=== PATIENT | female | born 1955 | race Caucasian/White ===

== ENCOUNTER 2017-08-30 17:44 | Emergency (ER) | payer OTHER, SELFPAY ==
[2017-08-30 17:45] VITALS: BP 126/80; PULSE 106; RESP 16; TEMP 36.6; O2SAT 95; BMI 30.7
[2017-08-30 18:01] VITALS: BP 124/72; PULSE 98; RESP 16; O2SAT 94
--- NOTE | 2017-08-30 18:42 | RAD_ITS ---
STUDY: X-RAY CHEST REASON FOR EXAM: Female, 62 years old. Palpitation TECHNIQUE: Single frontal view COMPARISON: None. FINDINGS: The lungs are expanded. There is mild left basilar atelectasis. Normal size heart. Normal mediastinum and maggy. Normal visualized pulmonary arteries. Normal visualized aortic arch and descending thoracic aorta. Normal visualized thoracic spine. Normal visualized ribs, clavicles, and shoulders. There is no demonstrated abnormality of the visualized soft tissue structures of the upper abdomen. RAD/Chest 1 View (Portable) IMPRESSION: Mild left basilar atelectasis. Electronically Signed: Jeyson Smith DO at 19:04 EDT Tel [phone], Service support ,
--- NOTE | 2017-08-30 18:42 | EKG12_ITS ---
Test Reason : Blood Pressure : / mmHG Vent. Rate : 091 BPM Atrial Rate : 091 BPM P-R Int : 152 ms QRS Dur : 088 ms QT Int : 386 ms P-R-T Axes : 017 023 041 degrees QTc Int : 474 ms Normal sinus rhythm Normal ECG Confirmed by LAURA CRAIN MD ([id number]), material expeditor MIGUEL A KOLB ([id number] on 08/31/2017 2:37:57 PM Referred By: AUGUSTIN Confirmed By:LAURA CRAIN MD
[2017-08-30] MEDS: Ondansetron 4 MG/2 ML Vial IV (19:14)
[2017-08-30] MEDS: 0.9% Normal Saline 1,000 ML 150 ML IV (19:14)
[2017-08-30 19:43] LABS: Absolute Lymphocyte Count 1.63 X10^3/ul (0.83-4.51); Absolute Neutrophil Count 9.4 X10^3/uL (2.0-7.7); Basophil# 0.01 X10^3/uL; Basophil% 0.1 % (0-1); Hemoglobin 14.1 g/dl (12.0-15.0); Lymphocyte # 1.63 X10^3/ul (4.0); Lymphocyte % 13.7 % (19-41); Mean Corp Hgb Conc 34.4 g/gl (32-36); Mean Corpuscular Hgb 31.9 pg (27.0-32.0); Mean Corpuscular Volume 92.8 fL (81-99); Monocyte# 0.85 X10^3/uL; Monocyte% 7.1 % (0-10); Neutrophil # 9.38 X10^3/uL (2.7-7.7); Neutrophil % 78.8 % (47-70); Platelet Count 370 K/mm3 (150-450); RBC Distribution Width CV 13.9 % (11.6-14.6); RBC Distribution Width SD 47.1 fl (35.1-43.9); Red Blood Count 4.42 M/mm3 (4.2-5.4); White Blood Count 11.9 K/mm3 (4.4-11.0)
[2017-08-30 19:47] LABS: Prothrombin Time (Protime)PT. 13.2 SECONDS (11.7-14.9)
[2017-08-30 19:48] LABS: Partial Thromboplast Time 27.5 Seconds (24.1-36.2)
[2017-08-30 19:53] LABS: Bacteria 0 SEEN /hpf (None Seen); Mucous, Urine 0 SEEN /hpf (<or=2+)
[2017-08-30 20:01] LABS: AST(SGOT) 80 U/L (15-37); Alanine Aminotransfer ALT/SGPT 77 U/L (13-56); Albumin, Serum 3.7 g/dL (3.2-5.0); Alkaline Phosphatase 196 U/L (45-117); Anion Gap 15 (5-15); BUN 13 mg/dL (7-18); BUN/Creat Ratio 14.9 RATIO (10-20); Calcium,Total 8.4 mg/dL (8.5-10.1); Chloride 92 mmol/L (98-107); Creatinine, Serum 0.87 mg/dL (0.55-1.02); EST Glomerular Filtration Rate 70 mL/min (>60); Est Glom Filt Rate - Afr Amer 85 mL/min (>60); Estimated Creatinine Clearance 64.37 ml/min; Glucose 88 mg/dL (74-106); Potassium 3.1 mmol/L (3.5-5.1); Protein, Total 7.7 g/dL (6.4-8.2); Sodium Level 129 mmol/L (136-145)
[2017-08-30 20:10] VITALS: BP 123/71; PULSE 98; RESP 16; O2SAT 94
[2017-08-30 20:11] LABS: POSITIVE COUNT NO; POSITIVE DIFFERENTIAL NO; POSITIVE MORPHOLOGY NO
[2017-08-30 20:14] LABS: Color, Urine Yellow (Yellow); Glucose, Dipstick Normal (Normal); Ketone-Dipstick 5 mg/dl (Negative); Leukocyte Esterase-Dipstick 500 /ul (Negative); Nitrite-Dipstick Negative (Negative); Occult Blood-Urine 250 /ul (Negative); Protein-Dipstick 15 mg/dl (Negative); Urine Bilirubin Dipstick Negative (Negative); Urine Clarity Cloudy (Clear); Urine Urobilinogen Normal (Normal)
[2017-08-30 20:33] LABS: Hyaline Cast 0-5 SEEN /lpf (0-5); Red Blood Cells-Urine > 100 SEEN /hpf (0-5); Squamous Epithelial Cells - UA 0-5 SEEN /hpf (5-10); Transitional Epithelial - Ur 0-5 SEEN /hpf (0-5); White Blood Cells 5-10 SEEN /hpf (0-5)
--- NOTE | 2017-08-30 20:56 | ED.DCSUM_ITS ---
- ER Visit Summary Date of Service: 08/30/17 Chief Complaint: EtOH withdrawal/palpitations History of Present Illness: The patient is a 62 F with a history of alcoholism. Patient states for the last 2 months she started drinking again. She drinks 1 -2 bottles of vodka a day. Patient states the last 3 nights she has been having some palpitations that wake her from sleep. She states they last only a few seconds at a time. She denies near syncope. She does not have chest pain associated with this. Patient believes the palpitations are associated with alcohol withdrawal. She is trying to cut down on how much she is drinking. She is interested in [facility], but states that she needs to fill out appeal paperwork in order for her insurance to cover it first. Physical Examination: Vital signs are unremarkable. She is not tachycardic at this time. Head neck examination is unremarkable. Heart is regular rate and rhythm. Lung sounds are clear. Abdomen is soft and nontender. Hypoactive bowel sounds are noted throughout. Neuro exam is unremarkable. No tremor is noted. Test Results: Chest x-ray reveals mild left basilar atelectasis. EKG is sinus at 91 with no sign of ischemia. CBC was a white count 11.9 with 78% neutrophils. Chemistry studies are 129 and potassium is 3.1. The only labs I have available for comparison are from a year and a half ago at that time her sodium was in the low 130s and her potassium was 3.2. LFTs revealed alk phos of 196, ALT 77, AST of 80. Coags are normal. Urinalysis does show grade 100 RBCs. There is no sign of infection. Troponin is less than 0.02. Her EtOH is 135. Emergency Department Course and Treatment: Patient was given IV fluids and Zofran here. She was given 40 mEq of potassium. At this time patient has remained asymptomatic. She wishes to follow-up with [facility] as an outpatient tomorrow. I am unsure as to the etiology of her hematuria. Patient is having no abdominal pain. She states that she did urinate again while in the emergency room and did not note any blood. Patient is currently taking 20 mEq of potassium twice a day. She will increase this to 40 mEq in the morning and 20 in the evening. She will do this for the next 5 days and then have her potassium rechecked. Treatment Plan: [] Disposition: Discharge Impression: 1. Palpitations 2. Hypokalemia 3. EtOH intoxication 4. Hematuria, uncertain etiology This note was generated with [employer] dictation software. It may contain incorrect words, spelling, and punctuation that were not noted in review of the chart prior to signing ED Disposition - Plan for ED Patient: Disposition: Home or Assisted Living Chief Complaint: ETOH Intox Instructions: ED Potassium Deficiency, ED Palpitations, ED Alcohol Abuse Prescriptions: Ondansetron [Zofran Odt] 4 mg PO Q8H PRN PRN #10 tablet PRN Reason: Nausea Referrals: Care Physician,No Primary [Primary Care Provider] - Additional Instructions: Call [facility] tomorrow for an evaluation - [phone]. Increase your potassium to 2 tabs in the morning and 1 tab in the evening for the next 5 days , then have your potassium level rechecked.
--- NOTE | 2017-08-30 20:58 | DCINST.ED_ITS ---
ED Disposition - Plan for ED Patient: Disposition: Home or Assisted Living Chief Complaint: ETOH Intox Instructions: ED Palpitations, ED Potassium Deficiency, ED Alcohol Abuse Prescriptions: Ondansetron [Zofran Odt] 4 mg PO Q8H PRN PRN #10 tablet PRN Reason: Nausea Additional Instructions: Call [facility] tomorrow for an evaluation - [phone]. Increase your potassium to 2 tabs in the morning and 1 tab in the evening for the next 5 days , then have your potassium level rechecked.
[2017-08-30 21:12] VITALS: BP 123/77; PULSE 97; RESP 16; O2SAT 94
== END 2017-08-30 21:13 | disposition home or self-care (01) ==
PROVIDERS: Emergency Provider Emergency Medicine
DX: R00.2 Palpitations (principal); E87.6 Hypokalemia; F10.229 Alcohol dependence with intoxication, unspecified; Y90.6 Blood alcohol level of 120-199 mg/100 ml; R31.9 Hematuria, unspecified; J98.11 Atelectasis; I10 Essential (primary) hypertension; F41.9 Anxiety disorder, unspecified; F32.9 Major depressive disorder, single episode, unspecified
CPT/HCPCS: 71045; 80048; 80076; 80320; 81001; 84484; 85025; 85610; 85730; 93005; 96361; 96374; 99285; J7030; G0480; J2405

== ENCOUNTER 2017-09-08 08:42 | Inpatient (IN) | payer OTHER, SELFPAY ==
[2017-09-08] VITALS (10 sets, daily range): BP systolic 132–162; BP diastolic 79–96; PULSE 90–115; RESP 16–22; TEMP 36.6–37.2; O2SAT 95–97; BMI 30.4; BMI 31.1
--- NOTE | 2017-09-08 09:05 | EKG12_ITS ---
Test Reason : INTOXICATION Blood Pressure : / mmHG Vent. Rate : 102 BPM Atrial Rate : 102 BPM P-R Int : 172 ms QRS Dur : 086 ms QT Int : 350 ms P-R-T Axes : 057 025 033 degrees QTc Int : 456 ms Sinus tachycardia Otherwise normal ECG Confirmed by BREANN JIN, LAURA ([id number]), industrial editor MIGUEL A KOLB ([id number]) on 09/12/2017 8:21:54 AM Referred By: DC Confirmed By:LAURA CRAIN MD
--- NOTE | 2017-09-08 09:09 | ED.VISSUMM ---
- ER Visit Summary Date of Service: 09/08/17 Chief Complaint: Alcohol withdrawal History of Present Illness: The patient is a 62 F requesting detox from alcohol. She was seen previously and referred [facility] the [facility], but her insurance would not cover inpatient detox. She has been unable to find an inpatient detox facility. She complains of tremors, nausea, and vomiting. Consistent with prior alcohol withdrawal. She did drink this morning. She normally drinks 2 quarts of vodka per day and sometimes wine as well. Denies any drug use. Has a history of hypokalemia and tension. No suicidal or homicidal thoughts. Physical Examination: Vital signs unremarkable except for a heart rate of 113. Afebrile. Nontoxic and in no acute distress. Heart regular. Lungs clear. Abdomen soft and nontender. Skin appears normal in color. Patient has an intention tremor. Test Results: We will check some basic labs, EKG, tox, and alcohol. Emergency Department Course and Treatment: Patient has signs and symptoms of alcohol withdrawal. She says she has a history of DTs. Treated with fluids and Ativan while awaiting results. Potassium 3.0, alcohol 48, tox screen was positive for amphetamines, alk phos 236, ALT 78, AST 93. I spoke with social work. With the patient's tachycardia, tremors, and hypokalemia, she meets criteria for inpatient care. Claire from [facility] will see the patient tomorrow. I called the hospitalist for admission. Treatment Plan: As above Disposition: Admission Impression: 1. Alcohol withdrawal 2. Hypokalemia This note was generated with [employer] dictation software. It may contain incorrect words, spelling, and punctuation that were not noted in review of the chart prior to signing ED Disposition - Plan for ED Patient: Chief Complaint: ETOH Intox Referrals: Care Physician,No Primary [NON-STAFF] -
--- NOTE | 2017-09-08 09:14 | ED.DCSUM_ITS ---
- ER Visit Summary Date of Service: 09/08/17 Chief Complaint: Alcohol withdrawal History of Present Illness: The patient is a 62 F requesting detox from alcohol. She was seen previously and referred to [facility], but her insurance would not cover inpatient detox. She has been unable to find an inpatient detox facility. She complains of tremors, nausea, and vomiting. Consistent with prior alcohol withdrawal. She did drink this morning. She normally drinks 2 quarts of vodka per day and sometimes wine as well. Denies any drug use. Has a history of hypokalemia and tension. No suicidal or homicidal thoughts. Physical Examination: Vital signs unremarkable except for a heart rate of 113. Afebrile. Nontoxic and in no acute distress. Heart regular. Lungs clear. Abdomen soft and nontender. Skin appears normal in color. Patient has an intention tremor. Test Results: We will check some basic labs, EKG, tox, and alcohol. Emergency Department Course and Treatment: Patient has signs and symptoms of alcohol withdrawal. She says she has a history of DTs. Treated with fluids and Ativan while awaiting results. Potassium 3.0, alcohol 48, tox screen was positive for amphetamines, alk phos 236, ALT 78, AST 93. I spoke with social work. With the patient's tachycardia, tremors, and hypokalemia, she meets criteria for inpatient care. lCaire from [facility] will see the patient tomorrow. I called the hospitalist for admission. Treatment Plan: As above Disposition: Admission Impression: 1. Alcohol withdrawal 2. Hypokalemia This note was generated with [employer] dictation software. It may contain incorrect words, spelling, and punctuation that were not noted in review of the chart prior to signing ED Disposition - Plan for ED Patient: Chief Complaint: ETOH Intox Referrals: Care Physician,No Primary [NON-STAFF] -
[2017-09-08 09:31] LABS: Absolute Lymphocyte Count 1.41 X10^3/ul (0.83-4.51); Absolute Neutrophil Count 7.8 X10^3/uL (2.0-7.7); Basophil# 0.01 X10^3/uL; Basophil% 0.1 % (0-1); Hematocrit 39.2 % (37-47); Hemoglobin 13.5 g/dl (12.0-15.0); Lymphocyte # 1.41 X10^3/ul (4.0); Lymphocyte % 13.3 % (19-41); Mean Corp Hgb Conc 34.4 g/gl (32-36); Mean Corpuscular Hgb 31.9 pg (27.0-32.0); Mean Corpuscular Volume 92.7 fL (81-99); Mean Platelet Vol. 9.4 fl (6.2-12.0); Monocyte# 1.25 X10^3/uL; Monocyte% 11.8 % (0-10); Neutrophil # 7.83 X10^3/uL (2.7-7.7); Neutrophil % 73.6 % (47-70); Platelet Count 252 K/mm3 (150-450); RBC Distribution Width CV 13.5 % (11.6-14.6); RBC Distribution Width SD 45.3 fl (35.1-43.9); Red Blood Count 4.23 M/mm3 (4.2-5.4); White Blood Count 10.6 K/mm3 (4.4-11.0)
[2017-09-08 09:39] LABS: POSITIVE COUNT NO; POSITIVE DIFFERENTIAL NO; POSITIVE MORPHOLOGY NO
[2017-09-08 09:50] LABS: ALB/GLOB Ratio 0.9 RATIO (0.9-2.4); AST(SGOT) 93 U/L (15-37); Alanine Aminotransfer ALT/SGPT 78 U/L (13-56); Albumin, Serum 3.4 g/dL (3.2-5.0); Alkaline Phosphatase 236 U/L (45-117); Anion Gap 13 (5-15); BUN 8 mg/dL (7-18); BUN/Creat Ratio 12.3 RATIO (10-20); Calcium,Total 8.5 mg/dL (8.5-10.1); Chloride 96 mmol/L (98-107); Creatinine, Serum 0.65 mg/dL (0.55-1.02); EST Glomerular Filtration Rate 99 mL/min (>60); Est Glom Filt Rate - Afr Amer 119 mL/min (>60); Estimated Creatinine Clearance 86.16 ml/min; Globulin 3.9 g/dL (2.2-4.2); Glucose 109 mg/dL (74-106); Protein, Total 7.3 g/dL (6.4-8.2); Sodium Level 135 mmol/L (136-145)
[2017-09-08] MEDS: 0.9% Normal Saline 1,000 ML 999 ML IV (10:15)
[2017-09-08] MEDS: LORazepam 2 MG/ML Syringe 1 MG IV (10:15)
[2017-09-08 10:52] LABS: Amphetamine Urine VISTA NEGATIVE (<1000 ng/mL); Barbiturate Urine VISTA NEGATIVE (< 200 ng/mL); Benzodiazepine Urine VISTA NEGATIVE (< 200 ng/mL); Cocaine Urine VISTA NEGATIVE (< 300 ng/mL); Ecstacy Urine VISTA POSITIVE (< 500 ng/mL); Methadone Urine VISTA NEGATIVE (< 300 ng/mL); PCP Urine VISTA NEGATIVE (< 25 ng/mL); THC Urine VISTA NEGATIVE (< 50 ng/mL); Vista UDS pH Range 5
--- NOTE | 2017-09-08 12:17 | PCM.HP.STD ---
Problem List (1) Alcohol withdrawal Status: Acute (2) Alcohol use disorder Status: Acute History of Present Illness Date of Admission: 09/08/17 Chief Complaint: I am going through alcohol withdrawal The patient is a 62 year old F with medical history of essential hypertension and alcohol use disorder who presented to the emergency room complaining of symptom complex consistent with early alcohol withdrawal , she wants to quit drinking and was medical stabilization for full-blown alcohol withdrawal . She drinks Vodka on daily basis. She had wanted to come through [facility] program but her insurance would not cover. She states she woke up this morning restless , with tremors , diaphoresis and anxiety and she decided to drink some vodka before coming to the emergency room. In Emergency room he was found to be mildly tachycardic, his potassium was low at 3.0, and transaminases were elevated, she is not jaundiced, UDS is positive for methamphetamines When I saw her she was was alert and oriented to time place and person and she did not appear toxic, [ Past Medical History Allergies meperidine HCl [From Demerol] Allergy (Verified 08/30/17 17:47) HYPERTENSION phenobarbital Allergy (Verified 08/30/17 17:47) Other HYPERTENSION shellfish derived Allergy (Verified 08/30/17 17:47) Hives Home Medications: Ambulatory Orders Medication Instructions Recorded Amlodipine [Norvasc] 10 mg PO DAILY 12/29/15 buPROPion XL [Wellbutrin Xl] 300 mg PO DAILY 12/29/15 Potassium Chloride [K-Dur] 20 meq PO DAILY 02/09/16 Hydrochlorothiazide [Hctz] 25 mg PO DAILY 03/03/16 Irbesartan [Avapro] 150 mg PO DAILY 08/25/16 Ondansetron [Zofran Odt] 4 mg PO Q8H PRN PRN #10 tablet 08/30/17 Smoking Status: Never smoker VTE Information - Inpt Only VTE Present on Admission: Yes VTE Mechan Device Prophylaxis: SCD's VTE Pharm Prophylaxis ordered?: Yes - Physical Exam Vital Signs Temp Pulse Resp BP Pulse Ox 97.9 F 114 H 16 162/90 H 95 09/08/17 08:42 09/08/17 11:48 09/08/17 11:48 09/08/17 11:48 09/08/17 11:48 Oxygen Delivery Method Room Air Weight: 85.548 kg Body Mass Index (BMI) 30.4 Laboratory Tests Past 24 Hrs 09/08/17 09/08/17 09/08/17 09:21 09:21 09:21 WBC 10.6 RBC 4.23 Hgb 13.5 Hct 39.2 MCV 92.7 MCH 31.9 MCHC 34.4 RDW 13.5 RDW Differential 45.3 H Plt Count 252 MPV 9.4 Immature Gran % (Auto) 1.200 H Neut % (Auto) 73.6 H Lymph % (Auto) 13.3 L [place] % (Auto) 11.8 H Eos % (Auto) 0.0 Baso % (Auto) 0.1 Absolute Neuts (auto) 7.8 H Absolute Lymphs (auto) 1.41 Total Counted Not Reportable Sodium 135 L Potassium 3.0 L Chloride 96 L Carbon Dioxide 26.0 Anion Gap 13 BUN 8 Creatinine 0.65 Estim Creat Clear Calc 86.16 Est GFR (MDRD) Af Amer 119 Est GFR (MDRD) Non-Af 99 BUN/Creatinine Ratio 12.3 Glucose 109 H Calcium 8.5 Total Bilirubin 0.80 AST 93 H ALT 78 H Alkaline Phosphatase 236 H Total Protein 7.3 Albumin 3.4 Globulin 3.9 Albumin/Globulin Ratio 0.9 Urine Opiates Screen Urine Methadone Screen Ur Barbiturates Screen Ur Phencyclidine Scrn Ur Amphetamines Screen U Methamphetamin-MDMA U Benzodiazepines Scrn Urine Cocaine Screen U Cannabinoids Screen Ur Drug Screen Comment Ethyl Alcohol 48.0 09/08/17 10:17 WBC RBC Hgb Hct MCV MCH MCHC RDW RDW Differential Plt Count MPV Immature Gran % (Auto) Neut % (Auto) Lymph % (Auto) [place] % (Auto) Eos % (Auto) Baso % (Auto) Absolute Neuts (auto) Absolute Lymphs (auto) Total Counted Sodium Potassium Chloride Carbon Dioxide Anion Gap BUN Creatinine Estim Creat Clear Calc Est GFR (MDRD) Af Amer Est GFR (MDRD) Non-Af BUN/Creatinine Ratio Glucose Calcium Total Bilirubin AST ALT Alkaline Phosphatase Total Protein Albumin Globulin Albumin/Globulin Ratio Urine Opiates Screen NEGATIVE Urine Methadone Screen NEGATIVE Ur Barbiturates Screen NEGATIVE Ur Phencyclidine Scrn NEGATIVE Ur Amphetamines Screen NEGATIVE U Methamphetamin-MDMA POSITIVE H U Benzodiazepines Scrn NEGATIVE Urine Cocaine Screen NEGATIVE U Cannabinoids Screen NEGATIVE Ur Drug Screen Comment Ethyl Alcohol Assessment/Plan 1. Early alcohol withdrawal ; we will monitor her closely per SSA scale , she will will be placed on the medical stabilization protocol for alcohol withdrawal. 2. Alcohol use disorder; the patient is an excellent state of sedation would at least [facility] to assist with outpatient rehab program since her insurance will not cover this an an inpatient. 3. Hypokalemia; this will be replaced with oral potassium chloride. 4 Hepatitis; likely alcoholic but we will rule out viral hepatitis . We will avoid potential hepatotoxic agents. 5. Essential Hypertension; we will resume her home medications, hydrochlorothiazide will be held due to dehydration and mild hyponatremia. 6. Dehydration / mild hyponatremia the patient will be hydrated with 0.9 normal saline. 7. Early Ambulation for DVT prophylaxis. Code Visit Inpatient E&M: 78475 Init Hosp L2
[2017-09-08] MEDS: Lactated Ringers 1,000 ML 125 ML IV (13:12)
[2017-09-08] MEDS: LORazepam 1 MG Tablet PO ×3 (13:12→19:58)
[2017-09-08 13:55] LABS: Anion Gap 11 (5-15); BUN 7 mg/dL (7-18); Calcium,Total 8.1 mg/dL (8.5-10.1); Chloride 97 mmol/L (98-107); EST Glomerular Filtration Rate 91 mL/min (>60); Est Glom Filt Rate - Afr Amer 110 mL/min (>60); Estimated Creatinine Clearance 80.01 ml/min; Glucose 106 mg/dL (74-106); Sodium Level 136 mmol/L (136-145)
--- NOTE | 2017-09-08 13:55 | NURSING ---
ZOFRAN ODT VERIFIED WITH ANOTHER NURSE AND GVEN PO TO PT, ONLY MED ON AUG FOR NAUSEA AND IT IS NOT ACKNOWLEDGED PER rX YET
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
[2017-09-08] MEDS: Methocarbamol 750 MG Tablet PO (19:59)
[2017-09-09] VITALS (11 sets, daily range): BP systolic 126–154; BP diastolic 72–98; PULSE 87–116; RESP 16; TEMP 36.6–37.2; O2SAT 95–97
[2017-09-09] MEDS: LORazepam 1 MG Tablet PO ×5 (00:50→22:25)
[2017-09-09] MEDS: Ondansetron ODT 4 MG Tablet PO (00:50)
[2017-09-09 05:08] LABS: HEPATITIS B SURFACE AG Negative (Negative); Hepatitis A IgM Antibody Negative (Negative); Hepatitis B Core AB IgM Negative (Negative)
--- NOTE | 2017-09-09 06:32 | NURSING ---
voiding trial initiated at 0630. 250ml Normal saline injected into patient's bladder via braga catheter. Pt. then promptly assisted to bathroom. awaiting results. Patient has till 0700 to void and results to be called to surgeon.
[2017-09-09 08:29] LABS: AST(SGOT) 85 U/L (15-37); Alanine Aminotransfer ALT/SGPT 77 U/L (13-56); Albumin, Serum 3.2 g/dL (3.2-5.0); Alkaline Phosphatase 227 U/L (45-117); Bilirubin, Direct 0.26 mg/dL (0.00-0.30); Globulin 3.8 g/dL (2.2-4.2)
[2017-09-09] MEDS: Losartan Potassium 50 MG Tablet PO (08:56)
[2017-09-09] MEDS: Methocarbamol 750 MG Tablet PO ×2 (08:56→16:08)
[2017-09-09] MEDS: amLODIPine 10 MG Tablet PO (08:56)
[2017-09-09] MEDS: buPROPion (XL) 300 MG TABLET.XL PO (08:57)
[2017-09-09 09:20] LABS: Hep C Antibodies 0.1 s/co ratio (0.0-0.9)
--- NOTE | 2017-09-09 11:00 | PCM.PN.HOSP ---
Subjective: Patient Is a 62-year-old female with a past medical history of hypertension alcohol she is disorder. She was admitted to the emergency room and alcohol withdrawal and wanted to be admitted for medical stabilization for alcohol withdrawal. Patient states she is a binge drinker and drinks vodka on a daily basis but increases the amount she drinks about 1/5 of vodka and about 5 glasses of wine at a time whenever she is binge drinking. She had wanted to be admitted to the [facility] program but her insurance would not cover it. He is admitted with restlessness, tremors, diaphoresis and anxiety. She has been managed for alcohol withdrawal. She is on alcohol withdrawal protocol. Seen and examined this morning. She complains of mild lower back pain because she slipped and fell. She denied any loss of consciousness or dizziness at time of falling. She denies any fever or chills, any tremors, any lightheadedness or dizziness, any chest pain, any terminal pain, diarrhea vomiting. Review of systems otherwise negative. Patient states that she has outpatient resources for quitting alcohol and goes to Alcoholics Anonymous but does not usually follow up because she thinks she gets better and quits. Vitals/I&O's: Vital Signs Temp Pulse Resp BP Pulse Ox 98.0 F 102 H 16 141/86 H 95 09/09/17 08:51 09/09/17 08:51 09/09/17 08:51 09/09/17 08:51 09/09/17 08:49 Oxygen Delivery Method Room Air Weight: 192 lb 14.472 oz Body Mass Index (BMI) 31.1 Intake and Output for Last 24 Hours 09/07/17 09/08/17 09/09/17 23:59 23:59 23:59 Intake Total 753 / 753 1551 / 1551 Output Total 600 / 600 Balance 153 / 153 1551 / 1551 General: Alert, Oriented x3, Cooperative HEENT: Atraumatic, PERRLA, EOMI, Normocephalic Oral: Moist Mucosa Neck: Supple, No JVD, Negative Carotid Bruits Lungs: Clear to auscultation, Normal air movement Cardiovascular: Regular rate, Regular Rhythm, Normal S1, Normal S2, No murmurs Abdomen: Bowel Sounds Present, Soft, Non Tender, Non-Distended, No Hepato-splenomegaly Extremities: No cyanosis, No edema, Capillary Refill Less than 3 Seconds Skin: No rashes, No breakdown Musculoskeletal: No Tenderness to Palpation of Joints or Extremities, - - Tenderness at examination of lower back and flank though patient insists she has pain there. Lymphatic: No Cervical, Supraclavicular, or Inguinal Adenopathy Neurological: Cranial nerves II-XII grossly intact, Neuro grossly intact Psych/Mental Status: Normal Affect, Appropriate, Alert and oriented to time, place, person, mood and affect Laboratory Results 09/08/17 13:20: Sodium 136, Potassium 3.0 L, Chloride 97 L, Carbon Dioxide 28.0, Anion Gap 11, BUN 7, Creatinine 0.70, Estim Creat Clear Calc 80.01, Est GFR (MDRD) Af Amer 110, Est GFR (MDRD) Non-Af 91, BUN/Creatinine Ratio 10.0, Glucose 106, Calcium 8.1 L 09/08/17 13:20: Hepatitis A IgM Ab Negative, Hep Bs Antigen Negative, Hep B Core IgM Ab Negative, Hepatitis C Ab (EIA) 0.1 09/09/17 07:38: Total Bilirubin 0.80, Direct Bilirubin 0.26, AST 85 H, ALT 77 H, Alkaline Phosphatase 227 H, Total Protein 7.0, Albumin 3.2, Globulin 3.8 Current Medications Amlodipine Besylate (Norvasc) 10 mg PO DAILY [facility] Last Admin: 09/09/17 08:56 Dose: 10 mg Bupropion HCl (Wellbutrin Xl) 300 mg PO DAILY [facility] Last Admin: 09/09/17 08:57 Dose: 300 mg Lorazepam (Ativan) 1 mg PO Q6H SAMIR PRN Reason: Taper Stop: 09/11/17 16:44 Last Admin: 09/09/17 08:55 Dose: 1 mg Lorazepam (Ativan) 1 mg IV Q2H PRN PRN PRN Reason: Alcohol Withdrawal Losartan Potassium (Cozaar) 50 mg PO DAILY [facility] Last Admin: 09/09/17 08:56 Dose: 50 mg Methocarbamol (Methocarbamol) 750 mg PO Q6H PRN PRN PRN Reason: Muscle Aches Last Admin: 09/09/17 08:56 Dose: 750 mg Ondansetron HCl (Zofran Odt) 4 mg PO Q8H PRN PRN PRN Reason: NAUSEA Last Admin: 09/09/17 00:50 Dose: 4 mg Potassium Chloride (K-Dur) 20 meq PO DAILY SAMIR Last Admin: 09/09/17 08:56 Dose: 20 meq Sodium Chloride () 5 - 30 ml IV UD PRN PRN Reason: SALINE FLUSH Medical Necessity - Tobacco Use Smoking Status: Never smoker Assessment/Plan Alcohol abuse and withdrawal Patient has no complaints. Feels very well and is stable. On alcohol withdrawal protocol with Ativan. CIWA score today-4 encouraged to follow up with outpatient AA which she already attends. 2. Hypokalemia: K was 3 on admission. Was replaced. Will check K and Mg today. 3. Elevated transaminases: AST/ALT was 93/78 on admission, trended down slightly to 85/77. Will check today. AlP was 236->227. this is likely due to alcohol; will check LFTs today and check hepatitis panel. 4. Back pain: patient says she has lower back pain after she fell. Had minimal tenderness on examination. Xray done of her back this morning shows superior endplate depression fractures at L2-1, with loss of vertebral body height at L2 of ~ 15%, and at L1 anteriorly of ~ 40%. Degenerative disc disease at T12-L1, L1-2 and L2-3 suggesting chronicity. Mild levoscoliosis of thoracolumbar region,and arthritic changes of left hip. Will get orthopedic surgery consult. 5. Benign essential hypertension: on amlodipine and losartan 6. Hyponatremia; resolved. Was 135 on admission ->136->139. Will monitor 7. DVT prophylaxis: heparin. This note was generated with [employer] dictation software. It may contain incorrect words, spelling, and punctuation that were not noted in checking the note before signing. Code Visit OBSV E&M: 97053 Initial observation care L2
--- NOTE | 2017-09-09 11:09 | PN_ITS ---
Subjective: Patient Is a 62-year-old female with a past medical history of hypertension alcohol she is disorder. She was admitted to the emergency room and alcohol withdrawal and wanted to be admitted for medical stabilization for alcohol withdrawal. Patient states she is a binge drinker and drinks vodka on a daily basis but increases the amount she drinks about 1/5 of vodka and about 5 glasses of wine at a time whenever she is binge drinking. She had wanted to be admitted to the [facility] but her insurance would not cover it. He is admitted with restlessness, tremors, diaphoresis and anxiety. She has been managed for alcohol withdrawal. She is on alcohol withdrawal protocol. Seen and examined this morning. She complains of mild lower back pain because she slipped and fell. She denied any loss of consciousness or dizziness at time of falling. She denies any fever or chills, any tremors, any lightheadedness or dizziness, any chest pain, any terminal pain, diarrhea vomiting. Review of systems otherwise negative. Patient states that she has outpatient resources for quitting alcohol and goes to Alcoholics Anonymous but does not usually follow up because she thinks she gets better and quits. Vitals/I&O's: Vital Signs Temp Pulse Resp BP Pulse Ox 98.0 F 102 H 16 141/86 H 95 09/09/17 08:51 09/09/17 08:51 09/09/17 08:51 09/09/17 08:51 09/09/17 08:49 Oxygen Delivery Method Room Air Weight: 192 lb 14.472 oz Body Mass Index (BMI) 31.1 Intake and Output for Last 24 Hours 09/07/17 09/08/17 09/09/17 23:59 23:59 23:59 Intake Total 753 / 753 1551 / 1551 Output Total 600 / 600 Balance 153 / 153 1551 / 1551 General: Alert, Oriented x3, Cooperative HEENT: Atraumatic, PERRLA, EOMI, Normocephalic Oral: Moist Mucosa Neck: Supple, No JVD, Negative Carotid Bruits Lungs: Clear to auscultation, Normal air movement Cardiovascular: Regular rate, Regular Rhythm, Normal S1, Normal S2, No murmurs Abdomen: Bowel Sounds Present, Soft, Non Tender, Non-Distended, No Hepato- splenomegaly Extremities: No cyanosis, No edema, Capillary Refill Less than 3 Seconds Skin: No rashes, No breakdown Musculoskeletal: No Tenderness to Palpation of Joints or Extremities, - - Tenderness at examination of lower back and flank though patient insists she has pain there. Lymphatic: No Cervical, Supraclavicular, or Inguinal Adenopathy Neurological: Cranial nerves II-XII grossly intact, Neuro grossly intact Psych/Mental Status: Normal Affect, Appropriate, Alert and oriented to time, place, person, mood and affect Laboratory Results 09/08/17 13:20: Sodium 136, Potassium 3.0 L, Chloride 97 L, Carbon Dioxide 28.0 , Anion Gap 11, BUN 7, Creatinine 0.70, Estim Creat Clear Calc 80.01, Est GFR ( MDRD) Af Amer 110, Est GFR (MDRD) Non-Af 91, BUN/Creatinine Ratio 10.0, Glucose 106, Calcium 8.1 L 09/08/17 13:20: Hepatitis A IgM Ab Negative, Hep Bs Antigen Negative, Hep B Core IgM Ab Negative, Hepatitis C Ab (EIA) 0.1 09/09/17 07:38: Total Bilirubin 0.80, Direct Bilirubin 0.26, AST 85 H, ALT 77 H , Alkaline Phosphatase 227 H, Total Protein 7.0, Albumin 3.2, Globulin 3.8 Current Medications Amlodipine Besylate (Norvasc) 10 mg PO DAILY [facility] Last Admin: 09/09/17 08:56 Dose: 10 mg Bupropion HCl (Wellbutrin Xl) 300 mg PO DAILY [facility] Last Admin: 09/09/17 08:57 Dose: 300 mg Lorazepam (Ativan) 1 mg PO Q6H [facility] PRN Reason: Taper Stop: 09/11/17 16:44 Last Admin: 09/09/17 08:55 Dose: 1 mg Lorazepam (Ativan) 1 mg IV Q2H PRN PRN PRN Reason: Alcohol Withdrawal Losartan Potassium (Cozaar) 50 mg PO DAILY [facility] Last Admin: 09/09/17 08:56 Dose: 50 mg Methocarbamol (Methocarbamol) 750 mg PO Q6H PRN PRN PRN Reason: Muscle Aches Last Admin: 09/09/17 08:56 Dose: 750 mg Ondansetron HCl (Zofran Odt) 4 mg PO Q8H PRN PRN PRN Reason: NAUSEA Last Admin: 09/09/17 00:50 Dose: 4 mg Potassium Chloride (K-Dur) 20 meq PO DAILY [facility] Last Admin: 09/09/17 08:56 Dose: 20 meq Sodium Chloride () 5 - 30 ml IV UD PRN PRN Reason: SALINE FLUSH Medical Necessity - Tobacco Use Smoking Status: Never smoker Assessment/Plan Alcohol abuse and withdrawal * Patient has no complaints. Feels very well and is stable. * On alcohol withdrawal protocol with Ativan. * CIWA score today-4 * encouraged to follow up with outpatient AA which she already attends. * 2. Hypokalemia: K was 3 on admission. Was replaced. Will check K and Mg today. 3. Elevated transaminases: AST/ALT was 93/78 on admission, trended down slightly to 85/77. Will check today. AlP was 236->227. this is likely due to alcohol; will check LFTs today and check hepatitis panel. 4. Back pain: * patient says she has lower back pain after she fell. Had minimal tenderness on examination. Xray done of her back this morning shows superior endplate depression fractures at L2-1, with loss of vertebral body height at L2 of ~ 15% , and at L1 anteriorly of ~ 40%. Degenerative disc disease at T12-L1, L1-2 and L2-3 suggesting chronicity. Mild levoscoliosis of thoracolumbar region,and arthritic changes of left hip. * Will get orthopedic surgery consult. 5. Benign essential hypertension: on amlodipine and losartan 6. Hyponatremia; resolved. Was 135 on admission ->136->139. Will monitor 7. DVT prophylaxis: heparin. This note was generated with [employer] dictation software. It may contain incorrect words, spelling, and punctuation that were not noted in checking the note before signing. Code Visit OBSV E&M: 40374 Initial observation care L2
--- NOTE | 2017-09-09 11:12 | RAD_ITS ---
STUDY: X-RAY - LUMBAR SPINE REASON FOR EXAM: Female, 62 years old. Pain TECHNIQUE: 3 view(s) of the lumbar spine were obtained. COMPARISON: None FINDINGS: There is superior endplate depression fractures at L2 and L1. There is loss of vertebral body height at L2 of approximately 15%. There is loss of vertebral body height anteriorly at L1 of approximately 40%. There is degenerative disc disease at T12-L1, L1-L2 and L2-L3, suggesting chronicity. There is no osseous destruction. There is mild levoscoliosis of the thoracolumbar region. There are arthritic changes at the left hip. The SI joints are intact. RAD/Lumbar Spine 2 or 3 Views IMPRESSION: Superior endplate depression fracture deformities, L1, L2 Degenerative disc disease, T12-L1, L1-L2, L2-L3 Mild levoscoliosis at the thoracolumbar region Arthritic changes at the left hip Electronically Signed: Tacos Saenz MD at 11:54 EDT Tel , Service support ,
[2017-09-09 13:08] LABS: Anion Gap 9 (5-15); BUN 7 mg/dL (7-18); BUN/Creat Ratio 8.6 RATIO (10-20); Calcium,Total 8.5 mg/dL (8.5-10.1); Chloride 102 mmol/L (98-107); Creatinine, Serum 0.82 mg/dL (0.55-1.02); EST Glomerular Filtration Rate 76 mL/min (>60); Est Glom Filt Rate - Afr Amer 92 mL/min (>60); Glucose 119 mg/dL (74-106); Magnesium 2.1 mg/dL (1.6-2.6); Potassium 3.4 mmol/L (3.5-5.1); Sodium Level 139 mmol/L (136-145)
[2017-09-09] MEDS: Sodium Chloride 0.65% 1 SPRAY SPRAY.BTL 2 SPRAY NASAL (16:08)
[2017-09-09] MEDS: Mag Hydrox/Al Hydrox/Simeth 30 ML UDC PO (22:25)
[2017-09-09] MEDS: Ibuprofen 600 MG Tablet PO (22:25)
[2017-09-10 02:00] VITALS: BP 145/91; PULSE 88; RESP 16; TEMP 36.9; O2SAT 96
[2017-09-10] MEDS: LORazepam 1 MG Tablet PO ×2 (02:47→08:53)
[2017-09-10 03:00] VITALS: PULSE 90
[2017-09-10 06:00] VITALS: BP 134/75; PULSE 91; RESP 16; TEMP 37.1; O2SAT 94
[2017-09-10 06:44] LABS: AST(SGOT) 57 U/L (15-37); Alanine Aminotransfer ALT/SGPT 64 U/L (13-56); Alkaline Phosphatase 198 U/L (45-117); Anion Gap 9 (5-15); BUN 6 mg/dL (7-18); Bilirubin, Direct 0.22 mg/dL (0.00-0.30); Calcium,Total 8.4 mg/dL (8.5-10.1); Chloride 101 mmol/L (98-107); Creatinine, Serum 0.75 mg/dL (0.55-1.02); EST Glomerular Filtration Rate 84 mL/min (>60); Est Glom Filt Rate - Afr Amer 102 mL/min (>60); Estimated Creatinine Clearance 74.67 ml/min; Globulin 3.5 g/dL (2.2-4.2); Glucose 104 mg/dL (74-106); Magnesium 2.3 mg/dL (1.6-2.6); Potassium 3.8 mmol/L (3.5-5.1); Protein, Total 6.5 g/dL (6.4-8.2); Sodium Level 138 mmol/L (136-145)
--- NOTE | 2017-09-10 07:24 | CON.PCM_ITS ---
Reason for Consult Date of Consultation: 09/10/17 Reason for Consultation: back pain/ fall. requested by dr Mehta History of Present Illness: The patient is a 62 year old F with history of chronic alcohol abuse presented to the emergency department yesterday for alcohol withdrawal. She was admitted to the hospital. She stated she fell couple days ago sustaining increased pain in her low back. Patient does have a history of lumbar back injury with compression fractures 10 years ago. Patient reports the pain is upper lumbar spine. It is worse with positioning better with heat pad and laying flat on her back. She states she does have some numbness and tingling in all 10 toes no specific distribution. She takes calcium and a mixed vitamin D supplement on a regular basis. She denies any weakness. It is a dull achy pain. She also reports a fall she hit her left knee does not note any difficulties with weightbearing since that time. No reported bowel or bladder habit changes. Patient has been afebrile. No chills or night sweats Past Medical History Allergies meperidine HCl [From Demerol] Allergy (Verified 08/30/17 17:47) HYPERTENSION phenobarbital Allergy (Verified 08/30/17 17:47) Other HYPERTENSION shellfish derived Allergy (Verified 08/30/17 17:47) Hives Home Medications: Ambulatory Orders Medication Instructions Recorded Amlodipine [Norvasc] 10 mg PO DAILY 12/29/15 buPROPion XL [Wellbutrin Xl] 300 mg PO DAILY 12/29/15 Potassium Chloride [K-Dur] 20 meq PO DAILY 02/09/16 Hydrochlorothiazide [Hctz] 25 mg PO DAILY 03/03/16 Irbesartan [Avapro] 150 mg PO DAILY 08/25/16 Ondansetron [Zofran Odt] 4 mg PO Q8H PRN PRN #10 tablet 08/30/17 Surgical History: - - No pertinent surgical history Psychiatric History: - - Alcohol dependence Lives: Alone Smoking Status: Never smoker Tobacco Use: Non-smoker Alcohol: Heavy Drugs: - - mdma blood testing Review of Systems Constitutional: Denies: Chills, Fever, Weight Change HEENT: Denies: Head Aches, Sinus Congestion, Sinus Drainage Cardiovascular: Denies: Chest Pain, Palpitations Respiratory: Denies: Cough, Shortness of breath at rest, Sputum production Gastrointestinal: Denies: Abdominal Pain, Nausea, Vomiting Genitourinary: Denies: Dysuria Musculoskeletal: Reports: - - see hpi Skin: Denies: Rash, Wounds Neurological: Reports: Numbness - Also in toes. Denies: Focal weakness, Tingling Psychiatric: Denies: Anxiety, Depression, Homicidal Ideations, Suicidal Ideations Hematologic/ Lymphatic: Denies: Easy Bruising, Easy Bleeding Objective: Lumbar radiographs AP, lateral and coned-down lateral views were reviewed showing L1 and L2 compression fractures L1 30-40% L2 less than 20% anterior compression. These were compared to rib radiographs taken in May 2016 these old radiographs also show L1 and L2 compression fractures. Do not appreciate significant changes in bony structure. Consistent with old healed compression fractures at this time. - Physical Exam General: Alert, Oriented x3, Cooperative Extremities: - - Lumbar exam: Minimal tenderness to palpation over the central spine and spinous processes. Moderate tenderness palpation over the paraspinal musculature and flank especially on the right in the upper lumbar regions. Negative straight leg raise bilaterally. 5 out of 5 hip flexion, knee extension , dorsiflexion, EHL and plantar flexion strength. Sensations grossly intact light touch L2-S1. Vital Signs Temp Pulse Resp BP Pulse Ox 98.7 F 91 16 134/75 H 94 09/10/17 06:00 09/10/17 06:00 09/10/17 06:00 09/10/17 06:00 09/10/17 06:00 Oxygen Delivery Method Room Air Weight: 192 lb 14.472 oz Body Mass Index (BMI) 31.1 Intake and Output for Last 24 Hours 09/08/17 09/09/17 09/10/17 23:59 23:59 23:59 Intake Total 753 / 753 1950 1100 / 1100 Output Total 600 / 600 Balance 153 / 153 1950 1100 / 1100 Laboratory Tests Past 24 Hrs 09/08/17 09/09/17 09/09/17 13:20 07:38 12:25 Sodium 139 Potassium 3.4 L Chloride 102 Carbon Dioxide 28.0 Anion Gap 9 BUN 7 Creatinine 0.82 Estim Creat Clear Calc 68.30 Est GFR (MDRD) Af Amer 92 Est GFR (MDRD) Non-Af 76 BUN/Creatinine Ratio 8.6 L Glucose 119 H Calcium 8.5 Magnesium 2.1 Total Bilirubin 0.80 Direct Bilirubin 0.26 AST 85 H ALT 77 H Alkaline Phosphatase 227 H Total Protein 7.0 Albumin 3.2 Globulin 3.8 Hepatitis A IgM Ab Negative Hepatitis A Ab Total Hepatitis A Interp Hep Bs Antigen Negative Hep Bs Ag Confirmation Hep Bs Antibody Interp Hep B Core Total Ab Hep B Core IgM Ab Negative Hepatitis C Ab (EIA) 0.1 Hepatitis C Ab Confirm Hepatitis C Comment 09/09/17 09/10/17 12:25 05:55 Sodium 138 Potassium 3.8 Chloride 101 Carbon Dioxide 28.0 Anion Gap 9 BUN 6 L Creatinine 0.75 Estim Creat Clear Calc 74.67 Est GFR (MDRD) Af Amer 102 Est GFR (MDRD) Non-Af 84 BUN/Creatinine Ratio 8.0 L Glucose 104 Calcium 8.4 L Magnesium 2.3 Total Bilirubin 0.70 Direct Bilirubin 0.22 AST 57 H ALT 64 H Alkaline Phosphatase 198 H Total Protein 6.5 Albumin 3.0 L Globulin 3.5 Hepatitis A IgM Ab Cancelled Hepatitis A Ab Total Cancelled Hepatitis A Interp Cancelled Hep Bs Antigen Cancelled Hep Bs Ag Confirmation Cancelled Hep Bs Antibody Interp Cancelled Hep B Core Total Ab Cancelled Hep B Core IgM Ab Cancelled Hepatitis C Ab (EIA) Hepatitis C Ab Confirm Cancelled Hepatitis C Comment Cancelled Assessment/Plan Acute lumbar strain with presence of chronic compression fractures without acute changes and bony structure. Paresthesias 1. Pain management per primary service appears well controlled at this time. Continue with heat as needed. Chairback brace was recommended due to the level of pain. Recommend use of nonsteroidal anti-inflammatories, kidney function appears appropriate. Possible Toradol followed by scheduled Mobic. 2. Physical therapy: Patient should be started on physical therapy for lumbar strain and continue with physical therapy as an outpatient after being discharged from the hospital. 3. Disposition: From orthopedic standpoint patient is appropriate for discharge from the hospital with outpatient physical therapy. If discharge to an inpatient facility for her other medical conditions will continue physical therapy. Recommend follow-up in office in 6 weeks to evaluate progress with physical therapy. [facility] Office:
[2017-09-10 08:40] VITALS: BP 149/88; PULSE 90; RESP 18; TEMP 36.9; O2SAT 100
[2017-09-10] MEDS: amLODIPine 10 MG Tablet PO (08:52)
[2017-09-10] MEDS: buPROPion (XL) 300 MG TABLET.XL PO (08:52)
[2017-09-10] MEDS: Losartan Potassium 50 MG Tablet PO (08:53)
[2017-09-10] MEDS: Thiamine Hydrochloride 100 MG Tablet PO (08:53)
[2017-09-10] MEDS: Folic Acid 1 MG Tablet PO (08:53)
[2017-09-10] MEDS: Multivitamins,Ther W-Minerals Tablet 1 TABLET PO (08:53)
[2017-09-10 10:00] VITALS: BP 149/88; PULSE 90; RESP 18; TEMP 36.9
--- NOTE | 2017-09-10 11:31 | PCM.PN.HOSP ---
Subjective: Subjective: Patient Is a 62-year-old female with a past medical history of hypertension alcohol use disorder. She was admitted to the emergency room for alcohol withdrawal and wanted to be admitted for medical stabilization for alcohol withdrawal. She is on alcohol withdrawal protocol with ativan. Patient seen and examined this morning. She had no complaints and feels well. Also concern about erythema of her right conjunctiva yesterday but patient states this is not new and she has it when she rubs her eyes. She wonders why seem to help with this redness. She denies any discharge or any pain in the affected eye. Back pain is also significantly improved and she has no other complaints. She denies any fever or chills, any cough chest pain, any shortness of breath, any abdominal pain, any diarrhea vomiting. Review of systems otherwise negative. Vitals/I&O's: Vital Signs Temp Pulse Resp BP Pulse Ox 98.5 F 90 18 149/88 H 100 09/10/17 08:40 09/10/17 08:40 09/10/17 08:40 09/10/17 08:40 09/10/17 08:40 Oxygen Delivery Method Room Air Weight: 192 lb 14.472 oz Body Mass Index (BMI) 31.1 Intake and Output for Last 24 Hours 09/08/17 09/09/17 09/10/17 23:59 23:59 23:59 Intake Total 753 / 753 1950 1100 / 1100 Output Total 600 / 600 Balance 153 / 153 1950 1100 / 1100 General: Alert, Oriented x3, Cooperative HEENT: Atraumatic, PERRLA, EOMI, Normocephalic, - - very minimal erythema of right conjuctiva. No swelling or tenderness. Oral: Moist Mucosa Neck: Supple, No JVD, Negative Carotid Bruits Lungs: Clear to auscultation, Normal air movement Cardiovascular: Regular rate, Regular Rhythm, Normal S1, Normal S2, No murmurs Abdomen: Bowel Sounds Present, Soft, Non Tender, Non-Distended, No Hepato-splenomegaly Extremities: No edema, Capillary Refill Less than 3 Seconds Skin: No rashes, No breakdown Musculoskeletal: No Tenderness to Palpation of Joints or Extremities, - - no tenderness on palpation of back Lymphatic: No Cervical, Supraclavicular, or Inguinal Adenopathy Neurological: Cranial nerves II-XII grossly intact, Neuro grossly intact, Motor Exam 5/5 strength throughout Psych/Mental Status: Normal Affect, Appropriate, Alert and oriented to time, place, person, mood and affect Laboratory Results 09/09/17 12:25: Sodium 139, Potassium 3.4 L, Chloride 102, Carbon Dioxide 28.0, Anion Gap 9, BUN 7, Creatinine 0.82, Estim Creat Clear Calc 68.30, Est GFR (MDRD) Af Amer 92, Est GFR (MDRD) Non-Af 76, BUN/Creatinine Ratio 8.6 L, Glucose 119 H, Calcium 8.5, Magnesium 2.1 09/09/17 12:25: Hepatitis A IgM Ab Cancelled, Hepatitis A Ab Total Cancelled, Hepatitis A Interp Cancelled, Hep Bs Antigen Cancelled, Hep Bs Ag Confirmation Cancelled, Hep Bs Antibody Interp Cancelled, Hep B Core Total Ab Cancelled, Hep B Core IgM Ab Cancelled, Hepatitis C Ab Confirm Cancelled, Hepatitis C Comment Cancelled 09/10/17 05:55: Sodium 138, Potassium 3.8, Chloride 101, Carbon Dioxide 28.0, Anion Gap 9, BUN 6 L, Creatinine 0.75, Estim Creat Clear Calc 74.67, Est GFR (MDRD) Af Amer 102, Est GFR (MDRD) Non-Af 84, BUN/Creatinine Ratio 8.0 L, Glucose 104, Calcium 8.4 L, Magnesium 2.3, Total Bilirubin 0.70, Direct Bilirubin 0.22, AST 57 H, ALT 64 H, Alkaline Phosphatase 198 H, Total Protein 6.5, Albumin 3.0 L, Globulin 3.5 Current Medications Acetaminophen (Tylenol) 500 mg PO Q4H PRN PRN PRN Reason: Temp > 100.4 F Al Hydroxide/Mg Hydroxide (Mylanta Ii) 30 ml PO Q6H PRN PRN PRN Reason: dyspesia Last Admin: 09/09/17 22:25 Dose: 30 ml Amlodipine Besylate (Norvasc) 10 mg PO DAILY [facility] Last Admin: 09/10/17 08:52 Dose: 10 mg Bisacodyl (Dulcolax) 10 mg RECTAL DAILY PRN PRN Reason: Constipation Bupropion HCl (Wellbutrin Xl) 300 mg PO DAILY [facility] Last Admin: 09/10/17 08:52 Dose: 300 mg Dicyclomine HCl (Bentyl) 20 mg PO Q6H PRN PRN PRN Reason: abdominal discomfort Folic Acid (Folic Acid) 1 mg PO DAILY@0800 [facility] Last Admin: 09/10/17 08:53 Dose: 1 mg Hydroxyzine Pamoate (Vistaril Pamoate Capsule) 50 mg PO Q6H PRN PRN PRN Reason: Mild Anxiety (score 1/3) Ibuprofen (Motrin) 600 mg PO Q8H PRN PRN PRN Reason: Mild-Moderate Pain (1-5/10) Last Admin: 09/09/17 22:25 Dose: 600 mg Loperamide HCl (Imodium) 2 - 4 mg PO UD PRN PRN Reason: LOOSE STOOLS Lorazepam (Ativan) 1 mg PO Q8H [facility] PRN Reason: Taper Stop: 09/11/17 16:44 Last Admin: 09/10/17 08:53 Dose: 1 mg Lorazepam (Ativan) 1 mg IV Q2H PRN PRN PRN Reason: Alcohol Withdrawal Losartan Potassium (Cozaar) 50 mg PO DAILY [facility] Last Admin: 09/10/17 08:53 Dose: 50 mg Methocarbamol (Methocarbamol) 750 mg PO Q6H PRN PRN PRN Reason: Muscle Aches Last Admin: 09/09/17 16:08 Dose: 750 mg [facility]ivitamins/Minerals ([facility] Min[facility]) [facility] Last Admin: 09/10/17 08:53 Dose: 1 tablet Ondansetron HCl (Zofran Odt) 4 mg PO Q8H PRN PRN PRN Reason: NAUSEA Last Admin: 09/09/17 00:50 Dose: 4 mg Potassium Chloride (K-Dur) 20 meq PO DAILY [facility] Last Admin: 09/10/17 08:53 Dose: 20 meq Pramipexole Dihydrochloride (Mirapex) 0.25 mg PO Q12H PRN PRN PRN Reason: Restless legs Quetiapine Fumarate (Seroquel) 25 mg PO Q6H PRN PRN PRN Reason: Moderate Anxiety (score 2/3) Senna (Senokot) 1 tablet PO QHS PRN PRN Reason: Constipation Sodium Chloride () 5 - 30 ml IV UD PRN PRN Reason: SALINE FLUSH Sodium Chloride (Drew Nasal Hughson) 2 spray NASAL TID PRN PRN PRN Reason: NASAL DRYNESS Last Admin: 09/09/17 16:08 Dose: 2 spray Thiamine HCl (Vitamin B1) 100 mg PO DAILYCM [facility] Last Admin: 09/10/17 08:53 Dose: 100 mg Trazodone HCl (Desyrel) 50 mg PO QHS [facility] Last Admin: 09/09/17 22:18 Dose: Not Given Medical Necessity - Tobacco Use Smoking Status: Never smoker Tobacco Use: Non-smoker Assessment/Plan Alcohol abuse and withdrawal Patient has no complaints. Feels very well and is stable. On alcohol withdrawal protocol with Ativan. CIWA score today-1 encouraged to follow up with outpatient AA which she already attends. telephonic nurse case manager to set patient up with outpatient resources for alcohol detox. 2. Hypokalemia: resolved. 3. Elevated transaminases: resolved. Hepatitis panel was also negative. 4. Back pain: patient says she has lower back pain after she fell. Had minimal tenderness on examination. Xray done of her back showed superior endplate depression fractures at L2-1, with loss of vertebral body height at L2 of ~ 15%, and at L1 anteriorly of ~ 40%. Degenerative disc disease at T12-L1, L1-2 and L2-3 suggesting chronicity. Mild levoscoliosis of thoracolumbar region,and arthritic changes of left hip. orthopedic surgery consulted. [facility] and to follow up in 6 weeks. 5. Benign essential hypertension: BP-149/88. on amlodipine and losartan 7. DVT prophylaxis: heparin. Disposition: will dc home today with outpatient physical therapy. To follow up in 6 weeks. This note was generated with [employer] dictation software. It may contain incorrect words, spelling, and punctuation that were not noted in checking the note before signing. Code Visit Inpatient E&M: 94881 Subs Hosp L2
--- NOTE | 2017-09-10 11:40 | PN_ITS ---
Subjective: Subjective: Patient Is a 62-year-old female with a past medical history of hypertension alcohol use disorder. She was admitted to the emergency room for alcohol withdrawal and wanted to be admitted for medical stabilization for alcohol withdrawal. She is on alcohol withdrawal protocol with ativan. Patient seen and examined this morning. She had no complaints and feels well. Also concern about erythema of her right conjunctiva yesterday but patient states this is not new and she has it when she rubs her eyes. She wonders why seem to help with this redness. She denies any discharge or any pain in the affected eye. Back pain is also significantly improved and she has no other complaints. She denies any fever or chills, any cough chest pain, any shortness of breath, any abdominal pain, any diarrhea vomiting. Review of systems otherwise negative. Vitals/I&O's: Vital Signs Temp Pulse Resp BP Pulse Ox 98.5 F 90 18 149/88 H 100 09/10/17 08:40 09/10/17 08:40 09/10/17 08:40 09/10/17 08:40 09/10/17 08:40 Oxygen Delivery Method Room Air Weight: 192 lb 14.472 oz Body Mass Index (BMI) 31.1 Intake and Output for Last 24 Hours 09/08/17 09/09/17 09/10/17 23:59 23:59 23:59 Intake Total 753 / 753 1950 1100 / 1100 Output Total 600 / 600 Balance 153 / 153 1950 1100 / 1100 General: Alert, Oriented x3, Cooperative HEENT: Atraumatic, PERRLA, EOMI, Normocephalic, - - very minimal erythema of right conjuctiva. No swelling or tenderness. Oral: Moist Mucosa Neck: Supple, No JVD, Negative Carotid Bruits Lungs: Clear to auscultation, Normal air movement Cardiovascular: Regular rate, Regular Rhythm, Normal S1, Normal S2, No murmurs Abdomen: Bowel Sounds Present, Soft, Non Tender, Non-Distended, No Hepato- splenomegaly Extremities: No edema, Capillary Refill Less than 3 Seconds Skin: No rashes, No breakdown Musculoskeletal: No Tenderness to Palpation of Joints or Extremities, - - no tenderness on palpation of back Lymphatic: No Cervical, Supraclavicular, or Inguinal Adenopathy Neurological: Cranial nerves II-XII grossly intact, Neuro grossly intact, Motor Exam 5/5 strength throughout Psych/Mental Status: Normal Affect, Appropriate, Alert and oriented to time, place, person, mood and affect Laboratory Results 09/09/17 12:25: Sodium 139, Potassium 3.4 L, Chloride 102, Carbon Dioxide 28.0, Anion Gap 9, BUN 7, Creatinine 0.82, Estim Creat Clear Calc 68.30, Est GFR (MDRD ) Af Amer 92, Est GFR (MDRD) Non-Af 76, BUN/Creatinine Ratio 8.6 L, Glucose 119 H, Calcium 8.5, Magnesium 2.1 09/09/17 12:25: Hepatitis A IgM Ab Cancelled, Hepatitis A Ab Total Cancelled, Hepatitis A Interp Cancelled, Hep Bs Antigen Cancelled, Hep Bs Ag Confirmation Cancelled, Hep Bs Antibody Interp Cancelled, Hep B Core Total Ab Cancelled, Hep B Core IgM Ab Cancelled, Hepatitis C Ab Confirm Cancelled, Hepatitis C Comment Cancelled 09/10/17 05:55: Sodium 138, Potassium 3.8, Chloride 101, Carbon Dioxide 28.0, Anion Gap 9, BUN 6 L, Creatinine 0.75, Estim Creat Clear Calc 74.67, Est GFR ( MDRD) Af Amer 102, Est GFR (MDRD) Non-Af 84, BUN/Creatinine Ratio 8.0 L, Glucose 104, Calcium 8.4 L, Magnesium 2.3, Total Bilirubin 0.70, Direct Bilirubin 0.22, AST 57 H, ALT 64 H, Alkaline Phosphatase 198 H, Total Protein 6.5, Albumin 3.0 L, Globulin 3.5 Current Medications Acetaminophen (Tylenol) 500 mg PO Q4H PRN PRN PRN Reason: Temp > 100.4 F Al Hydroxide/Mg Hydroxide (Mylanta Ii) 30 ml PO Q6H PRN PRN PRN Reason: dyspesia Last Admin: 09/09/17 22:25 Dose: 30 ml Amlodipine Besylate (Norvasc) 10 mg PO DAILY [facility] Last Admin: 09/10/17 08:52 Dose: 10 mg Bisacodyl (Dulcolax) 10 mg RECTAL DAILY PRN PRN Reason: Constipation Bupropion HCl (Wellbutrin Xl) 300 mg PO DAILY [facility] Last Admin: 09/10/17 08:52 Dose: 300 mg Dicyclomine HCl (Bentyl) 20 mg PO Q6H PRN PRN PRN Reason: abdominal discomfort Folic Acid (Folic Acid) 1 mg PO DAILY@0800 [facility] Last Admin: 09/10/17 08:53 Dose: 1 mg Hydroxyzine Pamoate (Vistaril Pamoate Capsule) 50 mg PO Q6H PRN PRN PRN Reason: Mild Anxiety (score 1/3) Ibuprofen (Motrin) 600 mg PO Q8H PRN PRN PRN Reason: Mild-Moderate Pain (1-5/10) Last Admin: 09/09/17 22:25 Dose: 600 mg Loperamide HCl (Imodium) 2 - 4 mg PO UD PRN PRN Reason: LOOSE STOOLS Lorazepam (Ativan) 1 mg PO Q8H [facility] PRN Reason: Taper Stop: 09/11/17 16:44 Last Admin: 09/10/17 08:53 Dose: 1 mg Lorazepam (Ativan) 1 mg IV Q2H PRN PRN PRN Reason: Alcohol Withdrawal Losartan Potassium (Cozaar) 50 mg PO DAILY [facility] Last Admin: 09/10/17 08:53 Dose: 50 mg Methocarbamol (Methocarbamol) 750 mg PO Q6H PRN PRN PRN Reason: Muscle Aches Last Admin: 09/09/17 16:08 Dose: 750 mg [facility]ivit[facility]/Minerals ([facility]) [facility] Last Admin: 09/10/17 08:53 Dose: 1 tablet Ondansetron HCl (Zofran Odt) 4 mg PO Q8H PRN PRN PRN Reason: NAUSEA Last Admin: 09/09/17 00:50 Dose: 4 mg Potassium Chloride (K-Dur) 20 meq PO DAILY [facility] Last Admin: 09/10/17 08:53 Dose: 20 meq Pramipexole Dihydrochloride (Mirapex) 0.25 mg PO Q12H PRN PRN PRN Reason: Restless legs Quetiapine Fumarate (Seroquel) 25 mg PO Q6H PRN PRN PRN Reason: Moderate Anxiety (score 2/3) Senna (Senokot) 1 tablet PO QHS PRN PRN Reason: Constipation Sodium Chloride () 5 - 30 ml IV UD PRN PRN Reason: SALINE FLUSH Sodium Chloride ([place] Nasal [place]) 2 spray NASAL TID PRN PRN PRN Reason: NASAL DRYNESS Last Admin: 09/09/17 16:08 Dose: 2 spray Thiamine HCl (Vitamin B1) 100 mg PO DAILYCM [facility] Last Admin: 09/10/17 08:53 Dose: 100 mg Trazodone HCl (Desyrel) 50 mg PO QHS [facility] Last Admin: 09/09/17 22:18 Dose: Not Given Medical Necessity - Tobacco Use Smoking Status: Never smoker Tobacco Use: Non-smoker Assessment/Plan Alcohol abuse and withdrawal * Patient has no complaints. Feels very well and is stable. * On alcohol withdrawal protocol with Ativan. * CIWA score today-1 * encouraged to follow up with outpatient AA which she already attends. * case management social worker to set patient up with outpatient resources for alcohol detox. * 2. Hypokalemia: resolved. 3. Elevated transaminases: resolved. Hepatitis panel was also negative. 4. Back pain: * patient says she has lower back pain after she fell. Had minimal tenderness on examination. Xray done of her back showed superior endplate depression fractures at L2-1, with loss of vertebral body height at L2 of ~ 15%, and at L1 anteriorly of ~ 40%. Degenerative disc disease at T12-L1, L1-2 and L2-3 suggesting chronicity. Mild levoscoliosis of thoracolumbar region,and arthritic changes of left hip. * orthopedic surgery consulted. [facility] and to follow up in 6 weeks. * 5. Benign essential hypertension: BP-149/88. on amlodipine and losartan 7. DVT prophylaxis: heparin. Disposition: will dc home today with outpatient physical therapy. To follow up in 6 weeks. This note was generated with [employer] dictation software. It may contain incorrect words, spelling, and punctuation that were not noted in checking the note before signing. Code Visit Inpatient E&M: 61817 Subs Hosp L2
--- NOTE | 2017-09-10 11:41 | PCM.DC ---
You will use the following diet at home:: Cardiac Your food should be the consistency of: Regular Your liquids should be the consistency of: Regular/Thin Discharge Activity: Return to Normal Activity May resume sexual activity in: No Restrictions Weight Bearing Status: Weight bearing as tolerated Allergies/Adverse Reactions: Allergies meperidine HCl [From Demerol] Allergy (Verified 08/30/17 17:47) HYPERTENSION phenobarbital Allergy (Verified 08/30/17 17:47) Other HYPERTENSION shellfish derived Allergy (Verified 08/30/17 17:47) Hives Medications to take at Discharge Amlodipine [Norvasc] 10 mg PO DAILY 12/29/15 buPROPion XL [Wellbutrin Xl] 300 mg PO DAILY 12/29/15 Potassium Chloride [K-Dur] 20 meq PO DAILY 02/09/16 Hydrochlorothiazide [Hctz] 25 mg PO DAILY 03/03/16 Irbesartan [Avapro] 150 mg PO DAILY 08/25/16 Ondansetron [Zofran Odt] 4 mg PO Q8H PRN PRN #10 tablet 08/30/17 Meloxicam [Mobic] 7.5 mg PO DAILY PRN #30 tab 09/10/17 Peg 400/Hypromellose/Glycerin [Visine Dry Eye Relief Drop] 15 ml OP 4X/DAY PRN PRN #1 bottle 09/10/17 The following prescriptions were given: Meloxicam [Mobic] 7.5 mg PO DAILY PRN #30 tab PRN Reason: back pain Orders to be completed after discharge: Physical Therapy Evaluation Time Frame: 1 Week, Location: None Selected Primary Care Physician: Care Physician,No Primary [NON-STAFF] - Please follow up with your Primary Care Physician in: follow up with PCP in one week Please Follow Up With: Tacos Messina MD When: 6 weeks When: physical therapy referral Proposed Discharge Date: 09/10/17
--- NOTE | 2017-09-10 11:49 | DS.PCM_ITS ---
Discharge Date and Diagnosis Date of Admission: 09/08/17 Date of Discharge: 09/10/17 - Primary Discharge Diagnosis alcohol dependence Hospital Course and Treatment Imaging Results: Laboratory Results 09/10/17 05:55: Sodium 138, Potassium 3.8, Chloride 101, Carbon Dioxide 28.0, Anion Gap 9, BUN 6 L, Creatinine 0.75, Estim Creat Clear Calc 74.67, Est GFR ( MDRD) Af Amer 102, Est GFR (MDRD) Non-Af 84, BUN/Creatinine Ratio 8.0 L, Glucose 104, Calcium 8.4 L, Magnesium 2.3, Total Bilirubin 0.70, Direct Bilirubin 0.22, AST 57 H, ALT 64 H, Alkaline Phosphatase 198 H, Total Protein 6.5, Albumin 3.0 L, Globulin 3.5 Diagnostic Data Lumbar Spine X-Ray 09/09/17 11:12 IMPRESSION: Superior endplate depression fracture deformities, L1, L2 Degenerative disc disease, T12-L1, L1-L2, L2-L3 Mild levoscoliosis at the thoracolumbar region Arthritic changes at the left hip Electronically Signed: Tacos Saenz MD at 11:54 EDT Tel , Service support , orthopedics Procedures: None Summary of Care Provided: Patient Is a 62-year-old female with a past medical history of hypertension alcohol use disorder. She was admitted via the emergency room on 09/08/17 for alcohol withdrawal. She was managed for alcohol withdrawal with ativan protocol CIWA scores remained low (1-4). She complained of back pain and a lumbar spine xray showed chronic compression fractures at L2-1. Orthopedics reviewed patient and recommended home PT and follow up in 6 weeks. She remained stable and was discharged home with physical therapy on 09/10/17. She is to follow up with her PCP and orthopedics. Discharge Activity: Return to Normal Activity May resume sexual activity in: No Restrictions Weight Bearing Status: Weight bearing as tolerated Home Medications: Medications to take at Discharge Amlodipine [Norvasc] 10 mg PO DAILY 12/29/15 buPROPion XL [Wellbutrin Xl] 300 mg PO DAILY 12/29/15 Potassium Chloride [K-Dur] 20 meq PO DAILY 09/06/16 Hydrochlorothiazide [Hctz] 25 mg PO DAILY 03/03/16 Irbesartan [Avapro] 150 mg PO DAILY 08/25/16 Ondansetron [Zofran Odt] 4 mg PO Q8H PRN PRN #10 tablet 08/30/17 Meloxicam [Mobic] 7.5 mg PO DAILY PRN #30 tab 09/10/17 Peg 400/Hypromellose/Glycerin [Visine Dry Eye Relief Drop] 15 ml OP 4X/DAY PRN PRN #1 bottle 09/10/17 Following Prescrptions Were Given to Patient: Meloxicam [Mobic] 7.5 mg PO DAILY PRN #30 tab PRN Reason: back pain Peg 400/Hypromellose/Glycerin [Visine Dry Eye Relief Drop] 15 ml OP 4X/DAY PRN PRN #1 bottle PRN Reason: Dry Eyes Other Amb Orders: Physical Therapy Evaluation Time Frame: 1 Week, Location: None Selected Primary Care Physician: Care Physician,No Primary [NON-STAFF] - Please follow up with your Primary Care Physician in: follow up with PCP in one week Please Follow Up With: Tacos Messina MD When: 6 weeks When: physical therapy referral Disposition: Home Minutes spent on discharge:: 25 Patient Condition:: Good Medical Necessity - Tobacco Use Smoking Status: Never smoker Tobacco Use: Non-smoker Meaningful Use Info Meaningful Use Diagnoses (Choose all that apply): None applicable Code Visit Inpatient E&M: 87157 Disch Hosp
--- NOTE | 2017-09-10 12:41 | NURSING ---
Pt discharged to home per MD order. Discharge instructions given and explained. Prescriptions given. Pt states understanding. IV d/c'd. All questions and concerns addressed. Pt ambulated off unit on RA, A&Ox3, and in stable condition.
== END 2017-09-10 12:36 | disposition home or self-care (01) | DRG 897 ==
LOC: ED 11:43 → MS3 15:06
PROVIDERS: Admitting Provider Internal Medicine; Emergency Provider Emergency Medicine; Visit Provider Student in an Organized Health Care Education/Training Program
DX: F10.239 Alcohol dependence with withdrawal, unspecified (principal); E87.1 Hypo-osmolality and hyponatremia; M48.56XA Collapsed vertebra, not elsewhere classified, lumbar region, initial encounter for fracture; E87.6 Hypokalemia; I10 Essential (primary) hypertension; R74.0 Nonspecific elevation of levels of transaminase and lactic acid dehydrogenase [LDH]; W19.XXXA Unspecified fall, initial encounter
CPT/HCPCS: 36415; 72100; 80048; 80053; 80074; 80076; 80307; 80320; 83735; 85025; 93005; J7030; J7120; A4216; G0480

== ENCOUNTER 2018-02-16 16:05 | Inpatient (IN) | payer OTHER, SELFPAY ==
[2018-02-16 16:09] VITALS: BMI 29.8; BMI 29.9
[2018-02-16 16:27] VITALS: BP 119/79; PULSE 106; RESP 18; TEMP 36.6; O2SAT 95
[2018-02-16 16:37] VITALS: BP 119/79; PULSE 106; RESP 18; TEMP 36.6
--- NOTE | 2018-02-16 16:42 | PCM.HP.STD ---
Problem List (1) Alcohol withdrawal Status: Acute (2) HTN (hypertension) Status: Chronic Qualifiers: Hypertension type: essential hypertension Qualified Code(s): I10 - Essential (primary) hypertension (3) Obesity (BMI 30.0-34.9) Status: Chronic (4) Depression Status: Chronic Qualifiers: Depression Type: unspecified Qualified Code(s): F32.9 - Major depressive disorder, single episode, unspecified (5) Alcohol use disorder Status: Chronic History of Present Illness Date of Admission: 02/16/18 Chief Complaint: Acute EtOH Withdrawal The patient is a 62 y/o F w/ PMHx: Hypertension, Obesity, Depression, Alcohol abuse (~12 glasses wine/day) who presents to the [facility] on 02/16/18 w/ noted acute EtOH withdrawal, onset starting on day of presentation following last EtOH intake 1 pm on day of presentation with onset of nausea, tremors, agitation, tactile disturbances. Patient interested in attaining sober status. She notes she had been sober prior but relapsed. She notes that her is also an alcoholic and has remained sober for many years however with her current relapse he has relapsed also for the last 2 weeks. Patient notes that remotely she did use cannabis but denies any other history. Discussed patient's history at length especially given patient plan for discharge to home following acute rehabilitation given that her is currently relapsed as well. She states that if she is not present her will be able to achieve sobriety as he only starts drinking again when she does. Encouraged patient to reconsider discharge planning to alternate living situation until assure her sober as well. Past Medical History Past Medical History (Chronic Problems): Chronic Problems Alcohol use disorder (Chronic) HTN (hypertension) (Chronic) Obesity (BMI 30.0-34.9) (Chronic) Depression (Chronic) Allergies meperidine HCl [From Demerol] Allergy (Verified 08/30/17 17:47) HYPERTENSION phenobarbital Allergy (Verified 08/30/17 17:47) Other HYPERTENSION shellfish derived Allergy (Verified 08/30/17 17:47) Hives Home Medications: Ambulatory Orders Medication Instructions Recorded Amlodipine [Norvasc] 10 mg PO DAILY 12/29/15 buPROPion XL [Wellbutrin Xl] 300 mg PO DAILY 12/29/15 Potassium Chloride [K-Dur] 20 meq PO DAILY 02/09/16 Hydrochlorothiazide [Hctz] 25 mg PO DAILY 03/03/16 Irbesartan [Avapro] 150 mg PO DAILY 08/25/16 Ondansetron [Zofran Odt] 4 mg PO Q8H PRN PRN #10 tablet 08/30/17 Peg 400/Hypromellose/Glycerin 15 ml OP 4X/DAY PRN PRN #1 bottle 09/10/17 [Visine Dry Eye Relief Drop] Surgical History: - - Bilateral total hip replacement, tonsillectomy, ovarian cyst intervention, history of intracranial bleed while intoxicated secondary to falling with intervention. 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 Smoking Status: Never smoker Tobacco Use: Non-smoker Alcohol: Heavy - Patient admits to at least 12 glasses of wine per day. Drugs: None Review of Systems Constitutional: Reports: Anorexia, Malaise, Weakness, Fatigue. Denies: Chills, Fever, Weight Change HEENT: Denies: Head Aches, Sinus Congestion, Sinus Drainage Cardiovascular: Denies: Chest Pain, Palpitations Respiratory: Denies: Cough, Shortness of breath at rest, Sputum production Gastrointestinal: Reports: Nausea. Denies: Abdominal Pain, Vomiting Genitourinary: Denies: Dysuria Musculoskeletal: Denies: Joint Pain, Joint Tenderness Skin: Denies: Rash, Wounds Neurological: Reports: Confusion, Tremor. Denies: Focal weakness, Numbness, Tingling Psychiatric: Reports: Depression. Denies: Anxiety, Homicidal Ideations, Suicidal Ideations Hematologic/ Lymphatic: Denies: Easy Bruising, Easy Bleeding VTE Information - Inpt Only VTE Present on Admission: No VTE Mechan Device Prophylaxis: SCD's VTE Pharm Prophylaxis ordered?: Yes Subjective: Seated upright in a chair, fatigued appearing, mild tremors noted. Objective: Physical Examination: General: awake, alert, oriented x 3 and cooperative, seated upright in the chair, mildly fatigued appearance, mild tremors noted. Skin: normal color, turgor, no icterus, cyanosis. HEENT: AT/NC, EOMI, PERRLA, mildly dry MM, no carotid bruits or JVD noted. Lungs: CTA bilaterally, moderate effort, mild decrease BL bases, no rales, ronchi or wheezing. Heart: Regular rate and rhythm; no gallop, rub audible. Abdomen: soft, obese, NTTP, ND, normal BS, + HM. Extremities: no cyanosis, clubbing, or edema. Neurological: patient awake, alert, oriented x 3; cognitive function intact; pupils equally reactive to light and accomodation; cranial nerves II-XII grossly normal, moving all 4 extremities, no focal deficits, strength moderately to severely globally decreased secondary to acute presentation, mild tremor present. Psychiatric: affect appears fatigued, no acute evidence of depressive or anxiety feelings. - Physical Exam Vital Signs Temp Pulse Resp BP Pulse Ox 97.8 F 106 H 18 119/79 95 02/16/18 16:37 02/16/18 16:37 02/16/18 16:37 02/16/18 16:37 02/16/18 16:27 Oxygen Delivery Method Room Air Weight: 185 lb Body Mass Index (BMI) 29.8 Assessment/Plan All Active Problems Alcohol withdrawal (Acute) The patient is a 62 y/o F w/ PMHx: Hypertension, Obesity, Depression, Alcohol abuse (~12 glasses wine/day) who presents to the [facility] on 02/16/18 w/ noted acute EtOH withdrawal. (1) Acute EtOH Withdrawal: Will admit to [facility] on telemetry, obtain routine labs including CBC, CMP, urine for drug screen, routine EKG and will initiate and continue on [facility] service protocol with taper course of librium, as needed Seroquel, Catapres, Bentyl, Vistaril, IV fluids, IV antiemetics, Tylenol as needed for pain. Once patient clinically improved and completion of taper nearing will plan [facility] assistance for transition to next level of rehabilitation care. Mag, phos pending. Maintain on CIWA protocol. Maintain on multivitamin, thiamine, folic acid. (2) Hypertension: Continue home regimen including Norvasc, hydrochlorothiazide, Avapro. (3) Depression: Maintain on home regimen Wellbutrin. (4) Hypokalemia: Notes chronic hypokalemia, mild, maintain on BID 20 mEq supplementation, CMP upon admission. Mag pending also as noted. (5) Obesity: Weight loss and lifestyle changes encouraged. (6) GERD: Famotidine. (7) DVT prophylaxis: SCD, Lovenox. Code Visit Inpatient E&M: 59289 Init Hosp L3
[2018-02-16 17:06] LABS: Absolute Lymphocyte Count 1.53 X10^3/ul (0.83-4.51); Absolute Neutrophil Count 9.2 X10^3/uL (2.0-7.7); Basophil# 0.03 X10^3/uL; Basophil% 0.2 % (0-1); Eosinophil# 0.01 X10^3/uL; Eosinophils% 0.1 % (0-5); Hematocrit 39.2 % (37-47); Hemoglobin 12.7 g/dl (12.0-15.0); Lymphocyte # 1.53 X10^3/ul (4.0); Lymphocyte % 12.7 % (19-41); Mean Corp Hgb Conc 32.4 g/gl (32-36); Mean Corpuscular Hgb 29.9 pg (27.0-32.0); Mean Corpuscular Volume 92.2 fL (81-99); Mean Platelet Vol. 10.2 fl (6.2-12.0); Monocyte# 1.22 X10^3/uL; Monocyte% 10.1 % (0-10); Neutrophil # 9.19 X10^3/uL (2.7-7.7); Neutrophil % 76.5 % (47-70); Platelet Count 379 K/mm3 (150-450); RBC Distribution Width CV 15.3 % (11.6-14.6); RBC Distribution Width SD 51.7 fl (35.1-43.9); Red Blood Count 4.25 M/mm3 (4.2-5.4)
[2018-02-16 17:13] LABS: International Normalized Ratio 1.1; Prothrombin Time (Protime)PT. 14.1 SECONDS (11.7-14.9)
[2018-02-16] MEDS: Ondansetron ODT 4 MG Tablet PO (17:27)
[2018-02-16] MEDS: Mag Hydrox/Al Hydrox/Simeth 30 ML UDC PO (17:27)
[2018-02-16 17:30] LABS: BUN 11 mg/dL (7-18); Creatinine, Serum 0.94 mg/dL (0.55-1.02); Estimated Creatinine Clearance 59.58 ml/min; Glucose 80 mg/dL (74-106); Magnesium 1.9 mg/dL (1.6-2.6)
[2018-02-16 17:31] LABS: ALB/GLOB Ratio 0.7 RATIO (0.9-2.4); AST(SGOT) 119 U/L (15-37); Alanine Aminotransfer ALT/SGPT 72 U/L (13-56); Albumin, Serum 3.3 g/dL (3.2-5.0); Alkaline Phosphatase 287 U/L (45-117); Anion Gap 13 (5-15); BUN/Creat Ratio 11.8 RATIO (10-20); Calcium,Total 8.8 mg/dL (8.5-10.1); Chloride 99 mmol/L (98-107); EST Glomerular Filtration Rate 65 mL/min (>60); Est Glom Filt Rate - Afr Amer 78 mL/min (>60); Globulin 4.5 g/dL (2.2-4.2); Potassium 3.8 mmol/L (3.5-5.1); Protein, Total 7.8 g/dL (6.4-8.2); Sodium Level 139 mmol/L (136-145)
[2018-02-16] MEDS: chlordiazePOXIDE 25 MG Capsule 50 MG PO (17:32)
[2018-02-16 17:37] LABS: Phosphorus 3.9 mg/dL (2.5-4.9)
[2018-02-16] MEDS: Ibuprofen 600 MG Tablet PO (17:40)
[2018-02-16] MEDS: Lactated Ringers 1,000 ML 125 ML IV (17:57)
[2018-02-16 18:01] LABS: Differential Indicated SCAN CRITERIA MET; POSITIVE COUNT NO; POSITIVE DIFFERENTIAL YES; POSITIVE MORPHOLOGY YES
[2018-02-16 18:03] LABS: Amphetamine Urine VISTA NEGATIVE (<1000 ng/mL); Barbiturate Urine VISTA NEGATIVE (< 200 ng/mL); Benzodiazepine Urine VISTA NEGATIVE (< 200 ng/mL); Cocaine Urine VISTA NEGATIVE (< 300 ng/mL); Ecstacy Urine VISTA POSITIVE (< 500 ng/mL); Methadone Urine VISTA NEGATIVE (< 300 ng/mL); PCP Urine VISTA NEGATIVE (< 25 ng/mL); THC Urine VISTA NEGATIVE (< 50 ng/mL); Vista UDS pH Range 6
[2018-02-16 19:42] VITALS: BP 112/59; PULSE 102; RESP 16; TEMP 37.1; O2SAT 96
[2018-02-16] MEDS: hydrOXYzine PAM 25 MG Capsule 50 MG PO (19:59)
[2018-02-16 20:25] VITALS: O2SAT 95
[2018-02-16] MEDS: Famotidine 20 MG Tablet PO (21:52)
[2018-02-16] MEDS: chlordiazePOXIDE 25 MG Capsule PO (23:02)
[2018-02-16] MEDS: traZODone 50 MG Tablet PO (23:53)
[2018-02-17] VITALS (9 sets, daily range): BP systolic 110–123; BP diastolic 69–82; PULSE 80–91; RESP 16–18; TEMP 36.5–36.9; O2SAT 95–99
[2018-02-17] MEDS: chlordiazePOXIDE 25 MG Capsule PO ×3 (05:11→19:37)
--- NOTE | 2018-02-17 06:50 | PCM.PN.HOSP ---
Subjective: Patient overnight with no acute events aside from difficulty sleeping eventually did following willingness to eventually take trazodone. Patient aware of increased liver enzymes with pending results from liver ultrasound and given age group pending hepatitis panel. Patient admitting now that for the last several weeks she has had some exertional dyspnea with increased activity specifically with high endurance activities with no associated chest discomfort and no other associated symptoms. Patient denies fevers, chills, nausea, emesis, abdominal pain, chest pain or current dyspnea. Objective: Physical Examination: General: awake, alert, oriented x 3 and cooperative, laying in the bed, NAD, notes feeling improved, tired only. Skin: normal color, turgor, no icterus, cyanosis. HEENT: AT/NC, EOMI, PERRLA, improved MMM. Lungs: CTA bilaterally, moderate effort, mild decrease BL bases, no rales, ronchi or wheezing. Heart: Regular rate and rhythm; no gallop, rub audible. Abdomen: soft, obese, NTTP, ND. Extremities: no cyanosis, clubbing, or edema. Neurological: patient awake, alert, oriented x 3; cognitive function intact; pupils equally reactive to light and accomodation; cranial nerves II-XII grossly normal, moving all 4 extremities, no focal deficits, strength moderately globally decreased, no further tremor noted. Psychiatric: affect appears improved, less fatigued, no acute evidence of depressive or anxiety feelings. Vitals/I&O's: Vital Signs Temp Pulse Resp BP Pulse Ox 97.7 F L 80 16 123/76 H 99 02/17/18 05:13 02/17/18 05:13 02/17/18 05:13 02/17/18 05:13 02/17/18 05:13 Oxygen Delivery Method Room Air Weight: 185 lb Body Mass Index (BMI) 29.8 Intake and Output for Last 24 Hours 02/15/18 02/16/18 02/17/18 23:59 23:59 23:59 Intake Total 240 / 240 1332 / 1332 Balance 240 / 240 1332 / 1332 Laboratory Results 02/16/18 16:44: Magnesium 1.9 02/16/18 16:44: WBC 12.0 H, RBC 4.25, Hgb 12.7, Hct 39.2, MCV 92.2, MCH 29.9, MCHC 32.4, RDW 15.3 H, RDW Differential 51.7 H, Plt Count 379, MPV 10.2, Immature Gran % (Auto) 0.400, Neut % (Auto) 76.5 H, Lymph % (Auto) 12.7 L, [place] % (Auto) 10.1 H, Eos % (Auto) 0.1, Baso % (Auto) 0.2, Absolute Neuts (auto) 9.2 H, Absolute Lymphs (auto) 1.53, Total Counted Not Reportable, Differential Comment 02/16/18 16:44: PT 14.1, INR 1.1 02/16/18 16:44: Sodium 139, Potassium 3.8, Chloride 99, Carbon Dioxide 27.0, Anion Gap 13, BUN 11, Creatinine 0.94, Estim Creat Clear Calc 59.58, Est GFR (MDRD) Af Amer 78, Est GFR (MDRD) Non-Af 65, BUN/Creatinine Ratio 11.8, Glucose 80, Calcium 8.8, Total Bilirubin 0.50, AST 119 H, ALT 72 H, Alkaline Phosphatase 287 H, Total Protein 7.8, Albumin 3.3, Globulin 4.5 H, Albumin/Globulin Ratio 0.7 L 02/16/18 16:44: Ethyl Alcohol 49.0 02/16/18 16:44: Phosphorus 3.9 02/16/18 17:20: Urine Opiates Screen NEGATIVE, Urine Methadone Screen NEGATIVE, Ur Barbiturates Screen NEGATIVE, Ur Phencyclidine Scrn NEGATIVE, Ur Amphetamines Screen NEGATIVE, U Methamphetamin-MDMA POSITIVE H, U Benzodiazepines Scrn NEGATIVE, Urine Cocaine Screen NEGATIVE, U Cannabinoids Screen NEGATIVE, Ur Drug Screen Comment Current Medications Acetaminophen (Tylenol) 500 mg PO Q4H PRN PRN PRN Reason: Temp > 100.4 F Al Hydroxide/Mg Hydroxide (Mylanta Ii) 30 ml PO Q6H PRN PRN PRN Reason: dyspesia Last Admin: 02/16/18 17:27 Dose: 30 ml Amlodipine Besylate (Norvasc) 10 mg PO DAILY [facility] Aspirin (Aspirin, Baby) 81 mg PO DAILY@0800 [facility] Bisacodyl (Dulcolax) 10 mg RECTAL DAILY PRN PRN Reason: Constipation Bupropion HCl (Wellbutrin Xl) 300 mg PO DAILY [facility] Chlordiazepoxide (Librium) 50 mg PO Q6H [facility] PRN Reason: Taper Stop: 02/19/18 19:29 Last Admin: 02/17/18 05:11 Dose: 50 mg Dicyclomine HCl (Bentyl) 20 mg PO Q6H PRN PRN PRN Reason: abdominal discomfort Enoxaparin Sodium (Lovenox) 40 mg SC DAILY@1000 [facility] Famotidine (Pepcid) 20 mg PO BID [facility] Last Admin: 02/16/18 21:52 Dose: 20 mg [facility] Hydrochlorothiazide (Hctz) 25 mg PO DAILY [facility] Hydroxyzine Pamoate (Vistaril Pamoate Capsule) 50 mg PO Q6H PRN PRN PRN Reason: Mild Anxiety (score 1/3) Last Admin: 02/16/18 19:59 Dose: 50 mg Ibuprofen (Motrin) 600 mg PO Q8H PRN PRN PRN Reason: Mild-Moderate Pain (1-5/10) Last Admin: 02/16/18 17:40 Dose: 600 mg Irbesartan (Avapro) 150 mg PO DAILY [facility] Loperamide HCl (Imodium) 2 - 4 mg PO UD PRN PRN Reason: LOOSE STOOLS Lorazepam (Ativan) 2 mg PO Q2H PRN PRN; Protocol PRN Reason: CIWA score > 8 but <15 Lorazepam (Ativan) 2 mg IV Q2H PRN PRN; Protocol PRN Reason: CIWA score > 8 but <15 Lorazepam (Ativan) 1 mg IV Q4H PRN PRN PRN Reason: Severe Anxiety Lorazepam (Ativan) 2 mg PO UD PRN; Protocol PRN Reason: CIWA score >/=15. Lorazepam (Ativan) 2 mg IV UD PRN; Protocol PRN Reason: CIWA score >/=15. Magnesium Hydroxide (Milk Of Magnesia) 30 ml PO DAILY PRN PRN PRN Reason: Constipation Methocarbamol (Methocarbamol) 750 mg PO Q6H PRN PRN PRN Reason: Muscle Aches Multivitamins ([facility]itamin) [facility] Ondansetron HCl (Zofran Odt) 4 mg PO Q6H PRN PRN PRN Reason: NAUSEA Last Admin: 02/16/18 17:27 Dose: 4 mg Potassium Chloride (K-Dur) 20 meq PO BID [facility] Last Admin: 02/16/18 21:52 Dose: 20 meq Quetiapine Fumarate (Seroquel) 25 mg PO Q6H PRN PRN Reason: anxiety, agitation Senna (Senokot) 1 tablet PO QHS PRN PRN Reason: Constipation Thiamine HCl (Vitamin B1) 100 mg PO DAILYCM [facility] Trazodone HCl (Desyrel) 50 mg PO QHS [facility] Last Admin: 02/16/18 23:53 Dose: 50 mg Medical Necessity - Tobacco Use Smoking Status: Never smoker Tobacco Use: Non-smoker Assessment/Plan All Active Problems Alcohol withdrawal (Acute) The patient is a 62 y/o F w/ PMHx: Hypertension, Obesity, Depression, Alcohol abuse (~12 glasses wine/day) who presents to the [facility] on 02/16/18 w/ noted acute EtOH withdrawal. (1) Acute EtOH Withdrawal: Admitted to [place], routine labs including CBC, CMP, urine for drug screen obtained w/ noted elevated LFTs, initiated and continued on [facility] service protocol with taper course of librium, as needed Seroquel, Catapres, Bentyl, Vistaril, IV fluids, IV antiemetics, Tylenol as needed for pain. Once patient clinically improved and completion of taper nearing will plan [facility] assistance for transition to next level of rehabilitation care. Mag, phos levels obtained and normal. Maintain on CIWA protocol. Maintain on multivitamin, thiamine, folic acid. Encouraged patient to assure that sober if he remains in the home upon her discharge versus need for him to have treatment versus him to stay elsewhere until sober/in program to assure her best change of continued sobriety. (2) Elevated LFTs: Likely secondary to her EtOH Abuse history; however, she is high risk generation for hepatitis C, hepatitis panel pending, liver US obtained w/ results pending. (3) Hx Exertional Dyspnea: New onset over the last several weeks-month, noted with more high risk activities, will obtain EKG, trop x 1, CXR, ECHO. If unremarkable will plan outpatient stress testing per PCP direction given currently asymptomatic. (4) Hypertension: Continue home regimen including Norvasc, hydrochlorothiazide, Avapro. (5) Depression: Maintain on home regimen Wellbutrin (UDS + MDMA false w/ wellbutrin usage). (6) Hypokalemia: Notes chronic hypokalemia, mild, maintain on BID 20 mEq supplementation, CMP upon admission w/ K 3.8. Mag and phos normal levels. (6) Obesity: Weight loss and lifestyle changes encouraged. (7) GERD: Famotidine. (8) DVT prophylaxis: SCD, Lovenox. Code Visit Inpatient E&M: 84580 Subs Hosp L3
--- NOTE | 2018-02-17 06:51 | US_ITS ---
STUDY: ABDOMINAL ULTRASOUND - RIGHT UPPER QUADRANT REASON FOR VISIT: Female, 62 years old. Abnormal labs TECHNIQUE: Ultrasound evaluation of the right upper quadrant was performed with real-time and static chris-scale imaging. TECHNICAL QUALITY: Adequate. COMPARISON: None. FINDINGS: Liver: The liver measures 20.1 cm. There is increased echogenicity consistent with fatty infiltration. The bile ducts are within normal limits. There is hepatic color flow. The direction of portal flow is hepatopetal. There is no demonstrated mass lesion. Gallbladder: Normal distended gallbladder. The gallbladder wall measures 3.0 mm. There is a negative sonographic Arambula's sign. There is no pericholecystic fluid. There are multiple echogenic structures within the gallbladder, consistent with multiple gallstones. Common Bile Duct (C.B.D.): The common bile duct measures 4 mm. Pancreas: Normal size of the head, body and tail of the pancreas. There is normal echogenicity of the pancreas. There is no demonstrated pancreatic mass or cyst. Right Kidney: Normal size of the right kidney. The right kidney measures 10.9 cm. Normal renal cortex. The right cortex measures 1.4 cm. There is no demonstrated renal mass or cyst. There is no right hydronephrosis. US/Liver IMPRESSION: Multiple gallstones without evidence of acute cholecystitis as there is no wall thickening or pericholecystic fluid. Hepatomegaly with hepatic steatosis. Electronically Signed: Dhaval Urrutia DO at 10:20 EDT Tel , Service support ,
--- NOTE | 2018-02-17 06:53 | PN_ITS ---
Subjective: Patient overnight with no acute events aside from difficulty sleeping eventually did following willingness to eventually take trazodone. Patient aware of increased liver enzymes with pending results from liver ultrasound and given age group pending hepatitis panel. Patient admitting now that for the last several weeks she has had some exertional dyspnea with increased activity specifically with high endurance activities with no associated chest discomfort and no other associated symptoms. Patient denies fevers, chills, nausea, emesis , abdominal pain, chest pain or current dyspnea. Objective: Physical Examination: General: awake, alert, oriented x 3 and cooperative, laying in the bed, NAD, notes feeling improved, tired only. Skin: normal color, turgor, no icterus, cyanosis. HEENT: AT/NC, EOMI, PERRLA, improved MMM. Lungs: CTA bilaterally, moderate effort, mild decrease BL bases, no rales, ronchi or wheezing. Heart: Regular rate and rhythm; no gallop, rub audible. Abdomen: soft, obese, NTTP, ND. Extremities: no cyanosis, clubbing, or edema. Neurological: patient awake, alert, oriented x 3; cognitive function intact; pupils equally reactive to light and accomodation; cranial nerves II-XII grossly normal, moving all 4 extremities, no focal deficits, strength moderately globally decreased, no further tremor noted. Psychiatric: affect appears improved, less fatigued, no acute evidence of depressive or anxiety feelings. Vitals/I&O's: Vital Signs Temp Pulse Resp BP Pulse Ox 97.7 F L 80 16 123/76 H 99 02/17/18 05:13 02/17/18 05:13 02/17/18 05:13 02/17/18 05:13 02/17/18 05:13 Oxygen Delivery Method Room Air Weight: 185 lb Body Mass Index (BMI) 29.8 Intake and Output for Last 24 Hours 02/15/18 02/16/18 02/17/18 23:59 23:59 23:59 Intake Total 240 / 240 1332 / 1332 Balance 240 / 240 1332 / 1332 Laboratory Results 02/16/18 16:44: Magnesium 1.9 02/16/18 16:44: WBC 12.0 H, RBC 4.25, Hgb 12.7, Hct 39.2, MCV 92.2, MCH 29.9, MCHC 32.4, RDW 15.3 H, RDW Differential 51.7 H, Plt Count 379, MPV 10.2, Immature Gran % (Auto) 0.400, Neut % (Auto) 76.5 H, Lymph % (Auto) 12.7 L, [place] % (Auto) 10.1 H, Eos % (Auto) 0.1, Baso % (Auto) 0.2, Absolute Neuts (auto) 9.2 H, Absolute Lymphs (auto) 1.53, Total Counted Not Reportable, Differential Comment 02/16/18 16:44: PT 14.1, INR 1.1 02/16/18 16:44: Sodium 139, Potassium 3.8, Chloride 99, Carbon Dioxide 27.0, Anion Gap 13, BUN 11, Creatinine 0.94, Estim Creat Clear Calc 59.58, Est GFR ( MDRD) Af Amer 78, Est GFR (MDRD) Non-Af 65, BUN/Creatinine Ratio 11.8, Glucose 80, Calcium 8.8, Total Bilirubin 0.50, AST 119 H, ALT 72 H, Alkaline Phosphatase 287 H, Total Protein 7.8, Albumin 3.3, Globulin 4.5 H, Albumin/ Globulin Ratio 0.7 L 02/16/18 16:44: Ethyl Alcohol 49.0 02/16/18 16:44: Phosphorus 3.9 02/16/18 17:20: Urine Opiates Screen NEGATIVE, Urine Methadone Screen NEGATIVE, Ur Barbiturates Screen NEGATIVE, Ur Phencyclidine Scrn NEGATIVE, Ur Amphetamines Screen NEGATIVE, U Methamphetamin-MDMA POSITIVE H, U Benzodiazepines Scrn NEGATIVE, Urine Cocaine Screen NEGATIVE, U Cannabinoids Screen NEGATIVE, Ur Drug Screen Comment Current Medications Acetaminophen (Tylenol) 500 mg PO Q4H PRN PRN PRN Reason: Temp > 100.4 F Al Hydroxide/Mg Hydroxide (Mylanta Ii) 30 ml PO Q6H PRN PRN PRN Reason: dyspesia Last Admin: 02/16/18 17:27 Dose: 30 ml Amlodipine Besylate (Norvasc) 10 mg PO DAILY [facility] Aspirin (Aspirin, Baby) 81 mg PO DAILY@0800 [facility] Bisacodyl (Dulcolax) 10 mg RECTAL DAILY PRN PRN Reason: Constipation Bupropion HCl (Wellbutrin Xl) 300 mg PO DAILY [facility] Chlordiazepoxide (Librium) 50 mg PO Q6H [facility] PRN Reason: Taper Stop: 02/19/18 19:29 Last Admin: 02/17/18 05:11 Dose: 50 mg Dicyclomine HCl (Bentyl) 20 mg PO Q6H PRN PRN PRN Reason: abdominal discomfort Enoxaparin Sodium (Lovenox) 40 mg SC DAILY@1000 [facility] Famotidine (Pepcid) 20 mg PO BID [facility] Last Admin: 02/16/18 21:52 Dose: 20 mg [facility]) [facility] Hydrochlorothiazide (Hctz) 25 mg PO DAILY [facility] Hydroxyzine Pamoate (Vistaril Pamoate Capsule) 50 mg PO Q6H PRN PRN PRN Reason: Mild Anxiety (score 1/3) Last Admin: 02/16/18 19:59 Dose: 50 mg Ibuprofen (Motrin) 600 mg PO Q8H PRN PRN PRN Reason: Mild-Moderate Pain (1-5/10) Last Admin: 02/16/18 17:40 Dose: 600 mg Irbesartan (Avapro) 150 mg PO DAILY [facility] Loperamide HCl (Imodium) 2 - 4 mg PO UD PRN PRN Reason: LOOSE STOOLS Lorazepam (Ativan) 2 mg PO Q2H PRN PRN; Protocol PRN Reason: CIWA score > 8 but <15 Lorazepam (Ativan) 2 mg IV Q2H PRN PRN; Protocol PRN Reason: CIWA score > 8 but <15 Lorazepam (Ativan) 1 mg IV Q4H PRN PRN PRN Reason: Severe Anxiety Lorazepam (Ativan) 2 mg PO UD PRN; Protocol PRN Reason: CIWA score >/=15. Lorazepam (Ativan) 2 mg IV UD PRN; Protocol PRN Reason: CIWA score >/=15. Magnesium Hydroxide (Milk Of Magnesia) 30 ml PO DAILY PRN PRN PRN Reason: Constipation Methocarbamol (Methocarbamol) 750 mg PO Q6H PRN PRN PRN Reason: Muscle Aches Multivit[facility] ([facility]amin) [facility] Ondansetron HCl (Zofran Odt) 4 mg PO Q6H PRN PRN PRN Reason: NAUSEA Last Admin: 02/16/18 17:27 Dose: 4 mg Potassium Chloride (K-Dur) 20 meq PO BID [facility] Last Admin: 02/16/18 21:52 Dose: 20 meq Quetiapine Fumarate (Seroquel) 25 mg PO Q6H PRN PRN Reason: anxiety, agitation Senna (Senokot) 1 tablet PO QHS PRN PRN Reason: Constipation Thiamine HCl (Vitamin B1) 100 mg PO DAILYCM [facility] Trazodone HCl (Desyrel) 50 mg PO QHS [facility] Last Admin: 02/16/18 23:53 Dose: 50 mg Medical Necessity - Tobacco Use Smoking Status: Never smoker Tobacco Use: Non-smoker Assessment/Plan All Active Problems Alcohol withdrawal (Acute) The patient is a 62 y/o F w/ PMHx: Hypertension, Obesity, Depression, Alcohol abuse (~12 glasses wine/day) who presents to the [facility] on 02/16/18 w/ noted acute EtOH withdrawal. (1) Acute EtOH Withdrawal: Admitted to [place], routine labs including CBC, CMP, urine for drug screen obtained w/ noted elevated LFTs, initiated and continued on [facility] service protocol with taper course of librium, as needed Seroquel , Catapres, Bentyl, Vistaril, IV fluids, IV antiemetics, Tylenol as needed for pain. Once patient clinically improved and completion of taper nearing will plan [facility] assistance for transition to next level of rehabilitation care. Mag, phos levels obtained and normal. Maintain on CIWA protocol. Maintain on multivitamin, thiamine, folic acid. Encouraged patient to assure that sober if he remains in the home upon her discharge versus need for him to have treatment versus him to stay elsewhere until sober/in program to assure her best change of continued sobriety. (2) Elevated LFTs: Likely secondary to her EtOH Abuse history; however, she is high risk generation for hepatitis C, hepatitis panel pending, liver US obtained w/ results pending. (3) Hx Exertional Dyspnea: New onset over the last several weeks-month, noted with more high risk activities, will obtain EKG, trop x 1, CXR, ECHO. If unremarkable will plan outpatient stress testing per PCP direction given currently asymptomatic. (4) Hypertension: Continue home regimen including Norvasc, hydrochlorothiazide, Avapro. (5) Depression: Maintain on home regimen Wellbutrin (UDS + MDMA false w/ wellbutrin usage). (6) Hypokalemia: Notes chronic hypokalemia, mild, maintain on BID 20 mEq supplementation, CMP upon admission w/ K 3.8. Mag and phos normal levels. (6) Obesity: Weight loss and lifestyle changes encouraged. (7) GERD: Famotidine. (8) DVT prophylaxis: SCD, Lovenox. Code Visit Inpatient E&M: 14551 Subs Hosp L3
[2018-02-17] MEDS: Multivitamins,Therapeutic Tablet 1 TABLET PO (08:19)
[2018-02-17] MEDS: Folic Acid 1 MG Tablet PO (08:19)
[2018-02-17] MEDS: Aspirin 81 MG TAB.CHEW PO (08:20)
[2018-02-17] MEDS: buPROPion (XL) 300 MG TABLET.XL PO (08:20)
[2018-02-17] MEDS: Thiamine Hydrochloride 100 MG Tablet PO (08:20)
[2018-02-17] MEDS: Famotidine 20 MG Tablet PO ×2 (08:20→19:39)
[2018-02-17] MEDS: amLODIPine 10 MG Tablet PO (08:21)
[2018-02-17] MEDS: hydroCHLOROthiazide 25 MG Tablet PO (08:21)
[2018-02-17] MEDS: hydrOXYzine PAM 25 MG Capsule 50 MG PO ×2 (08:29→16:06)
--- NOTE | 2018-02-17 08:43 | RAD_ITS ---
STUDY: X-RAY CHEST REASON FOR EXAM: Female, 62 years old. Shortness of breath x10 days TECHNIQUE: PA and lateral views of the chest. COMPARISON: 08/30/2017 FINDINGS: The lungs are clear and expanded. There is no demonstrated pleural abnormality. Normal size heart. Normal mediastinum and maggy. Normal visualized pulmonary arteries. Normal visualized aortic arch and descending thoracic aorta. Normal visualized thoracic spine. Normal visualized ribs, clavicles, and shoulders. There is no demonstrated abnormality of the visualized soft tissue structures of the upper abdomen. RAD/Chest PA and Lateral IMPRESSION: Normal x-ray examination of the chest. Electronically Signed: Dhaval Urrutia DO at 9:29 EDT Tel , Service support ,
--- NOTE | 2018-02-17 08:43 | EKG12_ITS ---
Test Reason : SOB Blood Pressure : / mmHG Vent. Rate : 081 BPM Atrial Rate : 081 BPM P-R Int : 142 ms QRS Dur : 084 ms QT Int : 402 ms P-R-T Axes : 042 040 049 degrees QTc Int : 466 ms Normal sinus rhythm Normal ECG When compared with ECG of 08-SEP-2017 09:11, No significant change was found Confirmed by BREANN JIN, LAURA ([id number]), editor school photograph MIGUEL A KOLB ([id number]) on 03/02/2018 3:05:30 PM Referred By: Thania Brown Confirmed By:LAURA CRAIN MD
--- NOTE | 2018-02-17 08:50 | ECHOD_ITS ---
Reason For Study: SOB Procedure This was a 2D Doppler, Color Flow transthoracic echocardiogram. Exam performed portable in patient room. Left Ventricle Normal LV size. Left ventricular systolic function is normal. The estimated ejection fraction is 65 %. Stage 1 diastolic dysfunction. No regional wall motion abnormalities noted. Right Ventricle Normal RV size. Normal systolic function. Atria Normal left atrium. Normal right atrium. Mitral Valve Normal mitral valve. Tricuspid Valve Normal tricuspid valve. Mild (1+) tricuspid valve insufficiency. Pulmonary artery systolic pressure is 24 mmHg. Aortic Valve The aortic valve is not well visualized. Pulmonic Valve Normal pulmonic valve. Great Vessels Normal aortic root. The pulmonary artery is normal size. Normal inferior vena cava. Pericardium/Pleural No pericardial effusion. MMode/2D Measurements & Calculations LVIDd: 4.1 cm IVSd: 0.97 cm Ao root diam: 2.9 cm LVIDs: 1.8 cm LVPWd: 0.81 cm LA dimension: 4.1 cm RVDd: 3.5 cm FS: 55.5 % LAV(MOD-bp): 35.8 ml LA A4 area: 14.4 cm2 RA A4 area: 13.3 cm2 LAV(MOD-bp) Indexed: 18.5 ml/m2 LAV(MOD-sp2): 35.6 ml LAV(MOD-sp4): 32.0 ml Doppler Measurements & Calculations MV E max hardeep: 84.4 cm/sec Lat Peak E' Hardeep: 11.6 cm/sec Med Peak E' Hardeep: 8.3 cm/sec MV A max hardeep: 90.6 cm/sec E/E' lat: 7.3 E/E' med: 10.1 MV E/A: 0.93 Ao V2 max: 178.0 cm/sec LV V1 max: 141.5 cm/sec PA V2 max: 115.3 cm/sec Ao max P.7 mmHg LV V1 max P.0 mmHg TR max hardeep: 232.7 cm/sec TR max P.7 mmHg Interpretation Summary Normal LV size. Left ventricular systolic function is normal. The estimated ejection fraction is 65 %. Stage 1 diastolic dysfunction. Mild (1+) tricuspid valve insufficiency. Ordering Physician: Thania Brown Referring Physician: Thania Brown Performed By: Tamika Doran RDCS
[2018-02-17] MEDS: POTASSIUM CHLORIDE 10 MEQ CAPSULE.ER 20 MEQ PO (11:29)
--- NOTE | 2018-02-17 12:09 | CASEMGMT ---
SOCIAL WORK: Chart reviewed. Patient is a 62 year old female admitted for alcohol withdrawal. Plan, per physician note, is once patient is clinically improved and taper is completed for [facility] to assist with transition to next level of care. MARIBEL Carson
[2018-02-17 12:22] LABS: Bacteria 0 SEEN /hpf (None Seen); Mucous, Urine 0 SEEN /hpf (<or=2+); Red Blood Cells-Urine 0 SEEN /hpf (0-5); Squamous Epithelial Cells - UA 0 SEEN /hpf (5-10); White Blood Cells 0 SEEN /hpf (0-5)
[2018-02-17 12:24] LABS: Color, Urine Yellow (Yellow); Glucose, Dipstick Normal (Normal); Ketone-Dipstick Negative (Negative); Leukocyte Esterase-Dipstick Negative /ul (Negative); Nitrite-Dipstick Negative (Negative); Occult Blood-Urine Negative /ul (Negative); Protein-Dipstick Negative (Negative); Specific Gravity, Urine 1.005 (1.002-1.030); Urine Bilirubin Dipstick Negative (Negative); Urine Clarity Clear (Clear); Urine Urobilinogen Normal (Normal)
[2018-02-17] MEDS: traZODone 50 MG Tablet PO ×2 (19:37→21:16)
[2018-02-18] MEDS: chlordiazePOXIDE 25 MG Capsule PO ×3 (03:40→19:46)
[2018-02-18 03:55] VITALS: BP 119/73; PULSE 82; RESP 16; TEMP 36.8
--- NOTE | 2018-02-18 06:57 | PN_ITS ---
Subjective: Patient had complained of a myraid of issues the day prior including dysuria, UA unremarkable. Otherwise patient has no acute complaints at this time and feels like likely her concern yesterday for dysuria with secondary to frequency with IV fluid administration but has improved. Patient denies any further alcohol withdrawal symptoms although did note she ended up taking 100 mg at bedtime of trazodone and was markedly fatigued and lethargic this morning but since has improved. Patient denies fevers, chills, nausea, emesis, abdominal pain, chest pain or dyspnea. Objective: Physical Examination: General: awake, alert, oriented x 3 and cooperative, laying in the bed, NAD. Skin: normal color, turgor, no icterus, cyanosis. HEENT: AT/NC, EOMI, PERRLA, MMM. Lungs: CTA bilaterally, moderate effort, mild decrease BL bases, no rales, ronchi or wheezing. Heart: Regular rate and rhythm; no gallop, rub audible. Abdomen: soft, obese, NTTP, ND, +HM. Extremities: no cyanosis, clubbing, or edema. Neurological: patient awake, alert, oriented x 3; cognitive function intact; pupils equally reactive to light and accomodation; cranial nerves II-XII grossly normal, moving all 4 extremities, no focal deficits, strength improved, mildly globally decreased, no further tremor noted. Psychiatric: affect appears improved, still fatigued, no acute evidence of depressive or anxiety feelings. Vitals/I&O's: Vital Signs Temp Pulse Resp BP Pulse Ox 98.3 F 82 16 119/73 98 02/18/18 03:55 02/18/18 03:55 02/18/18 03:55 02/18/18 03:55 02/17/18 19:40 Oxygen Delivery Method Room Air Weight: 185 lb Body Mass Index (BMI) 29.8 Intake and Output for Last 24 Hours 02/16/18 02/17/18 02/18/18 23:59 23:59 23:59 Intake Total 240 / 240 2051 200 / 200 Balance 240 / 240 2051 200 / 200 Laboratory Results 02/16/18 16:45: Hepatitis A IgM Ab Pending, Hepatitis A Ab Total Pending, Hep Bs Antigen Pending, Hep B Core Total Ab Pending, Hep B Core IgM Ab Pending 02/17/18 09:10: Troponin I < 0.015 02/17/18 12:05: Urine Color Yellow, Urine Clarity Clear, Urine pH 7.0, Ur Specific Henderson 1.005, Urine Protein Negative, Urine Glucose (UA) Normal, Urine Ketones Negative, Urine Occult Blood Negative, Urine Nitrite Negative, Urine Bilirubin Negative, Urine Urobilinogen Normal, Ur Leukocyte Esterase Negative, Urine RBC 0 SEEN, Urine WBC 0 SEEN, Ur Squamous Epith Cells 0 SEEN, Urine Bacteria 0 SEEN, Urine Mucus 0 SEEN Current Medications Acetaminophen (Tylenol) 500 mg PO Q4H PRN PRN PRN Reason: Temp > 100.4 F Al Hydroxide/Mg Hydroxide (Mylanta Ii) 30 ml PO Q6H PRN PRN PRN Reason: dyspesia Last Admin: 02/16/18 17:27 Dose: 30 ml Albuterol Sulfate (Ventolin Aerosols) 2.5 mg INHALATION Q2H PRN PRN PRN Reason: dyspnea, wheezing Amlodipine Besylate (Norvasc) 10 mg PO DAILY [facility] Last Admin: 02/17/18 08:21 Dose: 10 mg Aspirin (Aspirin, Baby) 81 mg PO DAILY@0800 [facility] Last Admin: 02/17/18 08:20 Dose: 81 mg Bisacodyl (Dulcolax) 10 mg RECTAL DAILY PRN PRN Reason: Constipation Bupropion HCl (Wellbutrin Xl) 300 mg PO DAILY [facility] Last Admin: 02/17/18 08:20 Dose: 300 mg Chlordiazepoxide (Librium) 50 mg PO Q8H [facility] PRN Reason: Taper Stop: 02/19/18 19:29 Last Admin: 02/18/18 03:40 Dose: 50 mg Dicyclomine HCl (Bentyl) 20 mg PO Q6H PRN PRN PRN Reason: abdominal discomfort Enoxaparin Sodium (Lovenox) 40 mg SC DAILY@1000 [facility] Last Admin: 02/17/18 08:22 Dose: Not Given Famotidine (Pepcid) 20 mg PO BID [facility] Last Admin: 02/17/18 19:39 Dose: 20 mg [facility] Admin: 02/17/18 08:19 Dose: 1 mg Hydrochlorothiazide (Hctz) 25 mg PO DAILY [facility] Last Admin: 02/17/18 08:21 Dose: 25 mg Hydroxyzine Pamoate (Vistaril Pamoate Capsule) 50 mg PO Q6H PRN PRN PRN Reason: Mild Anxiety (score 1/3) Last Admin: 02/17/18 16:06 Dose: 50 mg Ibuprofen (Motrin) 600 mg PO Q8H PRN PRN PRN Reason: Mild-Moderate Pain (1-5/10) Last Admin: 02/16/18 17:40 Dose: 600 mg Irbesartan (Avapro) 150 mg PO DAILY [facility] Last Admin: 02/17/18 08:23 Dose: 150 mg Loperamide HCl (Imodium) 2 - 4 mg PO UD PRN PRN Reason: LOOSE STOOLS Lorazepam (Ativan) 2 mg PO Q2H PRN PRN; Protocol PRN Reason: CIWA score > 8 but <15 Lorazepam (Ativan) 2 mg IV Q2H PRN PRN; Protocol PRN Reason: CIWA score > 8 but <15 Lorazepam (Ativan) 1 mg IV Q4H PRN PRN PRN Reason: Severe Anxiety Lorazepam (Ativan) 2 mg PO UD PRN; Protocol PRN Reason: CIWA score >/=15. Lorazepam (Ativan) 2 mg IV UD PRN; Protocol PRN Reason: CIWA score >/=15. Magnesium Hydroxide (Milk Of Magnesia) 30 ml PO DAILY PRN PRN PRN Reason: Constipation Methocarbamol (Methocarbamol) 750 mg PO Q6H PRN PRN PRN Reason: Muscle Aches Multivitamins ([facility]itamin) [facility] Last Admin: 02/17/18 08:19 Dose: 1 tablet Ondansetron HCl (Zofran Odt) 4 mg PO Q6H PRN PRN PRN Reason: NAUSEA Last Admin: 02/16/18 17:27 Dose: 4 mg Potassium Chloride (Potassium Chloride) [facility] Last Admin: 02/17/18 11:29 Dose: 20 meq Quetiapine Fumarate (Seroquel) 25 mg PO Q6H PRN PRN Reason: anxiety, agitation Senna (Senokot) 1 tablet PO QHS PRN PRN Reason: Constipation Thiamine HCl (Vitamin B1) [facility] Last Admin: 02/17/18 08:20 Dose: 100 mg Trazodone HCl (Desyrel) 50 mg PO QHS [facility] Last Admin: 02/17/18 21:16 Dose: 50 mg Medical Necessity - Tobacco Use Smoking Status: Never smoker Tobacco Use: Non-smoker Assessment/Plan All Active Problems Alcohol withdrawal (Acute) The patient is a 62 y/o F w/ PMHx: Hypertension, Obesity, Depression, Alcohol abuse (~12 glasses wine/day) who presents to the [facility] on 02/16[facility]18 w/ noted acute EtOH withdrawal. (1) Acute EtOH Withdrawal: Admitted to [facility], routine labs including CBC, CMP, urine for drug screen obtained w/ noted elevated LFTs, initiated and continued on [facility] service protocol with taper course of librium, as needed Seroquel , Catapres, Bentyl, Vistaril, IV fluids, IV antiemetics, Tylenol as needed for pain. Once patient clinically improved and completion of taper nearing will plan [facility] assistance for transition to next level of rehabilitation care. Mag, phos levels obtained and normal. Maintain on CIWA protocol. Maintain on multivitamin, thiamine, folic acid. Encouraged patient to assure that sober if he remains in the home upon her discharge versus need for him to have treatment versus him to stay elsewhere until sober/in program to assure her best change of continued sobriety. (2) Elevated LFTs w/ Hx Cholelithiasis: Likely secondary to her EtOH Abuse history; however, she is high risk generation for hepatitis C, hepatitis panel pending, liver US obtained w/ multiple gallstones which she had known about without evidence of acute cholecystitis, hepatomegaly with hepatic steatosis. (3) Hx Exertional Dyspnea: New onset over the last several weeks-month, noted with more high risk activities, EKG without acute findings, trop normal x 1, CXR unremarkable, ECHO w/ normal LV size, normal LV systolic function, EF 65%, stage I diastolic dysfunction, mild TV insufficiency. Given initial evaluation unremarkable will plan referral to PCP for further evaluation, i.e. PFTs, possible outpatient stress testing per PCP direction given currently asymptomatic. (4) Hypertension: Continue home regimen including Norvasc, hydrochlorothiazide, Avapro. (5) Depression: Maintain on home regimen Wellbutrin (UDS + MDMA false w/ wellbutrin usage). (6) Hypokalemia: Notes chronic hypokalemia, mild, maintained on home BID 20 mEq supplementation, CMP upon admission w/ K 3.8. Mag and phos normal levels. (6) Obesity: Weight loss and lifestyle changes encouraged. (7) GERD: Famotidine. (8) DVT prophylaxis: SCD, Lovenox. Code Visit Inpatient E&M: 24709 Subs Hosp L2
[2018-02-18 07:54] VITALS: O2SAT 98
[2018-02-18] MEDS: amLODIPine 10 MG Tablet PO (09:20)
[2018-02-18] MEDS: Famotidine 20 MG Tablet PO ×2 (09:20→21:27)
[2018-02-18] MEDS: hydroCHLOROthiazide 25 MG Tablet PO (09:20)
[2018-02-18] MEDS: Aspirin 81 MG TAB.CHEW PO (09:21)
[2018-02-18] MEDS: Multivitamins,Therapeutic Tablet 1 TABLET PO (09:21)
[2018-02-18] MEDS: Thiamine Hydrochloride 100 MG Tablet PO (09:21)
[2018-02-18] MEDS: Folic Acid 1 MG Tablet PO (09:21)
[2018-02-18] MEDS: POTASSIUM CHLORIDE 10 MEQ CAPSULE.ER 20 MEQ PO ×2 (09:22→17:02)
[2018-02-18] MEDS: buPROPion (XL) 300 MG TABLET.XL PO (09:24)
[2018-02-18 09:26] VITALS: BP 124/89; PULSE 83; RESP 18; TEMP 36.6; O2SAT 95
[2018-02-18 09:28] VITALS: BP 124/89; PULSE 83; RESP 18; TEMP 36.6
[2018-02-18] MEDS: Ibuprofen 600 MG Tablet PO (12:25)
[2018-02-18 16:58] VITALS: BP 127/78; PULSE 91; RESP 18; TEMP 36.4; O2SAT 97
[2018-02-18 19:43] VITALS: BP 106/77; PULSE 86; RESP 16; TEMP 36.8
[2018-02-18 20:07] LABS: HEPATITIS B SURFACE AG Negative (Negative); Hepatitis A AB, Total Negative (Negative); Hepatitis A IgM Antibody Negative (Negative); Hepatitis B Core AB IgM Negative (Negative); Hepatitis B Core Ab Total Negative (Negative); Hepatitis C Ab 0.2 s/co ratio (0.0-0.9)
[2018-02-18] MEDS: hydrOXYzine PAM 25 MG Capsule 50 MG PO (21:25)
[2018-02-18] MEDS: traZODone 50 MG Tablet PO (22:23)
[2018-02-19 04:21] VITALS: BP 111/78; PULSE 76; RESP 16; TEMP 36.5
[2018-02-19] MEDS: hydrOXYzine PAM 25 MG Capsule 50 MG PO (04:27)
[2018-02-19] MEDS: chlordiazePOXIDE 25 MG Capsule PO (07:02)
[2018-02-19 09:00] VITALS: BP 133/71; PULSE 84; RESP 16; TEMP 36.9
[2018-02-19] MEDS: hydroCHLOROthiazide 25 MG Tablet PO (09:05)
[2018-02-19] MEDS: Folic Acid 1 MG Tablet PO (09:06)
[2018-02-19] MEDS: amLODIPine 10 MG Tablet PO (09:06)
[2018-02-19] MEDS: Aspirin 81 MG TAB.CHEW PO (09:06)
[2018-02-19] MEDS: Famotidine 20 MG Tablet PO (09:06)
[2018-02-19] MEDS: Thiamine Hydrochloride 100 MG Tablet PO (09:06)
[2018-02-19] MEDS: Multivitamins,Therapeutic Tablet 1 TABLET PO (09:06)
[2018-02-19] MEDS: POTASSIUM CHLORIDE 10 MEQ CAPSULE.ER 20 MEQ PO (09:07)
[2018-02-19] MEDS: buPROPion (XL) 300 MG TABLET.XL PO (09:08)
--- NOTE | 2018-02-19 09:16 | PCM.PN.HOSP ---
Subjective: has not slept well since admission. no new event. Vitals/I&O's: Vital Signs Temp Pulse Resp BP Pulse Ox 36.9 C 84 16 133/71 H 97 02/19/18 09:00 02/19/18 09:00 02/19/18 09:00 02/19/18 09:00 02/18/18 16:58 Oxygen Delivery Method Room Air Weight: 83.915 kg Body Mass Index (BMI) 29.8 Intake and Output for Last 24 Hours 02/17/18 02/18/18 02/19/18 23:59 23:59 23:59 Intake Total 2051 200 / 200 500 / 500 Balance 2051 200 / 200 500 / 500 General: Alert, No apparent distress HEENT: Atraumatic, Normocephalic Oral: Moist Mucosa, No Gingival or Mucosal Lesions/ Ulcerations Neck: No Nodes, Thyroid Normal Size and Texture Lungs: Clear to auscultation, Normal air movement, No rhonchi, No wheeze Cardiovascular: Regular rate, Regular Rhythm, Normal S1, Normal S2, No murmurs Abdomen: Bowel Sounds Present, Soft, Non Tender, Non-Distended, No Hepato-splenomegaly Current Medications Acetaminophen (Tylenol) 500 mg PO Q4H PRN PRN PRN Reason: Temp > 100.4 F Al Hydroxide/Mg Hydroxide (Mylanta Ii) 30 ml PO Q6H PRN PRN PRN Reason: dyspesia Last Admin: 02/16/18 17:27 Dose: 30 ml Albuterol Sulfate (Ventolin Aerosols) 2.5 mg INHALATION Q2H PRN PRN PRN Reason: dyspnea, wheezing Amlodipine Besylate (Norvasc) 10 mg PO DAILY [facility] Last Admin: 02/19/18 09:06 Dose: 10 mg Aspirin (Aspirin, Baby) 81 mg PO DAILY@0800 [facility] Last Admin: 02/19/18 09:06 Dose: 81 mg Bisacodyl (Dulcolax) 10 mg RECTAL DAILY PRN PRN Reason: Constipation Bupropion HCl (Wellbutrin Xl) 300 mg PO DAILY [facility] Last Admin: 02/19/18 09:08 Dose: 300 mg Chlordiazepoxide (Librium) 25 mg PO Q12H [facility] PRN Reason: Taper Stop: 02/19/18 19:29 Last Admin: 02/19/18 07:02 Dose: 25 mg Dicyclomine HCl (Bentyl) 20 mg PO Q6H PRN PRN PRN Reason: abdominal discomfort Enoxaparin Sodium (Lovenox) 40 mg SC DAILY@1000 [facility] Last Admin: 02/19/18 09:08 Dose: Not Given Famotidine (Pepcid) 20 mg PO BID [facility] Last Admin: 02/19/18 09:06 Dose: 20 mg Folic Acid ([facility] Acid) [facility] Last Admin: 02/19/18 09:06 Dose: 1 mg Hydrochlorothiazide (Hctz) 25 mg PO DAILY [facility] Last Admin: 02/19/18 09:05 Dose: 25 mg Hydroxyzine Pamoate (Vistaril Pamoate Capsule) 50 mg PO Q6H PRN PRN PRN Reason: Mild Anxiety (score 1/3) Last Admin: 02/19/18 04:27 Dose: 50 mg Ibuprofen (Motrin) 600 mg PO Q8H PRN PRN PRN Reason: Mild-Moderate Pain (1-5/10) Last Admin: 02/18/18 12:25 Dose: 600 mg Irbesartan (Avapro) 150 mg PO DAILY [facility] Last Admin: 02/19/18 09:07 Dose: 150 mg Loperamide HCl (Imodium) 2 - 4 mg PO UD PRN PRN Reason: LOOSE STOOLS Lorazepam (Ativan) 2 mg PO Q2H PRN PRN; Protocol PRN Reason: CIWA score > 8 but <15 Lorazepam (Ativan) 2 mg IV Q2H PRN PRN; Protocol PRN Reason: CIWA score > 8 but <15 Lorazepam (Ativan) 1 mg IV Q4H PRN PRN PRN Reason: Severe Anxiety Lorazepam (Ativan) 2 mg PO UD PRN; Protocol PRN Reason: CIWA score >/=15. Lorazepam (Ativan) 2 mg IV UD PRN; Protocol PRN Reason: CIWA score >/=15. Magnesium Hydroxide (Milk Of Magnesia) 30 ml PO DAILY PRN PRN PRN Reason: Constipation Methocarbamol (Methocarbamol) 750 mg PO Q6H PRN PRN PRN Reason: Muscle Aches Multivitamins (Multivitamin) [facility] Last Admin: 02/19/18 09:06 Dose: 1 tablet Ondansetron HCl (Zofran Odt) 4 mg PO Q6H PRN PRN PRN Reason: NAUSEA Last Admin: 02/16/18 17:27 Dose: 4 mg Potassium Chloride (Potassium Chloride) [facility] Last Admin: 02/19/18 09:07 Dose: 20 meq Quetiapine Fumarate (Seroquel) 25 mg PO Q6H PRN PRN Reason: anxiety, agitation Senna (Senokot) 1 tablet PO QHS PRN PRN Reason: Constipation Thiamine HCl (Vitamin B1) [facility] Last Admin: 02/19/18 09:06 Dose: 100 mg Trazodone HCl (Desyrel) 50 mg PO QHS [facility] Last Admin: 02/18/18 22:23 Dose: 50 mg Medical Necessity - Tobacco Use Smoking Status: Never smoker Tobacco Use: Non-smoker Assessment/Plan All Active Problems Alcohol withdrawal (Acute) 1. acute alcohol withdrawal doing well DC home patient to follow up with [facility] as [facility] Wellbutrin likely the etiology of the +UDS for methamphetamines/MDMA 2. Elevated LFTs AST > ALT. Both mildly elevated acute hepatitis profile ordered, and still pending. likely due to alcohol follow up as out pt ([facility] will need to be followed up as outpt as well) DC home.
--- NOTE | 2018-02-19 09:23 | PN_ITS ---
Subjective: has not slept well since admission. no new event. Vitals/I&O's: Vital Signs Temp Pulse Resp BP Pulse Ox 36.9 C 84 16 133/71 H 97 02/19/18 09:00 02/19/18 09:00 02/19/18 09:00 02/19/18 09:00 02/18/18 16:58 Oxygen Delivery Method Room Air Weight: 83.915 kg Body Mass Index (BMI) 29.8 Intake and Output for Last 24 Hours 02/17/18 02/18/18 02/19/18 23:59 23:59 23:59 Intake Total 2051 200 / 200 500 / 500 Balance 2051 200 / 200 500 / 500 General: Alert, No apparent distress HEENT: Atraumatic, Normocephalic Oral: Moist Mucosa, No Gingival or Mucosal Lesions/ Ulcerations Neck: No Nodes, Thyroid Normal Size and Texture Lungs: Clear to auscultation, Normal air movement, No rhonchi, No wheeze Cardiovascular: Regular rate, Regular Rhythm, Normal S1, Normal S2, No murmurs Abdomen: Bowel Sounds Present, Soft, Non Tender, Non-Distended, No Hepato- splenomegaly Current Medications Acetaminophen (Tylenol) 500 mg PO Q4H PRN PRN PRN Reason: Temp > 100.4 F Al Hydroxide/Mg Hydroxide (Mylanta Ii) 30 ml PO Q6H PRN PRN PRN Reason: dyspesia Last Admin: 02/16/18 17:27 Dose: 30 ml Albuterol Sulfate (Ventolin Aerosols) 2.5 mg INHALATION Q2H PRN PRN PRN Reason: dyspnea, wheezing Amlodipine Besylate (Norvasc) 10 mg PO DAILY [facility] Last Admin: 02/19/18 09:06 Dose: 10 mg Aspirin (Aspirin, Baby) 81 mg PO DAILY@0800 [facility] Last Admin: 02/19/18 09:06 Dose: 81 mg Bisacodyl (Dulcolax) 10 mg RECTAL DAILY PRN PRN Reason: Constipation Bupropion HCl (Wellbutrin Xl) 300 mg PO DAILY [facility] Last Admin: 02/19/18 09:08 Dose: 300 mg Chlordiazepoxide (Librium) 25 mg PO Q12H [facility] PRN Reason: Taper Stop: 02/19/18 19:29 Last Admin: 02/19/18 07:02 Dose: 25 mg Dicyclomine HCl (Bentyl) 20 mg PO Q6H PRN PRN PRN Reason: abdominal discomfort Enoxaparin Sodium (Lovenox) 40 mg SC DAILY@1000 [facility] Last Admin: 02/19/18 09:08 Dose: Not Given Famotidine (Pepcid) 20 mg PO BID [facility] Last Admin: 02/19/18 09:06 Dose: 20 mg [facility]olic [facility]) [facility] Last Admin: 02/19/18 09:06 Dose: 1 mg Hydrochlorothiazide (Hctz) 25 mg PO DAILY [facility] Last Admin: 02/19/18 09:05 Dose: 25 mg Hydroxyzine Pamoate (Vistaril Pamoate Capsule) 50 mg PO Q6H PRN PRN PRN Reason: Mild Anxiety (score 1/3) Last Admin: 02/19/18 04:27 Dose: 50 mg Ibuprofen (Motrin) 600 mg PO Q8H PRN PRN PRN Reason: Mild-Moderate Pain (1-5/10) Last Admin: 02/18/18 12:25 Dose: 600 mg Irbesartan (Avapro) 150 mg PO DAILY [facility] Last Admin: 02/19/18 09:07 Dose: 150 mg Loperamide HCl (Imodium) 2 - 4 mg PO UD PRN PRN Reason: LOOSE STOOLS Lorazepam (Ativan) 2 mg PO Q2H PRN PRN; Protocol PRN Reason: CIWA score > 8 but <15 Lorazepam (Ativan) 2 mg IV Q2H PRN PRN; Protocol PRN Reason: CIWA score > 8 but <15 Lorazepam (Ativan) 1 mg IV Q4H PRN PRN PRN Reason: Severe Anxiety Lorazepam (Ativan) 2 mg PO UD PRN; Protocol PRN Reason: CIWA score >/=15. Lorazepam (Ativan) 2 mg IV UD PRN; Protocol PRN Reason: CIWA score >/=15. Magnesium Hydroxide (Milk Of Magnesia) 30 ml PO DAILY PRN PRN PRN Reason: Constipation Methocarbamol (Methocarbamol) 750 mg PO Q6H PRN PRN PRN Reason: Muscle Aches Multivitamins ([facility]itamin) [facility] Last Admin: 02/19/18 09:06 Dose: 1 tablet Ondansetron HCl (Zofran Odt) 4 mg PO Q6H PRN PRN PRN Reason: NAUSEA Last Admin: 02/16/18 17:27 Dose: 4 mg Potassium Chloride (Potassium Chloride) [facility] Last Admin: 02/19/18 09:07 Dose: 20 meq Quetiapine Fumarate (Seroquel) 25 mg PO Q6H PRN PRN Reason: anxiety, agitation Senna (Senokot) 1 tablet PO QHS PRN PRN Reason: Constipation Thiamine HCl (Vitamin B1) [facility] Last Admin: 02/19/18 09:06 Dose: 100 mg Trazodone HCl (Desyrel) 50 mg PO QHS [facility] Last Admin: 02/18/18 22:23 Dose: 50 mg Medical Necessity - Tobacco Use Smoking Status: Never smoker Tobacco Use: Non-smoker Assessment/Plan All Active Problems Alcohol withdrawal (Acute) 1. acute alcohol withdrawal * doing well * DC home * patient to follow up with [facility] * [facility] * Wellbutrin likely the etiology of the +UDS for methamphetamines/MDMA 2. Elevated LFTs * AST > ALT. Both mildly elevated * acute hepatitis profile ordered, and still pending. * likely due to alcohol * follow up as out pt ([facility] will need to be followed up as outpt as well) DC home.
--- NOTE | 2018-02-19 09:26 | DCINST_ITS ---
- Discharge Diagnoses Current Active Problems: Current Active and Chronic Problems HTN (hypertension) (Chronic) Obesity (BMI 30.0-34.9) (Chronic) Depression (Chronic) You will use the following diet at home:: No restrictions Your food should be the consistency of: Regular Your liquids should be the consistency of: Regular/Thin Discharge Activity: Return to Normal Activity Call your doctor if you observe: Fever of 101 or Higher, Shortness of breath Allergies/Adverse Reactions: Allergies meperidine HCl [From Demerol] Allergy (Verified 08/30/17 17:47) HYPERTENSION phenobarbital Allergy (Verified 08/30/17 17:47) Other HYPERTENSION shellfish derived Allergy (Verified 08/30/17 17:47) Hives Medications to take at Discharge Amlodipine [Norvasc] 10 mg PO DAILY 12/29/15 buPROPion XL [Wellbutrin Xl] 300 mg PO DAILY 12/29/15 Potassium Chloride [K-Dur] 20 meq PO DAILY 02/09/16 Hydrochlorothiazide [Hctz] 25 mg PO DAILY 03/03/16 Irbesartan [Avapro] 150 mg PO DAILY 08/25/16 Ondansetron [Zofran Odt] 4 mg PO Q8H PRN PRN #10 tablet 08/30/17 Peg 400/Hypromellose/Glycerin [Visine Dry Eye Relief Drop] 15 ml OP 4X/DAY PRN PRN #1 bottle 09/10/17 Multivitamins,Therapeutic [Multivitamin] 1 tablet PO DAILYCM tablet 02/19/18 Primary Care Physician: Thu Kraft,Out of [Primary Care Provider] - Within 2 Weeks Please follow up with your Primary Care Physician in: Follow up with your primary care doctor for additional lab work. Test Results: Test results from this visit will be discussed in further detail at your follow- up appointment, if applicable. Proposed Discharge Date: 02/19/18
--- NOTE | 2018-02-19 09:28 | DS.PCM_ITS ---
Discharge Date and Diagnosis Date of Admission: 02/16/18 Date of Discharge: 02/19/18 - Secondary Discharge Diagnosis Chronic Problems Alcohol use disorder (Chronic) HTN (hypertension) (Chronic) Obesity (BMI 30.0-34.9) (Chronic) Depression (Chronic) Hospital Course and Treatment Imaging Results: Clinical Impression(s) from Imaging Studies Liver Ultrasound 02/17/18 06:51 IMPRESSION: Multiple gallstones without evidence of acute cholecystitis as there is no wall thickening or pericholecystic fluid. Hepatomegaly with hepatic steatosis. Electronically Signed: Dhaval Urrutia DO at 10:20 EDT Tel , Service support , Chest X-Ray 02/17/18 08:43 IMPRESSION: Normal x-ray examination of the chest. Electronically Signed: Dhaval Urrutia DO at 9:29 EDT Tel , Service support , Operations: None Procedures: None Summary of Care Provided: The patient is a 62 year old F presents seeking treatment for alcohol withdrawal. 1. acute alcohol withdrawal * doing well * DC home * patient to follow up with [facility] as [facility] * [facility] * Wellbutrin likely the etiology of the +UDS for methamphetamines/MDMA 2. Elevated LFTs * AST > ALT. Both mildly elevated * acute hepatitis profile ordered, and still pending. * likely due to alcohol * follow up as out pt ([facility] will need to be followed up as outpt as well) [] Discharge Diet: No Restrictions Discharge Activity: Return to Normal Activity Call your doctor if you observe: Fever of 101 or Higher, Shortness of breath Home Medications: Medications to take at Discharge Amlodipine [Norvasc] 10 mg PO DAILY 12/29/15 buPROPion XL [Wellbutrin Xl] 300 mg PO DAILY 12/29/15 Potassium Chloride [K-Dur] 20 meq PO DAILY 02/09/16 Hydrochlorothiazide [Hctz] 25 mg PO DAILY 03/03/16 Irbesartan [Avapro] 150 mg PO DAILY 08/25/16 Ondansetron [Zofran Odt] 4 mg PO Q8H PRN PRN #10 tablet 08/30/17 Peg 400/Hypromellose/Glycerin [Visine Dry Eye Relief Drop] 15 ml OP 4X/DAY PRN PRN #1 bottle 09/10/17 Multivitamins,Therapeutic [Multivitamin] 1 tablet PO DAILYCM tablet 02/19/18 Primary Care Physician: Thu Kraft,Out of [Primary Care Provider] - Within 2 Weeks Please follow up with your Primary Care Physician in: Follow up with your primary care doctor for additional lab work. Disposition: Home Minutes spent on discharge:: 28 Patient Condition:: Fair Medical Necessity - Tobacco Use Smoking Status: Never smoker Tobacco Use: Non-smoker Meaningful Use Info Meaningful Use Diagnoses (Choose all that apply): None applicable Code Visit Inpatient E&M: 44817 Disch Hosp
[2018-02-19 11:05] LABS: Hep B Surface Antibodies Non Reactive (.)
== END 2018-02-19 11:35 | disposition home or self-care (01) | DRG 897 ==
PROVIDERS: Admitting Provider Family Medicine
DX: F10.239 Alcohol dependence with withdrawal, unspecified (principal); I10 Essential (primary) hypertension; F32.9 Major depressive disorder, single episode, unspecified; E66.9 Obesity, unspecified; Z68.29 Body mass index [BMI] 29.0-29.9, adult; R79.89 Other specified abnormal findings of blood chemistry
CPT/HCPCS: 36415; 71046; 76705; 80053; 80307; 80320; 81001; 83735; 84100; 84484; 85025; 85610; 86704; 86705; 86706; 86708; 86709; 86803; 87340; 93005; 93306; J7120; G0480

== ENCOUNTER 2018-04-30 16:08 | Observation (INO) | payer OTHER, SELFPAY ==
[2018-04-30 16:27] VITALS: BMI 30.8; BMI 30.9
[2018-04-30 17:07] VITALS: BP 117/69; PULSE 94; RESP 18; TEMP 36.9; O2SAT 94
[2018-04-30 17:59] LABS: Absolute Lymphocyte Count 2.49 X10^3/ul (0.83-4.51); Absolute Neutrophil Count 9.8 X10^3/uL (2.0-7.7); Basophil# 0.02 X10^3/uL; Basophil% 0.2 % (0-1); Eosinophil# 0.05 X10^3/uL; Eosinophils% 0.4 % (0-5); Hematocrit 37.3 % (37-47); Hemoglobin 12.7 g/dl (12.0-15.0); Lymphocyte # 2.49 X10^3/ul (4.0); Lymphocyte % 18.8 % (19-41); Mean Corpuscular Hgb 30.7 pg (27.0-32.0); Mean Corpuscular Volume 90.1 fL (81-99); Mean Platelet Vol. 9.9 fl (6.2-12.0); Monocyte# 0.77 X10^3/uL; Monocyte% 5.8 % (0-10); Neutrophil # 9.79 X10^3/uL (2.7-7.7); Platelet Count 376 K/mm3 (150-450); RBC Distribution Width CV 13.4 % (11.6-14.6); Red Blood Count 4.14 M/mm3 (4.2-5.4); White Blood Count 13.2 K/mm3 (4.4-11.0)
[2018-04-30 18:00] LABS: POSITIVE COUNT NO; POSITIVE DIFFERENTIAL NO; POSITIVE MORPHOLOGY NO
[2018-04-30 18:12] LABS: ALB/GLOB Ratio 0.7 RATIO (0.9-2.4); AST(SGOT) 79 U/L (15-37); Alanine Aminotransfer ALT/SGPT 47 U/L (13-56); Albumin, Serum 3.1 g/dL (3.2-5.0); Alkaline Phosphatase 255 U/L (45-117); Amylase 32 U/L (25-115); Anion Gap 10 (5-15); BUN 6 mg/dL (7-18); BUN/Creat Ratio 8.9 RATIO (10-20); Calcium,Total 8.1 mg/dL (8.5-10.1); Chloride 100 mmol/L (98-107); Creatinine, Serum 0.68 mg/dL (0.55-1.02); EST Glomerular Filtration Rate 94 mL/min (>60); Est Glom Filt Rate - Afr Amer 114 mL/min (>60); Estimated Creatinine Clearance 85.56 ml/min; Globulin 4.5 g/dL (2.2-4.2); Glucose 91 mg/dL (74-106); Lipase 96 U/L (73-393); Protein, Total 7.6 g/dL (6.4-8.2); Sodium Level 135 mmol/L (136-145)
[2018-04-30 18:19] LABS: International Normalized Ratio 1.1; Prothrombin Time (Protime)PT. 14.3 SECONDS (11.7-14.9)
[2018-04-30 18:29] LABS: Pregnancy, Serum, hCG Quali. NEGATIVE Negative (0-9 Nonpreg)
--- NOTE | 2018-04-30 21:19 | PCM.HOSP.N ---
Hospitalist Note I got called from the [facility] staff that patient needs admission for alcohol withdrawal. Patient came directly on the floor and initial labs were ordered. But the patient signed AMA before I saw the patient. I was told that patient has alcohol withdrawal syndrome including nausea, feeling hot and cold, tactile hallucinations and delirium. The nursing staff told the consequences of signing AMA including including alcohol withdrawal seizure and patient understands that. The patient was tried to convince by nursing staff but she refused and signed AMA. Laboratory Results 04/30/18 17:41: WBC 13.2 H, RBC 4.14 L, Hgb 12.7, Hct 37.3, MCV 90.1, MCH 30.7, MCHC 34.0, RDW 13.4, RDW Differential 44.0 H, Plt Count 376, MPV 9.9, Immature Gran % (Auto) 0.800, Neut % (Auto) 74.0 H, Lymph % (Auto) 18.8 L, [place] % (Auto) 5.8, Eos % (Auto) 0.4, Baso % (Auto) 0.2, Absolute Neuts (auto) 9.8 H, Absolute Lymphs (auto) 2.49, Total Counted Not Reportable 04/30/18 17:41: Sodium 135 L, Potassium 3.0 L, Chloride 100, Carbon Dioxide 25.0, Anion Gap 10, BUN 6 L, Creatinine 0.68, Estim Creat Clear Calc 85.56, Est GFR (MDRD) Af Amer 114, Est GFR (MDRD) Non-Af 94, BUN/Creatinine Ratio 8.9 L, Glucose 91, Calcium 8.1 L, Total Bilirubin 0.30, AST 79 H, ALT 47, Alkaline Phosphatase 255 H, Total Protein 7.6, Albumin 3.1 L, Globulin 4.5 H, Albumin/Globulin Ratio 0.7 L, Amylase 32, Lipase 96 04/30/18 17:41: Ethyl Alcohol 166.0 04/30/18 17:41: Serum , Qual NEGATIVE 04/30/18 17:41: PT 14.3, INR 1.1
--- OUTSIDE RECORDS SUMMARY | 2018-06-12 14:49 | XMS RPT_ITS ---
:1955 Author Organization NDIP Support Name Relationship Address Phone JAVI LOW Unavailable Unavailable + JAVI LOW Unavailable Unavailable + MATTEONOREEN WATERS Unavailable [address] + [place] [address] S Unavailable Unavailable Unavailable NOREEN FELIPE Unavailable [address] + [place] [address] S Unavailable Unavailable Unavailable LOWJAVI CRAIN Unavailable [address] + [place] [address] LOWJAVI CRAIN Unavailable [address] + [place] [address] [facility] Unavailable 0 [phone] [place] [address] LOWJAVI CRAIN Unavailable Unavailable + LOWJAVI CRAIN Unavailable Unavailable + LOWJAVI CRAIN Unavailable Unavailable + LOWJAVI Unavailable [address] + [place] [address] S Unavailable Unavailable Unavailable LOWJAVI Unavailable [address] + [place] [address] S Unavailable Unavailable Unavailable LOWJAVI Unavailable [address] + [place] [address] S Unavailable Unavailable Unavailable LOWJAVI Unavailable [address] + [place] [address] S Unavailable Unavailable Unavailable LOWJAVI Unavailable [address] + [place] [address] S Unavailable Unavailable Unavailable LOWJAVI Unavailable [address] + [place] [address] S Unavailable Unavailable Unavailable LOWJAVI Unavailable [address] + [place] [address] REGCLARAJACKITWILA Unavailable Unavailable + LOW, JAVI Unavailable Unavailable + LOW, JAVI Unavailable Unavailable + LOW, JAVI Unavailable [address] + [place] [address] REGTWILA ELIZABETH Unavailable Unavailable + LOW, JAVI Unavailable Unavailable + LOW, JAVI Unavailable [address] + [place] [address] TWILA FORD Unavailable Unavailable + LOW, JAVI Unavailable Unavailable + LOW, JAVI Unavailable Unavailable + LOW, JAVI Unavailable [address] + [place] [address] LOW, JAVI Unavailable Unavailable + LOW, JAVI Unavailable [address] + [place] [address] S Unavailable Unavailable Unavailable LOW, JAVI Unavailable [address] + [place] [address] S Unavailable Unavailable Unavailable LOW, JAVI Unavailable [address] + [place] [address] S Unavailable Unavailable Unavailable LWO, JAVI Unavailable [address] + [place] [address] Low, Javi Unavailable Unavailable + LOW, JAVI Unavailable [address] + [place] [address] LOW, JAVI Unavailable [address] + [place] [address] S Unavailable Unavailable Unavailable LOW, JAVI Unavailable [address] + [place] [address] TWILA FORD Unavailable Unavailable + LOW, JAVI Unavailable [address] + [place] [address] JACKI FORDALD Unavailable Unavailable + Care Team Providers Name Role Dr. Shantel Tinajero Attending Unavailable Jenifer, Dr. Corina Marrufo Admitting Unavailable Jenifer, Dr. Corina Marrufo Referring Unavailable LAURO SAMUELS Attending Unavailable Victor M Guaman Attending Unavailable PROVIDER, UNKNOWN Referring Unavailable No, PCP Primary Care Unavailable XU QUEEN Attending Unavailable FARVER, MAYLIN K. Primary Care Unavailable CESAR LOPEZ Attending Unavailable FARVER, MAYLIN K. Primary Care Unavailable FARVER, MAYLIN K. Primary Care Unavailable FINESSE DUBOSE Attending Unavailable MURIEL LIANG Referring Unavailable FARVER, MAYLIN K. Primary Care Unavailable CURT KHAN Attending Unavailable MADDI EDUARDO Primary Care Unavailable Leilani Butts Attending Unavailable Primay Care Physicia, No Primary Care Unavailable LITZY GARAY Primary Care Unavailable Gbaruk, Kombian Admitting Unavailable Koram, Alexandrea Janine Attending Unavailable Siddharth, Joshua Consulting Unavailable Gbaruk, Kombian Admitting Unavailable LITZY GARAY Primary Care Unavailable Gbaruk, Kombian Consulting Unavailable Jesse Yap Attending Unavailable Jesse Yap Attending Unavailable Gbaruk, Kombian Admitting Unavailable LITZY GARAY Primary Care Unavailable Siddharth, Joshua Consulting Unavailable Koram, Alexandrea Janine Consulting Unavailable White, Thania Admitting Unavailable White, Thania Referring Unavailable LITZY GARAY Primary Care Unavailable Johansa, Angel Attending Unavailable White, Thania Admitting Unavailable White, Thania Attending Unavailable White, Thania Referring Unavailable LITZY GARAY Primary Care Unavailable White, Thania Consulting Unavailable White, Thania Admitting Unavailable White, Thania Attending Unavailable White, Thania Referring Unavailable LITZY GARAY Primary Care Unavailable White, Thania Consulting Unavailable White, Thania Admitting Unavailable White, Thania Attending Unavailable White, Thania Referring Unavailable LITZY GARAY Primary Care Unavailable White, Thania Consulting Unavailable White, Thania Admitting Unavailable Jopperi, Angel Attending Unavailable White, Thania Referring Unavailable LITZY GARAY Primary Care Unavailable Lloyd, Angel Consulting Unavailable Renato Freed Attending Unavailable White, Thania Referring Unavailable Marc, Abhi Admitting Unavailable Marc, Abhi Attending Unavailable Marc, Abhi Referring Unavailable LITZY GARAY Primary Care Unavailable Marc, Abhi Admitting Unavailable Marc, Abhi Attending Unavailable Marc, Abhi Referring Unavailable LITZY GARAY Primary Care Unavailable Marc, Abhi Consulting Unavailable ZACH BURGOS Admitting Unavailable ZACH BURGOS Attending Unavailable REQUEST, NONE LISTED Primary Care Unavailable ROGER, DR BAHENA Admitting Unavailable ROGER, DR BAHENA Attending Unavailable ROGER, DR BAHENA Consulting Unavailable PHYSICIAN, MISC Admitting Unavailable PHYSICIAN, MISC Attending Unavailable Judd JIN, Dr. Tena Loo Admitting Unavailable Judd JIN, Dr. Tena Loo Attending Unavailable Janell, Dr. Beatriz Loo Attending Unavailable Maciel, Dr. Beatriz Loo Admitting Unavailable Klapchar, Dr. Kaleb Layton Attending Unavailable Klapchar, Dr. Kaleb Layton Admitting Unavailable Sena, Dr. Domínguez Admitting Unavailable Sena, Dr. Domínguez Attending Unavailable Jayce PHOSPHORIC ACID SUPERVISOR, Maddi Admitting Unavailable Jayce PHOSPHORIC ACID SUPERVISOR, Maddi Attending Unavailable Jasmin Salas Admitting Unavailable Jasmin Salas Attending Unavailable Rahul Parks Primary Care Unavailable Rahul Parks Primary Care Unavailable Love Maddox Admitting Unavailable Shine, Joshua Consulting Unavailable Magaly nSow Attending Unavailable Shine, Joshua Consulting Unavailable Shine, Joshua Consulting Unavailable Shine, Joshua Consulting Unavailable Shine, Joshua Consulting Unavailable Shine, Joshua Consulting Unavailable Shine, Joshua Consulting Unavailable Shine, Joshua Consulting Unavailable Shine, Joshua Consulting Unavailable Shine, Joshua Consulting Unavailable LANIE GIBSON Admitting Unavailable LANIE GIBSON Attending Unavailable PHYSICIAN, NO FAMILY Primary Care Unavailable ABELSON, SARAH Attending Unavailable ABELSON, SARAH Referring Unavailable ABELSON, SARAH Referring Unavailable No Doctor Assigned, Nodr Primary Care Unavailable Arnoldo Guerrero Admitting Unavailable Arnoldo Guerrero Attending Unavailable Jesse Ruby Attending Unavailable No Doctor Assigned, Nodr Primary Care Unavailable Jesse Ruby Attending Unavailable No Doctor Assigned, Nodr Primary Care Unavailable Jesse Ruby Attending Unavailable No Doctor Assigned, Nodr Primary Care Unavailable No Doctor Assigned, Nodr Primary Care Unavailable Toya Navarrete Admitting Unavailable Toya Navarrete Attending Unavailable Jesse Ruby Admitting Unavailable Jesse Ruby Attending Unavailable No Doctor Assigned, Nodr Primary Care Unavailable MAYLIN ECKERT Primary Care Unavailable JAYCE, MADDI N. Primary Care Unavailable JAYCE, MADDI N. Primary Care Unavailable JAYCE, MADDI N. Primary Care Unavailable PROBLEMS PROBLEMS DATE TYPE CONDITION / CODE ATTENDING STATUS SOURCE 05/14/2018 Admitting Alcohol dependence LAURO SAMUELS [facility] diagnosis with withdrawal, Hospitals unspecified / Repository F10.239(ICD-10) 05/14/2018 Final diagnosis Alcohol dependence [facility]EL[facility], [facility] / Repository F10.239(ICD-10) 05/14/2018 Final diagnosis Urinary tract LAURO SAMUELS [facility] ([facility] infection, site not Hospitals specified / Repository N39.0(ICD-10) 05/14/2018 Final diagnosis Hypomagnesemia / LAURO SAMUELS [facility] E83.42(ICD-10) Hospitals Repository 05/14/2018 Final diagnosis Essential (primary) LAURO SAMUELS [facility] hypertension / Hospitals I10(ICD-10) Repository 05/14/2018 Final diagnosis Hypokalemia / LAURO SAMUELS [facility] E87.6(ICD-10) Hospitals Repository 05/14/2018 Final diagnosis Hyperlipidemia, LAURO SAMUELS [facility] unspecified / Hospitals E78.5(ICD-10) Repository 05/14/2018 Final diagnosis Major depressive LAURO SAMUELS [facility] disorder, single Hospitals episode, unspecified Repository / F32.9(ICD-10) 05/14/2018 Final diagnosis Anxiety disorder, LAURO SAMUELS [facility] unspecified / Hospitals F41.9(ICD-10) Repository 05/14/2018 Final diagnosis Blood alcohol level LAURO SAMUELS [facility] of less than 20 Hospitals mg/100 ml / Repository Y90.0(ICD-10) 05/14/2018 Final diagnosis Presence of LAURO SAMUELS [facility] ([facility]) artificial hip Hospitals joint, bilateral / Repository Z96.643(ICD-10) 05/14/2018 Final diagnosis Body mass index LAURO SAMUELS [facility] (BMI) 29.0-29.9, Hospitals adult / Repository Z68.29(ICD-10) 04/11/2018 Admitting VOMITING, GIBSONLANIE [facility] diagnosis UNSPECIFIED / [facility] Hospital R11.10(ICD-10) Repository 04/11/2018 Final diagnosis ALCOHOL DEPENDENCE GIBSONLANIE [facility] (discharge) WITH WITHDRAWAL, [facility] UNSPECIFIED / Repository F10.239(ICD-10) 04/11/2018 Final diagnosis HYPO-OSMOLALITY AND LANIE GIBSON [facility] (discharge) HYPONATREMIA / [facility] Hospital E87.1(ICD-10) Repository 04/11/2018 Final diagnosis SIRS OF LANIE GIBSON [place] (discharge) NON-INFECTIOUS [facility] Hospital ORIGIN W/O ACUTE Repository ORGAN DYSF / R65.10(ICD-10) 04/11/2018 Final diagnosis URINARY TRACT LANIE GIBSON [facility] (discharge) INFECTION, SITE NOT [facility] SPECIFIED / Repository N39.0(ICD-10) 04/11/2018 Final diagnosis ANXIETY DISORDER, LANIE GIBSON [facility] (discharge) UNSPECIFIED / [facility] F41.9(ICD-10) Repository 04/11/2018 Final diagnosis HYPERLIPIDEMIA, LANIE GIBSON [facility] (discharge) UNSPECIFIED / [facility] Hospital E78.5(ICD-10) Repository 04/11/2018 Final diagnosis TACHYCARDIA, LANIE GIBSON [facility] (discharge) UNSPECIFIED / [facility] R00.0(ICD-10) Repository 04/11/2018 Final diagnosis HYPOKALEMIA / [facility] E87.6(ICD-10) [facility] Hospital Repository 04/11/2018 Final diagnosis NONSPEC ELEV OF [facility] LEVELS OF TRANSAMNS [facility] LACTIC ACID / Repository R74.0(ICD-10) 04/11/2018 Final diagnosis [facility] ARTIFICIAL HIP JOINT Repository / Z96.649(ICD-10) 04/11/2018 Final diagnosis MAJOR DEPRESSIVE LANIE GIBSON [place] (discharge) DISORDER, SINGLE [facility] Hospital EPISODE, UNSPECI / Repository F32.9(ICD-10) 04/11/2018 Final diagnosis ELEVATED WHITE BLOOD LANIE GIBSON [facility] (discharge) CELL COUNT, [facility] UNSPECIFIED / Repository D72.829(ICD-10) 04/11/2018 Final diagnosis ESSENTIAL (PRIMARY) LANIE GIBSON [facility] (discharge) HYPERTENSION / [facility] Hospital I10(ICD-10) Repository 04/11/2018 Final diagnosis OBESITY, UNSPECIFIED GIBSON, LANIE [facility] (discharge) / E66.9(ICD-10) [facility] Repository 04/11/2018 Final diagnosis HISTORY OF UTERINE LANIE GIBSON [facility] (discharge) SCAR FROM PREVIOUS [facility] SURGERY / Repository Z98.891(ICD-10) 04/11/2018 Final diagnosis FAMILY HISTORY OF LANIE GIBSON [facility] (discharge) ARTHRITIS / [facility] Z82.61(ICD-10) Repository 04/11/2018 Final diagnosis ALLERGY STATUS TO LANIE GIBSON [facility] (discharge) OTH DRUG/MEDS/BIOL [facility] SUBST STATUS / Repository Z88.8(ICD-10) 04/11/2018 Final diagnosis ALLERGY TO SEAFOOD / PAIGE LANIE [facility] (discharge) Z91.013(ICD-10) [facility] Repository 04/11/2018 Final diagnosis OTHER RESIDENTIAL LANIE GIBSON [facility] (discharge) (CURRENT) DRUG [facility] THERAPY / Repository Z79.899(ICD-10) 03/20/2018 Admitting Abuse of other [facility] [employer] One diagnosis non-psychoactive Repository substances / F55.8(ICD-10) 03/16/2018 Unknown I36.1 - Nonrheumatic Abdiaziz, [place] Active [facility] tricuspid (valve) Community insufficiency / Hospital I36.1(ICD-10) Repository 12/18/2017 Active Unknown / SARAH MORRIS Active [place] UNK(Unknown) [facility] [place] Repository 11/26/2017 Admitting Alcohol dependence, GRACY FINESSE [facility] diagnosis uncomplicated / [facility] F10.20(ICD-10) Repository 11/26/2017 Admitting Cellulitis of left FINESSE DUBOSE [facility] diagnosis lower limb / [facility] L03.116(ICD-10) Repository 11/23/2017 Admitting Unknown / NA [facility] [place] [employer] Two diagnosis UNK(Unknown) Repository 11/03/2017 Admitting Unspecified NA [facility] [employer] diagnosis intracapsular Three fracture of left Repository femur, subsequent encounter for open fracture type I or II with routine healing / S72.012E(ICD-10) 10/17/2017 Admitting Unilateral primary BRUNICARDI [facility] [place] [employer] diagnosis osteoarthritis, left XU JAMAAL Three hip / M16.12(ICD-10) Repository 10/06/2017 Unknown F10.239 - Alcohol Koram, Alexandrea Active [facility] dependence with [facility], Hospital unspecified / Repository F10.239(ICD-10) 09/04/2017 Admitting Alcohol abuse, Deniz, Active [facility] Diagnosis uncomplicated / [facility] F10.10(ICD-10) Repository 09/04/2017 Admitting Hypokalemia / Deniz, Active [facility] Diagnosis E87.6(ICD-10) [facility] Repository 09/04/2017 Admitting Essential (primary) Deniz, Active [facility] Diagnosis hypertension / [facility] I10(ICD-10) Repository 09/04/2017 Admitting Other diseases of Deniz, Active [facility] Diagnosis vocal cords / [facility] J38.3(ICD-10) Repository 09/04/2017 Admitting Allergy status to Deniz, Active [facility] Diagnosis oth drug/meds/biol [facility] subst status / Repository Z88.8(ICD-10) 10/06/2017 Unknown R00.2 - Palpitations Butts, Active [facility] / R00.2(ICD-10) [facility] Repository 07/13/[address] SHRUTI DURAN Active [facility] Diagnosis UNCOMPLICATED / Hospital F10.20(ICD-10) Repository 07/13/[address] SHRUTI DURAN Active [facility] Diagnosis UNCOMPLICATED / Hospital F10.20(ICD-10) Repository 07/13/[address] SHRUTI DURAN Active [facility] Diagnosis UNCOMPLICATED / Hospital F10.20(ICD-10) Repository PROCEDURES PROCEDURES No Procedure Records FoundRESULTS RESULTS DISCHARGE SUMMARY Observed: 05/14/2018 Status: COMPLETED Source: [facility] 4:45 PM HOSPITALS REPOSITORY Send Summary: Discharge Summary Providers: Provider RoleProvider Name Keo EhrenbergLauro Ewing PrimaryRequired, No Pcp Note Recipients: Required, No Pcp, MD Discharge: Summary: Admission Date: .10-May-2018 16:18:00 Discharge Date: 14-May-2018 Attending Physician at Discharge: Lauro Samuels Admission Reason: Etoh withdrawal syndrome Final Discharge Diagnoses: Etoh withdrawal syndrome, Etoh abuse/dependence, UTI Procedures: None. Condition at Discharge: Satisfactory Disposition at Discharge: .Home Vital Signs: T PRBPSpO2 [id number]/7896% Date/Time05/14 7: 7: 7: 7: 7:40 Range(36.3C - 37.3C ) (86 - 90 ) (16 - 18 ) (125 - 131 )/ (78 - 86 ) (95% - 96% ) Highest temp of 37.3 C was recorded at 05/13 20:00 Physical Exam: General: Alert and oriented x3. NAD. HEENT: sclera intact. CVS: RRR. No m/r/g. Lungs: CTAB. Abdomen: Soft. NT. +BS Extremities: No lower extremity edema. Neurologic: No gross focal deficits. No tremors of the hands. Skin: No gross skin rashes. Psychiatric: Appropriate affect. Hospital Course: 63 y old female with past medical history of EtOH abuse, hypertension, hyperlipidemia, anxiety and depression who is admitted to the hospital with EtOH withdrawal syndrome secondary to EtOH abuse/dependence. EtOH withdrawal syndrome/EtOH abuse/dependence -Patient was admitted to the hospital and placed on CIWA protocol. She clinically improved during her hospital stay. On the day of discharge, patient denies chest pain, shortness of breath, nausea, vomiting, diarrhea or tremors of the hands. I have counseled patient on EtOH abuse cessation and patient will follow-up with family life counseling as an outpatient on discharge home. We will have patient follow-up with her PCP in the next one week as well and I advised her to come to the ER if any problems arise and she voiced understanding. Hypokalemia -This was replaced. Recommend to monitor with PCP. UTI -Patient had leukocytosis but no fever. We did check a urinalysis 2, which did reveal a UTI. Urine culture is growing enteric bacilli at the time of discharge. We started patient on Ceftin the night prior to discharge and will give her a 5 day course of Ceftin. I recommend that she follow- up with her PCP within the next one week as well and follow-up on the urine cultures per Hypomagnesemia -Replaced. Recommended to monitor with her PCP. Mildly elevated LFTs -Likely secondary to EtOH abuse. Patient is also on Lipitor as well. -I have counseled patient on EtOH cessation. Recommended to monitor with her PCP. Hypertension -BP is stable. Continue home BP medications and monitor. Total cumulative time spent in preparation of this discharge including documentation review, coordination of care with the medical team including PT/SW/care coordinators and treating consultants, discussion with pertinent family members and finalization of prescriptions, followup appointments and this discharge summary was approximately 35 minutes. Discharge Information: and Continuing Care: Discharge Instructions: Activity: May not drive for 1 day(s). Nutrition/Diet: low sodium Labs: Lab Test(s): Comprehensive Metabolic Panel Date To Be Drawn: 05/19/18 Call Results To: pcp Follow Up Appointments: Follow-Up Appointment 01: Physician/Dept/Service: [facility] Reason for Referral: Outpatient follow up for mental health and substance abuse Call to Schedule in: Patient to contact to schedule Location: [address] [place] [address] Follow-Up Appointment 02: Physician/Dept/Service: Sarah Erazo; PCP in 1 week Reason for Referral: Residential Resources Location: [facility] Discharge Medications: Home Medication Wellbutrin XL 300 mg/24 hours oral tablet, extended release - 1 tab(s) orally every 24 hours hydroCHLOROthiazide 25 mg oral tablet - 1 tab(s) orally once a day amLODIPine 10 mg oral tablet - 1 tab(s) orally once a day potassium chloride 10 mEq oral capsule, extended release - 1 cap(s) orally 2 times a day Avapro 150 mg oral tablet - 1 tab(s) orally once a day rosuvastatin 5 mg oral tablet - 1 tab(s) orally once a day cefuroxime 500 mg oral tablet - 1 tab(s) orally every 12 hours PRN Medication Lab Results - Pending: None Radiology Results - Pending: None Electronic Signatures: Lauro Samuels) (Signed 14-May-2018 16:51) Authored: Send Summary, Summary Content, Ongoing Care, Signature/Cosignature/Attestation Last Updated: 14-May-2018 16:51 by Lauro Samuels) CBC Collected: 05/14/2018 Status: F Source: [facility] 6:14 AM HOSPITALS REPOSITORY TYPE CODE TESTS RESULT OUT OF RANGE REFERENCE UNITS LAB WBCR(LOINC) 4.4 - 11.3 x10E9/L High WBC 15.4 LAB RBCCT(LOINC 4.00 - 5.20 x10E12/L ) RBC 4.58 LAB HGB(LOINC) 12.0 - 16.0 g/dL HGB 14.1 LAB HCT(LOINC) 36.0 - 46.0 % HCT 41.2 LAB MCV(LOINC) 80 - 100 fL MCV 90 LAB MCHC2(LOINC 32.0 - 36.0 g/dL ) MCHC 34.2 LAB PLTCT(LOINC 150 - 450 x10E9/L ) PLT 281 LAB RDWCV(LOINC 11.5 - 14.5 % ) RDW-CV 13.2 Performed By: #### CBC #### [facility] [address] [place] [address] COMPREHENSIVE PANEL Collected: 05/14/2018 Status: F Source: [facility] 6:14 AM HOSPITALS REPOSITORY TYPE CODE TESTS RESULT OUT OF REFERENCE UNITS RANGE LAB GLU(LOINC) 74 - 99 mg/dL GLUCOSE 88 LAB SOD(LOINC) 136 - 145 mmol/L SODIUM 138 LAB K(LOINC) 3.5 - 5.3 mmol/L POTASSIUM 3.5 LAB CHLOR(LOIN 98 - 107 mmol/L C) CHLORIDE 102 LAB BIC(LOINC) 21 - 32 mmol/L BICARBONATE 25 LAB ANGAP(LOIN 10 - 20 mmol/L C) ANION GAP 15 LAB UREA(LOINC 6 - 23 mg/dL ) UREA NITROGEN 8 LAB CREA(LOINC 0.50 - 1.05 mg/dL ) CREATININE 0.70 LAB GFRFN(LOIN >60 mL/min/1.7 C) 3m2 GFR-NON AM. >60 LAB GFRAA(LOIN >60 mL/min/1.7 C) 3m2 GFR- AM. >60 Result Comment: CALCULATIONS OF ESTIMATED GFR ARE PERFORMED USING THE MDRD STUDY EQUATION FOR THE IDMS-TRACEABLE CREATININE METHODS. CLIN CHEM 2007;53:766-72 LAB CA(LOINC) 8.6 - 10.3 mg/dL CALCIUM 10.1 LAB ALB(LOINC) 3.4 - 5.0 g/dL ALBUMIN 3.9 LAB AP(LOINC) 33 - 136 U/L ALKALINE High PHOSPHATASE 186 LAB TP(LOINC) 6.4 - 8.2 g/dL TOTAL PROTEIN 7.2 LAB AST(LOINC) 9 - 39 U/L AST 29 LAB TBILI(LOINC) 0.0 - 1.2 mg/dL BILIRUBIN,TOTAL 0.6 LAB ALT(LOINC) 7 - 45 U/L ALT 25 Result Comment: Patients treated with Sulfasalazine may generate falsely decreased results for ALT. Performed By: #### CMP #### [facility] [address] [facility] [place] [address] DAILY PROGRESS Observed: 05/13/2018 Status: COMPLETED Source: [facility] 5:27 PM HOSPITALS REPOSITORY Service: Medicine Subjective Data: CARRIE LOW is a 63 year old Female who is Hospital Day # 4. Patient had difficulty sleeping last night. She denies any urinary tract symptoms as far as no dysuria, no urgency or frequency or hematuria. Patient denies cough. She denies chest pain, shortness of breath, nausea, vomiting. Objective Data: Objective Information: T PRBPSpO2 [id number]/6996% Date/Time05/13 12: 12: 12: 12: 12:23 Range(36.7C - 37.1C ) (82 - 89 ) (18 - 18 ) (112 - 138 )/ (69 - 85 ) (94% - 96% ) Highest temp of 37.1 C was recorded at 05/13 8:00 Pain at Rest reported at 05/13 8:32: 0 Physical Exam: Constitutional: Well developed, awake/alert/oriented x3, no distress, alert and cooperative Eyes: EOMI, clear sclera Respiratory/Thorax: CTAB. Cardiovascular: RRR. Gastrointestinal: Soft. Nontender. Bowel sounds present. Extremities: No pitting edema bilateral lower extremity. Neurological: Mild tremors of the hands present bilaterally. Psychological: Appropriate mood and behavior Skin: Warm and dry. Medication: Medications: Continuous Medications 1. Sodium Chloride 0.9% Infusion: 1000 mL IntraVenous <Continuous> Scheduled Medications 1. amLODIPine (NORVASC): 10 mg Oral Daily 2. Atorvastatin: 20 mg Oral At Bedtime 3. buPROPion (WELLBUTRIN XL) Extended Release (24 hour): 300 mg Oral Every 24 Hours 4. Folic Acid: 1 mg Oral Daily 5. hydroCHLOROthiazide: 25 mg Oral Daily 6. Losartan: 50 mg Oral Daily 7. Magnesium Oxide: 400 mg Oral Daily 8. Multivitamin with Minerals: 1 tablet(s) Oral Daily 9. Potassium Chloride Extended Release: 20 mEq Oral Daily 10. Thiamine: 100 mg Oral Daily PRN Medications 1. Acetaminophen: 650 mg Oral Every 4 Hours 2. Calcium Carbonate Chewable: 1000 mg Oral Every 2 Hours 3. LORazepam Injectable: 0.5 mg IntraVenous Push Every 2 Hours 4. LORazepam Injectable: 1 mg IntraVenous Push Every 2 Hours 5. LORazepam Injectable: 2 mg IntraVenous Push Every 2 Hours 6. Melatonin: 5 mg Oral At Bedtime 7. Temazepam: 15 mg Oral At Bedtime Recent Lab Results: Results: I have reviewed these laboratory results: Complete Blood Count 13-May-2018 06:40:00 ResultValue White Blood Cell Count 12.9 H Red Blood Cell Count 4.36 HGB 13.4 HCT 39.2 MCV 90 MCHC 34.2 PLT 246 RDW-CV 13.0 Comprehensive Metabolic Panel 13-May-2018 06:40:00 ResultValue Glucose, Serum 112 H NA 138 K 3.3 L CL 103 Bicarbonate, Serum 25 Anion Gap, Serum 13 BUN 7 CREAT 0.67 GFR-Non >60 GFR- >60 Calcium, Serum 9.8 ALB 3.7 ALKP 183 H T Pro 6.9 T Bili 0.5 Alanine Aminotransferase, Serum 27 Aspartate Transaminase, Serum 32 Magnesium, Serum 13-May-2018 06:40:00 ResultValue Magnesium, Serum 1.92 Phosphorus, Serum 13-May-2018 06:40:00 ResultValue Phosphorus, Serum 5.5 H Assessment and Plan: Assessment: 63 y old female with past medical history of EtOH abuse, hypertension, hyperlipidemia, anxiety and depression who is admitted to the hospital with EtOH withdrawal syndrome secondary to EtOH abuse/dependence. EtOH withdrawal syndrome/EtOH abuse/dependence -Patient is improving overall, but she is still experiencing EtOH withdrawal symptoms. -Patient continues to exhibit withdrawal symptoms and is still requiring intensive medication adjustment and monitoring to improve the withdrawal symptoms. We will continue the current treatment plan and adjust medications as needed. I anticipate discharge in the next 1 day. -Cont CIWA protocol, thiamine, folic acid, MVI and monitor. -I have counseled patient on EtOH abuse cessation and patient will follow-up with family life counseling as an outpatient when she is ready for discharge. Hypokalemia -We will replace and monitor. Pyuria -Patient denies urinary tract symptoms, but reports having frequent UTIs. -We did repeat a urinalysis today and still showing pyuria, patient does have mild leukocytosis today. We will get a urine culture and start on Ceftin and follow the urine Hypomagnesemia -Replaced. Will monitor. Mildly elevated LFTs -Likely secondary to EtOH abuse. Patient is also on Lipitor as well. -I have counseled patient on EtOH cessation. We will monitor Hypertension -BP is stable. Continue home BP medications and monitor. Hyperlipidemia -Continue Lipitor monitor at LFTs are mildly elevated Anxiety/depression -Continue Wellbutrin and monitor. DVT prx -SCDs Multidisciplinary Rounding: The following staff were in attendance attending physician. The following topics were discussed during rounds plan of care. Electronic Signatures: Lauro Samuels () (Signed 13-May-2018 17:31) Authored: Service, Subjective Data, Objective Data, Assessment and Plan, Multidisciplinary Rounding, Signature/Cosignature/Attestation Last Updated: 13-May-2018 17:31 by Lauro Samuels () URINALYSIS Collected: 05/13/2018 Status: F Source: [facility] 3:09 PM [facility]ITALS REPOSITORY TYPE CODE TESTS RESULT OUT OF RANGE REFERENCE UNITS LAB COLU(LOIN STRAW,YELLOW C) COLOR YELLOW LAB APPRU(SRAVANI CLEAR NC) APPEARANCE HAZY LAB SPGRU(SRAVANI 1.005 - 1.035 NC) SPECIFIC GRAVITY 1.010 LAB GENNA(LOINC 5.0 - 8.0 ) pH 8.0 LAB PROTU(SRAVANI NEGATIVE mg/dL NC) PROTEIN NEGATIVE LAB GLUCU(SRAVANI NEGATIVE mg/dL NC) GLUCOSE NEGATIVE LAB BLDU(LOIN NEGATIVE C) BLOOD NEGATIVE LAB KETU(LOIN NEGATIVE mg/dL C) KETONES NEGATIVE LAB BILIU(SRAVANI NEGATIVE NC) BILIRUBIN NEGATIVE LAB UROU2(SRAVANI 0.0 - 1.9 mg/dL NC) UROBILINOGEN <2.0 LAB NITRU(SRAVANI NEGATIVE NC) NITRITE Abnormal POSITIVE LAB LEUKU(SRAVANI NEGATIVE NC) LEUKOCYTE Abnormal ESTERASE TRACE Performed By: #### UA #### [facility] [address] [place] [address] UA MICROSCOPIC Collected: 05/13/2018 Status: F Source: [facility] 3:09 PM [facility]PITALS REPOSITORY TYPE CODE TESTS RESULT OUT OF RANGE REFERENCE UNITS LAB WBCUR(LOIN 0-5 /HPF C) WBC NONE LAB RBCUR(LOIN 0-5 /HPF C) RBC NONE LAB EPSQE(LOIN /HPF C) SQUAMOUS <1 EPITH. CELLS LAB BACUR(LOIN /HPF C) Abnormal BACTERIA 1+ Performed By: #### UAMIC #### [facility] [address] [place] [address] URINE Observed: 05/13/2018 Status: F Source: [facility] CULTURE,BACTERIAL 3:09 PM HOSPITALS REPOSITORY PATIENT: CARRIE LOW LOCATION: [address]#: [id number] : 59 AGE: SEX: F ORDERED BY: LAURO SAMUELS SOURCE: URINE COLLECTED: 05/13/18 15:09 ANTIBIOTICS AT [facility].: RECEIVED : 05/13/18 22:00 SITE: Clean Catch/Voided R E S U L T S URINE CULTURE,BACTERIAL FINAL 05/15/18 09:47 ISOLATE1 : Klebsiella pneumoniae >100,000 CFU/ML Organism Kl pneum Antibiotic BP INTRP Ampicillin R Cefazolin S Ciprofloxacin S Cefepime S Nitrofurantoin S Gentamicin S Levofloxacin S Piperc/Tazobact S Trimeth/Sulfa S Tetracycline S S=SUSCEPTIBLE I=INTERMEDIATE R=RESISTANT SDD=SUSCEPTIBLE DOSE DEPENDENT NS=NONSUSCEPTIBLE X=REPORTED IN ERROR Performed By: #### URINC #### [facility] [address] [place] [address] CBC Collected: 05/13/2018 Status: F Source: [facility] 6:40 AM [facility] REPOSITORY TYPE CODE TESTS RESULT OUT OF RANGE REFERENCE UNITS LAB WBCR(LOINC) 4.4 - 11.3 x10E9/L High WBC 12.9 LAB RBCCT(LOINC 4.00 - 5.20 x10E12/L ) RBC 4.36 LAB HGB(LOINC) 12.0 - 16.0 g/dL HGB 13.4 LAB HCT(LOINC) 36.0 - 46.0 % HCT 39.2 LAB MCV(LOINC) 80 - 100 fL MCV 90 LAB MCHC2(LOINC 32.0 - 36.0 g/dL ) MCHC 34.2 LAB PLTCT(LOINC 150 - 450 x10E9/L ) PLT 246 LAB RDWCV(LOINC 11.5 - 14.5 % ) RDW-CV 13.0 Performed By: #### CBC #### [facility] [address] [place] [address] MAGNESIUM Collected: 05/13/2018 Status: F Source: [facility] 6:40 [facility] REPOSITORY TYPE CODE TESTS RESULT OUT OF REFERENCE UNITS RANGE LAB MG(LOINC) 1.60 - 2.40 mg/dL MAGNESIUM 1.92 Performed By: #### MG #### [facility] [address] [place] [address] COMPREHENSIVE PANEL Collected: 05/13/2018 Status: F Source: [facility] 6:40 [facility] REPOSITORY TYPE CODE TESTS RESULT OUT OF REFERENCE UNITS RANGE LAB GLU(LOINC) 74 - 99 mg/dL GLUCOSE High 112 LAB SOD(LOINC) 136 - 145 mmol/L SODIUM 138 LAB K(LOINC) 3.5 - 5.3 mmol/L Low POTASSIUM 3.3 LAB CHLOR(LOIN 98 - 107 mmol/L C) CHLORIDE 103 LAB BIC(LOINC) 21 - 32 mmol/L BICARBONATE 25 LAB ANGAP(LOIN 10 - 20 mmol/L C) ANION GAP 13 LAB UREA(LOINC 6 - 23 mg/dL ) UREA NITROGEN 7 LAB CREA(LOINC 0.50 - 1.05 mg/dL ) CREATININE 0.67 LAB GFRFN(LOIN >60 mL/min/1.7 C) 3m2 GFR-NON AM. >60 LAB GFRAA(LOIN >60 mL/min/1.7 C) 3m2 GFR- AM. >60 Result Comment: CALCULATIONS OF ESTIMATED GFR ARE PERFORMED USING THE MDRD STUDY EQUATION FOR THE IDMS-TRACEABLE CREATININE METHODS. CLIN CHEM 2007;53:766-72 LAB CA(LOINC) 8.6 - 10.3 mg/dL CALCIUM 9.8 LAB ALB(LOINC) 3.4 - 5.0 g/dL ALBUMIN 3.7 LAB AP(LOINC) 33 - 136 U/L ALKALINE High PHOSPHATASE 183 LAB TP(LOINC) 6.4 - 8.2 g/dL TOTAL PROTEIN 6.9 LAB AST(LOINC) 9 - 39 U/L AST 32 LAB TBILI(LOINC) 0.0 - 1.2 mg/dL BILIRUBIN,TOTAL 0.5 LAB ALT(LOINC) 7 - 45 U/L ALT 27 Result Comment: Patients treated with Sulfasalazine may generate falsely decreased results for ALT. Performed By: #### CMP #### [facility] [address] [place] [address] PHOSPHORUS Collected: 05/13/2018 Status: F Source: [facility] 6:40 AM [facility]OS[facility]ITALS REPOSITORY TYPE CODE TESTS RESULT OUT OF REFERENCE UNITS RANGE LAB PHOS(LOINC 2.5 - 4.9 mg/dL ) High PHOSPHORUS 5.5 Result Comment: The performance characteristics of phosphorus testing in heparinized plasma have been validated by the individual laboratory site where testing is performed. Testing on heparinized plasma is not approved by the FDA; however, such approval is not necessary. Performed By: #### PHOS #### [facility] [address] [place] [address] DAILY PROGRESS Observed: 05/12/2018 Status: COMPLETED Source: [facility] NOTE-MEDICINE 3:50 PM HOSPITALS REPOSITORY Service: Medicine Subjective Data: CARRIE LOW is a 63 year old Female who is Hospital Day # 3. Patient admits that she is still having some tremors of her hands. But, she states she is feeling better overall. She denies chest pain, shortness breath, nausea, vomiting or diarrhea. Objective Data: Objective Information: T PRBPSpO2 [id number]/8097% Date/Time05/12 15: 15: 10: 15: 15:05 Range(36.5C - 36.7C ) (85 - 94 ) (18 - 20 ) (125 - 139 )/ (80 - 94 ) (95% - 97% ) Pain at Rest reported at 05/12 11:53: 5 Physical Exam: Constitutional: Well developed, awake/alert/oriented x3, no distress, alert and cooperative Eyes: EOMI, clear sclera Respiratory/Thorax: CTAB. Cardiovascular: RRR. Gastrointestinal: Soft. Nontender. Bowel sounds present. Extremities: No pitting edema bilateral lower extremity. Neurological: Mild tremors of the hands present bilaterally. Psychological: Appropriate mood and behavior Skin: Warm and dry. Medication: Medications: Continuous Medications 1. Sodium Chloride 0.9% Infusion: 1000 mL IntraVenous <Continuous> Scheduled Medications 1. amLODIPine (NORVASC): 10 mg Oral Daily 2. Atorvastatin: 20 mg Oral At Bedtime 3. buPROPion (WELLBUTRIN XL) Extended Release (24 hour): 300 mg Oral Every 24 Hours 4. Folic Acid: 1 mg Oral Daily 5. hydroCHLOROthiazide: 25 mg Oral Daily 6. Losartan: 50 mg Oral Daily 7. Magnesium Oxide: 400 mg Oral Daily 8. Multivitamin with Minerals: 1 tablet(s) Oral Daily 9. Potassium Chloride Extended Release: 20 mEq Oral Daily 10. Thiamine: 100 mg Oral Daily PRN Medications 1. Acetaminophen: 650 mg Oral Every 4 Hours 2. Calcium Carbonate Chewable: 1000 mg Oral Every 2 Hours 3. LORazepam Injectable: 0.5 mg IntraVenous Push Every 2 Hours 4. LORazepam Injectable: 1 mg IntraVenous Push Every 2 Hours 5. LORazepam Injectable: 2 mg IntraVenous Push Every 2 Hours 6. Temazepam: 15 mg Oral At Bedtime Recent Lab Results: Results: I have reviewed these laboratory results: Comprehensive Metabolic Panel 12-May-2018 06:27:00 ResultValue Glucose, Serum 100 H NA 142 K 3.4 L CL 103 Bicarbonate, Serum 27 Anion Gap, Serum 15 BUN 6 CREAT 0.71 GFR-Non >60 GFR- >60 Calcium, Serum 8.7 ALB 3.4 ALKP 186 H T Pro 6.5 T Bili 0.5 Alanine Aminotransferase, Serum 31 Aspartate Transaminase, Serum 40 H Complete Blood Count 12-May-2018 06:27:00 ResultValue White Blood Cell Count 10.3 Red Blood Cell Count 4.05 HGB 12.7 HCT 36.9 MCV 91 MCHC 34.4 PLT 210 RDW-CV 13.0 Magnesium, Serum 12-May-2018 06:27:00 ResultValue Magnesium, Serum 1.83 Phosphorus, Serum 12-May-2018 06:27:00 ResultValue Phosphorus, Serum 3.4 Assessment and Plan: Assessment: 63 y old female with past medical history of EtOH abuse, hypertension, hyperlipidemia, anxiety and depression who is admitted to the hospital with EtOH withdrawal syndrome secondary to EtOH abuse/dependence. EtOH withdrawal syndrome/EtOH abuse/dependence -Patient is improving overall, but she is still experiencing EtOH withdrawal symptoms. -Patient continues to exhibit withdrawal symptoms and is still requiring intensive medication adjustment and monitoring to improve the withdrawal symptoms. We will continue the current treatment plan and adjust medications as needed. I anticipate discharge in the next 1-2 days. -Cont CIWA protocol, thiamine, folic acid, MVI and monitor. -I have counseled patient on EtOH abuse cessation and patient will follow-up with family life counseling as an outpatient when she is ready for discharge. Hypokalemia -We will replace and monitor. Pyuria -We'll check a urine culture and monitor. Hypomagnesemia -Replaced. Will monitor. Mildly elevated LFTs -Likely secondary to EtOH abuse. Patient is also on Lipitor as well. -I have counseled patient on EtOH cessation. We will monitor Hypertension -BP is stable. Continue home BP medications and monitor. Hyperlipidemia -Continue Lipitor monitor at LFTs are mildly elevated Anxiety/depression -Continue Wellbutrin and monitor. DVT prx -SCDs Multidisciplinary Rounding: The following staff were in attendance attending physician. The following topics were discussed during rounds plan of care. Electronic Signatures: Lauro Samuels () (Signed 12-May-2018 15:57) Authored: Service, Subjective Data, Objective Data, Assessment and Plan, Multidisciplinary Rounding, Signature/Cosignature/Attestation Last Updated: 12-May-2018 15:57 by Lauro Samuels () EMR ADDON Collected: 05/12/2018 Status: F Source: [facility] 8:43 AM [facility]ITALS REPOSITORY TYPE CODE TESTS RESULT OUT OF REFERENCE UNITS RANGE LAB EMRAC(LOIN C) ADDON CONFIRMATION REQUEST REC'D Performed By: #### EMRAD #### [facility] [address] [place] [address] CBC Collected: 05/12/2018 Status: F Source: [facility] 6:27 AM [facility]OS[facility]ITALS REPOSITORY TYPE CODE TESTS RESULT OUT OF RANGE REFERENCE UNITS LAB WBCR(LOINC) 4.4 - 11.3 x10E9/L WBC 10.3 LAB RBCCT(LOINC 4.00 - 5.20 x10E12/L ) RBC 4.05 LAB HGB(LOINC) 12.0 - 16.0 g/dL HGB 12.7 LAB HCT(LOINC) 36.0 - 46.0 % HCT 36.9 LAB MCV(LOINC) 80 - 100 fL MCV 91 LAB MCHC2(LOINC 32.0 - 36.0 g/dL ) MCHC 34.4 LAB PLTCT(LOINC 150 - 450 x10E9/L ) PLT 210 LAB RDWCV(LOINC 11.5 - 14.5 % ) RDW-CV 13.0 Performed By: #### CBC #### [facility] [address] [place] [address] MAGNESIUM Collected: 05/12/2018 Status: F Source: [facility] 6:27 AM [facility] REPOSITORY TYPE CODE TESTS RESULT OUT OF REFERENCE UNITS RANGE LAB MG(LOINC) 1.60 - 2.40 mg/dL MAGNESIUM 1.83 Performed By: #### MG #### [facility] [address] [place] [address] COMPREHENSIVE PANEL Collected: 05/12/2018 Status: F Source: [facility] 6:27 AM [facility] REPOSITORY TYPE CODE TESTS RESULT OUT OF REFERENCE UNITS RANGE LAB GLU(LOINC) 74 - 99 mg/dL GLUCOSE High 100 LAB SOD(LOINC) 136 - 145 mmol/L SODIUM 142 LAB K(LOINC) 3.5 - 5.3 mmol/L Low POTASSIUM 3.4 LAB CHLOR(LOIN 98 - 107 mmol/L C) CHLORIDE 103 LAB BIC(LOINC) 21 - 32 mmol/L BICARBONATE 27 LAB ANGAP(LOIN 10 - 20 mmol/L C) ANION GAP 15 LAB UREA(LOINC 6 - 23 mg/dL ) UREA NITROGEN 6 LAB CREA(LOINC 0.50 - 1.05 mg/dL ) CREATININE 0.71 LAB GFRFN(LOIN >60 mL/min/1.7 C) 3m2 GFR-NON AM. >60 LAB GFRAA(LOIN >60 mL/min/1.7 C) 3m2 GFR- AM. >60 Result Comment: CALCULATIONS OF ESTIMATED GFR ARE PERFORMED USING THE MDRD STUDY EQUATION FOR THE IDMS-TRACEABLE CREATININE METHODS. CLIN CHEM 2007;53:766-72 LAB CA(LOINC) 8.6 - 10.3 mg/dL CALCIUM 8.7 LAB ALB(LOINC) 3.4 - 5.0 g/dL ALBUMIN 3.4 LAB AP(LOINC) 33 - 136 U/L ALKALINE High PHOSPHATASE 186 LAB TP(LOINC) 6.4 - 8.2 g/dL TOTAL PROTEIN 6.5 LAB AST(LOINC) 9 - 39 U/L AST High 40 LAB TBILI(LOINC) 0.0 - 1.2 mg/dL BILIRUBIN,TOTAL 0.5 LAB ALT(LOINC) 7 - 45 U/L ALT 31 Result Comment: Patients treated with Sulfasalazine may generate falsely decreased results for ALT. Performed By: #### CMP #### [facility] [address] [place] [address] PHOSPHORUS Collected: 05/12/2018 Status: F Source: [facility] 6:27 AM [facility]ALS REPOSITORY TYPE CODE TESTS RESULT OUT OF REFERENCE UNITS RANGE LAB PHOS(LOINC 2.5 - 4.9 mg/dL ) PHOSPHORUS 3.4 Result Comment: The performance characteristics of phosphorus testing in heparinized plasma have been validated by the individual laboratory site where testing is performed. Testing on heparinized plasma is not approved by the FDA; however, such approval is not necessary. Performed By: #### PHOS #### [facility] [address] [place] [address] DAILY PROGRESS Observed: 05/11/2018 Status: COMPLETED Source: [facility] 4:38 PM [facility]ITALS REPOSITORY Service: Medicine Subjective Data: CARRIE LOW is a 63 year old Female who is Hospital Day # 2. Patient admits to some nausea last night and diarrhea. She denies chest pain, shortness of breath, vomiting. Objective Data: Objective Information: T PRBPSpO2 [id number]/6895% Date/Time05/11 14: 14: 14: 14: 14:44 Range(36C - 37.1C ) (89 - 107 ) (16 - 18 ) (103 - 130 )/ (66 - 86 ) (93% - 97% ) Highest temp of 37.1 C was recorded at 05/11 2:00 Pain at Rest reported at 05/11 10:00: 7 Physical Exam: Constitutional: Well developed, awake/alert/oriented x3, no distress, alert and cooperative Eyes: EOMI, clear sclera Respiratory/Thorax: CTAB. Cardiovascular: RRR. Gastrointestinal: Soft. Nontender. Bowel sounds present. Extremities: No pitting edema bilateral lower extremity. Neurological: No tremors of the hands bilaterally. Psychological: Appropriate mood and behavior Skin: Warm and dry. Medication: Medications: Continuous Medications 1. Sodium Chloride 0.9% Infusion: 1000 mL IntraVenous <Continuous> Scheduled Medications 1. amLODIPine (NORVASC): 10 mg Oral Daily 2. Atorvastatin: 20 mg Oral At Bedtime 3. buPROPion (WELLBUTRIN XL) Extended Release (24 hour): 300 mg Oral Every 24 Hours 4. Folic Acid: 1 mg Oral Daily 5. hydroCHLOROthiazide: 25 mg Oral Daily 6. Losartan: 50 mg Oral Daily 7. Magnesium Oxide: 400 mg Oral Daily 8. Multivitamin with Minerals: 1 tablet(s) Oral Daily 9. Potassium Chloride Extended Release: 20 mEq Oral Daily 10. Thiamine: 100 mg Oral Daily PRN Medications 1. Acetaminophen: 650 mg Oral Every 4 Hours 2. Calcium Carbonate Chewable: 1000 mg Oral Every 2 Hours 3. LORazepam Injectable: 0.5 mg IntraVenous Push Every 2 Hours 4. LORazepam Injectable: 1 mg IntraVenous Push Every 2 Hours 5. LORazepam Injectable: 2 mg IntraVenous Push Every 2 Hours 6. Temazepam: 15 mg Oral At Bedtime Recent Lab Results: Results: I have reviewed these laboratory results: Basic Metabolic Panel 11-May-2018 06:30:00 ResultValue Glucose, Serum 108 H NA 135 L K 3.5 CL 102 Bicarbonate, Serum 22 Anion Gap, Serum 15 BUN 8 CREAT 0.72 GFR-Non >60 GFR- >60 Calcium, Serum 8.6 Magnesium, Serum 11-May-2018 06:30:00 ResultValue Magnesium, Serum 1.97 Assessment and Plan: Assessment: 63 y old female with past medical history of EtOH abuse, hypertension, hyperlipidemia, anxiety and depression who is admitted to the hospital with EtOH withdrawal syndrome secondary to EtOH abuse/dependence. EtOH withdrawal syndrome/EtOH abuse/dependence -Patient's CIWA scores are still elevated and she is still experiencing EtOH withdrawal symptoms. -Patient continues to exhibit withdrawal symptoms and is still requiring intensive medication adjustment and monitoring to improve the withdrawal symptoms. We will continue the current treatment plan and adjust medications as needed. I anticipate discharge on Monday. -Cont CIWA protocol, thiamine, folic acid, MVI and monitor. -I have counseled patient on EtOH abuse cessation and patient will follow-up with family life counseling as an outpatient when she is ready for discharge. Hypomagnesemia -Replaced. Will monitor. Mildly elevated LFTs -Likely secondary to EtOH abuse. Patient is also on Lipitor as well. -I have counseled patient on EtOH cessation. We will monitor Hypertension -BP is stable. Continue home BP medications and monitor. Hyperlipidemia -Continue Lipitor monitor at LFTs are mildly elevated Anxiety/depression -Continue Wellbutrin and monitor. DVT prx - SCDs Multidisciplinary Rounding: The following staff were in attendance attending physician. The following topics were discussed during rounds plan of care. Electronic Signatures: Lauro Samuels) (Signed 12-May-2018 15:56) Authored: Service, Subjective Data, Objective Data, Assessment and Plan, Multidisciplinary Rounding, Signature/Cosignature/Attestation Last Updated: 12-May-2018 15:56 by Lauro Samuels () DISCHARGE PLANNING Observed: 05/11/2018 Status: UNK Source: [facility] 4:10 PM [facility]OSPITALS REPOSITORY Discharge Needs Assessment: Discharge Planning Assessment [id number] Discharge Planning Assessment Completed byLiset Archuleta RN [facility] Patient Learning: Factors that Impact Ability to Learnvisual problems(1) Other Factors: Functional Screen: In the recent/past 2-4 weeks, patient or family have noticedno issues that require a rehabilitation consult at this time(2) Discharge Needs: Anticipated Discharge Facility/Level of Care NeedsHome Discharge Planning: Discharge Plannin05/11/18 1611: [employer] Nutritionist: Discharge planning rounds completed at the bedside with the patient. Pt admitted for ETOH withdrawl. Plan of care and goals for discharge reviewed with the patient. Patient informed of tentative discharge date of 05/13 - 05/14. Pt lives independently at home with her prior to admission she did not require any asst devices to complete ADLs. Patient stated deciding with [facility] wether she will be going to IP rehab vs OP rehab depending on insurance. Verified address and phone number on demographics sheet. Pt has insurance: [employer] PCP: Bambi Eduardo Pharmacy: [facility] in [place] Liset Archuleta RN [facility] 05/14/18 [facility] note Patient cleared for discharge. Shows no signs of withdrawal. Pt +UTI. Sent with script for oral antibiotics. Pt verbalized understanding of discharge instructions, follow ups and resources. Pt drove herself, per Dr Samuels pt may drive home. Pt did not receive any altering meds this shift or last shift. Pt safely discharged. Michell VELEZ Electronic Signatures: Flores Momin (CN) (Signed 14-May-2018 10:39) Authored: Discharge Planning Note Liset Archuleta (CLIN COOR) (Signed 11-May-2018 16:13) Authored: Discharge Planning Note Last Updated: 14-May-2018 10:39 by Flores Momin (CN) References: 1. Data Referenced From 5. Education 2018 05:09 PM 2. Data Referenced From Admission Risk Screen - Adult 2018 05:09 PM DISCHARGE PROFILE2 Observed: 05/11/2018 Status: UNK Source: [facility] 12:17 PM HOSPITALS REPOSITORY Discharge Orders: Anticipated Discharge Date: Anticipated Discharge [id number] Activity: May not drive for 1 day(s). Diet: Dietlow sodium Labs 1: Lab Test(s)Comprehensive Metabolic Panel Date To Be Drawn05/19/18 Call Results Top Call Provider If (Homegoing Patients): Any new concerning symptoms. Provider FINAL REVIEW of Orders: Final Review: Final Review of Medication Reconciliation and Orders Completedby Physician Reviewing ProviderLauro Samuels DO at 13-May-2018 17:36:21 Appointments: Follow-Up Appointment 01: [facility]De[facility] Reason for ReferralOutpatient follow up for mental health and substance abuse Call to Schedule inPatient to contact to schedule Location[address] [place] [address] Phone [phone] for initial visit 105 copay follow up visit Follow-Up Appointment 02: Physician/Dept/Melonie Erazo; PCP in 1 week [facility] [phone] CommentsOrder received after discharge. Reached out to schedule lvm & sent letter Electronic Signatures: Lauro Samuels () (Signed 13-May-2018 17:36) Authored: Discharge Orders, Provider FINAL REVIEW of Orders, Appointments Christine Rock (COOR) (Signed 11-May-2018 16:19) Authored: Dennys Garber Form - Carton Catcher Summary Kayy Raymundo (PT ACC REP) (Signed 16-May-2018 13:47) Authored: Appointments Last Updated: 16-May-2018 13:47 by Kayy Raymundo (PT ACC REP) CLINICAL EVENT NOTE- Observed: 05/11/2018 Status: UNK Source: [facility] ADDICTION MAT 12:13 PM HOSPITALS REPOSITORY Event: Topic: Addiction MAT Details: Met with patient f/f in patient's room for symptom status update and to coordinate d/c appointments. Patient reports ability to eat lunch and feeling better than yesterday upon admission. Patient wanting to follow up with either residential or outpatient services for therapy and increased structure and support. patient signs branden for Sarah Erazo to assist with coordinating residential services. Patient willing to follow up with [facility] in [place] however patient does not have outpatient mental health benefits and patient would need to pay sharma. Patient willing to contact coordinator with any questions or concerns. Electronic Signatures: Christine Rock (COOR) (Signed 11-May-2018 12:17) Authored: Event Last Updated: 11-May-2018 12:17 by Christine Rock (COOR) BASIC METABOLIC PANEL Collected: 05/11/2018 Status: F Source: [facility] 6:30 AM HOSPITALS REPOSITORY TYPE CODE TESTS RESULT OUT OF REFERENCE UNITS RANGE LAB GLU(LOINC) 74 - 99 mg/dL GLUCOSE High 108 LAB SOD(LOINC) 136 - 145 mmol/L Low SODIUM 135 LAB K(LOINC) 3.5 - 5.3 mmol/L POTASSIUM 3.5 LAB CHLOR(LOIN 98 - 107 mmol/L C) CHLORIDE 102 LAB BIC(LOINC) 21 - 32 mmol/L BICARBONATE 22 LAB ANGAP(LOIN 10 - 20 mmol/L C) ANION GAP 15 LAB UREA(LOINC 6 - 23 mg/dL ) UREA NITROGEN 8 LAB CREA(LOINC 0.50 - 1.05 mg/dL ) CREATININE 0.72 LAB GFRFN(LOIN >60 mL/min/1.7 C) 3m2 GFR-NON AM. >60 LAB GFRAA(LOIN >60 mL/min/1.7 C) 3m2 GFR- AM. >60 Result Comment: CALCULATIONS OF ESTIMATED GFR ARE PERFORMED USING THE MDRD STUDY EQUATION FOR THE IDMS-TRACEABLE CREATININE METHODS. CLIN CHEM 2007;53:766-72 LAB CA(LOINC) 8.6 - 10.3 mg/dL CALCIUM 8.6 Performed By: #### BMP #### [facility] [address] [place] [address] MAGNESIUM Collected: 05/11/2018 Status: F Source: [facility] [place] 6:30 [facility] REPOSITORY TYPE CODE TESTS RESULT OUT OF REFERENCE UNITS RANGE LAB MG(LOINC) 1.60 - 2.40 mg/dL MAGNESIUM 1.97 Performed By: #### MG #### [facility] [address] [facility] [place] [address] DRUG SCREEN,URINE Collected: 05/11/2018 Status: F Source: [place] 2:33 [facility] REPOSITORY TYPE CODE TESTS RESULT OUT OF REFERENCE UNITS RANGE LAB DRCOM(LOINC ) DRUG SCREEN SEE BELOW COMMENT Result Comment: Drug screen results are presumptive and should not be used to assess compliance with prescribed medication. Contact the performing [facility] laboratory to add-on definitive confirmatory testing if clinically indicated. . Toxicology screening results are reported qualitatively. The concentration must be greater than or equal to the cutoff to be reported as positive. The concentration at which the screening test can detect an individual drug or metabolite varies. The absence of expected drug(s) and/or drug metabolite(s) may indicate non-compliance, inappropriate timing of specimen collection relative to drug administration, poor drug absorption, diluted/adulterated urine, or limitations of testing. For medical purposes only; not valid for forensic use. . Interpretive questions should be directed to the laboratory medical directors. LAB AMPH(LOINC) NEGATIVE AMPHETAMINE PRESUMPTIVE SCREEN,U NEGATIVE Result Comment: CUTOFF LEVEL: 500 NG/ML Cross-reactivity has been reported with high concentrations of the following drugs: buproprion, chloroquine, chlorpromazine, ephedrine, mephentermine, fenfluramine, phentermine, phenylpropanolamine, pseudoephedrine, and propranolol. LAB SHEMAR(LOINC) NEGATIVE BARBITURATES PRESUMPTIVE SCREEN,U NEGATIVE Result Comment: CUTOFF LEVEL: 200 NG/ML LAB BENZO(LOINC) NEGATIVE BENZODIAZEPINES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 [place], [address] AMYLASE Collected: 04/30/2018 Status: F Source: [place] 5:41 PM [facility] REPOSITORY TYPE CODE TESTS RESULT OUT OF RANGE REFERENCE UNITS LAB L501.2400 25-115 U/L Normal LITZY 32 Performed By: #### L500.4050, L501.2400, L501.2450 #### [facility] [address] [place], [address] LIPASE Collected: 04/30/2018 Status: F Source: [place] 5:41 PM [facility] REPOSITORY TYPE CODE TESTS RESULT OUT OF RANGE REFERENCE UNITS LAB L501.2450 73-393 U/L Normal LIPASE 96 Performed By: #### L500.4050, L501.2400, L501.2450 #### [facility] [address] [place], [address] PROTHROMBIN TIME W/INR Collected: 04/30/2018 Status: F Source: [place] 5:41 PM [facility] REPOSITORY TYPE CODE TESTS RESULT OUT OF RANGE REFERENCE UNITS LAB L300.4150 11.7-14.9 SECONDS Normal PROTIME 14.3 LAB L300.4200 Normal INR 1.1 Performed By: #### L300.3900 #### [facility] [address] [place], [address] ALCOHOL, BLOOD Collected: 04/30/2018 Status: F Source: [place] (MEDICAL)-[facility] 5:41 PM [facility] REPOSITORY TYPE CODE TESTS RESULT OUT OF RANGE REFERENCE UNITS LAB L501.9100 mg/dL Normal SERUM 166.0 ETOH Result Comment: The serum:whole blood ethanol ratio is approximately 1.14 and varies slightly with hematocrit. Medical Alcohol reference interval and critical value in non-tolerant individuals; 50 - 100 Impairment 100 Intoxication 100 - 250 Severe Poisoning 250 - 400 Deep/possible fatal coma Performed By: #### L501.9100 #### [facility] [address], [address] ,SERUM,HCG QUALI. Collected: Status: F Source: [place] 04/30/2018 5:41 PM [facility] REPOSITORY Order Comment: Comments: Notify MD of positive results TYPE CODE TESTS RESULT OUT OF REFERENCE UNITS RANGE LAB L700.6700 =>Qualitative mIU/mL Normal HCG Qual 2 triggr LAB L700.7000 0-9 Nonpreg Negative Normal HCGSQUAL NEGATIVE Performed By: #### L700.6800 #### [facility] [place], [address] CBC WITH DIFFERENTIAL Collected: 04/14/2018 Status: F Source: [place] 5:30 AM [facility] REPOSITORY TYPE CODE TESTS RESULT OUT OF RANGE REFERENCE UNITS LAB BA# 0.0-0.1 10*3/uL BASO # Normal 0.1 LAB BA% 0.0-1.0 % BASO % Normal 0.7 LAB EO# 0.0-0.4 10*3/uL EOS # Normal 0.1 LAB EO% 1.0-4.0 % EOS % Normal 1.0 LAB HCT 37.0-47.0 % HEMATOCRIT Normal 38.0 LAB HGB 12.0-16.0 g/dl HEMOGLOBIN Normal 12.6 LAB IG# 0.0-0.1 10*3/uL High IG # 0.2 LAB IG% 0.0-1.0 % High IG % 1.9 LAB LY# 1.3-4.4 10*3/uL LYMPH # Normal 1.9 LAB LY% 27.0-41.0 % Low LYMPH % 20.9 LAB MCH 27.0-31.0 pg High MEAN CORPUSCULAR HGB 31.7 LAB MCHC 33.0-37.0 g/dl MEAN Normal CORPUSCULAR HGB 33.2 CONC LAB MCV 81.0-99.0 fl MEAN CELL Normal VOLUME 95.7 LAB MO# 0.1-1.0 10*3/uL MONO # Normal 0.8 LAB MO% 3.0-9.0 % MONO % Normal 8.6 LAB MPV 9.6-12.3 fl MEAN Normal PLATELET VOLUME 10.6 LAB NE# 2.3-7.9 10*3/uL NEUT # Normal 6.1 LAB NE% 47.0-73.0 % NEUT % Normal 66.9 LAB NRBC# 0.0-0.0 10*3/uL NUCLEATED Normal RED BLOOD CELL 0.0 LAB NRBC% 0.0-0.0 % NUCLEATED Normal RED BLOOD CELL 0.0 LAB PLT 130-400 10*3/uL PLATELET Normal COUNT AUTOMATED 215 LAB RBC 4.10-5.10 10*6/uL Low RED BLOOD COUNT 3.97 LAB RDW 0-14.5 % RED CELL Normal DISTRI WIDTH 13.7 LAB WBC 4.8-10.8 10*3/uL WHITE BLOOD Normal COUNT 9.1 Performed By: #### CBCD #### [facility] [address] [place] [address] BASIC METABOLIC PANEL Collected: 04/14/2018 Status: F Source: [place] 5:30 AM [facility] REPOSITORY TYPE CODE TESTS RESULT OUT OF REFERENCE UNITS RANGE LAB BUN 7-24 mg/dl BUN Normal 9 LAB DEISY 8.5-10.5 mg/dL Low CALCIUM,TOTAL 8.3 LAB CL 98-107 mmol/L CHLORIDE Normal 106 LAB CO2 21-32 mmol/L CARBON Normal DIOXIDE 27 LAB CRE 0.55-1.02 mg/dL Normal CREATININE 0.74 LAB EGFR mL/min/ ESTIMATED GLOM > 60 FILT RATE LAB EGFRAA ml/min EST GLOM FILT > 60 SAMMARINESE Result Comment: Result Units: mL/min/1.73 m2 Note: Persistent reduction for 3 months or more of an eGFR of <60 ml/min/1.73 m2 defines Chronic Kidney Disease (CKD). Patients with eGFR values greater than or equal to 60 ml/min/1.73 m2 may also have CKD if evidence of persistent proteinuria is present. STAGES OF CKD eGFR Stage 1 Kidney damage with normal kidney function >=90 Stage 2 Kidney damage with mild loss of kidney function 89-60 Stage 3a Mild to moderate loss of kidney function 59-44 Stage 3b Moderate to severe loss of kidney function 43-30 Stage 4 Severe loss of kidney function 29-15 Stage 5 Kidney failure < 15 . LAB GLU 65-99 mg/dL Normal GLUCOSE 91 LAB K 3.5-5.1 mmol/L Normal POTASSIUM 3.8 LAB NA 136-145 mmol/L Normal SODIUM 142 Performed By: #### BMP #### [facility] [address] [place] [address] BASIC METABOLIC PANEL Collected: 04/13/2018 Status: F Source: [place] 5:07 [facility] REPOSITORY TYPE CODE TESTS RESULT OUT OF REFERENCE UNITS RANGE LAB BUN 7-24 mg/dl BUN Normal 10 LAB DEISY 8.5-10.5 mg/dL Normal CALCIUM,TOTAL 8.8 LAB CL 98-107 mmol/L CHLORIDE Normal 102 LAB CO2 21-32 mmol/L CARBON Normal DIOXIDE 28 LAB CRE 0.55-1.02 mg/dL Normal CREATININE 0.70 LAB EGFR mL/min/ ESTIMATED GLOM > 60 FILT RATE LAB EGFRAA ml/min EST GLOM FILT > 60 SAMMARINESE Result Comment: Result Units: mL/min/1.73 m2 Note: Persistent reduction for 3 months or more of an eGFR of <60 ml/min/1.73 m2 defines Chronic Kidney Disease (CKD). Patients with eGFR values greater than or equal to 60 ml/min/1.73 m2 may also have CKD if evidence of persistent proteinuria is present. STAGES OF CKD eGFR Stage 1 Kidney damage with normal kidney function >=90 Stage 2 Kidney damage with mild loss of kidney function 89-60 Stage 3a Mild to moderate loss of kidney function 59-44 Stage 3b Moderate to severe loss of kidney function 43-30 Stage 4 Severe loss of kidney function 29-15 Stage 5 Kidney failure < 15 . LAB GLU 65-99 mg/dL Normal GLUCOSE 95 LAB K 3.5-5.1 mmol/L Low POTASSIUM 3.2 LAB NA 136-145 mmol/L Normal SODIUM 141 Performed By: #### BMP #### [facility] [address] [place] [address] Observed: 04/12/2018 Status: C Source: [place] URINE CULTURE 8:41 AM [facility] REPOSITORY URINE CULTURE #1: HEAVY GNB COLONY COUNT >100,000 KLEBSIELLA PNEUMONIAE (ORGANISM ID: [id number]) - Isolated ORGANISM ID: [id number] ANTIBIOTIC INTERPRETATION ELLYN STATUS AMPICILLIN/SULBACTAM S <8/4 F AMIKACIN S <16 F AMPICILLIN R >16 F AZTREONAM S <4 F CEFTRIAXONE S <8 F CEFTAZIDIME S <1 F CEFOTAXIME S <2 F CEFOXITIN S <8 F CEFAZOLIN S <8 F CIPROFLOXICIN S <1 F CEFEPIME S <4 F CEFUROXIME S <4 F ERTAPENEM S <1 F NITROFURANTOIN I 64 F GENTAMICIN S <4 F LEVOFLOXACIN S <2 F MEROPENEM S <1 F PIPERACILLIN/TAZOBACTAM S <16 F TRIMETHOPRIM/SULFAMETHOXAZOLE S <2/38 F TETRACYCLINE S <4 F TOBRAMYCIN S <4 F Performed By: #### UC #### [facility] [address] [place] [address] URINALYSIS REFLEX TO Collected: 04/12/2018 Status: F Source: [place] CULTURE 8:20 AM [facility] REPOSITORY TYPE CODE TESTS RESULT OUT OF RANGE REFERENCE UNITS LAB UB Abnormal BACTERIA 4+ LAB UBIL NEGATIVE BILIRUBIN NEGATIVE LAB UBL NEGATIVE Abnormal BLOOD TRACE-INTACT LAB [facility] LAB UCOL YELLOW COLOR YELLOW LAB UCRFX NO URINE REFLEX YES COMMENT Result Comment: REFLEX CRITERIA MET FOR URINE CULTURE LAB UEC EPITHELIAL CELLS 10-15 LAB UGL NEGATIVE GLUCOSE NEGATIVE LAB UKET NEGATIVE KETONE NEGATIVE LAB ULE NEGATIVE Abnormal LEUKO ESTERASE 3+ LAB UNIT NEGATIVE Abnormal NITRITE POSITIVE LAB UPH 5.0-9.0 Normal PH 6.5 LAB UPRO NEGATIVE PROTEIN NEGATIVE LAB USG 1.005-1.030 Normal SPECIFIC <= GRAVITY 1.005 LAB UURO 0.2-1.0 E.U./d Normal l UROBILINOGEN 0.2 LAB UWBC 0-5 wbc/hp f WBC TNTC Performed By: #### UARFXUC #### [facility] [address] [place] [address] URINE DRUG SCREEN Collected: 04/12/2018 Status: F Source: [place] 8:20 AM [facility] REPOSITORY TYPE CODE TESTS RESULT OUT OF RANGE REFERENCE UNITS LAB UAMPH 1000ng/ml URINE AMPHETAMINES < 1000 LAB UBAR 200ng/ml URINE BARBITURATES < 200 LAB UBENZ 200ng/ml URINE Abnormal BENZODIAZEPINES > 200 LAB UCAN 50ng/ml URINE CANNABINOIDS (THC) < 50 LAB UCOCO 300ng/ml URINE COCAINE < 300 LAB UMETH 300ng/ml URINE METHADONE < 300 LAB UOPIAT 300ng/ml URINE OPIATES < 300 LAB UPCP 25ng/ml URINE PHENCYCLIDINE < 25 Result Comment: pH of the urine has been checked and is within acceptable range 5-8 The Drugs of Abuse are screening results only. Confirmation and Quantitation by GC/MS can be performed by request at an additional charge. ANYTHING EQUAL TO OR GREATER THAN THE REFERENCE INDICATES ABUSE. ( > = POSITIVE < = NEGATIVE ) Performed By: #### UDRG #### [facility] [address] [place] [address] CBC WITH DIFFERENTIAL Collected: 04/12/2018 Status: F [facility] REPOSITORY TYPE CODE TESTS RESULT OUT OF RANGE REFERENCE UNITS LAB BA# 0.0-0.1 10*3/uL BASO # Normal 0.0 LAB BA% 0.0-1.0 % BASO % Normal 0.3 LAB EO# 0.0-0.4 10*3/uL EOS # Normal 0.1 LAB EO% 1.0-4.0 % EOS % Normal 1.3 LAB HCT 37.0-47.0 % HEMATOCRIT Normal 39.7 LAB HGB 12.0-16.0 g/dl HEMOGLOBIN Normal 13.3 LAB IG# 0.0-0.1 10*3/uL IG # Normal 0.1 LAB IG% 0.0-1.0 % High IG % 1.3 LAB LY# 1.3-4.4 10*3/uL LYMPH # Normal 1.7 LAB LY% 27.0-41.0 % Low LYMPH % 21.0 LAB MCH 27.0-31.0 pg High MEAN CORPUSCULAR HGB 31.7 LAB MCHC 33.0-37.0 g/dl MEAN Normal CORPUSCULAR HGB 33.5 CONC LAB MCV 81.0-99.0 fl MEAN CELL VOLUME 94.5 LAB MO# 0.1-1.0 10*3/uL MONO # Normal 0.6 LAB MO% 3.0-9.0 % MONO % Normal 7.4 LAB MPV 9.6-12.3 fl MEAN Normal PLATELET VOLUME 10.1 LAB NE# 2.3-7.9 10*3/uL NEUT # Normal 5.4 LAB NE% 47.0-73.0 % NEUT % Normal 68.7 LAB NRBC# 0.0-0.0 10*3/uL NUCLEATED Normal RED BLOOD CELL 0.0 LAB NRBC% 0.0-0.0 % NUCLEATED Normal RED BLOOD CELL 0.0 LAB PLT 130-400 10*3/uL PLATELET Normal COUNT AUTOMATED 225 LAB RBC 4.10-5.10 10*6/uL RED BLOOD Normal COUNT 4.20 LAB RDW 0-14.5 % RED CELL Normal DISTRI WIDTH 13.6 LAB WBC 4.8-10.8 10*3/uL WHITE BLOOD Normal COUNT 7.9 Performed By: #### CBCD, BMP #### [facility] [address] [place] [address] BASIC METABOLIC PANEL Collected: 04/12/2018 Status: F Source: [place] 8:15 AM [facility] REPOSITORY TYPE CODE TESTS RESULT OUT OF REFERENCE UNITS RANGE LAB BUN 7-24 mg/dl BUN Normal 10 LAB DEISY 8.5-10.5 mg/dL Low CALCIUM,TOTAL 8.4 LAB CL 98-107 mmol/L Low CHLORIDE 96 LAB CO2 21-32 mmol/L CARBON High DIOXIDE 34 LAB CRE 0.55-1.02 mg/dL Normal CREATININE 0.78 LAB EGFR mL/min/ ESTIMATED GLOM > 60 FILT RATE LAB EGFRAA ml/min EST GLOM FILT > 60 SAMMARINESE Result Comment: Result Units: mL/min/1.73 m2 Note: Persistent reduction for 3 months or more of an eGFR of <60 ml/min/1.73 m2 defines Chronic Kidney Disease (CKD). Patients with eGFR values greater than or equal to 60 ml/min/1.73 m2 may also have CKD if evidence of persistent proteinuria is present. STAGES OF CKD eGFR Stage 1 Kidney damage with normal kidney function >=90 Stage 2 Kidney damage with mild loss of kidney function 89-60 Stage 3a Mild to moderate loss of kidney function 59-44 Stage 3b Moderate to severe loss of kidney function 43-30 Stage 4 Severe loss of kidney function 29-15 Stage 5 Kidney failure < 15 . LAB GLU 65-99 mg/dL GLUCOSE High 117 LAB K 3.5-5.1 mmol/L Low POTASSIUM 3.1 LAB NA 136-145 mmol/L Low SODIUM 134 Performed By: #### CBCD, BMP #### [facility] [address] [place] [address] TROPONIN I Collected: 04/12/2018 Status: F Source: [place] 12:14 AM [facility] REPOSITORY TYPE CODE TESTS RESULT OUT OF REFERENCE UNITS RANGE LAB TRO <0.045 ng/ml TROPONIN I < 0.015 Result Comment: </= 0.045 Troponin I Interpretation: Low probability of myocardial injury. Clinical correlation required. >0.045 Troponin I interpretation: Troponin I present. Diagnostic possibilities include, but are not limited to, unstable angina, micro myocardial injury, early myocardial injury, cardiomyopathy or myocardial infarct. Clinical correlation required. Troponin I testing performed on a Siemens Dimension Chancellor analyzer which has a coefficient varient of <10 percent at the 99th percentile as recommended by 2014 AHA NSTE-ACS guidelines and the third universal definition of SD. The 2012 Third Amagon Definition of SD defines a positive troponin as an elevation of the troponin I value above the 99th percentile of normal. Troponin I is the preferred biomarker overall and the only biomarker assessed for Chest Pain Accreditation purposes. Troponin I testing should be measured at presentation, and 3-6 hours after symptom onset in all patients presenting with ACS symptoms to identify a rising and/or falling pattern. Performed By: #### TRO #### [facility] [address] [place] [address] TROPONIN I Collected: 04/11/2018 Status: F Source: [place] 9:28 PM [facility] REPOSITORY TYPE CODE TESTS RESULT OUT OF REFERENCE UNITS RANGE LAB TRO <0.045 ng/ml TROPONIN I < 0.015 Result Comment: </= 0.045 Troponin I Interpretation: Low probability of myocardial injury. Clinical correlation required. >0.045 Troponin I interpretation: Troponin I present. Diagnostic possibilities include, but are not limited to, unstable angina, micro myocardial injury, early myocardial injury, cardiomyopathy or myocardial infarct. Clinical correlation required. Troponin I testing performed on a Siemens Dimension Chancellor analyzer which has a coefficient varient of <10 percent at the 99th percentile as recommended by 2014 AHA NSTE-ACS guidelines and the third universal definition of SD. The 2012 Third Amagon Definition of SD defines a positive troponin as an elevation of the troponin I value above the 99th percentile of normal. Troponin I is the preferred biomarker overall and the only biomarker assessed for Chest Pain Accreditation purposes. Troponin I testing should be measured at presentation, and 3-6 hours after symptom onset in all patients presenting with ACS symptoms to identify a rising and/or falling pattern. 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: : 1955 Requested By: KAROL COULTER Order Number: [id number] Reading MD: Jesse Mcdonough MD Measurements Intervals Simpson Rate: 103 P: -8 MT: 107 QRS: 24 QRSD: 90 T: 32 QT: 392 QTc: 513 Interpretive Statements Sinus tachycardia Low voltage, precordial leads Prolonged QT interval Baseline wander in lead(s) V6 Electronically Signed On 04-11-2018 20:24:45 PST by Jesse Mcdonough MD CM:EKGRPT:ELECTROCARDIOGRAM REPORT 52 23 KAROL STEPHENS DRAFT REPORT KAROL COULTER TROPONIN I Collected: 04/11/2018 Status: F Source: [place] 6:51 PM [facility] REPOSITORY TYPE CODE TESTS RESULT OUT OF REFERENCE UNITS RANGE LAB TRO <0.045 ng/ml TROPONIN I < 0.015 Result Comment: </= 0.045 Troponin I Interpretation: Low probability of myocardial injury. Clinical correlation required. >0.045 Troponin I interpretation: Troponin I present. Diagnostic possibilities include, but are not limited to, unstable angina, micro myocardial injury, early myocardial injury, cardiomyopathy or myocardial infarct. Clinical correlation required. Troponin I testing performed on a Siemens Dimension Chancellor analyzer which has a coefficient varient of <10 percent at the 99th percentile as recommended by 2014 AHA NSTE-ACS guidelines and the third universal definition of SD. The 2012 Third Amagon Definition of SD defines a positive troponin as an elevation of the troponin I value above the 99th percentile of normal. Troponin I is the preferred biomarker overall and the only biomarker assessed for Chest Pain Accreditation purposes. Troponin I testing should be measured at presentation, and 3-6 hours after symptom onset in all patients presenting with ACS symptoms to identify a rising and/or falling pattern. Performed By: #### TRO #### [facility] [address] [place] [address] PROTHROMBIN TIME Collected: 04/11/2018 Status: F [facility] PM [facility] REPOSITORY TYPE CODE TESTS RESULT OUT OF REFERENCE UNITS RANGE LAB INR 2.0-3.5 INTERNATIONAL Low NORM RATIO 1.1 Result Comment: INR THERAPEUTIC RANGE: GROUP A 2.0-3.0 INR GROUP B 2.5-3.5 INR GROUP A SUGGESTED INDICATIONS: PROPHYLAXIS AND TREATMENT OF VENOUS THROMBOSIS TREATMENT OF PULMONARY EMBOLISM ATRIAL FIBRILLATION GROUP B SUGGESTED INDICATIONS: MECHANICAL PROSTHETIC VALVES LAB PT. 9.0-12.4 SECONDS PROTHROMBIN Normal TIME 11.4 Performed By: #### CBCD, PT, CMP, ETOH #### [facility] [address] [place] [address] COMPREHENSIVE METABOLIC Collected: 04/11/2018 Status: F [facility]:19 PM [facility] REPOSITORY TYPE CODE TESTS RESULT OUT OF REFERENCE UNITS RANGE LAB ALB 3.1-4.5 gm/dl ALBUMIN Normal 3.4 LAB ALK 45-117 U/L ALKALINE High PHOSPHATASE 310 LAB ALT 12-78 U/L SGPT/ALT High 80 LAB AST 3-35 IU/L SGOT/AST High 130 LAB BILT 0.2-1.0 mg/dl BILIRUBIN, Normal TOTAL 0.7 LAB BUN 7-24 mg/dl Low BUN 6 LAB DEISY 8.5-10.5 mg/dL Normal CALCIUM,TOTAL 8.7 LAB CL 98-107 mmol/L Low CHLORIDE 94 LAB CO2 21-32 mmol/L CARBON Normal DIOXIDE 27 LAB CRE 0.55-1.02 mg/dL CREATININE Normal 0.65 LAB EGFR mL/min/ ESTIMATED GLOM FILT RATE > 60 LAB EGFRAA ml/min EST GLOM FILT > 60 SAMMARINESE Result Comment: Result Units: mL/min/1.73 m2 Note: Persistent reduction for 3 months or more of an eGFR of <60 ml/min/1.73 m2 defines Chronic Kidney Disease (CKD). Patients with eGFR values greater than or equal to 60 ml/min/1.73 m2 may also have CKD if evidence of persistent proteinuria is present. STAGES OF CKD eGFR Stage 1 Kidney damage with normal kidney function >=90 Stage 2 Kidney damage with mild loss of kidney function 89-60 Stage 3a Mild to moderate loss of kidney function 59-44 Stage 3b Moderate to severe loss of kidney function 43-30 Stage 4 Severe loss of kidney function 29-15 Stage 5 Kidney failure < 15 . LAB GLU 65-99 mg/dL Normal GLUCOSE 85 LAB K 3.5-5.1 mmol/L Low POTASSIUM 3.0 LAB NA 136-145 mmol/L Low SODIUM 133 LAB TP 6.4-8.2 gm/dL Normal TOTAL PROTEIN 8.2 Performed By: #### CBCD, PT, CMP, ETOH #### [facility] [address] [place] [address] ETHYL ALCOHOL Collected: 04/11/2018 Status: F Source: [place] 5:19 PM [facility] REPOSITORY TYPE CODE TESTS RESULT OUT OF REFERENCE UNITS RANGE LAB ETOH <3 mg/dl High ETHYL ALCOHOL 93.0 Performed By: #### CBCD, PT, CMP, ETOH #### [facility] [address] [place] [address] CBC WITH DIFFERENTIAL Collected: 04/11/2018 Status: F Source: [facility] PM [facility] REPOSITORY TYPE CODE TESTS RESULT OUT OF RANGE REFERENCE UNITS LAB BA# 0.0-0.1 10*3/uL BASO # Normal 0.0 LAB BA% 0.0-1.0 % BASO % Normal 0.2 LAB EO# 0.0-0.4 10*3/uL EOS # Normal 0.1 LAB EO% 1.0-4.0 % Low EOS % 0.5 LAB HCT 37.0-47.0 % HEMATOCRIT Normal 43.8 LAB HGB 12.0-16.0 g/dl HEMOGLOBIN Normal 15.0 LAB IG# 0.0-0.1 10*3/uL IG # Normal 0.1 LAB IG% 0.0-1.0 % High IG % 1.1 LAB LY# 1.3-4.4 10*3/uL LYMPH # Normal 2.0 LAB LY% 27.0-41.0 % Low LYMPH % 15.3 LAB MCH 27.0-31.0 pg High MEAN CORPUSCULAR HGB 31.1 LAB MCHC 33.0-37.0 g/dl MEAN Normal CORPUSCULAR HGB 34.2 CONC LAB MCV 81.0-99.0 fl MEAN CELL Normal VOLUME 90.9 LAB MO# 0.1-1.0 10*3/uL MONO # Normal 0.7 LAB MO% 3.0-9.0 % MONO % Normal 5.8 LAB MPV 9.6-12.3 fl MEAN Normal PLATELET VOLUME 10.2 LAB NE# 2.3-7.9 10*3/uL High NEUT # 9.9 LAB NE% 47.0-73.0 % High NEUT % 77.1 LAB NRBC# 0.0-0.0 10*3/uL NUCLEATED Normal RED BLOOD CELL 0.0 LAB NRBC% 0.0-0.0 % NUCLEATED Normal RED BLOOD CELL 0.0 LAB PLT 130-400 10*3/uL PLATELET Normal COUNT AUTOMATED 316 LAB RBC 4.10-5.10 10*6/uL RED BLOOD Normal COUNT 4.82 LAB RDW 0-14.5 % RED CELL Normal DISTRI WIDTH 13.2 LAB WBC 4.8-10.8 10*3/uL High WHITE BLOOD COUNT 12.9 Performed By: #### CBCD, PT, CMP, ETOH #### [facility] [address] [place] [address] 12 LEAD ELECTROCARDIOGRAM Observed: 03/02/2018 Status: F Source: [place] 3:05 PM [facility] REPOSITORY [facility] Cardiovascular Services [address] [place] [id number] 12 Lead EKG 02/17/18 1110 MR#: [id number] Acct: [id number] Name: CARRIE LOW Rep #: [id number] : 1955 62 From: Renato Freed MD Attending Dr: Angel Desai DO Status: DIS IN Ordering Dr: Thania Brown Date: 02/17/18 Location: [facility] Sex: F C Admitted: 02/16/18 Test Reason : SOB Blood Pressure : / mmHG Vent. Rate : 081 BPM Atrial Rate : 081 BPM P-R Int : 142 ms QRS Dur : 084 ms QT Int : 402 ms P-R-T Axes : 042 040 049 degrees QTc Int : 466 ms Normal sinus rhythm Normal ECG When compared with ECG of 08-SEP-2017 09:11, No significant change was found Confirmed by ABDIAZIZ JIN, RENATO ([id number]), newspaper editor managing MIGUEL A KOLB ([id number]) on 03/02/2018 3:05:30 PM Referred By: Thania Brown Confirmed By:RENATO FREED MD 03/02/18 1505 Date Renato Freed MD CC: Thania Brown; Angel Desai DO; OUT OF TOWN DOCTOR Signed DISCHARGE SUMMARY Observed: 02/19/2018 Status: F Source: [place] 9:28 AM [facility] REPOSITORY [facility] Medical Records Department [address] [place] [address] Discharge Summary 02/19/18925 MR#: [id number] Acct: [id number] Name: CARRIE LOW Rep #: [id number] : 1955 62 From: Angel Desai DO PCP: OUT OF TOWN DOCTOR Status: ADM IN Y Location: [address] Discharge Date and Diagnosis Date of Admission: 02/16/18 Date of Discharge: 02/19/18 - Secondary Discharge Diagnosis Chronic Problems Alcohol use disorder (Chronic) HTN (hypertension) (Chronic) Obesity (BMI 30.0-34.9) (Chronic) Depression (Chronic) Hospital Course and Treatment Imaging Results: Clinical Impression(s) from Imaging Studies Liver Ultrasound 02/17/18 06:51 IMPRESSION: Multiple gallstones without evidence of acute cholecystitis as there is no wall thickening or pericholecystic fluid. Hepatomegaly with hepatic steatosis. Electronically Signed: Dhaval Urrutia DO at 10:20 EDT Tel , Service support , Chest X-Ray 02/17/18 08:43 IMPRESSION: Normal x-ray examination of the chest. Electronically Signed: Dhaval Urrutia DO at 9:29 EDT Tel , Service support , Operations: None Procedures: None Summary of Care Provided: The patient is a 62 year old F presents seeking treatment for alcohol withdrawal. 1. acute alcohol withdrawal * doing well * DC home * patient to follow up with [facility] as outpt * MVI * Wellbutrin likely the etiology of the +UDS for methamphetamines/MDMA 2. Elevated LFTs * AST > ALT. Both mildly elevated * acute hepatitis profile ordered, and still pending. * likely due to alcohol * follow up as out pt ([facility] will need to be followed up as outpt as well) [] Discharge Diet: No Restrictions Discharge Activity: Return to Normal Activity Call your doctor if you observe: Fever of 101 or Higher, Shortness of breath Home Medications: Medications to take at Discharge Amlodipine [Norvasc] 10 mg PO DAILY 12/29/15 buPROPion XL [Wellbutrin Xl] 300 mg PO DAILY 12/29/15 Potassium Chloride [K-Dur] 20 meq PO DAILY 02/09/16 Hydrochlorothiazide [Hctz] 25 mg PO DAILY 03/03/16 Irbesartan [Avapro] 150 mg PO DAILY 08/25/16 Ondansetron [Zofran Odt] 4 mg PO Q8H PRN PRN #10 tablet 08/30/17 Peg 400/Hypromellose/Glycerin [Visine Dry Eye Relief Drop] 15 ml OP 4X/DAY PRN PRN #1 bottle 09/10/17 Multivitamins,Therapeutic [Multivitamin] 1 tablet PO DAILYCM tablet 02/19/18 Primary Care Physician: Thu Kraft,Out of [Primary Care Provider] - Within 2 Weeks Please follow up with your Primary Care Physician in: Follow up with your primary care doctor for additional lab work. Disposition: Home Minutes spent on discharge:: 28 Patient Condition:: Fair Medical Necessity - Tobacco Use Smoking Status: Never smoker Tobacco Use: Non-smoker Meaningful Use Info Meaningful Use Diagnoses (Choose all that apply): None applicable Code Visit Inpatient E AND M: 73144 Disch Hosp 02/19/18927 <Electronically signed by Angel Desai DO> Date Angel Desai DO Cosigner Signature (if applicable): Date CC: Angel Desai DO; OUT OF TOWN DOCTOR Signed DISCHARGE INSTRUCTION Observed: 02/19/2018 Status: F Source: [place] 9:26 AM [facility] REPOSITORY [facility] Medical Records Department [address] [place] [address] Instructions for Home/Discharge Instructions 02/19/18923 MR#: [id number] Acct: [id number] Name: CARRIE LOW Rep #: [id number] : 1955 62 From: Angel Desai DO PCP: OUT OF TOWN DOCTOR Status: ADM IN - Discharge Diagnoses Current Active Problems: Current Active and Chronic Problems HTN (hypertension) (Chronic) Obesity (BMI 30.0-34.9) (Chronic) Depression (Chronic) You will use the following diet at home:: No restrictions Your food should be the consistency of: Regular Your liquids should be the consistency of: Regular/Thin Discharge Activity: Return to Normal Activity Call your doctor if you observe: Fever of 101 or Higher, Shortness of breath Allergies/Adverse Reactions: Allergies meperidine HCl [From Demerol] Allergy (Verified 08/30/17 17:47) HYPERTENSION phenobarbital Allergy (Verified 08/30/17 17:47) Other HYPERTENSION shellfish derived Allergy (Verified 08/30/17 17:47) Hives Medications to take at Discharge Amlodipine [Norvasc] 10 mg PO DAILY 12/29/15 buPROPion XL [Wellbutrin Xl] 300 mg PO DAILY 12/29/15 Potassium Chloride [K-Dur] 20 meq PO DAILY 02/09/16 Hydrochlorothiazide [Hctz] 25 mg PO DAILY 03/03/16 Irbesartan [Avapro] 150 mg PO DAILY 08/25/16 Ondansetron [Zofran Odt] 4 mg PO Q8H PRN PRN #10 tablet 08/30/17 Peg 400/Hypromellose/Glycerin [Visine Dry Eye Relief Drop] 15 ml OP 4X/DAY PRN PRN #1 bottle 09/10/17 Multivitamins,Therapeutic [Multivitamin] 1 tablet PO DAILYCM tablet 02/19/18 Primary Care Physician: Thu Doctor,Out of [Primary Care Provider] - Within 2 Weeks Please follow up with your Primary Care Physician in: Follow up with your primary care doctor for additional lab work. Test Results: Test results from this visit will be discussed in further detail at your follow-up appointment, if applicable. Proposed Discharge Date: 02/19/18 02/19/18925 <Electronically signed by Angel Desai DO> Date Angel Desai DO CC: OUT OF TOWN DOCTOR ECHOCARDIOGRAM COMPLETE Observed: 02/17/2018 Status: F Source: [place] 1:23 PM [facility] REPOSITORY [facility] Cardiovascular Services [address] [place] [address] Echo Complete 02/17/18 1019 MR#: [id number] Acct: [id number] Name: CARRIE LOW Rep #: [id number] : 1955 62 From: Renato Freed MD Attending Dr: Thania Brown Status: ADM IN Ordering Dr: Thania Brown Date: 02/17/18 Location: [facility] Sex: F C Admitted: 02/16/18 Reason For Study: SOB Procedure This was a 2D Doppler, Color Flow transthoracic echocardiogram. Exam performed portable in patient room. Left Ventricle Normal LV size. Left ventricular systolic function is normal. The estimated ejection fraction is 65 %. Stage 1 diastolic dysfunction. No regional wall motion abnormalities noted. Right Ventricle Normal RV size. Normal systolic function. Atria Normal left atrium. Normal right atrium. Mitral Valve Normal mitral valve. Tricuspid Valve Normal tricuspid valve. Mild (1+) tricuspid valve insufficiency. Pulmonary artery systolic pressure is 24 mmHg. Aortic Valve The aortic valve is not well visualized. Pulmonic Valve Normal pulmonic valve. Great Vessels Normal aortic root. The pulmonary artery is normal size. Normal inferior vena cava. Pericardium/Pleural No pericardial effusion. MMode/2D Measurements AND Calculations LVIDd: 4.1 cm IVSd: 0.97 cm Ao root diam: 2.9 cm LVIDs: 1.8 cm LVPWd: 0.81 cm LA dimension: 4.1 cm RVDd: 3.5 cm FS: 55.5 % LAV(MOD-bp): 35.8 ml LA A4 area: 14.4 cm2 RA A4 area: 13.3 cm2 LAV(MOD-bp) Indexed: 18.5 ml/m2 LAV(MOD-sp2): 35.6 ml LAV(MOD-sp4): 32.0 ml Doppler Measurements AND Calculations MV E max gregg: 84.4 cm/sec Lat Peak E' Gregg: 11.6 cm/sec Med Peak E' Gregg: 8.3 cm/sec MV A max gregg: 90.6 cm/sec E/E' lat: 7.3 E/E' med: 10.1 MV E/A: 0.93 Ao V2 max: 178.0 cm/sec LV V1 max: 141.5 cm/sec PA V2 max: 115.3 cm/sec Ao max P.7 mmHg LV V1 max P.0 mmHg TR max gregg: 232.7 cm/sec TR max P.7 mmHg Interpretation Summary Normal LV size. Left ventricular systolic function is normal. The estimated ejection fraction is 65 %. Stage 1 diastolic dysfunction. Mild (1+) tricuspid valve insufficiency. Ordering Physician: Thania Brown Referring Physician: Thania Brown Performed By: Tamika Doran LUDA 02/17/18 1322 Date Renato Freed MD CC: Thania Brown; OUT OF TOWN DOCTOR Date Dictated: 02/17/18 1019 Date Transcribed: 02/17/18 1322 Shellfish Weigher: Signed URINALYSIS, COMPLETE Collected: 02/17/2018 Status: F Source: [place] 12:05 PM [facility] RE[facility] Order Comment: Order Date: 02/17/18 How was Urine Obtained? CLEAN CATCH TYPE CODE TESTS RESULT OUT OF RANGE REFERENCE UNITS LAB L400.3000 Yellow COLOR Normal Yellow LAB L400.3050 Clear Normal CLARITY Clear LAB L400.3200 Normal mg/dl Normal GLUCOSE, UR Normal LAB L400.3300 Negative mg/dL Normal BILIRUBIN URINE Negative LAB L400.3400 Negative mg/dl Normal KETONE UR Negative LAB L400.3465 1.002-1.030 Normal SP.GR. DIPSTX 1.005 LAB L400.3550 5.0 - 8.0 pH UR Normal 7.0 LAB L400.3600 Negative mg/dl PROT Normal DIPSTX Negative LAB L400.3700 Normal mg/dl Normal UROBILI Normal LAB L400.3750 Negative Normal NITRITE UR Negative LAB L400.3780 Negative /ul Normal OCCULT BLOOD-UR Negative LAB L400.3800 Negative /ul LEUK Normal ESTERASE Negative LAB L400.4050 0-5 /hpf WBC 0 Normal SEEN LAB L400.4100 0-5 /hpf 0 Normal RBC-UA SEEN LAB L400.4150 5-10 /hpf SQUAM 0 Normal EPI SEEN LAB L400.4300 None Seen /hpf 0 Normal BACTERIA SEEN LAB L400.4350 <or=2+ /hpf 0 Normal MUCUS, URINE SEEN Performed By: #### L400.0001 #### [facility] [address] [place], [address] TROPONIN-I Collected: 02/17/2018 Status: F Source: [place] 9:10 AM [facility] RE[facility] TYPE CODE TESTS RESULT OUT OF RANGE REFERENCE UNITS LAB L501.4010 <0.045 ng/mL Normal < 0.015 TROPONIN-I Result Comment: TROPONIN-I EXPECTED VALUES <0.045 Negative 0.045 - 0.590 Consistent with Cardiac Damage > OR = 0.600 Critical Value Not every elevated troponin is indicative of SD. These values should be used with clinical judgement in examining the patient's clinical picture for diagnosis. To establish a diagnosis of SD versus myocardial injury, there must be a demonstrated rise and/or fall in the troponin values, in addition to ischemic symptoms, EKG changes, new regional wall motion abnormality, and/or angiographical evidence. PLEASE NOTE: REFERENCE RANGES EDITED 17 Performed By: #### L501.4010 #### [facility] [address] [place], [address] CHEST PA AND LATERAL Observed: 02/17/2018 Status: F Source: [place] 8:44 AM [facility] REPOSITORY [facility] Imaging Services [address] [place] [address] Chest PA and Lateral MR#: [id number] Acct: [id number] Name: FLORIDALMACARRIE R Rep #: [id number] : 1955 F 62 From: Dhaval Urrutia DO PCP: OUT OF TOWN DOCTOR Status: ADM IN Study: Chest PA and Lateral Date of Exam: 02/17/18 Exam# [id number] Ordering Dr: Thania Brown STUDY: X-RAY CHEST REASON FOR EXAM: Female, 62 years old. Shortness of breath x10 days TECHNIQUE: PA and lateral views of the chest. COMPARISON: 08/30/2017 FINDINGS: The lungs are clear and expanded. There is no demonstrated pleural abnormality. Normal size heart. Normal mediastinum and maggy. Normal visualized pulmonary arteries. Normal visualized aortic arch and descending thoracic aorta. Normal visualized thoracic spine. Normal visualized ribs, clavicles, and shoulders. There is no demonstrated abnormality of the visualized soft tissue structures of the upper abdomen. RAD/Chest PA and Lateral IMPRESSION: Normal x-ray examination of the chest. Electronically Signed: Dhaval Urrutia DO at 9:29 EDT Tel , Service support , CC: Thania Brown; OUT OF TOWN DOCTOR Shellfish Weigher: Signed LIVER Observed: 02/17/2018 Status: F Source: [place] 6:51 AM [facility] REPOSITORY [facility] Imaging Services [address] [place] [address] Liver MR#: [id number] Acct: [id number] Name: CARRIE LOW Rep #: [id number] : 1955 F 62 From: Dhaval Urrutia DO PCP: OUT OF TOWN DOCTOR Status: ADM IN Study: Liver Date of Exam: 02/17/18 Exam# [id number] Ordering Dr: Thania Brown STUDY: ABDOMINAL ULTRASOUND - RIGHT UPPER QUADRANT REASON FOR VISIT: Female, 62 years old. Abnormal labs TECHNIQUE: Ultrasound evaluation of the right upper quadrant was performed with real-time and static rock-scale imaging. TECHNICAL QUALITY: Adequate. COMPARISON: None. FINDINGS: Liver: The liver measures 20.1 cm. There is increased echogenicity consistent with fatty infiltration. The bile ducts are within normal limits. There is hepatic color flow. The direction of portal flow is hepatopetal. There is no demonstrated mass lesion. Gallbladder: Normal distended gallbladder. The gallbladder wall measures 3.0 mm. There is a negative sonographic Arambula's sign. There is no pericholecystic fluid. There are multiple echogenic structures within the gallbladder, consistent with multiple gallstones. Common Bile Duct (C.B.D.): The common bile duct measures 4 mm. Pancreas: Normal size of the head, body and tail of the pancreas. There is normal echogenicity of the pancreas. There is no demonstrated pancreatic mass or cyst. Right Kidney: Normal size of the right kidney. The right kidney measures 10.9 cm. Normal renal cortex. The right cortex measures 1.4 cm. There is no demonstrated renal mass or cyst. There is no right hydronephrosis. US/Liver IMPRESSION: Multiple gallstones without evidence of acute cholecystitis as there is no wall thickening or pericholecystic fluid. Hepatomegaly with hepatic steatosis. Electronically Signed: Dhaval Urrutia DO at 10:20 EDT Tel , Service support , CC: Thania Brown; OUT OF TOWN DOCTOR Shellfish Weigher: Signed HISTORY AND PHYSICAL Observed: 02/16/2018 Status: F Source: [place] EXAM 6:08 PM [facility] REPOSITORY [facility] Medical Records Department [address] [place] [address] History and Physical 02/16/18 1642 MR#: [id number] Acct: [id number] Name: CARRIE LOW Rep #: [id number] : 1955 62 From: Thania Brown PCP: OUT OF TOWN DOCTOR Status: ADM IN Y Location: [facility] [id number] Problem List (1) Alcohol withdrawal Status: Acute (2) HTN (hypertension) Status: Chronic Qualifiers: Hypertension type: essential hypertension Qualified Code(s): I10 - Essential (primary) hypertension (3) Obesity (BMI 30.0-34.9) Status: Chronic (4) Depression Status: Chronic Qualifiers: Depression Type: unspecified Qualified Code(s): F32.9 - Major depressive disorder, single episode, unspecified (5) Alcohol use disorder Status: Chronic History of Present Illness Date of Admission: 02/16/18 Chief Complaint: Acute EtOH Withdrawal The patient is a 62 y/o F w/ PMHx: Hypertension, Obesity, Depression, Alcohol abuse ( 12 glasses wine/day) who presents to the [facility] on 02/16/18 w/ noted acute EtOH withdrawal, onset starting on day of presentation following last EtOH intake 1 pm on day of presentation with onset of nausea, tremors, agitation, tactile disturbances. Patient interested in attaining sober status. She notes she had been sober prior but relapsed. She notes that her is also an alcoholic and has remained sober for many years however with her current relapse he has relapsed also for the last 2 weeks. Patient notes that remotely she did use cannabis but denies any other history. Discussed patient's history at length especially given patient plan for discharge to home following acute rehabilitation given that her is currently relapsed as well. She states that if she is not present her will be able to achieve sobriety as he only starts drinking again when she does. Encouraged patient to reconsider discharge planning to alternate living situation until assure her sober as well. Past Medical History Past Medical History (Chronic Problems): Chronic Problems Alcohol use disorder (Chronic) HTN (hypertension) (Chronic) Obesity (BMI 30.0-34.9) (Chronic) Depression (Chronic) Allergies meperidine HCl [From Demerol] Allergy (Verified 08/30/17 17:47) HYPERTENSION phenobarbital Allergy (Verified 08/30/17 17:47) Other HYPERTENSION shellfish derived Allergy (Verified 08/30/17 17:47) Hives Home Medications: Ambulatory Orders Medication Instructions Recorded Amlodipine [Norvasc] 10 mg PO DAILY 12/29/15 Surgical History: - - Bilateral total hip replacement, tonsillectomy, ovarian cyst intervention, history of intracranial bleed while intoxicated secondary to falling with intervention. 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 Smoking Status: Never smoker Tobacco Use: Non-smoker Alcohol: Heavy - Patient admits to at least 12 glasses of wine per day. Drugs: None Review of Systems Constitutional: Reports: Anorexia, Malaise, Weakness, Fatigue. Denies: Chills, Fever, Weight Change HEENT: Denies: Head Aches, Sinus Congestion, Sinus Drainage Cardiovascular: Denies: Chest Pain, Palpitations Respiratory: Denies: Cough, Shortness of breath at rest, Sputum production Gastrointestinal: Reports: Nausea. Denies: Abdominal Pain, Vomiting Genitourinary: Denies: Dysuria Musculoskeletal: Denies: Joint Pain, Joint Tenderness Skin: Denies: Rash, Wounds Neurological: Reports: Confusion, Tremor. Denies: Focal weakness, Numbness, Tingling Psychiatric: Reports: Depression. Denies: Anxiety, Homicidal Ideations, Suicidal Ideations Hematologic/ Lymphatic: Denies: Easy Bruising, Easy Bleeding VTE Information - Inpt Only VTE Present on Admission: No VTE Mechan Device Prophylaxis: SCD's VTE Pharm Prophylaxis ordered?: Yes Subjective: Seated upright in a chair, fatigued appearing, mild tremors noted. Objective: Physical Examination: General: awake, alert, oriented x 3 and cooperative, seated upright in the chair, mildly fatigued appearance, mild tremors noted. Skin: normal color, turgor, no icterus, cyanosis. HEENT: AT/NC, EOMI, PERRLA, mildly dry MM, no carotid bruits or JVD noted. Lungs: CTA bilaterally, moderate effort, mild decrease BL bases, no rales, ronchi or wheezing. Heart: Regular rate and rhythm; no gallop, rub audible. Abdomen: soft, obese, NTTP, ND, normal BS, + HM. Extremities: no cyanosis, clubbing, or edema. Neurological: patient awake, alert, oriented x 3; cognitive function intact; pupils equally reactive to light and accomodation; cranial nerves II-XII grossly normal, moving all 4 extremities, no focal deficits, strength moderately to severely globally decreased secondary to acute presentation, mild tremor present. Psychiatric: affect appears fatigued, no acute evidence of depressive or anxiety feelings. - Physical Exam Vital Signs Temp Pulse Resp BP Pulse Ox 97.8 F 106 H 18 119/79 95 02/16/18 16:37 02/16/18 16:37 02/16/18 16:37 02/16/18 16:37 02/16/18 16:27 Oxygen Delivery Method Room Air Weight: 185 lb Body Mass Index (BMI) 29.8 Assessment/Plan All Active Problems Alcohol withdrawal (Acute) The patient is a 62 y/o F w/ PMHx: Hypertension, Obesity, Depression, Alcohol abuse ( 12 glasses wine/day) who presents to the [facility] on 02/16/18 w/ noted acute EtOH withdrawal. (1) Acute EtOH Withdrawal: Will admit to [facility] on telemetry, obtain routine labs including CBC, CMP, urine for drug screen, routine EKG and will initiate and continue on [facility] service protocol with taper course of librium, as needed Seroquel, Catapres, Bentyl, Vistaril, IV fluids, IV antiemetics, Tylenol as needed for pain. Once patient clinically improved and completion of taper nearing will plan [facility] assistance for transition to next level of rehabilitation care. Mag, phos pending. Maintain on CIWA protocol. Maintain on multivitamin, thiamine, folic acid. (2) Hypertension: Continue home regimen including Norvasc, hydrochlorothiazide, Avapro. (3) Depression: Maintain on home regimen Wellbutrin. (4) Hypokalemia: Notes chronic hypokalemia, mild, maintain on BID 20 mEq supplementation, CMP upon admission. Mag pending also as noted. (5) Obesity: Weight loss and lifestyle changes encouraged. (6) GERD: Famotidine. (7) DVT prophylaxis: SCD, Lovenox. Code Visit Inpatient E AND M: 38142 Init Hosp L3 02/16/18 1808 <Electronically signed by Thania Brown > Date Thania Brown Cosigner Signature: Date (if applicable) CC: Thania Brown; OUT OF TOWN DOCTOR Signed URINE DRUG SCREEN Collected: 02/16/2018 Status: F Source: [place] ([facility]IST[facility]) 5:20 PM [facility] Order Comment: Comments: sent to lab at 1720 TYPE CODE TESTS RESULT OUT OF RANGE REFERENCE UNITS LAB L505.0075 TO BE Normal CONFIRMED Result Comment: CONFIRMATORY TESTING FOR ALL POSITIVE URINE DRUG SCREEN RESULTS WILL ONLY BE SENT OUT UPON PHYSICIAN ORDER. VISTA Urine Drug Screen methods provide only preliminary analytical test results. A more specific alternate chemical method must be used in order to obtain a confirmed analytical result. Gas chromatography/mass spectrometery (GC/MS) is the preferred confirmatory method. Clinical consideration and professional judgement should be applied to any drug of abuse test result, particularly when preliminary positive results are used. URINE TCA TESTING MUST BE ORDERED SEPARATELY. USE TEST MNEMONIC: [facility] LAB L505.5005 VISTA UDS PH 6 Normal LAB L505.5015 <1000 ng/mL AMPHETAMINES Normal NEGATIVE LAB L505.5025 < 200 ng/mL BARBITIURATES Normal NEGATIVE LAB L505.5035 < 200 ng/mL BENZODIAZIPINE Normal NEGATIVE LAB L505.5045 < 300 ng/mL COCAINE Normal NEGATIVE LAB L505.5055 < 500 High ng/mL ECSTACY POSITIVE LAB L505.5065 < 300 ng/mL METHADONE Normal NEGATIVE LAB L505.5075 < 300 ng/mL OPIATES Normal NEGATIVE LAB L505.5085 < 25 ng/mL PCP Normal NEGATIVE LAB L505.5095 < 50 ng/mL THC Normal NEGATIVE Performed By: #### L505.5000 #### [facility] [address] [place], [place], [address] HEPATITIS ABC PROFILE Collected: 02/16/2018 Status: F Source: [place] 4:45 PM [facility] REPOS[facility] TYPE CODE TESTS RESULT OUT OF RANGE REFERENCE UNITS LAB L3100.0200 Negative Normal HEP A Negative IgM 6734 LAB L3100.0300 Negative Normal HEP A Negative AB,T.6726 LAB L3100.0400 Negative Normal HB Negative SURF AG LAB L3100.0440 Negative Normal HB Negative CORE [id number] LAB L3100.0460 Negative Normal HEP B Negative CORE,TOT LAB L3100.0510 . Normal Hep B Non Reactive Ashley AB Result Comment: Non Reactive: Inconsistent with immunity, less than 10 mIU/mL Reactive: Consistent with immunity, greater than 9.9 mIU/mL LAB L3100.0750 0.0-0.9 s/co ratio Normal HCV Ab 0.2 LAB L3100.0765 . Normal COMMENT Comment Result Comment: Non reactive HCV antibody screen is consistent with no HCV infection, unless recent infection is suspected or other evidence exists to indicate HCV infection. Performed at: [facility] [id number] Electronic Assembly: George Li PhD, Phone: [phone] Performed By: #### L3000.0700 #### [facility] (refer to report for specific site) refer to report for address and phone number PROTHROMBIN TIME W/INR Collected: 02/16/2018 Status: F Source: [place] 4:44 PM [facility] RE[facility] TYPE CODE TESTS RESULT OUT OF RANGE REFERENCE UNITS LAB L300.4150 11.7-14.9 SECONDS Normal PROTIME 14.1 LAB L300.4200 Normal INR 1.1 Performed By: #### L300.3900 #### [facility] [address] [place], [address] ALCOHOL, BLOOD Collected: 02/16/2018 Status: F Source: [place] (MEDICAL)-SERUM 4:44 PM [facility] REPOSIT[facility] TYPE CODE TESTS RESULT OUT OF RANGE REFERENCE UNITS LAB L501.9100 mg/dL Normal SERUM 49.0 ETOH Result Comment: The serum:whole blood ethanol ratio is approximately 1.14 and varies slightly with hematocrit. Medical Alcohol reference interval and critical value in non-tolerant individuals; 50 - 100 Impairment 100 Intoxication 100 - 250 Severe Poisoning 250 - 400 Deep/possible fatal coma Performed By: #### L501.9100 #### [facility] [address] [place], [place], [address] MAGNESIUM Collected: 02/16/2018 Status: F Source: [place] 4:44 PM [facility] TYPE CODE TESTS RESULT OUT OF RANGE REFERENCE UNITS LAB L501.5200 1.6-2.6 mg/dL Normal MG 1.9 Performed By: #### L501.5200 #### [facility] [address] [facility] [place], [address] COMPREHENSIVE METABOLIC Collected: 02/16/2018 Status: F Source: [place] PROFIL 4:44 PM [facility] REPOSITORY TYPE CODE TESTS RESULT OUT OF RANGE REFERENCE UNITS LAB L501.0100 74-106 mg/dL Normal GLU 80 Result Comment: Please note revised GLUCOSE reference range effective 2017. LAB L501.1000 7-18 mg/dL Normal BUN 11 LAB L501.1100 0.55-1.02 mg/dL Normal CREAT,SERUM 0.94 Result Comment: The validity of the calculated GFR AND GFRAA in patients over 70 years has not been determined. Clinical correlation is essential. LAB L501.1110 >60 mL/min Normal EST GFR 65 Result Comment: Non- GFR Calc LAB L501.1115 >60 mL/min Normal EST GFR - AA 78 Result Comment: GFR Calc LAB L501.1255 ml/min Normal Estimated CRCL 59.58 LAB L501.1300 10-20 RATIO Normal BUN/CRE 11.8 LAB L501.1500 6.4-8. g/dL Normal 2 T PROT 7.8 LAB L501.1800 3.2-5. g/dL Normal 0 ALB 3.3 LAB L501.1950 2.2-4. g/dL High 2 GLOB 4.5 LAB L501.2000 0.9-2. RATIO Low 4 A/G 0.7 LAB L501.2200 8.5-10 mg/dL Normal .1 CA 8.8 LAB L501.4100 15-37 U/L High AST 119 LAB L501.4305 45-117 U/L High ALK P 287 LAB L501.4405 13-56 U/L High ALT 72 LAB L501.4600 0.20-1 mg/dL Normal .00 T BILI 0.50 LAB L501.5300 136-14 mmol/L Normal 5 NA 139 LAB L501.5600 3.5-5. mmol/L Normal 1 K 3.8 LAB L501.5900 98-107 mmol/L Normal CL 99 LAB L501.6100 21.0-3 mmol/L Normal 2.0 CO2 27.0 LAB L501.6200 5-15 Normal GAP 13 Performed By: #### L500.4050 #### [facility] [address] [place], [address] PHOSPHORUS Collected: 02/16/2018 Status: F Source: [place] 4:44 PM [facility] REPOSITORY TYPE CODE TESTS RESULT OUT OF RANGE REFERENCE UNITS LAB L501.2300 2.5-4.9 mg/dL Normal PHOS 3.9 Performed By: #### L501.2300 #### [facility] [address] [place], [address] CBC W/DIFF, AUTOMATED Collected: 02/16/2018 Status: F Source: [place] 4:44 PM [facility] REPOSITORY TYPE CODE TESTS RESULT OUT OF RANGE REFERENCE UNITS LAB L100.1000 4.4-11.0 K/mm3 High WBC 12.0 LAB L100.1200 4.2-5.4 M/mm3 Normal RBC 4.25 LAB L100.1300 12.0-15.0 g/dl Normal HGB 12.7 LAB L100.1400 37-47 % Normal HCT 39.2 LAB L100.1500 81-99 fL Normal MCV 92.2 LAB L100.1600 27.0-32.0 pg Normal MCH 29.9 LAB L100.1700 32-36 g/gl Normal MCHC 32.4 LAB L100.1810 11.6-14.6 % High RDW CV 15.3 LAB L100.1820 35.1-43.9 fl High RDW SD 51.7 LAB L100.1900 150-450 K/mm3 Normal PLT 379 LAB L100.2000 6.2-12.0 fl Normal MPV 10.2 LAB L100.2100 47-70 % High NEUT% 76.5 LAB L100.2200 19-41 % Low LY% 12.7 LAB L100.2300 0-10 % High MONO% 10.1 LAB L100.2400 0-5 % Normal EO% 0.1 LAB L100.2500 0-1 % Normal BASO% 0.2 LAB L100.2550 0.0-0.9 % Normal IM GRAN % 0.400 Result Comment: IG% - Immature Granulocytes (promyelocytes, myelocytes and metamyelocytes) > 1% indicates that a LEFT SHIFT is Present. LAB L100.2620 2.0-7.7 X10 3/uL High Absolute Neut 9.2 LAB L100.2720 0.83-4.51 X10 3/ul Normal Absolute Lymph 1.53 LAB L100.4500 SMEAR Normal COMMENT Result Comment: SCANNED Performed By: #### L100.0100 #### [facility] [address] [place], [address] US EXTREMITY Observed: 02/08/2018 Status: F Source: [facility] NON-VASCULAR LMITED 3:31 PM [facility] REPOSITORY Final Report Accession No: [id number] Performed: Feb 08 2018 3:31PM Examination: US EXTREMITY NON-VASCULAR LMITED EXAM TYPE: US EXTREMITY NON-VASCULAR LMITED EXAM DATE AND TIME: 02/08/2018, 3:31 PM EDT INDICATION: 62-year-old Female with palpable lesion in the medial right antecubital fossa. COMPARISON: None. TECHNIQUE: Superficial thyroid ultrasound of the right antecubital fossa. FINDINGS: No mass or fluid collection. IMPRESSION: No mass or fluid collection. No findings to correspond with patient's area of concern. Interpreting Physician: LATISHA JOSÉ D.O. Trans: randalln : cc: PROGRESS Observed: 12/18/2017 Status: COMPLETED Source: [place] 1:35 PM [facility] REPOSITORY HNO ID: [id number] Author: Isaac (Ccc-Applications Intern) Tila Service: (none) Author Type: Speech Language Pathologist Type: Progress Notes Filed: 12/18/2017 1:45 PM Note Text: [facility] Isaac Adorno, CATALINO, MS, CCC-MENTAL HEALTH NURSE PRACTITIONER NAME: [facility] NO: [id number] DATE OF SERVICE: December 18, 2017 [facility] HISTORICAL: Adductor spasmodic dysphonia ? Date Injection # Units Right TA Units Left TA % Improvement since previous injection Length of improvement Length of breathniess Post-previous injection Dysphagia Post- Previous injection Signals 12/18/17 1.25 1.25 100% 9.5 months 2 weeks none Right: 5/5; Left: 5/5 02/20/17 1.25 1.25 99% 4 weeks 3 weeks Right 5/5; Left 3/5 09/19/16 ? 1.25 1.25 50% 8 weeks 8 weeks Yes, a few days Right: 5/5; Left: 5/5 05/23/16 old formulation 1.0 1.0 100% since May injection 28 weeks 4 weeks N/A Right: 4/5; Left: 5/5 10/19/15 ? 1.0 1.0 ? Jun 2015 ? [facility] QUESTIONNAIRE 1) Did you have benefits from your last Botox injection? YES 2) At its best, what percentage of improvement you had? 100% 3) At its best, rate your voice improvement after the last injection: Excellent 4) Did you have voice side effects (soft or breathy voice)? Yes. How long 2weeks 5) Did you have swallowing side effects (coughing / choking when drinking)? No 6) How long after the injection did your voice start getting better? Immediately 7) How long did the benefit from Botox last? 16 weeks 8) When did the Botox start wearing off? 2 weeks ago 9) Have you reached baseline (as if you never had an injection)? No 10) How would you rate your effort for speaking today? (0 = no effort - 10= extremely effortful): 4 - Small Effort Voice Handicap Index VHI-10 0 = Never, 1 = Almost Never, 2 = Sometimes, 3 = Almost Always, 4 = Always As reported by patient: 1. My voice makes it difficult for people to hear me. 2 2. I run out of air when I talk. 1 3. People have difficulty understanding me in a noisy room. 2 4. The sound of my voice varies throughout the day. 2 5. My family has difficulty hearing me when I call them throughout the house. 1 6. I use the phone less often than I would like to. 2 7. I?m tense when talking to others because of my voice. 2 8. I tend to avoid groups of people because of my voice. 1 9. People seem irritated with my voice. 2 10. People ask, ?What?s wrong with your voice?? 2 TOTAL RAW: 17 Consensus Auditory-Perceptual Evaluation of Voice (CAPE-V): The CAPE-V rates auditory-perceptual qualities of an individual?s voice. The overall severity, roughness, breathiness, strain, pitch and loudness of the individual?s voice are rated during several tasks including general conversation, vowel prolongation and reading sentences. The ratings of the abovementioned parameters were plotted on a 100 millimeter scale, with ?0? corresponding to typical normal voice and ?100? indicating a severely deviant voice. CAPE-V Ratings Parameter Rating Severity and perceptual observations Overall Severity 20/100 Roughness 0/100 Breathiness 0/100 Strain 2/100 Pitch 0/100 Loudness 0/100 Focus of Resonance My role in today's Botox injection included speech production assessment, survey of patient experience from last injection, post-injection instruction regarding next steps, and strategies to treat possible temporary side effects. I also ran the EMG machine. I was assisting Dr. Morris and was present throughout the appointment/injection procedure. 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 UNIVERSAL PROTOCOL / SAFETY CHECKLIST Sign in Communication: Completed Time Out: Team Confirms the Correct Patient, Correct Procedure, Correct Site and Site Marking, Correct Position (if applicable). Affirmation of Time Out: YES Sign Out Discussion: Completed PROCEDURE: LARYNGEAL BOTOX Surgeon #1: Sarah Morris M.D. Asst. #1: Isaac Adorno MS, CCC-MENTAL HEALTH NURSE PRACTITIONER INDICATION: Patient had benefit from previous botox injection. Benefits have diminished AND original symptoms have returned. PROCEDURE: Sitting upright in the examining chair, the patient's neck was palpated and the anatomical landmarks confirmed. The skin over the cricothyroid membrane was marked and infiltrated with 2% lidocaine with 1:1000,000 epinephrine. Isaac Adorno applied EMG ground electrodes. I then placed the injection/electrode needle into the thyroarytenoid muscle. Proper location was confirmed through EMG observations during vocal tasks under the direction of Isaac Adorno. 1.25 Units of Botox were injected into each thyroarytenoid muscle Total dose of Botox used today: 2.5 units. Botox wasted: 5.5 units. Note: On July 25, 2016 we switched from a Botox dilution of 8 ml in 100 Units Botox to 10 ml in 100 Units Botox The patient tolerated the procedure well and was observed briefly in the Outpatient Clinic following the procedure. COMPLICATIONS: None DIFFICULTIES / COMMENTS: None Sarah Morris MD CNOV Observed: 12/18/2017 Status: COMPLETED Source: [place] 1:30 PM [facility] REPOSITORY Office Visit (TALKMN) CARRIE LOW ([id number]) 1955 F Date Time Provider Department 12/18/17 1:30 PM ISAAC ADORNO ([facility]-MENTAL HEALTH NURSE PRACTITIONER) TALKMN During your visit today, we recorded the following information about you: BLANCHE Ignacio 12/18/2017 1:45 PM Signed [facility] CATALINO Ignacio, MS, CCC-MENTAL HEALTH NURSE PRACTITIONER NAME: Carrie Low [facility] NO: [id number] DATE OF SERVICE: December 18, 2017 [facility] HISTORICAL: Adductor spasmodic dysphonia ? Date Injection # Units Right TA Units Left TA % Improvement since previous injection Length of improvement Length of breathniess Post-previous injection Dysphagia Post- Previous injection Signals 12/18/17 1.25 1.25 100% 9.5 months 2 weeks none Right: 5/5; Left: 5/5 02/20/17 1.25 1.25 99% 4 weeks 3 weeks Right 5/5; Left 3/5 09/19/16 ? 1.25 1.25 50% 8 weeks 8 weeks Yes, a few days Right: 55; Left: 5/5 05/23/16 old formulation 1.0 1.0 100% since May injection 28 weeks 4 weeks N/A Right: 09/07; Left: 5/5 10/19/15 ? 1.0 1.0 ? Jun 2015 ? [facility]IC QUESTIONNAIRE 1) Did you have benefits from your last Botox injection? YES 2) At its best, what percentage of improvement you had? 100% 3) At its best, rate your voice improvement after the last injection: Excellent 4) Did you have voice side effects (soft or breathy voice)? Yes. How long 2weeks 5) Did you have swallowing side effects (coughing / choking when drinking)? No 6) How long after the injection did your voice start getting better? Immediately 7) How long did the benefit from Botox last? 16 weeks 8) When did the Botox start wearing off? 2 weeks ago 9) Have you reached baseline (as if you never had an injection)? No 10) How would you rate your effort for speaking today? (0 = no effort - 10= extremely effortful): 4 - Small Effort Voice Handicap Index VHI-10 0 = Never, 1 = Almost Never, 2 = Sometimes, 3 = Almost Always, 4 = Always As reported by patient: 1. My voice makes it difficult for people to hear me. 2 2. I run out of air when I talk. 1 3. People have difficulty understanding me in a noisy room. 2 4. The sound of my voice varies throughout the day. 2 5. My family has difficulty hearing me when I call them throughout the house. 1 6. I use the phone less often than I would like to. 2 7. I?m tense when talking to others because of my voice. 2 8. I tend to avoid groups of people because of my voice. 1 9. People seem irritated with my voice. 2 10. People ask, ?What?s wrong with your voice?? 2 TOTAL RAW: 17 Consensus Auditory-Perceptual Evaluation of Voice (CAPE-V): The CAPE-V rates auditory-perceptual qualities of an individual?s voice. The overall severity, roughness, breathiness, strain, pitch and loudness of the individual?s voice are rated during several tasks including general conversation, vowel prolongation and reading sentences. The ratings of the abovementioned parameters were plotted on a 100 millimeter scale, with ?0? corresponding to typical normal voice and ?100? indicating a severely deviant voice. CAPE-V Ratings Parameter Rating Severity and perceptual observations Overall Severity 20/100 Roughness 0/100 Breathiness 0/100 Strain 2/100 Pitch 0/100 Loudness 0/100 Focus of Resonance My role in today's Botox injection included speech production assessment, survey of patient experience from last injection, post-injection instruction regarding next steps, and strategies to treat possible temporary side effects. I also ran the EMG machine. I was assisting Dr. Morris and was present throughout the appointment/injection procedure. Isaac Adorno BM, MS, CCC-MENTAL HEALTH NURSE PRACTITIONER Speech-Language Pathologist [facility] Referring Provider: SARAH MORRIS I [[id number]] Allergies As of Date: 12/18/2017 Noted Allergy Reaction DEMEROL (MEPERIDINE (PF)) 06/15/2012 14 - Other: See Comments Comments: raises blood pressure PHENOBARBITAL 06/15/2012 16 - Unknown Date Reviewed: 12/18/2017 Reviewed by: Oliver Aguilar - Fully Assessed Primary Visit Diagnosis: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] Other Visit Diagnosis:Laryngeal spasm [J38.5] Prescriptions as of 12/18/2017 Sig: HYDROXYZINE HCL 25 MG TABLET Take 1 tablet by mouth every * FOLIC ACID 1 MG TABLET Take 1 tablet by mouth daily * DOXEPIN 50 MG CAPSULE Take 1 capsule by mouth at be* AMLODIPINE 5 MG TABLET Take 1 tablet by mouth once d* POTASSIUM CHLORIDE ER 10 MEQ * Take 2 tablets by mouth once * HYDROCHLOROTHIAZIDE 25 MG TAB* Take 1 tablet by mouth once d* BUPROPION XL 300 MG 24 HR TAB Take 1 tablet by mouth once d* Problem List As Of Date 12/18/2017 Noted Resolved 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*11/19/2012 HTN (hypertension) [I10] INVALID FOR* Other and unspecified alcohol dependence, dillan*INVALID FOR* 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] INVALID FOR* Voice disturbance [R49.9] INVALID FOR* Alcohol withdrawal (HCC) [F10.239] INVALID FOR* Encounter Status:Closed by ISAAC ADORNO on 12/18/17 CNOV Observed: 12/18/2017 Status: COMPLETED Source: [place] 1:30 PM [facility] REPOSITORY Office Visit (OTOLMN) CARRIE LOW ([id number]) 1955 F Date Time Provider Department 12/18/17 1:30 PM SARAH MORRIS I OTMACARIO During your visit today, we recorded the following information about you: Sarah Morris MD 12/18/2017 1:45 PM Signed Name: Carrie Low Date: December 18, 2017 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 UNIVERSAL PROTOCOL / SAFETY CHECKLIST Sign in Communication: Completed Time Out: Team Confirms the Correct Patient, Correct Procedure, Correct Site and Site Marking, Correct Position (if applicable). Affirmation of Time Out: YES Sign Out Discussion: Completed PROCEDURE: LARYNGEAL BOTOX Surgeon #1: Sarah Morris M.D. Asst. #1: Isaac Adorno MS, CCC-MENTAL HEALTH NURSE PRACTITIONER INDICATION: Patient had benefit from previous botox injection. Benefits have diminished AND original symptoms have returned. PROCEDURE: Sitting upright in the examining chair, the patient's neck was palpated and the anatomical landmarks confirmed. The skin over the cricothyroid membrane was marked and infiltrated with 2% lidocaine with 1:1000,000 epinephrine. Isaac Adorno applied EMG ground electrodes. I then placed the injection/electrode needle into the thyroarytenoid muscle. Proper location was confirmed through EMG observations during vocal tasks under the direction of Isaac Adorno. 1.25 Units of Botox were injected into each thyroarytenoid muscle Total dose of Botox used today: 2.5 units. Botox wasted: 5.5 units. Note: On July 25, 2016 we switched from a Botox dilution of 8 ml in 100 Units Botox to 10 ml in 100 Units Botox The patient tolerated the procedure well and was observed briefly in the Outpatient Clinic following the procedure. COMPLICATIONS: None DIFFICULTIES / COMMENTS: None MD Sarah Herman MD 12/18/2017 1:30 PM Signed When the benefit from your Botox is wearing off call [phone] option 4, tell the social secretary that you are calling about Botox and she will arrange to schedule your next injection. If needed, call Isaac Adorno at [phone] Morris at [phone].? Referring Provider: SARAH MORRIS I [[id number]] Allergies As of Date: 12/18/2017 Noted Allergy Reaction DEMEROL (MEPERIDINE (PF)) 06/15/2012 14 - Other: See Comments Comments: raises blood pressure PHENOBARBITAL 06/15/2012 16 - Unknown Date Reviewed: 12/18/2017 Reviewed by: Oliver Aguilar - Fully Assessed Reason for Visit: Botox Injection [373] Cmt: For Spasmodic Dysphonia Primary Visit Diagnosis:Laryngeal spasm [J38.5] Order(s):[] onabotulinum toxin type A 2.5 Units in NaCl (PF) 0.9% 0.25 mL (BOTOX)Disp: Rfl: Prescriptions as of 12/18/2017 Sig: HYDROXYZINE HCL 25 MG TABLET Take 1 tablet by mouth every * FOLIC ACID 1 MG TABLET Take 1 tablet by mouth daily * DOXEPIN 50 MG CAPSULE Take 1 capsule by mouth at be* AMLODIPINE 5 MG TABLET Take 1 tablet by mouth once d* POTASSIUM CHLORIDE ER 10 MEQ * Take 2 tablets by mouth once * HYDROCHLOROTHIAZIDE 25 MG TAB* Take 1 tablet by mouth once d* BUPROPION XL 300 MG 24 HR TAB Take 1 tablet by mouth once d* Problem List As Of Date 12/18/2017 Noted Resolved 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 If needed, call Isaac Adorno at [phone] Morris at [phone].? Prescriptions ordered this encounter Disp Refills Start End ONABOTULINUMTOXINA INJECTION 4 UNITS* 12/18/2017 12/18/2017 Route: OTHER Encounter Status:Closed by SARAH MORRIS MD, I on 12/18/17 FS URINALYSIS Collected: 11/14/2017 Status: F Source: [facility] 7:43 PM [facility] REPOSITORY TYPE CODE TESTS RESULT OUT OF REFERENCE UNITS RANGE LAB COLOR Normal Color, Urine Yellow LAB CHAUR Normal Character Clear LAB SPGRUR 1.003-1.029 Normal Specific 1.020 [place],Urine LAB PHUR 4.5-8.0 Normal pH,Urine 5.5 LAB GLUCUR Negative mg/dL Normal Glucose,Urine Negative LAB KETUR Negative mg/dL Normal Ketone,Urine Negative LAB PROTUR Negative mg/dL Normal Protein,Urine Negative LAB BLDUR Negative Normal Blood,Urine Negative LAB NITUR NEG;NEGATIVE Normal Nitrite,Urine Negative LAB BILIUR Negative Normal Bilirubin,Urin Negative e LAB UROUR <2 mg/dL Normal Urobilinogen,U 0.2 rine LAB LEUESTUR Negative Normal Leuk.Esterase, Negative Urine LAB PERF_AT Normal Testing - [place] performed FSED Result Comment: Testing performed at [facility], [address] [place] [address]; Medical Skate Shop Attendant Miguel Bauer M.D. Performed By: #### FSUA #### Unless otherwise noted, all testing performed by [address] [address] CLIA: [id number] Hand Edger: Samuel Arechiga M.D. FS COMPREHENS Collected: 11/14/2017 Status: F Source: [facility] METABOLIC PANEL 7:41 PM [facility] REPOSITORY TYPE CODE TESTS RESULT OUT OF REFERENCE UNITS RANGE LAB GLU 65-99 mg/dL Glucose Normal 93 LAB BUN 8-25 mg/dL Low BUN 7 LAB CREA 0.40-1.10 mg/dL Creatinine Normal 0.8 LAB CALCM 8.4-10.2 mg/dL Calcium Normal 8.9 LAB NA 135-145 mmol/L Sodium Normal 138 LAB K 3.5-5.1 mmol/L Potassium Normal 4.1 LAB CL 98-108 mmol/L Chloride Normal 98 LAB CO2 21-32 mmol/L CO2 Normal 23 LAB AST 0-45 U/L AST (SGOT) High 77 LAB ALT 0-40 U/L ALT (SGPT) Normal 36 LAB ALKP 40-150 U/L Alkaline High Phosphatase 214 LAB BILIT 0.0-1.3 mg/dL Normal Bilirubin,Total 0.4 LAB PROT 6.0-8.0 g/dL Protein, Normal Total 7.5 LAB ALB 3.2-5.2 g/dL Albumin Normal 3.4 LAB PERF_AT Testing Normal performed [facility] FSED Result Comment: Testing performed at [facility], [address] [place] [address]; Medical Skate Shop Attendant Miguel Bauer M.D. Performed By: #### FSCMET #### Unless otherwise noted, all testing performed by [place] [address] CLIA: [id number] Hand Edger: Samuel Arechiga M.D. FS TROPONIN I Collected: 11/14/2017 Status: F Source: [facility] 7:33 PM [facility] REPOSITORY TYPE CODE TESTS RESULT OUT OF RANGE REFERENCE UNITS LAB FSTROPI < 0.05 ng/mL FS Normal Troponin I < 0.05 Result Comment: Testing performed at [facility], [address] [place] [address]; Medical Skate Shop Attendant Miguel Bauer M.D. Performed By: #### FSTROPI #### Unless otherwise noted, all testing performed by [place] [address] CLIA: [id number] Hand Edger: Samuel Arechiga M.D. FS CBC Collected: 11/14/2017 Status: F Source: [facility] 7:24 PM [facility] REPOSITORY TYPE CODE TESTS RESULT OUT OF REFERENCE UNITS RANGE LAB WBC 4.5-11.0 K/mcL WBC High 14.0 LAB RBC 4.00-5.20 M/mcL Low RBC 3.38 LAB HGB 12.0-16.0 g/dL Low Hemoglobin 11.1 LAB HCT 36.0-46.0 % Low Hematocrit 33.3 LAB MCV 80-100 FL MCV 98.5 LAB MCH 26.0-34.0 pg MCH 32.8 LAB MCHC 31.0-37.0 g/dL MCHC 33.3 LAB RDW 11.6-14.8 % RDW High 15.6 LAB PLT 150-400 K/mcL Platelet High Count 491 LAB MPV 9.0-15.5 FL MPV 9.8 LAB NEUT# 1.70-7.00 K/mcL High Neutrophil # 11.9 LAB LYMPH# 0.90-4.00 K/mcL Lymphocyte # 1.7 LAB SEGNEU% % Segmented Neut % 85.2 LAB LYMP% % Lymphocyte% 11.8 LAB PERF_AT Testing performed [facility] FSED Result Comment: Testing performed at [facility], [address] [place] [address]; Medical Skate Shop Attendant Miguel Bauer M.D. Performed By: #### FSCBC #### Unless otherwise noted, all testing performed by [place] [address] CLIA: [id number] Hand Edger: Samuel Arechiga M.D. EXCEPTION NOTICE Collected: 11/14/2017 Status: F Source: [facility] 7:24 PM [facility] REPOSITORY TYPE CODE TESTS RESULT OUT OF REFERENCE UNITS RANGE LAB EXCEP MG Normal Exception CANCELLED. Notice SPECIMEN HEMOLYZED. SAMPLE TO BE REDRAWN. Performed By: #### EXCEP #### Unless otherwise noted, all testing performed by [place] [address] CLIA: [id number] Hand Edger: Samuel Arechiga M.D. CODING SUMMARY. Observed: 11/02/2017 Status: F Source: [facility] 11:09 AM [facility] REPOSITORY CODING DATE: 11/02/2017 FINAL [facility] DS[facility] STATUS: Home w/ Home Health PAYOR: SCREEMO [employer]per: 470 MS-DRG MAJOR HIP AND KNEE JOINT REPLACEMENT OR REATTACHMENT OF LOWER EXTREMITY W/O MCFP Low Trim 0 High Trim 999 301 APR-DRG HIP JOINT REPLACEMENT Severity of Illness Moderate Risk of Mortality Minor ADMIT DX: M80.052A Age-related osteoporosis with current pathological fracture, left femur, initial encounter for fracture REASON FOR VISIT DX: FINAL DX: PRINCIPAL: M80.052A Y Age-related osteoporosis with current pathological fracture, left femur, initial encounter for fracture SECONDARY: E87.1 Y Hypo-osmolality and hyponatremia F10.10 Y Alcohol abuse, uncomplicated E87.6 Y Hypokalemia G47.00 Y Insomnia, unspecified I10 Y Essential (primary) hypertension E78.5 Y Hyperlipidemia, unspecified F32.9 Y Major depressive disorder, single episode, unspecified E66.9 Y Obesity, unspecified Z68.31 1 Body mass index (BMI) 31.0-31.9, adult PROCEDURES DOCTOR NAME DATE [id number] Replacement of Left Hip Joint Joshua Landaverde DO 10/31/2017 with Ceramic Synthetic Substitute, Open Approach [id number] Introduction of Anesthetic Clifford Henry JR, DO 10/31/2017 Agent into Peripheral Nerves and Plexi, Percutaneous Approach NOTE: The code number assigned matches the documented diagnosis and / or procedure in the patient's chart. However, the narrative phrase printed from the coding software may appear abbreviated, or result in slightly different terminology. Revised Coded By: Katerine Zambrano Revised Date Saved: 11/02/2017 11:04 am DISCHARGE NOTE-NURSING Observed: 11/01/2017 Status: F Source: [facility] 4:38 PM [facility] CENTER REPOSITORY Patient educated on discharge instructions, with present. Both verbalized understanding. Patient taken to patient pickup via wheelchair by POCT to private vehicle. Patient tolerated transport well. INPATIENT PATIENT Observed: 11/01/2017 Status: C Source: [facility] SUMMARY 3:22 PM [facility] CENTER REPOSITORY [place] [id number] Patient Discharge Instructions PERSON INFORMATION Name: CARRIE LOW Date of : 1955 12:00 AM Current Date: 11/01/17 15:22:10 PHYSICIANS Admitting Physician: Love Maddox MD Primary Care Physician: Rahul Parks MD PCP Comment: Discharge Diagnosis: 1:Subcapital fracture of hip; 2:Acute blood loss anemia; 3:Alcohol abuse; 4:Hypokalemia; 5:At risk for withdrawal; 6:Dilutional hyponatremia; 7:Leukocytosis; 8:Insomnia; 9:Hypertens ion; 10:Hyperlipemia; 11:Depression; 12:Obese; 13:No contraindication to venous thromboembolism prophylaxis Condition at Discharge: Improved CARRIE LOW has been given the following list of follow- up instructions, prescriptions, and patient education materials: PATIENT FOLLOW-UP INFORMATION Diet: Regular Discharge Activity: Expect mild pain, Activity as tolerated Discharge Restrictions: Wound Care Instructions: Remove Your Dressing In Days Call Your Doctor For: IF UNABLE TO CONTACT YOUR PHYSICIAN AND YOU FEEL IT IS AN EMERGENCY, GO TO THE NEAREST EMERGENCY ROOM OR CALL 911 Home Treatment: Devices/Equipment: Cane, Crutches, Walker, Other: Rollator Special Services: Additional Instructions: Primary Care Physician to provide the following pending test results: None Follow up: With: Address: When: Arpita Hines [address] [place] [address] 11/08/17 01:30:00 With: Address: When: Joshua Landaverde [facility] [address] [id number] [facility] (1) 11/23/17 10:15:00 In the event that this physician does not participate in your insurance network, please consult with your insurance company to find a nearby participating provider. Comment: IFLORIDALMA SUSAN R, have received the attached patient education materials/instructions and have verbalized understanding: Patient Signature Date Clinican/Nurse Signature Date HERE ARE THE MEDICATION CHANGES THAT OCCURRED DURING YOUR HOSPITAL STAY New Medications [facility], [address] [place] [address], [phone] aspirin (aspirin 325 mg Tab) 1 Tabs By Mouth 2 times a day for 30 Days. Refills: 0. Last Dose: Next Dose: Printed Prescriptions acetaminophen-hydrocodone (Terra Alta 325 mg-5 mg oral tablet) 1 Tabs By Mouth every 4 hours as needed PC for pain. Refills: 0. Last Dose: Next Dose: Misc Prescription (HOSPITAL BED) Hospital bed #1 Status post left hip replacement surgery.. Refills: 0. Last Dose: Next Dose: Medications to Continue with No Changes Other Medications amlodipine (amLODIPine 10 mg Tab) 1 Tabs By Mouth every day. Last Dose: Next Dose: atorvastatin By Mouth every day. Last Dose: Next Dose: buPROPion (Wellbutrin XL 300 mg/24 hours Tab-ER) 1 Tabs By Mouth every 24 hours. Last Dose: Next Dose: hydrochlorothiazide (hydrochlorothiazide 25 mg oral tablet) 1 Tabs By Mouth every day. Last Dose: Next Dose: potassium chloride (potassium chloride 20 mEq ER Tab) 1 Tabs By Mouth 2 times a day. Last Dose: Next Dose: Comment: MEDICATION LIST PROVIDED FOR YOU IS A LIST OF YOUR CURRENT MEDICATIONS. PLEASE CARRY THIS WITH YOU AT ALL TIMES. acetaminophen-hydrocodone (Terra Alta 325 mg-5 mg oral tablet) 1 Tabs By Mouth every 4 hours as needed PC for pain. Refills: 0. amlodipine (amLODIPine 10 mg Tab) 1 Tabs By Mouth every day. aspirin (aspirin 325 mg Tab) 1 Tabs By Mouth 2 times a day for 30 Days. Refills: 0. atorvastatin By Mouth every day. buPROPion (Wellbutrin XL 300 mg/24 hours Tab-ER) 1 Tabs By Mouth every 24 hours. hydrochlorothiazide (hydrochlorothiazide 25 mg oral tablet) 1 Tabs By Mouth every day. [facility] [place] Hospital bed #1 Status post left hip replacement surgery.. Refills: 0. potassium chloride (potassium chloride 20 mEq ER Tab) 1 Tabs By Mouth 2 times a day. Pharmacy Information: Other: [facility] Comment: PATIENT EDUCATION INFORMATION Instructions: Joshua Landaverde D.O. [facility] [address] [place] [address] POST-OPERATIVE HIP REPLACEMENT ARTHROPLASTY DISCHARGE INSTRUCTIONS INCISION CARE: Follow AQUACEL dressing protocol as instructed. See AQUACEL sheet for details. After AQUACEL dressing removed change dry dressing daily as instructed until dry scabs completely resolved to avoid incisio n irritation.If the incision is dry, apply a dry dressing only. If any drainage is noted apply Betadine liquid over the drainage only - do not excessively apply Betadine. Dressing changes may be done more often as needed. You may shower, but do not have incision under water until all scabs completely gone. Please notify the office if any increase in redness, tenderness, drainage, fever, or wound separation is noted beyond this point. Compression stockings may be helpful if any significant or uncomfortable swelling in the legs is noted postoperatively. Use and removal instructions should be given by physical therapy. If the swelling is below the knee, knee high compression stockings may suffice. If this does cause swelling into the thigh region, waist high compression stockings may be beneficial as well. These can be obtained fro m most pharmacies, or can be obtained from the hospital or through Home Health. The mild grade compression stockings are best used initially, and dislocation precautions must be maintained. You may ne ed assistance when applying or removing the compression stocking. DISLOCATION PRECAUTIONS: Continue to use the abduction pillow between the knees at all times, both while in bed and up in chair. This abduction pillow should be removed only while walking and performing physical therapy exerci ses; otherwise, to be used while sitting and while in bed. This will maintained for six weeks postoperatively. At that time you may begin using a regular bed pillow between your knees at night. You s hould continue to avoid crossing the knees or crossing the legs for six months postoperatively. Sitting in a chair should always be such that the knees are kept below the level of the hips to avoid inc reased flexion of the hip, possibly causing dislocation. MEDICATIONS: You may resume your home medications at the time of discharge. Pain medication has been prescribed as well. You may continue to use the pain medication every four hours as needed. Any narcotic pain medication can cause side effects including stomach upset, consti pation, or light-headedness. You should not drive or operate machinery, or use alcohol while using the narcotic pain medication. You should not use other pain medications with this prescription pain me dication unless further directed by your physician. Deep Venous Thrombosis Prophylaxis ? to prevent Blood Clots A blood thinner that helps prevents the development of blood clots in the legs, was used during your hospitalization. Blood thinner should be continued after discharge Aspirin Therapy ? patients with no history of blood clots For prevention of deep venous thrombosis and pulmonary embolization, continue to take one 81 mg stomach coated Baby Aspirin twice daily with meals for 30 days postop. Please notify the office if you hav e any sensitivity to Aspirin products or if any problems develop such as stomach upset, increased bleeding, bruising or ringing in the ears. PHYSICAL THERAPY ? DISLOCATION PRECAUTIONS: Continue the range of motion and strengthening exercises initiated in Physical Therapy in the hospital. Again, do not cross legs, internally rotate the legs, or flex the hip above 90 degrees for six months postoperatively. Continue 50% left foot weight bearing first 2 weeks then weight as tolerated, as ordered, to the operated hip for four to six weeks as directed in Physical Therapy. This will be with the use of a walke r or crutches. After four or six weeks you may then progress to the use of one crutch, or a cane. A quad-cane is preferred as this is more stable. Physical therapy as begun in the hospital will dillan nue at home, possible with the medical research assistant of Home Health Physical Therapy or in the hospital as an outpatient. When you have become independent with the physical therapy program, this will then be disco ntinued as a supervised program and you will be instructed to continue the physical therapy exercises at home. DRIVING: Driving is legal, but you must be able to maintain control of your car at all times. Driving too soon, you are considered an impaired bicycle taxi driver, and this could be a problem. It is therefore advised not to drive until after your first office visit following surgery FOLLOW-UP OFFICE VISIT: S. Eva Landaverde D.O. Revised: 2010 Medication Leaflets: Thank you for choosing [facility] INPATIENT CLINICAL Observed: 11/01/2017 Status: C Source: [facility] SUMMARY 3:22 PM MEDICAL CENTER REPOSITORY [address] [address] Clinical Summary Person Information: Name: CARRIE LOW Age: 62 Years : 1955 12:00 AM Sex: Female PCP: Rahul Parks MD Marital Status: Phone: [phone] Race: White Ethnicity: Non- or Language: Swedish Visit Id: Visit Reason: Hip pain-swelling; L HIP FRACTURE, HYPONATREMIA Speciality: Acuity: 3 Enc Type: Inpatient Med Service: Medical Arrival: 10/29/2017 6:37 PM Discharge: Dispo Type: Admitted as IP to this Hosp Address: [address] [place] [id number] Provider Notes: Diagnosis: 1:Subcapital fracture of hip; 2:Acute blood loss anemia; 3:Alcohol abuse; 4:Hypokalemia; 5:At risk for withdrawal; 6:Dilutional hyponatremia; 7:Leukocytosis; 8:Insomnia; 9:Hypertension; 10:Hyperlipemia; 11:Depression; 12:Obese; 13:No contraindication to venous thromboembolism prophylaxis Problems Active Smoker Smoking Status: Never Smoker Functional Status: Sensory Deficits: No hearing deficits, Wears glasses History of Falls: Mobility Assistance Prior to Admission: Independent ADLs: Minimal assistance Current Level of Assistance for Self-Care/Mobility: Cognitive Status: Oriented x 3 Allergies PHENobarbital (hives) Demerol HCl (hypertension) Contrast Dye (Hives) (Tongue swelling) Shrimp (Hives) (Tongue swelling) acetaminophen-hydrocodone (Itching) (Hives) shellfish (Hives) (Tongue swelling) iodine topical (Tongue swelling) (Hives) Measurements: Height: 167 cm Weight: 92.8 kg Blood Pressure: 138 mmHg / 73 mmHg BMI: 31.88 kg/m2 Procedures No Procedures Documented Immunizations No Immunizations Documented This Visit Final Med List: acetaminophen-hydrocodone (Terra Alta 325 mg-5 mg oral tablet) 1 Tabs By Mouth every 4 hours as needed PC for pain. Refills: 0. amlodipine (amLODIPine 10 mg Tab) 1 Tabs By Mouth every day. aspirin (aspirin 325 mg Tab) 1 Tabs By Mouth 2 times a day for 30 Days. Refills: 0. atorvastatin By Mouth every day. buPROPion (Wellbutrin XL 300 mg/24 hours Tab-ER) 1 Tabs By Mouth every 24 hours. hydrochlorothiazide (hydrochlorothiazide 25 mg oral tablet) 1 Tabs By Mouth every day. [facility] [place]) Hospital bed #1 Status post left hip replacement surgery.. Refills: 0. potassium chloride (potassium chloride 20 mEq ER Tab) 1 Tabs By Mouth 2 times a day. Care Team Members: Attending Physician: Love Maddox MD Consulting Physician: Joshua Landaverde DO Referring Physician: Follow up: With: Address: When: Arpita Hines [address] [place] [address] 11/08/17 01:30:00 With: Address: When: Joshua Landaverde [address] [address] [facility] () 11/23/17 10:15:00 Patient Education Information: Akhil - Post Op Hip Replacement Arthroplasty (Revised May 2017) (Custom) DISCHARGE SUMMARY Observed: 11/01/2017 Status: F Source: [facility] 3:15 PM MEDICAL CENTER REPOSITORY Admission Information Admit Date/Time:10/29/2017 22:07 Admitting Physician - Love Maddox MD Consulting Physician - Joshua Landaverde DO Admitting Diagnoses: Elevated white blood cell count, unspecified, 10/31/2017 Hospital Course 62-year-old obese female with history of hypertension, hyperlipidemia, depression, chronic alcohol use who had fallen on ice June 2017 presented with worsening left hip pain and was fo und to have left hip subcapital fracture. She was subsequently admitted to [facility] with acute closed left hip subcapital pathologic fracture secondary to osteoporosis, hyponatremia, hypokalemia, leukocytosis, alcohol abuse and insomnia. She was seen in consultation by the orthopedic surgeon. She was treated with IV fluids, IV, oral pain medications, IV and oral potassium chloride s upplements. She underwent a left hip replacement surgery and also had acute blood loss anemia secondary to the surgery. She did not require blood transfusion. The patient's overall condition improved an d she participated well in physical therapy and was found to have need for physical therapy with home health. Arrangements have been made for this. She was seen prior to discharge and remained in an imp roved and stable condition for discharge. She was subsequently discharged home on when necessary pain medications and will continue on home physical therapy. She will follow-up with the orthopedic surgeon as well as her family physician. Physical Exam Vitals & Measurements T: 36.7 ?C (Oral) TMIN: 36.2 ?C (Temporal Artery) TMAX: 36.8 ?C (Oral) HR: 101(Monitored) RR: 16 BP: 138/73 SpO2: 99% WT: 92.8 kg General: alert, no acute distress Skin: warm, dry Head: no trauma, normocephalic Neck: Trachea midline, no adenopathy, no tenderness Eye: normal conjunctiva, sclera clear ENMT: TM's clear, oral mucosa moist, no pharyngeal erythema or exudate Cardiovascular: regular rate and rhythm, normal peripheral perfusion Respiratory: Lungs CTA, respirations non labored Chest wall: no deformity. Gastrointestinal: soft, non distended, no tenderness, no guarding. Obese, Back: No tenderness, Normal ROM, Normal alignment. Extremities: no deformity, no trauma, left hip wound dressing intact. Patient is able to wiggle all toes. Neurological: oriented x 4, LOC appropriate for age, CN II-XII intact, motor strength equal & normal bilaterally, sensation equal & normal bilaterally, speech normal Psychiatric: cooperative, affect appropriate for age, normal judgement, normal psychiatric thoughts. Discharge Plan 1. Subcapital fracture of hip Acute closed left hip subcapital pathologic fracture?secondary to osteoporosis. She is status post left hip replacement surgery postoperative day #1. Management by orthopedic surgery. Continue wit h when necessary pain medications, physical therapy?recommends home with home health. Aspirin 325 mg twice a day for DVT prophylaxis as per orthopedic surgeon. 2. Acute blood loss anemia Acute blood loss anemia?postoperatively. Expected. Patient does not need blood transfusion. I reviewed labs and hemoglobin is 9.2. 3. Alcohol abuse Advised on cessation. 4. Hypokalemia Resolved. 5. At risk for withdrawal Resolved. She was treated with when necessary Ativan. 6. Dilutional hyponatremia Improved. 7. Leukocytosis, Elevated white blood cell count, unspecified WBC went up? likely secondary to stress response. I reviewed her labs and WBC 17,100. No reported fever. 8. Insomnia Continue on Ambien when necessary. 9. Hypertension Blood pressure fairly controlled. We'll resume hydrochlorothiazide and amlodipine at discharge. 10. Hyperlipemia On statins. 11. Depression Wellbutrin. 12. Obese Recommend therapeutic lifestyle modification changes. Patient Discharge Condition Stable. Discharge Disposition Home with home health. Discharge Medication List Prescriptions aspirin 325 mg Tab, 325 mg= 1 tab(s), Oral, BID HOSPITAL BED, See Instructions Terra Alta 325 mg-5 mg oral tablet, 1 tab(s), Oral, q4hr, PRN Home amLODIPine 10 mg Tab, 10 mg= 1 tab(s), Oral, Daily atorvastatin, Oral, Daily hydrochlorothiazide 25 mg oral tablet, 25 mg= 1 tab(s), Oral, Daily potassium chloride 20 mEq ER Tab, 20 mEq= 1 tab(s), Oral, BID Wellbutrin XL 300 mg/24 hours Tab-ER, 300 mg= 1 tab(s), Oral, q24hr Follow-up With When Contact Information Joshua Landaverde 11/23/2017 10:15 AM EDT [address] [address] Business (1) Additional Instructions: Arpita Hines 11/08/2017 01:30 AM EDT [address] [place] [address] Additional Instructions: Patient Education Akhil - Post Op Hip Replacement Arthroplasty (Revised May 2017) (Custom) Result Comment: Electronically Signed By: Gwendolyn JIN, Magaly\.br\Date and Time Signed: 11/01/17 15:18 EDT DISCHARGE SUMMARY Observed: 11/01/2017 Status: F Source: [facility] 12:54 PM MEDICAL CENTER REPOSITORY ADMITTING DIAGNOSIS: Subcapital left hip fracture with degenerative joint disease, left hip. FINAL DIAGNOSIS: Subcapital left hip fracture with degenerative joint disease, left hip. CONSULTATIONS: Hospitalist service. COMPLICATIONS: None. PROCEDURES PERFORMED: Left total hip arthroplasty. INDICATIONS FOR ADMISSION: This is a 62-year-old female admitted through the [facility] Emergency Room with intractable hip pain. She apparently had a fall earlier this year. She has had continued discomfort despite normal x-rays elsewhere. Please refer to the admitting History and Physical for further details. HOSPITALIZATION SUMMARY: On the day of admission, the hip fracture and degenerative changes about the left hip were discussed at length with the patient and her family. They had many questions regarding the duration of this fracture. As she fell in June, it is impossible to determine accurately if this was six days or six weeks ago but this did not appear to be an acute fracture based on x-rays and intraoperative findings. Nevertheless, we did discuss left total hip arthroplasty and we discussed risks, benefits, expectations, potential complications at length. She was taken to surgery for the left total hip arthroplasty. It was performed without difficulty. Postoperative x-rays were satisfactory. She is re-evaluated today, is quite comfortable taking Vicodin. She has had problems with itching taking all pain medications in the past but this is being managed well with Benadryl orally. She has been up with physical therapy. They did recommend partial weightbearing for the first two weeks up to 50% then progress to full weightbearing as comfortably tolerated. She does live in [place] and she will have physical therapy there with routine total hip precautions. The dressing will be changed at ten days, sooner if needed following the Aquac dressing change protocol. We did discuss deep venous thrombosis prophylaxis, the possibility of pulmonary embolization and she will continue to monitor for increasing thigh and calf pain. She has had problems with swelling in the legs before and this has responded well to compression stockings which she does have and use. We did discuss routine postoperative followup at three to four weeks and any questions or concerns should be reported in the interim. All questions were answered to their understanding and satisfaction. Joshua Landaverde D.O. gls Dictated: 11/01/2017 #[id number] Typed: 11/02/2017 #[id number] cc: Jonny Cristina D.O. Result Comment: Electronically Signed By: Joshua Landaverde DO\.br\Date and Time Signed: 11/02/17 17:36 EDT INTERDISCIPLINARY NOTE - OT Observed: 11/01/2017 Status: F Source: [facility] 12:52 PM [facility] CENTER REPOSITORY OT viridianaal completed this date. Pt would benefit from services to assess safety in the home, compliance with dislocation precautions, functional transfers and IADL performance. PROGRESS NOTE-PHYSICIAN Observed: 11/01/2017 Status: C Source: [facility] 10:11 AM MEDICAL CENTER REPOSITORY Assessment/Plan 62-year-old obese female with history of hypertension, hyperlipidemia, depression who had fallen on ice June 2017 point presented with worsening left hip pain and was found to have left hip subcapital fracture and was admitted with acute closed left hip subcapital pathologic fracture secondary to osteoporosis, hyponatremia, hypokalemia, leukocytosis, alcohol abuse and insomnia. 1. Subcapital fracture of hip Acute closed left hip subcapital pathologic fracture?secondary to osteoporosis. She is status post left hip replacement surgery postoperative day #1. Management by orthopedic surgery. Continue wi th when necessary pain medications, physical therapy?recommends home with home health, [facility] for DVT prophylaxis. 2. Acute blood loss anemia Acute blood loss anemia?postoperatively. Expected. Patient does not need blood transfusion. I reviewed labs and hemoglobin is 9.2. We will monitor hemoglobin closely and make arrangements for blo od transfusion if hemoglobin less than 7.5. 3. Alcohol abuse Advised on cessation. Continue on Ativan when necessary. 4. Hypokalemia Resolved. 5. At risk for withdrawal Continue on Ativan when necessary for CIWA protocol. 6. Dilutional hyponatremia Improved. Sodium level is 132. 7. Leukocytosis, Elevated white blood cell count, unspecified WBC went up? likely secondary to stress response. I reviewed her labs and WBC 17,100. 8. Insomnia Continue on Ambien when necessary. 9. Hypertension Blood pressure fairly controlled. We'll resume Aldactone or discharge. 10. Hyperlipemia On statins. 11. Depression Wellbutrin. 12. Obese Recommend therapeutic lifestyle modification changes. 13. No contraindication to venous thromboembolism prophylaxis On Arixtra. Disposition: Hopefully home soon with home health pending orthopedic surgery final recommendations. Subjective Seen and examined. She feels well today. She denies hip pain. She had left hip replacement yesterday. Objective Vitals & Measurements T: 36.7 ?C (Oral) TMIN: 36.2 ?C (Temporal Artery) TMAX: 37 ?C (Oral) HR: 116(Monitored) RR: 16 BP: 114/68 SpO2: 96% WT: 92.8 kg Intake & Output This visit (24 hour periods starting at 07:00) 11/01/17 * 10/31/17 10/30/17 Total Summary Intake mL 139.17 2,797.33 212 Output mL -- 2,786 3,875 Fluid Balance 139.17 11.33 -3,663 Intake (17) Lactated Ringers Injection mL -- 1,600 -- Lactated Ringers Injection 1,000 mL mL -- 50 -- Oral Intake mL -- -- -- Sodium Chloride 0.45% intravenous solution 1,000 mL mL -- 936 -- acetaminophen mL 100 100 -- cefazolin mL 39.17 60.83 -- dexamethasone mL -- 1 -- ephedrine mL -- 7 -- fentanyl mL -- 2 -- glycopyrrolate mL -- 0.5 -- lidocaine mL -- 2 -- midazolam mL -- 2 -- morphine mL -- 2 12 ondansetron mL -- 2 -- phenylephrine mL -- 12 -- potassium chloride mL -- -- 200 propofol mL -- 20 -- Total 139.17 2,797.33 212 Output (4) EBL Surgery mL -- 450 -- Urine Catheter mL -- 1,036 -- Urine Count mL -- 500 -- Urine Voided mL -- 800 3,875 Total -- 2,786 3,875 Counts (3) Stool Count -- -- -- Urine Count -- -- 7 Urine Count mL -- 500 -- * This column has not completed the indicated time period. Physical Exam General: alert, no acute distress, comfortable in bed. Skin: warm, dry Head: no trauma, normocephalic Neck: Trachea midline, no adenopathy, no tenderness Eye: normal conjunctiva, sclera clear ENMT: TM's clear, oral mucosa moist, no pharyngeal erythema or exudate Cardiovascular: regular rate and rhythm, normal peripheral perfusion Respiratory: Lungs CTA, respirations non labored Chest wall: no deformity. Gastrointestinal: soft, non distended, no tenderness, no guarding. Back: No tenderness, Normal ROM, Normal alignment. Extremities: no deformity, no trauma, left hip wound dressing intact. Patient is able to wiggle all toes. Neurological: oriented x 4, LOC appropriate for age, CN II-XII intact, motor strength equal & normal bilaterally, sensation equal & normal bilaterally, speech normal Psychiatric: cooperative, affect appropriate for age, normal judgement, normal psychiatric thoughts. Lab Results Size: 40MM (10/31/17 17:24:02) Size: +0 MM (10/31/17 17:24:02) Size: 40 MM (10/31/17 17:24:02) Size: #9 (10/31/17 17:24:02) WBC: 17.1 E9/L High (11/01/17 05:34:00) RBC: 2.7 E12/L Low (11/01/17 05:34:00) Hgb: 9.2 gm/dL Low (11/01/17 05:34:00) Hct: 26.2 % Low (11/01/17 05:34:00) MCV: 96.4 fL (11/01/17 05:34:00) MCH: 33.7 pg (11/01/17 05:34:00) MCHC: 35 gm/dL (11/01/17 05:34:00) RDW: 14.4 % High (11/01/17 05:34:00) Platelet: 246 E9/L (11/01/17 05:34:00) MPV: 7.3 fL (11/01/17 05:34:00) Neutro Auto: 90.1 % High (11/01/17 05:34:00) Lymph Auto: 5.1 % Low (11/01/17 05:34:00) [place] Auto: 4.3 % (11/01/17 05:34:00) Eos Auto: 0 % (11/01/17 05:34:00) Basophil Auto: 0.5 % (11/01/17 05:34:00) Neutro Absolute: 15.4 E9/L High (11/01/17 05:34:00) Lymph Absolute: 0.9 E9/L Low (11/01/17 05:34:00) [place] Absolute: 0.7 E9/L (11/01/17 05:34:00) Eos Absolute: 0 E9/L (11/01/17 05:34:00) Basophil Absolute: 0.1 E9/L (11/01/17 05:34:00) BUN: 8 mg/dL (11/01/17 05:34:00) Creatinine: 0.5 mg/dL (11/01/17 05:34:00) eGFR: >60 (11/01/17 05:34:00) eGFR AA: >60 (11/01/17 05:34:00) Sodium Lvl: 132 mmol/L Low (11/01/17 05:34:00) Potassium Lvl: 4.3 mmol/L (11/01/17 05:34:00) Chloride: 100 mmol/L Low (11/01/17 05:34:00) CO2: 26 mmol/L (11/01/17 05:34:00) AGAP: 10 mEq/L (11/01/17 05:34:00) UA Spec Desc: Prieto (10/31/17 15:55:00) UA Color: Yellow2 (10/31/17 15:55:00) UA Clarity: Clear2 (10/31/17 15:55:00) UA Spec Grav: <=1.005 (10/31/17 15:55:00) UA pH: 5.5 (10/31/17 15:55:00) UA Protein: NEGATIVE1 (10/31/17 15:55:00) UA Glucose: NEGATIVE1 (10/31/17 15:55:00) UA Ketones: NEGATIVE1 (10/31/17 15:55:00) UA Bili: NEGATIVE1 (10/31/17 15:55:00) UA Blood: NEGATIVE1 (10/31/17 15:55:00) UA Nitrite: NEGATIVE1 (10/31/17 15:55:00) UA Urobilinogen: 0.2 (10/31/17 15:55:00) UA Leuk Est: NEGATIVE1 (10/31/17 15:55:00) UA RBC: 0-3 (10/31/17 15:55:00) UA Squam Epithelial: 0-2 (10/31/17 15:55:00) UA WBC: 0-5 (10/31/17 15:55:00) UA Bacteria: Trace2 (10/31/17 15:55:00) Problem List/Past Medical History Ongoing Smoker Historical Alcoholism Depression HTN - Hypertension spastic dyphonia Medications Inpatient acetaminophen 325 mg Tab, 650 mg= 2 tab(s), Oral, q6hr, PRN Ambien 5 mg Tab, 5 mg= 1 tab(s), Oral, Bedtime, PRN Arixtra 2.5 mg/0.5 mL Injection, 2.5 mg= 0.5 mL, SubCutaneous, qAM Benadryl 25 mg Cap, 25 mg= 1 cap(s), Oral, q6hr, PRN Cefazolin 2 gram IVPB, 2 gram= 50 mL, IV Piggyback, q8hr CeleBREX 100 mg Cap, 100 mg= 1 cap(s), Oral, BIDPC Colace 100 mg Cap, 100 mg= 1 cap(s), Oral, BID, PRN Dilaudid 2 mg Injection, 1 mg= 0.5 mL, IV Push, q2hr, PRN folic acid 1 mg Tab, 1 mg= 1 tab(s), Oral, Daily hydrALAZINE 20 mg/mL Inj, 10 mg= 0.5 mL, IV Push, q6hr, PRN Lactated Ringers IV Yola 1000 mL 1,000 mL, 1000 mL, IV LORazepam 2 mg/mL Inj, 1 mg= 0.5 mL, IV Push, q1hr, PRN morphine 2 mg/mL Inj, 4 mg= 2 mL, IV Push, q4hr, PRN NS 0.45% 1000 mL Soln-IV 1,000 mL, 1000 mL, IV Ofirmev 10 mg/mL intravenous solution, 1000 mg= 100 mL, IV Piggyback, q8hr oxyCODONE 5 mg Tab, 5 mg= 1 tab(s), Oral, q4hr, PRN oxyCODONE 5 mg Tab, 10 mg= 2 tab(s), Oral, q4hr, PRN Pantoprazole [address] Tab, 40 mg= 1 tab(s), Oral, Daily Percocet 325 mg-5 mg Tab, 1 tab(s), Oral, q4hr, PRN Percocet 325 mg-5 mg Tab, 2 tab(s), Oral, q4hr, PRN promethazine 25 mg/mL Inj, 25 mg= 1 mL, IV Push, q6hr, PRN Therapeutic Multiple Vitamin Tab, 1 tab(s), Oral, Daily Tylenol 325 mg Tab, 650 mg= 2 tab(s), Oral, q4hr, PRN Ultram 50 mg Tab, 50 mg= 1 tab(s), Oral, q6hr, PRN Ultram 50 mg Tab, 100 mg= 2 tab(s), Oral, q6hr, PRN Zofran 4 mg/2 mL Injection, 4 mg= 2 mL, IV Push, q6hr, PRN Home amLODIPine 10 mg Tab, 10 mg= 1 tab(s), Oral, Daily atorvastatin, Oral, Daily hydrochlorothiazide 25 mg oral tablet, 25 mg= 1 tab(s), Oral, Daily potassium chloride 20 mEq ER Tab, 20 mEq= 1 tab(s), Oral, BID Wellbutrin XL 300 mg/24 hours Tab-ER, 300 mg= 1 tab(s), Oral, q24hr The patient will require a hospital bed at discharge. This will help patient in repositioning her body to help alleviate her pain and this is not feasible with ordinary bed. I therefore gave patient a p rescription for hospital bed. Result Comment: Electronically Signed By: Gwendolyn JIN, Magaly\.br\Date and Time Signed: 11/01/17 14:54 EDT INTERDISCIPLINARY NOTE - Observed: 11/01/2017 Status: C Source: [facility] 8:33 AM [facility] CENTER REPOSITORY Rounding with Dr. Snow, Maylin EDMONDS,Taniya Pharmacist, Lynette RN, Yvette RN. White board updated, no family present. Pt awake, alert, laying in bed talking with the doctor. Pt states her pain isn't too bad. Doctor discussed Hgb dropping, pt states surgery does that before. Pt understands plan is await Ortho recommendations, d/c after with HH. CRM discussed HH, pt agrees with HH in [facility]. Pt states her works nights and is not up early, she will call him when it is time and update him. CRM spoke with pt regarding PCP. CRM explained in order to get HH for her at d/c, we need to have a doctor that will sign their orders. CRM discussed calling Arpita Hines which pt stated she has seen her before, pt shakes her head no and states no, I will not see her again. CRM again explained we have to have a PCP to write orders for HH. Pt states do I have to decide right now? CRM states s he can think about if for a half hour and she will check back with her. Pt then states What about Jose Raul?, CRM states we can call and see if he will take her for a new pt. Pt states I have seen him before, CRM asked when, pt states about a month ago. CRM explained Jose Raul will be ok as long as he will see her and sign orders. Pt states he is in her insurance network. KENDAL returned again to talk with pt about PCP. CRM asked when she saw Dr. Blunt in [place] last? Pt states she saw him in [place] or [place]. She then states it is Dr. Ruby and he was in [facility]. Further discussion CRM finds out it is Jesse Ruby who is a Orhtopedic doctor in [place] who does not do surgeries. Pt then states she thought about Dr. Liang who is in the same practice a s Arpita Hines and she provided his address and phone number. Pt again states she does not like Arpita and will not go back to her. CRM called number provided and left a message and contact information. CRM returned to room to discuss PT recommending HH w/24 hour supervision. Pt states she cannot have 24 hour supervision. CRM asked if she had family or anyone that could help. Pt states all her famil y live in [place], they cannot help. CRM discussed and offered SNF for pt. Pt states she is not going anywhere. CRM discussed her getting PT/OT temporarily at SNF, pt again states no. CRM discussed PT stating they had concerns for her being alone and following hip precautions. Pt states she had her other hip done before and went home and did fine. CRM again discussed PT stating she had a hard time following when talking about hip precautions. Pt states I don't know where she got that from, she had to tell me about them. Pt then tells CRM her does not go in to work until 12 and h e does not work far from where they live so if she needs something he can come home and help. CRM called Dr. Landaverde's office and left a message for nurse of Dr. Landaverde's telling her of PT recommendations and asking if he would be able to sign orders for HH once pt is discharged. CRM received call back from Dr. Liang's office. CRM explained pt not wanting to go back to Arpita Hines [employer] SUPERVIS[employer] and why. CRM also discussed need of having a doctor to follow to sign HH orders. Office ade rey placed CRM on hold and spoke with Dr. Liang regarding this. Staff then returned and stated Dr. Liang would be able to sign orders for HH and will need to see the pt within the month. Staff also expl ained to CRM to let pt know that Arpita BowmanNP did not refill her regular medications after last visit because that visit was for her hip pain and not a Wellness Visit. They stated she would need to m jolly another appointment for Wellness Visit in orderd to get them refilled. Staff also states Dr. Liang would like notes sent to him regarding surgery, medications, etc since he did not see pt before. Fax number was provided: [phone]. [id number] received call from pt in her room regarding her d/c plan. Pt states she now has talked with her sister and will go stay with her in [place] when she is able to fly. Pt states she is going t o ask doctor when she is able to. CRM asked in the meantime her plan is to go home with HH still? Pt states she is going to talk with her when he gets here. CRM reminded pt of discussion abou t what HH is and pt then states that is ok to do. CRM explained to pt she spoke with Dr. Liang's office and they asked him if he would sign orders for HH and also see pt as PCP, which he said yes. Pt is ok with that. CRM called pts room and discussed with HH pt needing to be homebound, not able to go shopping but able to go to doctor appointments, pt states she understands that and it's ok. CRM received multiple calls from pt in the afternoon regarding multiple questions. Pt decided to get a hospital bed with [facility], she talked with them and she will be getting bed tomorrow and has a bed to sleep in [facility]. Pt also called about home medications being delivered. CRM contacted Doctor for hospital bed prescription, and nursing regarding home pain medications being delivered. BUN Collected: 11/01/2017 Status: F Source: [facility] 5:34 AM [facility] CENTER REPOSITORY TYPE CODE TESTS RESULT OUT OF RANGE REFERENCE UNITS LAB 3094-0(LOIN 5-21 mg/dL C) Normal UREA 8 NITROGEN:MCN C:PT:SER/CANDIDA S:QN: Performed By: #### [id number], [id number] #### [facility] [address] [place] [id number] CREATININE Collected: 11/01/2017 Status: F Source: [facility] 5:34 AM MEDICAL CENTER REPOSITORY TYPE CODE TESTS RESULT OUT OF RANGE REFERENCE UNITS LAB 2160-0(LOIN 0.5-1.3 mg/dL C) Normal 0.5 CREATININE:M CNC:PT:SER/P LAS:QN: Performed By: #### [id number], [id number], [id number] #### [facility] [address] [place] [address] EGFR Collected: 11/01/2017 Status: F Source: [facility] 5:34 [facility] REPOSITORY Order Comment: Order added by Discern Expert. TYPE CODE TESTS RESULT OUT OF RANGE REFERENCE UNITS LAB 04232-6(LO >=59 mL/min/1.7 INC) 3 m2 Normal GLOMERULAR >60 FILTRATION RATE/1.73 SQ M.PREDICTED.NON BLACK:ARVRAT:PT: SER/PLAS:QN:CREA TININE-BASED FORMULA (MDRD) Result Comment: Chronic kidney disease could be indicated at eGFR's of less than 60 mL/min/1.73m2. Kidney failure is indicated at less than 15 mL/min/1.73m2. LAB 23647-6(LOINC) GLOMERULAR >=59 mL/min/1.73 FILTRATION RATE/1.73 SQ m2 M.PREDICTED.BLACK:ARVRAT:PT:SER/PLAS:QN:CREATININE-BASED FORMULA (MDRD) Normal >60 Result Comment: eGFR is race adjusted. AA=. Performed By: #### [id number], [id number], [id number], [id number], [id number] #### [facility] [address] [place] [address] LYTES Collected: 11/01/2017 Status: F Source: [facility] 5:34 [facility] REPOSITORY TYPE CODE TESTS RESULT OUT OF RANGE REFERENCE UNITS LAB 2951-2(LOIN 135-145 mmol/L C) Low SODIUM:SCNC:P 132 T:SER/PLAS:QN : LAB 2823-3(LOIN 3.5-5.3 mmol/L C) Normal POTASSIUM:SCN 4.3 C:PT:SER/PLAS :QN: LAB 2075-0(LOIN 101-111 mmol/L C) Low CHLORIDE:SCNC 100 :PT:SER/PLAS: QN: LAB 8-9(LOIN 21-31 mmol/L C) Normal CARBON 26 DIOXIDE:SCNC: PT:SER/PLAS:Q N: LAB 79033-2(SRAVANI 6-16 mEq/L NC) Normal ANION 10 GAP:SCNC:PT:S ER/PLAS:QN: Performed By: #### [id number], [id number], [id number], [id number] #### [facility] [address] [place] [address] CBC W/ AUTO DIFF Collected: 11/01/2017 Status: F Source: [facility] 5:34 AM [facility]ICAL [facility]ENTER REPOSITORY TYPE CODE TESTS RESULT OUT OF REFERENCE UNITS RANGE LAB 76191-9(LO 4.0-11.0 E9/L INC) High LEUKOCYTES 17.1 Result Comment: Slide reviewed by CU. LAB 789-8(LOINC) 4.3-5.9 E12/L ERYTHROCYTES:NCNC:PT:BLD:QN:AUTOMATED COUNT Low 2.7 LAB 718-7(LOINC) 12.0-16. gm/dL HEMOGLOBIN:MCNC:PT:BLD:QN: 0 Low 9.2 LAB 4544-3(LOINC) 34.0-46. % HEMATOCRIT:VFR:PT:BLD:QN:AUTOMATED 0 COUNT Low 26.2 LAB 788-0(LOINC) 10.9-14. % ERYTHROCYTE DISTRIBUTION 2 WIDTH:RATIO:PT:RBC:QN:AUTOMATED COUNT High 14.4 LAB 785-6(LOINC) 27.0-34. pg ERYTHROCYTE MEAN CORPUSCULAR 0 HEMOGLOBIN:ENTMASS:PT:RBC:QN:AUTOMATED Normal COUNT 33.7 LAB 786-4(LOINC) 31.4-39. gm/dL ERYTHROCYTE MEAN CORPUSCULAR 3 HEMOGLOBIN Normal CONCENTRATION:MCNC:PT:RBC:QN:AUTOMATED COUNT 35.0 LAB 787-2(LOINC) 80.0-100 fL ERYTHROCYTE MEAN CORPUSCULAR .0 VOLUME:ENTVOL:PT:RBC:QN:AUTOMATED COUNT Normal 96.4 LAB 33072-7(LOINC) 6.4-10.8 fL PLATELET MEAN VOLUME:ENTVOL:PT:BLD:QN:AUTOMATED COUNT Normal 7.3 LAB 777-3(LOINC) 150.0-50 E9/L PLATELETS:NCNC:PT:BLD:QN:AUTOMATED 0.0 COUNT Normal 246.0 Performed By: #### [id number], [id number], [id number] #### [facility] [address] [place] [address] AUTO DIFF Collected: 11/01/2017 Status: F Source: [facility] 5:34 AM [facility] CENTER REPOSITORY Order Comment: Order Added by Discern Expert. TYPE CODE TESTS RESULT OUT OF RANGE REFERENCE UNITS LAB 751-8(LOINC 36.0-75.0 % ) High 90.1 NEUTROPHILS: NCNC:PT:BLD: QN:AUTOMATED COUNT LAB 731-0(LOINC 14.0-50.0 % ) Low 5.1 LYMPHOCYTES: NCNC:PT:BLD: QN:AUTOMATED COUNT LAB 742-7(LOINC 4.0-14.0 % ) Normal 4.3 MONOCYTES:NC NC:PT:BLD:QN :AUTOMATED COUNT LAB 711-2(LOINC 0.0-8.0 % ) Normal 0.0 EOSINOPHILS: NCNC:PT:BLD: QN:AUTOMATED COUNT LAB 704-7(LOINC 0.0-2.0 % ) Normal 0.5 BASOPHILS:NC NC:PT:BLD:QN :AUTOMATED COUNT LAB 33298-1(SRAVANI 2.0-7.5 E9/L NC) High 15.4 NEUTROPHILS/ LEUKOCYTES:N FR.DF:PT:BLD :QN:AUTOMATE D COUNT LAB 24642-4(SRAVANI 1.0-4.0 E9/L NC) Low 0.9 LYMPHOCYTES/ LEUKOCYTES:N FR.DF:PT:BLD :QN:AUTOMATE D COUNT LAB 36603-5(SRAVANI 0.2-1.0 E9/L NC) Normal 0.7 MONOCYTES/LE UKOCYTES:NFR .DF:PT:BLD:Q N:AUTOMATED COUNT LAB 63400-8(SRAVANI 0.0-0.5 E9/L NC) Normal 0.0 EOSINOPHILS/ LEUKOCYTES:N FR.DF:PT:BLD :QN:AUTOMATE D COUNT LAB 80190-3(SRAVANI 0.0-0.2 E9/L NC) Normal 0.1 BASOPHILS/LE UKOCYTES:NFR .DF:PT:BLD:Q N:AUTOMATED COUNT Performed By: #### [id number], [id number], [id number], [id number], [id number], [id number] #### [facility] [address] [place] [address] INTERDISCIPLINARY NOTE - PT Observed: 10/31/2017 Status: F Source: [facility] 8:51 PM MEDICAL CENTER REPOSITORY PT Evaluation completed with an AM PAC score of 15/20. Pt requires Min A for bed mobility and CGA to transfer. Pt was able to ambulate 48 feet with FWW with CGA. Anticipating Home with HH services, but will follow daily with recommendations PROGRESS NOTE-PHYSICIAN Observed: 10/31/2017 Status: F Source: [facility] 6:47 PM [facility] CENTER REPOSITORY Patient: CARRIE LOW Age: 62 years Sex: Female : 1955 Associated Diagnoses: None Author: Mateusz Evans Jr., DO Postoperative Information Post Operative Note: Post Anesthesia Care Unit. Anesthetic utilized: General. Health Status Allergies: Allergic Reactions (Selected) Severity Not Documented Acetaminophen-hydrocodone- Itching and hives. Contrast Dye- Tongue swelling and hives. Demerol HCl- Hypertension. Iodine topical- Tongue swelling and hives. PHENobarbital- Hives. Shellfish- Hives and tongue swelling. Shrimp- Tongue swelling and hives. Problem list: All Problems At risk for falls / SNOMED CT 602436056 / Possible Problem added when Risk for Falls Careplan was initiated. Smoker / IMO [id number] / Confirmed Added secondary to documentation in Social History. Resolved: spastic dyphonia Resolved: Alcoholism / SNOMED CT 03802452 Resolved: HTN - Hypertension / SNOMED CT 6336518879 Resolved: Depression / SNOMED CT 779977786 Physical Examination Vital Signs 10/31/2017 18:38 EDT Temperature Temporal Artery 36.6 DegC Heart Rate Monitored 110 bpm HI Respiratory Rate Monitored 18 br/min Systolic Blood Pressure 130 mmHg Diastolic Blood Pressure 83 mmHg Blood Pressure Location Right arm Mean Arterial Pressure, Cuff 99 mmHg SpO2 98 % BP/Pulse Patient Position Supine 10/31/2017 18:20 EDT Temperature Temporal Artery 36.2 DegC LOW Heart Rate Monitored 109 bpm HI Respiratory Rate Monitored 19 br/min Systolic Blood Pressure 125 mmHg Diastolic Blood Pressure 82 mmHg Blood Pressure Location Left arm Mean Arterial Pressure, Cuff 96 mmHg SpO2 94 % 10/31/2017 18:07 EDT SpO2 94 % 10/31/2017 18:05 EDT Heart Rate Monitored 121 bpm HI Respiratory Rate Monitored 20 br/min Systolic Blood Pressure 126 mmHg Diastolic Blood Pressure 88 mmHg Blood Pressure Location Left arm Mean Arterial Pressure, Cuff 101 mmHg SpO2 88 % 10/31/2017 18:00 EDT Heart Rate Monitored 113 bpm HI Respiratory Rate Monitored 20 br/min Systolic Blood Pressure 98 mmHg Diastolic Blood Pressure 77 mmHg Blood Pressure Location Left arm Mean Arterial Pressure, Cuff 84 mmHg SpO2 94 % 10/31/2017 17:55 EDT Heart Rate Monitored 114 bpm HI Respiratory Rate Monitored 13 br/min Systolic Blood Pressure 129 mmHg Diastolic Blood Pressure 80 mmHg Blood Pressure Location Left arm Mean Arterial Pressure, Cuff 96 mmHg SpO2 99 % 10/31/2017 17:50 EDT Temperature Temporal Artery 36.3 DegC Heart Rate Monitored 118 bpm HI Respiratory Rate Monitored 22 br/min Systolic Blood Pressure 123 mmHg Diastolic Blood Pressure 82 mmHg Blood Pressure Location Left arm Mean Arterial Pressure, Cuff 96 mmHg SpO2 99 % Pain assessment: Pain Assessment 10/31/2017 18:20 EDT Pain Symptoms Self Report No, able to self report Patient Preferred Pain Tool Numeric rating Numeric Pain Scale 0 = No pain Numeric Pain Score 0 10/31/2017 17:50 EDT Pain Symptoms Self Report No, able to self report Patient Preferred Pain Tool Numeric rating Numeric Pain Scale 0 = No pain Numeric Pain Score 0 , Controlled. General: Alert and oriented, No acute distress, No nausea. Adequate hydration.. Respiratory: Adequate air exchange.. Cardiovascular: stable. Neurologic: Normal sensory. Review / Management Condition: Stable. Assessment Anesthetic outcome No anesthetic complications noted. Plan Transfer/ Discharge: Condition stable. Result Comment: Electronically Signed By: Mateusz Evans Jr., DO\Date and Time Signed: 11/03/17 17:21 EDT OPERATIVE REPORT Observed: 10/31/2017 Status: F Source: [facility] 6:23 PM MEDICAL CENTER REPOSITORY Date of Surgery: 10/31/2017 SURGEON: Joshua B. Shine, D.O. PREOPERATIVE DIAGNOSIS: Subacute left hip subcapital fracture with degenerative joint disease, left hip POSTOPERATIVE DIAGNOSIS: Subacute left hip subcapital fracture with degenerative joint disease, left hip OPERATION: Ceramic left total hip arthroplasty ANESTHESIA: General with block COMPONENTS: [employer] Secur-Fit Plus Max size 9 femur with size 50 press-fit acetabulum, two augmentation screws, and 40 mm. +0 head ANTIBIOTICS: Ancef two grams I.V. INTRAOPERATIVE BLOOD LOSS: 100 cc. CONDITION ON TRANSPORT TO RECOVERY: Stable with symmetrical distal pulses SPONGE AND NEEDLE COUNTS: Correct INDICATIONS FOR SURGERY: This is a 62 year old female admitted through the [facility] Emergency Room with a subcapital fracture of the left hip. She had a fall in June of this year, has had previous x-rays elsewhere which did not identify the fracture. With continued and significant pain, she presents for pain management and further treatment. The subcapital fracture was identified and, as she lives in [place] it was offered to transfer her back to [place] for her hip replacement as this had previously been scheduled to be performed in December. She preferred to stay here and have her hip replacement her. With her we discussed at length this fracture and the hip replacement arthroplasty at length. Please refer to the orthopedic consultation on the chart for further details. She does recall that her right hip arthroplasty resulted in a leg length discrepancy, and she believes that her right hip was measured at 3/4 long, and she did inquire as to the possibility of improving her leg length discrepancy with surgery. We did discuss the goal of hip replacement arthroplasty is to have a stable pain-free joint. Some intraoperative adjustments can be made with leg lengths. With her subcapital fracture she has approximately 2.5 cm. of a leg length discrepancy at this time due to the fracture and accurate intraoperative assessment for equal leg lengths cannot be guaranteed, but we will assess the capsular stability and the adductor tightness to approximate appropriate leg length. PROCEDURE: Site and side verification were performed in the preoperative holding area, and the procedure as scheduled is reviewed. The left hip was marked yesterday, and this was again evaluated. Her leg lengths are again measured and the left leg is approximately 2.5 cm. short. This was also in an externally rotated position. She has no other complaint at this time. She is taken to the Operating Room and placed supine on the Operating Room table, and the appropriate time-out procedure is performed. Anesthetic and block are administered pre-anesthesia. She is carefully placed in the lateral decubitus position with the operative left hip up, which is sterilely prepped and draped in the usual routine fashion. After the appropriate time-out and evaluation of the marked hip, the posterolateral incision is utilized and electrocautery hemostasis is used to continue down to the iliotibial band laterally. This is divided in line with the skin incision. The sciatic nerve is identified and protected throughout the procedure. The posterior capsular dissection is identified as the piriformis tendon insertion, which is tagged and divided at its attachment for later repair. A posterior T-shaped capsulotomy is performed. The posterior capsule is somewhat thinned and partially torn from the neck fracture which does buttonhole through the capsular posteriorly. The remnants of the capsule are tagged for later repair, although the capsule is quite thin. The hip is taken into a flexed and internally rotated position, and a movement of the lesser trochanter is obtained and marked. The femoral neck osteotomy is performed. The fracture site at the neck is quite round and smooth, and the remnant of the femoral head is likewise somewhat smooth where this has been articulating at the fracture. There was delamination of the cartilage remnant of the hip noted posteriorly. With removal of the head fragment inspection of the acetabulum demonstrates complete cartilage loss, especially posteriorly and laterally, and this is somewhat irregular. Reaming is begun with a size 44 reamer and sequentially progresses to a size 50. Excellent fit and fill are noted and a size 50 acetabulum is press-fit. After copious irrigation electrocautery hemostasis is maintained throughout the procedure. The remnants of the acetabular labrum are removed with electrocautery. Excellent fit and fill are noted, but two augmentation screws are used per routine. A trial liner is placed. Attention is next directed to femoral preparation. The hip is flexed and internally rotated, and the femoral neck osteotomy is evaluated, and the lateral neck is removed with the box osteotome. Reaming is begun with a size 5, progressed to a size 9. Broaching begins with a size 8 and the size 9 gives an anatomic fit. The size 15 distal stem reamer is selected initially, the 13 and the 14 are utilized, and an excellent fit and fill is noted with a size 15. The prosthetic acetabular liner is placed and impacted, and the femoral stem size 9, distal 15, is impacted with excellent fit and fill. A trial reduction is then performed with the -5 and the +0 head. The -5 neck length is somewhat laxity and the +0 x 40 mm. head is selected. Excellent stability is noted at 90 degrees flexion and 75 degrees internal rotation. The Shuck test is satisfactory. This is stable in extension/external rotation as well. Final copious irrigation is followed by injection of Exparel into the capsule anteriorly and posteriorly. The sciatic nerve is again identified and unremarkable, having been protected throughout the procedure. The posterior capsular repair is performed with #1 Ethibond suture. Again the capsule is somewhat thinned and lacerated posteriorly but this is repaired with the posterior aspect of the greater trochanter through drill holes. The iliotibial band is then repaired with #2 Stratafix. The subcuticular closure is performed with #2-0, then 3-0 Stratafix on the intradermal layer. Skin glue is applied. An Aquacel dressing is applied, and the patient is transported to a supine position on the cart and her leg lengths are fairly symmetric. The abductor pillow is placed. She is transported to Recovery in satisfactory condition, having tolerated the anesthetic and the procedure well, and the postoperative x-rays are satisfactory. Joshua Landaverde D.O. aek Dictated: 10/31/2017 #[id number] Typed: 11/01/2017 #[id number] cc: Jonny Cristina D.O. Result Comment: Electronically Signed By: Joshua Landaverde DO\.br\Date and Time Signed: 11/02/17 17:36 EDT XR HIP 1 VIEW LEFT Observed: 10/31/2017 Status: F Source: [facility] + PELVIS 5:53 PM [facility] REPOSITORY Exam Date/Time: 10/31/2017 18:10 EDT Reason for Exam: Post Op Report IMPRESSION: SATISFACTORY POSTOPERATIVE APPEARANCE OF THE LEFT HIP. CLINICAL HISTORY: OSTEOARTHRITIS, POSTOP LEFT HIP PROSTHESIS, POSTOP EVALUATION OF LEFT HIP COMPARISONS: None available. FINDINGS: Portable supine AP film of the pelvis to include both hips and Portable lateral view of the left hip demonstrate satisfactory anatomic alignment and position of the left hip prosthesis. There is no radiographic evidence of loosening of the prosthesis. No acute fracture and no hip dislocation. Visible pelvis appears intact.. Right hip prosthesis satisfactory. FINAL REPORT Dictated: 11/01/2017 10:02 am Krzysztof Marie MD Signed (Electronic Signature): 11/01/2017 10:02 am Signed by: Krzysztof Marie MD Transcribed by: ROLLY Technologist: BETHANY OPERATIVE REPORT Observed: 10/31/2017 Status: F Source: [facility] 4:06 PM [facility] REPOSITORY Date of Surgery: 10/31/2017 SURGEON: Clifford Henry Jr., D.O. PREOPERATIVE DIAGNOSIS: Postoperative pain control requested by patient and surgeon POSTOPERATIVE DIAGNOSIS: Postoperative pain control requested by patient and surgeon OPERATION: Left fascia iliaca block, utilizing ultrasound guidance ANESTHESIA: Local with monitored anesthesia care PROCEDURE: The patient was interviewed and examined. The anesthesia options were discussed including fascia iliaca block for postoperative analgesia. The discussion included the procedure, risks, benefits, and alternatives to the procedure. The patients questions are all answered and the patient elected to proceed with the fascia iliaca block for postoperative pain relief. The patient was placed on the monitors, electrocardiogram, noninvasive blood pressure machine, and pulse oximetry. I.V. sedation was then administered with a total of midazolam 2 mg. The upper groin area was prepped with ChloraPrep and sterilely draped. The anatomy was identified with anatomical landmarks and ultrasound and under ultrasound guidance with a 21 gauge 100 mm Pajunk needle, the fascia iliaca was hydrodissected off the iliacus muscle. A solution of Naropin 0.2%, total volume of 40 mL was slowly injected with frequent aspirations without signs or symptoms of intravascular injection. The patient tolerated the procedure well. There were signs and symptoms of a block within minutes after completion of the procedure. The patient then proceeded to undergo general anesthesia for the proposed procedure. Clifford Henry Jr., D.O. gls Dictated: 10/31/2017 #[id number] Typed: 10/31/2017 #[id number] cc: Clifford Henry Jr., D.O. Result Comment: Electronically Signed By: Clifford Henry JR, DO\Date and Time Signed: 11/01/17 15:09 EDT UA WITH CULT REFLEX Collected: 10/31/2017 Status: F Source: [facility] 3:55 PM [facility] REPOSITORY TYPE CODE TESTS RESULT OUT OF RANGE REFERENCE UNITS LAB 42320048(L OINC) UA Spec Normal Desc Prieto LAB 93428-1(LO Yellow INC) Normal COLOR:TYPE:PT:UR YELLOW INE:NOM:AUTO LAB 73944-2(LO Clear INC) Normal CLARITY:TYPE:PT: CLEAR URINE:NOM: LAB 5811-5(SRAVANI 1.005-1.030 NC) SPECIFIC Unknown GRAVITY:RDEN:PT: <=1.005 URINE:QN:TEST STRIP LAB 5803-2(SRAVANI 5.0-9.0 NC) Unknown PH:LSCNC:PT:URIN 5.5 E:QN:TEST STRIP LAB 5804-0(SRAVANI Negative NC) Normal PROTEIN:MCNC:PT: NEGATIVE URINE:QN:TEST STRIP LAB 5792-7(SRAVANI Negative NC) Normal GLUCOSE:MCNC:PT: NEGATIVE URINE:QN:TEST STRIP LAB 5797-6(SRAVANI Negative NC) Normal KETONES:MCNC:PT: NEGATIVE URINE:QN:TEST STRIP LAB 5770-3(SRAVANI Negative NC) Normal BILIRUBIN:PRTHR: NEGATIVE PT:URINE:ORD:CHIQUIS T STRIP LAB 5794-3(SRAVANI Negative NC) Normal HEMOGLOBIN:PRTHR NEGATIVE :PT:URINE:ORD:TE ST STRIP LAB 5802-4(SRAVANI Negative NC) Normal NITRITE:PRTHR:PT NEGATIVE :URINE:ORD:TEST STRIP LAB 60122-5(LO Negative INC) Normal LEUKOCYTES:PRTHR NEGATIVE :PT:URINE:ORD:AU TOMATED LAB 17828-7(LO 0.0-1.0 EU/dL INC) Normal UROBILINOGEN:ACN 0.2 C:PT:URINE:QN:TE ST STRIP LAB 5821-4(SRAVANI 0-5 /HPF NC) Normal LEUKOCYTES:NARIC 0-5 :PT:URINE SED:QN:MICROSCOP Y.LIGHT.HPF LAB 97435-6(LO 0-2 /HPF INC) Normal EPITHELIAL 0-2 CELLS.SQUAMOUS:N HOLGER:PT:URINE SED:QN:MICROSCOP Y.LIGHT.HPF LAB 48405-9(LO 0-3 /HPF INC) Normal LITHIUM.PLASMA/L 0-3 ITHIUM.RBC:MRTO: PT:BLD:QN: LAB 81270-3(LO Trace /HPF INC) Normal BACTERIA:PRTHR:P TRACE T:URINE SED:ORD:MICROSCO PY.LIGHT Performed By: #### [id number] #### [facility] [address] [place] [address] MAIN OR INTRAOPERATIVE Observed: 10/31/2017 Status: C Source: [facility] RECORD 3:54 PM [facility] REPOSITORY IntraOp Document Type FT Summary Primary Physician: Joshua Landaverde DO Finalized Date/Time: 11/10/17 13:01:03 Pt. Name: CARRIE LOW Eze BenavidezB./Sex: 1955 Female Med Rec #: [id number] Physician: Love Maddox MD Financial #: [id number] Pt. Type: I Room/Bed: [place] [address] Admit/Disch: 10/29/17 18:37:00 - 11/01/17 16:38:00 Institution: Case Times FT Entry 1 Patient Times In Room 10/31/17 15:23:00 Out Room 10/31/17 17:48:00 Procedure Times Start 10/31/17 15:54:00 Stop 10/31/17 17:42:00 Anesthesia Times Start 10/31/17 15:23:00 Stop 10/31/17 17:48:00 Block Timeout w/ 10/31/17 15:13:00 Anesthesia Last Modified By: Leilani Fortune CST 10/31/17 17:56:27 General Comments: block performed by dr henry, patient tolerated procedure well no complications. rosie fernandez 11/01/2017 Chart opened to review and send charges Elaine Director Of Community Services Case Attendance FT Entry 1 Entry 2 Entry 3 Case Attendee Mateusz Evans Jr., DO, DO, Steven Ruffing CST, Litzy Schmidt Role Performed Anesthesiologist of Surgeon - Primary Scrub - Primary Record Time In 10/31/17 15:23:00 10/31/17 15:23:00 10/31/17 15:23:00 Time Out 10/31/17 17:48:00 10/31/17 17:48:00 10/31/17 17:48:00 Procedure HIP TOTAL HIP TOTAL HIP TOTAL ARTHROPLASTY(Left) ARTHROPLASTY(Left) ARTHROPLASTY(Left) Comments Last Modified By: Charly VELEZ, Litzy Parks RN, Ltizy Parks RN, Litzy Pablo 10/31/17 17:56:29 10/31/17 17:56:29 10/31/17 17:56:29 Entry 4 Entry 5 Entry 6 Case Attendee Nathalie PETERS, Komal Winters ORNAMENTAL PAINTER/SA, Meka Hair RN, Ed Burns Role Performed Scrub - Primary ORNAMENTAL PAINTER/SA Flagger - Primary Time In 10/31/17 15:23:00 10/31/17 15:23:00 10/31/17 15:23:00 Time Out 10/31/17 17:48:00 10/31/17 17:48:00 10/31/17 17:05:00 Procedure HIP TOTAL HIP TOTAL HIP TOTAL ARTHROPLASTY(Left) ARTHROPLASTY(Left) ARTHROPLASTY(Left) Comments Last Modified By: Charly VELEZ, Litzy Parks RN, Litzy Parks RN, Litzy Pablo 10/31/17 17:56:29 10/31/17 17:56:29 10/31/17 17:56:29 Entry 7 Case Attendee Litzy Parks RN Role Performed Flagger - Primary Time In 10/31/17 15:23:00 Time Out 10/31/17 17:48:00 Procedure HIP TOTAL ARTHROPLASTY(Left) Comments Last Modified By: Litzy Parks RN 10/31/17 17:56:29 General Comments: andie griffiths associate financial representative, also in attendance. rosie fernandezlearning technologist Protocols FT Pre-Care Text: Implements protective measures prior to operative or invasive procedure, confirms identity before the operative or invasive procedure, verifies operative procedure, surgical site, and laterality Entry 1 Procedure(s) HIP TOTAL Patient Identity Birthday, Blood Band, ARTHROPLASTY(Left) Verified (select at ID Band Check, Patient least 2): Participation Consents / H and P Anesthesia Consent, Operative Site Present Verified HandP, Surgery/Procedure Marking Verified Consent, Transfusion Consent Surgical Site Yes Laterality Verified Yes Verified Procedure Verified Yes Correct Patient Yes Position Verified Availability Equipment, Implant, Prep Dry Yes Verified (If Medication Applicable) PreOp Antibiotic Yes Time Out Joshua Landaverde DO, Albina Participants Westley PETERS, Nathalie Mathew CST, Singh Lindsay CST/SA, Laxmi Ackerman RN, Kail M, Litzy Parks RN, Barrett Jr. DO, Clyde G. Time Out Complete 10/31/17 15:51:00 Outcomes Met? Yes Last Modified By: Litzy Parks RN 10/31/17 15:52:54 Post-Care Text: The patient is free from signs and symptoms of injury caused by extraneous objects Allergy Information FT Pre-Care Text: Verifies allergies Entry 1 Allergies Reviewed? Yes Allergies Reviewed Self/Patient With Outcomes Met? Yes Last Modified By: Litzy Parks RN 10/31/17 14:40:49 Post-Care Text: The patient received appropriate medication(s) safely administered during the perioperative period General Comments: spoke to patient regarding tylenol-hydrocodone allergy. patient stated not a true allergy, states she takes extra strength tylenol and thinks it works really well. rosie fernandez Surgical Procedures FT Entry 1 Procedure Description Procedure HIP TOTAL ARTHROPLASTY Modifiers Left Surgeon Description CERAMIC LEFT TOTAL HIP ARTHROPLASTY Primary Procedure Yes Primary Surgeon Joshua Landaverde DO 10/31/17 15:54:00 Stop 10/31/17 17:42:00 Anesthesia Type General Surgical Service Orthopedics Wound Class 1 - Clean Last Modified By: Litzy Parks RN 10/31/17 17:56:32 General Case Data FT Pre-Care Text: Classifies surgical wound, implements aseptic technique, initiates traffic control Entry 1 Case Information OR OR 7 FT Case Level Level 6 Wound Class 1 - Clean Specialty Orthopedics ASA Class 3 Preop Diagnosis SUBCAPITAL LEFT HIP Postop Same As Preop Yes FRACTURE, SUBACUTE Postop Diagnosis SUBCAPITAL LEFT HIP Outcomes Met? Yes FRACTURE, SUBACUTE Last Modified By: Litzy Parks RN 10/31/17 16:10:26 Post-Care Text: The patient is free from signs and symptoms of infection Skin Assessment (Pre Procedure) FT Pre-Care Text: Implements protective measures to prevent skin/ tissue injury due to thermal or mechanical sources Evaluates for signs and symptoms of physical injury to skin and tissue Entry 1 Skin Integrity Intact, [place], Warm, and Skin Abnormality No Dry Outcomes Met? Yes Last Modified By: Litzy Parks RN 10/31/17 16:23:24 Post-Care Text: The patient is free from signs and symptoms of injury caused by extraneous objects Patient Positioning FT Pre-Care Text: Identifies physical alterations that require additional precautions for procedure-specific positioning, verifies presence of prosthetics or corrective devices, positions the patient, evaluates the patient for signs and symptoms of injury as a result of positioning Entry 1 Procedure HIP TOTAL Body Position Lateral, left side up ARTHROPLASTY(Left) Feet Uncrossed? Yes Left Arm Position Other/See Comments Right Arm Position Extended on Padded Arm Left Leg Position Held on Field Board Right Leg Position Extended Positioning Device Axillary Roll, [place] Bag Small (vac pac), Demayo Hip Positioner, Pillow Support Under Arm, Pillow Large Between Knees, Pillow Under Head Large, Safety Strap Press Points Checked Yes By Laxmi VELEZ, Akhil Rg DO, Steven, Crosby RN, Litzy Pablo Outcomes Met? Yes Last Modified By: Litzy Parks RN 10/31/17 14:44:35 Post-Care Text: The patient is free from signs and symptoms of injury related to positioning General Comments: patient positioned lateral, left side up. pillow under head. ax roll under axilla. [place] bag underneath for position support. demayo hip positioner placed per Dr Landaverde. right arm extended on armboard, left arm secured over pillow between arms. right leg extended, left leg held on field. position verified prior to start of procedure. rosie fernandez Patient Care Devices FT Pre-Care Text: Implements protective measures to prevent skin/ tissue injury due to thermal or mechanical sources Entry 1 Entry 2 Entry 3 Equipment Type CAUTERY UNIT[F] DEMAYO LATERAL BOWMAN SYSTEM[F] POSITIONER [F] Equipment Number [id number] Equipment Setting Outcomes Met? Yes Yes Yes Last Modified By: Charly VELEZ, Litzy Parks RN, Litzy Del Valle RN 10/31/17 14:45:59 10/31/17 14:45:59 10/31/17 14:45:59 Entry 4 Entry 5 Entry 6 Equipment Type INTERPULSE[F] MISTRAL FORCED AIR MONITOR CHARGE SURGERY WARMING SYSTEM UNIT[F] [F] Equipment Number M3 Equipment Setting Outcomes Met? Yes Yes Yes Last Modified By: Charly VELEZ, Litzy Parks RN, Litzy Del Valle RN 10/31/17 14:45:59 10/31/17 14:45:59 10/31/17 14:45:59 Entry 7 Entry 8 Entry 9 Equipment Type MAEGAN SUCTION UNIT [F] SONOSITE ULTRASOUND BIS MONITOR[F] UNIT[F] Equipment Number Equipment Setting Outcomes Met? Yes Yes Yes Last Modified By: Litzy Parks RN, RN, Litzy Del Valle RN 10/31/17 14:45:59 10/31/17 14:45:59 11/10/17 13:00:58 Post-Care Text: The patient is free from signs and symptoms of injury caused by extraneous objects Transport To OR FT Pre-Care Text: Transports according to individual needs. Evaluates for signs and symptoms of skin and tissue injury as a result of transfer or transport Entry 1 Via Patient Bed By Ed Hair RN Safety Precautions Side Rails Up Outcomes Met? Yes Last Modified By: Litzy Parks RN 10/31/17 14:46:13 Post-Care Text: The patient is free from signs and symptoms of injury related to transfer/transport General Comments: patient transported to operating room in patient bed via ed hair rn and litzy parks rn. Cautery FT Pre-Care Text: Implements protective measures to prevent injury due to electrical sources, and evaluates for signs and symptoms of electrical injury Entry 1 ESU Identification ESU Settings Cut 50 Coag 50 ESU Grounding Pad Site Right Flank Hair Removal Pad No Site Pre Pad Site Clear and Intact Post Pad Site Clear and Intact Condition Condition Grounding Pad Ed Hair RN Placed By Outcomes Met? Yes Last Modified By: Litzy Parks RN 10/31/17 14:46:31 Post-Care Text: The patient if free from signs and symptoms of electrical injury Counts Verification FT Pre-Care Text: Performs required counts Entry 1 Entry 2 Entry 3 Procedure(s) HIP TOTAL HIP TOTAL HIP TOTAL ARTHROPLASTY(Left) ARTHROPLASTY(Left) ARTHROPLASTY(Left) Type Initial Closing Final Items Sponges, Sharps Sponges, Sharps Sponges, Sharps Status Correct Correct Correct Time 10/31/17 17:27:00 10/31/17 17:31:00 By Charly VELEZ, Charly Tee RN, Charly Tee RN, Litzy Pablo, Westley ORNAMENTAL PAINTER, Litzy Christy ORNAMENTAL PAINTER, Litzy Christy ORNAMENTAL PAINTER, Litzy Schmidt Outcomes Met? Yes Yes Yes Last Modified By: Charly VELEZ, Litzy Parks RN, Litzy Del Valle RN 10/31/17 14:47:03 10/31/17 17:27:47 10/31/17 17:31:52 Post-Care Text: The patient is free from signs and symptoms of injury caused by extraneous objects Skin Prep FT Pre-Care Text: Performs skin preparations Entry 1 Procedure HIP TOTAL Prep Area LEFT HIP, ENTIRE LEFT ARTHROPLASTY(Left) LEG TO LEFT FOOT Prep Agents Chloraprep/Dry Prior to Draping Hair Removal Methods Not Indicated By Ed Hair RN Outcomes Met? Yes Last Modified By: Litzy Parks RN 10/31/17 14:47:40 Post-Care Text: The patient is free from signs and symptoms of infection Departure From OR FT Pre-Care Text: Transports according to individual needs. Evaluates for signs and symptoms of skin and tissue injury as a result of transfer or transport. Entry 1 Via Patient Bed Safety Precautions Side Rails Up PostOp Destination PACU Transported By Mateusz Evans Jr., DO, Laxmi VELEZ, Ed Burns Patient Status Stable Skin. Condition Intact, [place], Warm, and Dry Airway Maintenance Oxygen in Use? Yes Airway Device Simple Mask Flow Rate 8 L Outcomes Met? Yes Last Modified By: Litzy Parks RN 10/31/17 14:48:33 Post-Care Text: The patient is free from signs and symptoms of injury related to transfer/transport General Comments: REPORT TO PACU NURSE. ROSIE FERNANDEZ Dressing/Packing FT Pre-Care Text: Administers care to wound sites Entry 1 Type Dressing Items DRESSING AQUACEL AG SURG HF 3 1/2 X 10 [728393][F] Site and Details AQUACEL TO LEFT HIP Outcomes Met? Yes SURGICAL SITE Last Modified By: Litzy Parks RN 10/31/17 17:31:28 Post-Care Text: The patient is free from signs and symptoms of infection Medication Administration FT Pre-Care Text: Verifies allergies, administers prescribed medications and solutions, administers prescribed antibiotic therapy and immunizing agents as ordered, evaluates response to medications Administers prescribed medications and solutions Entry 1 Route of Admin Field Expiration Date Yes Verified Outcomes Met? Yes Last Modified By: Litzy Parks RN 10/31/17 14:48:53 Post-Care Text: The patient received appropriate medication(s) safely administered during the perioperative period For [place] please see scanned medication reconcilliation form for medications used at the field during the procedure. Implant Log FT Pre-Care Text: Records devices implanted during the operative or invasive procedure Entry 1 Entry 2 Entry 3 Implant/Explant Implant Implant Implant Implant Identification Description SCREW BONE CANCELLOUS SHELL TRIDENT PSL SCREW BONE CANCELLOUS 6.5MM X 25MM ACETAB CLUSTER 56MM F 6.5MM X 25MM [[id number]][F] MDC [542-11-56F][F] [5318-1331-1][F] Serial Number Lot Number [id number] 1953kt [place] [employer] Catalog ?# ref # [id number] ref # [id number] ref # [id number] Size 6.5mm x 25 mm 50mm 6.5mm x 25mm Expiration Date 07/24/22 09/18/22 07/25/22 Usage Data Implant Site left hip left hip left hip Quantity 1 1 1 Temperature Reconstitution Method Outcomes Met? Yes Yes Yes Last Modified By: Charly VELEZ, Litzy Parks RN, Litzy Parks RN, Litzy Pablo 10/31/17 16:45:45 10/31/17 16:45:45 10/31/17 16:45:45 Entry 4 Entry 5 Entry 6 Implant/Explant Implant Implant Implant Implant Identification Description INSERT TRIDENT X3 0DEG SECUR-FIT PLUS MAX 127 BIOLOX DELTA ANATOMIC POLY 40MM F MDC DEGREE NECK ANGLE HIP UNIVERSAL TAPER FEMORAL [623-00-40F][F] STEM HEAD Serial Number Lot Number [id number] [place] [employer] Catalog ?# REF # [id number] REF # [id number] REF [id number] Size 40MM #9 40 MM Expiration Date 03/07/22 10/24/21 11/16/21 Usage Data Implant Site LEFT HIP LEFT HIP LEFT HIP Quantity 1 1 1 Temperature Reconstitution Method Outcomes Met? Yes Yes Yes Last Modified By: Charly VELEZ, Litzy Parks RN, Litzy Parks RN, Litzy Pablo 10/31/17 17:24:02 10/31/17 17:24:02 10/31/17 17:24:02 Entry 7 Implant/Explant Implant Implant Identification Description UNIVERSAL C-TAPER ADAPTER SLEEVE Serial Number Lot Number [id number] [place] [employer] Catalog ?# REF # [id number] Size +0 MM Expiration Date 04/07/22 Usage Data Implant Site LEFT HIP Quantity 1 Temperature Reconstitution Method Outcomes Met? Yes Last Modified By: Litzy Parks RN 10/31/17 17:24:02 Post-Care Text: The patient is free from signs and symptoms of injury caused by extraneous objects Urinary Catheter Pre-Care Text: Patient is prepped using sterile technique. Entry 1 Urinary Catheter TRAY URINE RAMYA CATH Present Upon Arrival No Inserted LF 16FR [[id number]][F] Insertion Date/Time 10/31/17 15:40:00 Urine Residual 300 Insertion Site Uretheral Urine CLEAR YELLOW URINE Characteristics Inserted By Litzy Parks RN Discontinued? No Outcomes Met? Yes Last Modified By: Litzy Parks RN 10/31/17 15:54:34 Post-Care Text: The patient is free from signs of trauma. Cultures and Specimens FT Pre-Care Text: Manages specimen handling and disposition Manages culture specimen collection Entry 1 Cultures Ordered Yes Culture Disposition Designated OR Area Culture Source URINE FROM PRIETO Specimens Ordered Yes Specimen Disposition Designated OR Area Frozen Section Times Outcomes Met? Yes Last Modified By: Litzy Parks RN 10/31/17 14:49:57 Post-Care Text: The patient is free from signs and symptoms of injury caused by extraneous objects The patient is free from signs and symptoms of infection General Comments: SPECIMEN = BONE AND SOFT TISSUE LEFT HIP Temperature Control Entry 1 Temperature Control BLANKET MISTRAL AIR Quantity 1 Aid TORSO [[id number]][F] Fluid/[place] Unit Mistral warming system Setting 43 C / HIGH Body Site Upper anterior torso Last Modified By: Litzy Parks RN 10/31/17 14:49:17 Case Comments <None> Finalized By: Litzy Parks RN Document Signatures Signed By: Litzy Parks RN 10/31/17 17:56 Leilani Fortune CST 11/01/17 11:59 Leilani Fortune CST 11/01/17 11:51 Litzy Parks RN 11/10/17 13:01 MAIN OR PACU I Observed: 10/31/2017 Status: F Source: [facility] RECORD 3:54 PM [facility] REPOSITORY PACU Phase I Document Type FT Summary Primary Physician: Joshua Landaverde DO Finalized Date/Time: 10/31/17 18:36:09 Pt. Name: CARRIE LOW Eze BenavidezB./Sex: 1955 Female Med Rec #: [id number] Physician: Love Maddox MD Financial #: [id number] Pt. Type: I Room/Bed: [place] [address] Admit/Disch: 10/29/17 18:37:00 - Institution: Case Times PACU I FT Pre-Care Text: Identifies barriers to communication and implements measures to provide psychological support Develops individualized plan of care, and ensures continuity of care Maintains patient's dignity and privacy, and maintains patient confidentiality Identifies and reports philosophical, cultural, and spiritual beliefs and values Identifies individual values and wishes concerning care Implements aseptic technique, and administers prescribed antibiotic therapy and immunizing agents as ordered Evaluates postoperative tissue perfusion Implements thermoregulation measures, and monitors body temperature Evaluates postoperative respiratory status Evaluates postoperative cardiac status Evaluates postoperative neurological status Assesses pain control, collaborated in initiating patient-controlled analgesia and implements alternative methods of pain control Verifies allergies, administers prescribed medications and solutions, evaluates response to medications Entry 1 In PACU I 10/31/17 17:50:00 Discharge from PACU 10/31/17 18:20:00 I Outcomes Met? Yes Last Modified By: Meredith Vargas RN 10/31/17 18:35:54 Post-Care Text: The patient demonstrates knowledge of the expected response to the operative or invasive procedure The patient's care is consistent with the individualized perioperative plan of care The patient's right to privacy is maintained The patient's value system, lifestyle, ethnicity, and culture are considered, respected, and incorporated into the perioperative plan of care The patient participates in decisions affecting his or her perioperative plan of care The patient is free from signs and symptoms of infection The patient has wound/tissue perfusion consistent with or improved from baseline levels established preoperatively The patient is at or returning to normothermia at the conclusion of the immediate postoperative period The patient's respiratory function is consistent with or improved from baseline levels established preoperatively The patient's cardiovascular status is consistent with or improved from baseline levels established preoperatively The patient's cardiovascular status is consistent with or improved from baseline levels established preoperatively The patient demonstrates and/or reports adequate pain control throughout the perioperative period The patient received appropriate medication(s), safely administered during the perioperative period Acuity Level PACU I FT Entry 1 Start Time 10/31/17 17:50:00 Stop Time 10/31/17 18:20:00 Acuity Level Acuity Level I Last Modified By: Meredith Vargas RN 10/31/17 18:36:06 Finalized By: Meredith Vargas RN Document Signatures Signed By: Meredith Vargas RN 10/31/17 18:36 PROGRESS NOTE-PHYSICIAN Observed: 10/31/2017 Status: F Source: [facility] 3:50 PM [facility] RE[facility] Assessment/Plan 62-year-old obese female with history of hypertension, hyperlipidemia, depression who had fallen on ice June 2017 point presented with worsening left hip pain and was found to have left hip subcapital fracture and was admitted with acute closed left hip subcapital pathologic fracture secondary to osteoporosis, hyponatremia, hypokalemia, leukocytosis, alcohol abuse and insomnia. 1. Subcapital fracture of hip Acute closed left hip subcapital pathologic fracture secondary to osteoporosis. Patient is scheduled for left hip replacement surgery today. Orthopedic consult reviewed by me. I appreciate and I agree with recommendations. Continue on when necessary pain medications. 2. Alcohol abuse Continue on Ativan when necessary. 3. Hypokalemia Resolved. Ordered: Basic Metabolic Panel eGFR 4. At risk for withdrawal Continue on Ativan when necessary for CIWA protocol. 5. Dilutional hyponatremia Resolved. Sodium level is 133. 6. Leukocytosis, Elevated white blood cell count, unspecified Resolved. WBC is down to 8700. Ordered: ABO/Rh Retype Automated Diff CBC w/ Auto Diff 7. Insomnia Continue on Ambien when necessary. 8. Hypertension Blood pressure fairly controlled. We'll resume Aldactone in a.m. 9. Hyperlipemia Continue on statins. 10. Depression On Wellbutrin. 11. Obese Advised on therapeutic lifestyle modification changes. 12. No contraindication to venous thromboembolism prophylaxis Lovenox. Disposition: Pending hip surgery. Subjective Seen and examined. She is doing well today. She is scheduled for surgery later today. Objective Vitals & Measurements T: 37 ?C (Oral) TMIN: 36.6 ?C (Oral) TMAX: 37.1 ?C (Oral) HR: 103(Monitored) RR: 16 BP: 147/93 SpO2: 98% WT: 91.7 kg Intake & Output This visit (24 hour periods starting at 07:00) 10/31/17 * 10/30/17 10/29/17 Total Summary Intake mL 2 212 2,502 Output mL 400 3,875 300 Fluid Balance -398 -3,663 2,202 Intake (5) Oral Intake mL -- -- 400 Sodium Chloride 0.9% intravenous solution 1,000 mL mL -- -- 2,000 acetaminophen mL -- -- 100 morphine mL 2 12 2 potassium chloride mL -- 200 -- Total 2 212 2,502 Output (1) Urine Voided mL 400 3,875 300 Total 400 3,875 300 Counts (1) Urine Count -- 7 -- * This column has not completed the indicated time period. Physical Exam General: alert, no acute distress Skin: warm, dry Head: no trauma, normocephalic Neck: Trachea midline, no adenopathy, no tenderness Eye: normal conjunctiva, sclera clear ENMT: TM's clear, oral mucosa moist, no pharyngeal erythema or exudate Cardiovascular: regular rate and rhythm, normal peripheral perfusion Respiratory: Lungs CTA, respirations non labored Chest wall: no deformity. Gastrointestinal: soft, non distended, no tenderness, no guarding. Obese. Back: No tenderness, Normal ROM, Normal alignment. Extremities: no deformity, no trauma Neurological: oriented x 4, LOC appropriate for age, CN II-XII intact, motor strength equal & normal bilaterally, sensation equal & normal bilaterally, speech normal Psychiatric: cooperative, affect appropriate for age, normal judgement, normal psychiatric thoughts. Lab Results WBC: 8.7 E9/L (10/31/17 06:17:00) RBC: 3.9 E12/L Low (10/31/17 06:17:00) Hgb: 13 gm/dL (10/31/17 06:17:00) Hct: 37.3 % (10/31/17 06:17:00) MCV: 96 fL (10/31/17 06:17:00) MCH: 33.5 pg (10/31/17 06:17:00) MCHC: 34.8 gm/dL (10/31/17 06:17:00) RDW: 14.3 % High (10/31/17 06:17:00) Platelet: 277 E9/L (10/31/17 06:17:00) MPV: 7.8 fL (10/31/17 06:17:00) Neutro Auto: 76 % High (10/31/17 06:17:00) Lymph Auto: 15.5 % (10/31/17 06:17:00) [place] Auto: 7.5 % (10/31/17 06:17:00) Eos Auto: 0.4 % (10/31/17 06:17:00) Basophil Auto: 0.6 % (10/31/17 06:17:00) Neutro Absolute: 6.6 E9/L (10/31/17 06:17:00) Lymph Absolute: 1.3 E9/L (10/31/17 06:17:00) [place] Absolute: 0.7 E9/L (10/31/17 06:17:00) Eos Absolute: 0 E9/L (10/31/17 06:17:00) Basophil Absolute: 0 E9/L (10/31/17 06:17:00) Glucose Lvl: 98 mg/dL (10/31/17 06:17:00) BUN: 10 mg/dL (10/31/17 06:17:00) Creatinine: 0.7 mg/dL (10/31/17 06:17:00) eGFR: >60 (10/31/17 06:17:00) eGFR AA: >60 (10/31/17 06:17:00) BUN/Creat Ratio: 14 (10/31/17 06:17:00) Sodium Lvl: 133 mmol/L Low (10/31/17 06:17:00) Potassium Lvl: 4 mmol/L (10/31/17 06:17:00) Chloride: 99 mmol/L Low (10/31/17 06:17:00) CO2: 27 mmol/L (10/31/17 06:17:00) AGAP: 11 mEq/L (10/31/17 06:17:00) Calcium Lvl: 8.8 mg/dL Low (10/31/17 06:17:00) ABO/Rh: A NEG (10/31/17 09:09:00) ABO/Rh Retype Interp: A NEG (10/31/17 06:17:00) ABSC Gel Interp: Negative (10/31/17 09:09:00) Problem List/Past Medical History Ongoing Smoker Historical Alcoholism Depression HTN - Hypertension spastic dyphonia Medications Inpatient acetaminophen 325 mg Tab, 650 mg= 2 tab(s), Oral, q6hr, PRN Ambien 5 mg Tab, 5 mg= 1 tab(s), Oral, Bedtime, PRN Arixtra 2.5 mg/0.5 mL Injection, 2.5 mg= 0.5 mL, SubCutaneous, qAM Benadryl 25 mg Cap, 25 mg= 1 cap(s), Oral, q6hr, PRN Cefazolin 2 gram IVPB, 2 gram= 50 mL, IV Piggyback, q8hr Cefazolin 2 gram IVPB, 2 gram= 50 mL, IV Piggyback, PREOP CeleBREX 100 mg Cap, 100 mg= 1 cap(s), Oral, BIDPC Colace 100 mg Cap, 100 mg= 1 cap(s), Oral, BID, PRN Dilaudid 2 mg Injection, 1 mg= 0.5 mL, IV Push, q2hr, PRN Dilaudid 2 mg Injection, 0.2 mg= 0.1 mL, IV Push, q2min, PRN folic acid 1 mg Tab, 1 mg= 1 tab(s), Oral, Daily hydrALAZINE 20 mg/mL Inj, 10 mg= 0.5 mL, IV Push, q6hr, PRN Lactated Ringers IV Yola 1000 mL 1,000 mL, 1000 mL, IV Lactated Ringers IV Yola 1000 mL 1,000 mL, 1000 mL, IV LORazepam 2 mg/mL Inj, 1 mg= 0.5 mL, IV Push, q1hr, PRN Lovenox 40 mg/0.4 mL SC Yola, 40 mg= 0.4 mL, SubCutaneous, Daily morphine 2 mg/mL Inj, 4 mg= 2 mL, IV Push, q4hr, PRN [place] 5/325 Tab, 1 tab(s), Oral, q4hr, PRN [place] 5/325 Tab, 2 tab(s), Oral, q4hr, PRN NS 0.45% 1000 mL Soln-IV 1,000 mL, 1000 mL, IV Ofirmev 10 mg/mL intravenous solution, 1000 mg= 100 mL, IV Piggyback, q8hr oxyCODONE 5 mg Tab, 5 mg= 1 tab(s), Oral, q4hr, PRN oxyCODONE 5 mg Tab, 10 mg= 2 tab(s), Oral, q4hr, PRN Pantoprazole [address] Tab, 40 mg= 1 tab(s), Oral, Daily Percocet 325 mg-5 mg Tab, 1 tab(s), Oral, q4hr, PRN Percocet 325 mg-5 mg Tab, 2 tab(s), Oral, q4hr, PRN Phenergan 25 mg/mL Injection, 12.5 mg= 0.5 mL, IV Push, q2min, PRN promethazine 25 mg/mL Inj, 25 mg= 1 mL, IV Push, q6hr, PRN Therapeutic Multiple Vitamin Tab, 1 tab(s), Oral, Daily Tylenol 325 mg Tab, 650 mg= 2 tab(s), Oral, q4hr, PRN Ultram 50 mg Tab, 50 mg= 1 tab(s), Oral, q6hr, PRN Ultram 50 mg Tab, 100 mg= 2 tab(s), Oral, q6hr, PRN Zofran 4 mg/2 mL Injection, 4 mg= 2 mL, IV Push, q6hr, PRN Home amLODIPine 10 mg Tab, 10 mg= 1 tab(s), Oral, Daily atorvastatin, Oral, Daily hydrochlorothiazide 25 mg oral tablet, 25 mg= 1 tab(s), Oral, Daily potassium chloride 20 mEq ER Tab, 20 mEq= 1 tab(s), Oral, BID Wellbutrin XL 300 mg/24 hours Tab-ER, 300 mg= 1 tab(s), Oral, q24hr Result Comment: Electronically Signed By: Gwendolyn JIN, Magaly\.br\Date and Time Signed: 10/31/17 15:51 EDT PROGRESS NOTE-PHYSICIAN Observed: 10/31/2017 Status: F Source: [facility] 1:[facility] PM [facility] RE[facility] Patient: CARRIE LOW Age: 62 years Sex: Female : 1955 Associated Diagnoses: None Author: Diomedes Diaz Jr, DO Preoperative Information Time patient last ate or drank:=== (npo after midnight) Anesthesia history: Patient history: No prior anesthesia problems. Re-evaluation prior to induction: Completed, Initial evaluation reviewed. Review of Systems Respiratory: No shortness of breath. Cardiovascular: No chest pain. Hematology/Lymphatics: No bruising tendency, No bleeding tendency. Health Status Allergies: Allergic Reactions (All) Severity Not Documented Acetaminophen-hydrocodone- Itching. Contrast Dye- No reactions were documented. Demerol HCl- Hypertension. PHENobarbital- Hives. Shrimp- No reactions were documented. Canceled/Inactive Reactions (All) Severity Not Documented Dilaudid- N+v - nausea and vomiting. Some seizure medication- No reactions were documented. 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 if NKA to PCN, otherwise call doctor LORazepam 2 mg/mL Inj: 1 mg = 0.5 mL, Injection, IV Push, q1hr PRN Anxiety, STAT, Start date 10/29/17 22:03:00 EDT Lactated Ringers IV Yola 1000 mL 1,000 mL: 1,000 mL, IV, 150 mL/hr, Routine, Start date 10/31/17 13:18:00 EDT, 6.7 hour(s), Total volume (mL): 1,000 Lovenox 40 mg/0.4 mL SC Yola: 40 mg = 0.4 mL, Injection, SubCutaneous, Daily, Routine, Start date 10/31/17 9:00:00 EDT Sodium Chloride 0.9% with KCl 20 mEq/l IV Yola 1000 mL 1,000 mL: 1,000 mL, IV, 75 mL/hr, for 2 dose(s), Stop date 10/31/17 14:05:00 EDT, Routine, Start date 10/30/17 11:30:00 EDT, 13.3 hour(s), Total volume (mL): 1,000 Therapeutic Multiple Vitamin Tab: 1 tab(s), Tab, Oral, Daily, STAT, Start date 10/29/17 22:03:00 EDT Zofran 4 mg/2 mL Injection: 4 mg = 2 mL, Injection, IV Push, q6hr PRN Nausea, Routine, Start date 10/30/17 11:34:00 EDT acetaminophen 325 mg Tab: 650 mg = 2 tab(s), Tab, Oral, q6hr PRN Pain, Routine, Start date 10/30/17 11:34:00 EDT folic acid 1 mg Tab: 1 mg = 1 tab(s), Tab, Oral, Daily, STAT, Start date 10/29/17 22:03:00 EDT hydrALAZINE 20 mg/mL Inj: 10 mg = 0.5 mL, Injection, IV Push, q6hr PRN Other (see comment), Routine, Start date 10/30/17 11:34:00 EDT morphine 2 mg/mL Inj: 4 mg = 2 mL, Injection, IV Push, q4hr PRN Pain for 5 day(s), Stop date 11/03/17 21:56:00 EDT, STAT, Start date 10/29/17 21:57:00 EDT promethazine 25 mg/mL Inj: 25 mg = 1 mL, Injection, IV Push, q6hr PRN Nausea/Vomiting, STAT, Start date 10/29/17 22:03:00 EDT Suspended spironolactone 25 mg Tab: 25 mg = 1 tab(s), Tab, Oral, Daily, NOW, Start date 10/29/17 21:58:00 EDT Documented Medications Documented Wellbutrin XL 300 mg/24 hours Tab-ER: 300 mg = 1 tab(s), Oral, q24hr, tab(s), Refills(s) 0, Depression amLODIPine 10 mg Tab: 10 mg = 1 tab(s), Oral, Daily, Refills(s) 0 atorvastatin: Oral, Daily, Refills(s) 0 hydrochlorothiazide 25 mg oral tablet: 25 mg = 1 tab(s), Oral, Daily, Refills(s) 0 potassium chloride 20 mEq ER Tab: 20 mEq = 1 tab(s), Oral, BID, Refills(s) 0 Problem list: All Problems At risk for falls / SNOMED CT 562925917 / Possible Problem added when Risk for Falls Careplan was initiated. Smoker / IMO [id number] / Confirmed Added secondary to documentation in Social History. Resolved: Alcoholism / SNOMED CT 02957298 Resolved: Depression / SNOMED CT 902109847 Resolved: HTN - Hypertension / SNOMED CT 1830203030 Resolved: spastic dyphonia Histories Past Medical History: Resolved Alcoholism (97876817): Resolved. HTN - Hypertension (5961472913): Resolved. Depression (920154734): Resolved. spastic dyphonia: Resolved. Family History: Alcoholism Mother Brother Sister Alzheimer's disease Father Depression Sister Brother Bipolar Brother Sister Procedure history: Ovarian Cyst Removal in 2001. botox in vocal cords. Hip replacement ([id number]). Social History Social & Psychosocial Habits Alcohol 03/04/2011 Use: Current Type: Beer, Liquor Frequency: 1-2 times per week Started at age: 19 Years Previous treatment: Alcoholics Anonymous, Inpatient, Outpatient Has alcohol use interfered with work or home life? Yes Do you ever drink more than intended? Yes Has anyone been hurt or at risk by your drinking? No Ready to change: Yes Concerns about alcohol use in household: Yes Comment: drinks also. - 03/04/2011 19:48 - Maylin Hameed RN Comment: gallon of wine a day at times in the past week in the last week---06/09 vodka - 07/16/2012 18:28 - Veena Fernandez RN 07/16/2014 Use: Current Type: Wine Frequency: Several times per day Comment: states up to two bottles per day - 07/16/2014 18:55 - Kendy Bueno RN 07/22/2015 Use: Current Type: Liquor Frequency: 3-5 times per week Comment: drank a /5 vodka today - 07/22/2015 20:49 - Bonnie De La Rosa RN 11/22/2015 Use: Current Type: Liquor, Wine Comment: pt states drinking 4 bottles and vodka 2-06/09 ths, pt states started back drinking 1 week ago - 11/22/2015 15:03 - Kayleigh Schwartz RN 04/14/2016 Use: Current Type: Wine 08/23/2016 Use: Current Type: Liquor, Wine Frequency: Daily Comment: Pt states does not drink daily, but does go on binges. Pt states has been drinking either wine or low-ball vodka daily for last 2.5wks. 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 - 08/23/2016 15:16 - Melva Zambrano RN 04/06/2017 Use: Current Type: Liquor Comment: started drinking monday, today had half a 750 ml of vadka before arrival. - 04/06/2017 15:00 - Bonnie De La Rosa RN 09/03/2017 Use: Current Type: Liquor, Wine Frequency: Daily Previous treatment: Inpatient Has alcohol use interfered with work or home life? Yes Do you ever drink more than intended? Yes Has anyone been hurt or at risk by your drinking? Yes Ready to change: Yes Concerns about alcohol use in household: Yes Comment: Pt drank in the car on the drive here, but states she is ready to stop and wants medication to stop drinking. States she drinks wine and a 1/5th of vodka a day, says more. 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 Physical Examination Vital Signs 10/31/2017 12:00 EDT Hourly Rounding Yes 10/31/2017 11:55 EDT Temperature Oral 37 DegC Heart Rate Monitored 103 bpm HI Respiratory Rate 16 br/min Systolic Blood Pressure 147 mmHg HI Diastolic Blood Pressure 93 mmHg HI Mean Arterial Pressure, Monitered 111 mmHg 10/31/2017 11:00 EDT Hourly Rounding Yes 10/31/2017 10:00 EDT Hourly Rounding Yes 10/31/2017 09:00 EDT Hourly Rounding Yes 10/31/2017 08:00 EDT Hourly Rounding Yes 10/31/2017 07:43 EDT Temperature Oral 36.6 DegC Heart Rate Monitored 80 bpm Respiratory Rate 16 br/min Systolic Blood Pressure 135 mmHg Diastolic Blood Pressure 84 mmHg Mean Arterial Pressure, Monitered 101 mmHg SpO2 92 % 10/31/2017 07:30 EDT SpO2 72 % 10/31/2017 06:00 EDT Systolic Blood Pressure 146 mmHg HI Diastolic Blood Pressure 87 mmHg Hourly Rounding Yes Promise to Return Yes 10/31/2017 05:00 EDT Hourly Rounding Yes Promise to Return Yes 10/31/2017 04:00 EDT Hourly Rounding Yes Promise to Return Yes 10/31/2017 03:00 EDT Hourly Rounding Yes Promise to Return Yes 10/31/2017 02:00 EDT Temperature Oral 36.6 DegC Peripheral Pulse Rate 100 bpm Respiratory Rate 16 br/min Systolic Blood Pressure 147 mmHg HI Diastolic Blood Pressure 86 mmHg Blood Pressure Location Right arm Mean Arterial Pressure, Cuff 106 mmHg Hourly Rounding Yes Promise to Return Yes SpO2 98 % 10/31/2017 01:00 EDT Hourly Rounding Yes Promise to Return Yes 10/31/2017 00:30 EDT SpO2 96 % 10/31/2017 00:00 EDT Hourly Rounding Yes Promise to Return Yes 10/30/2017 23:44 EDT Peripheral Pulse Rate 95 bpm Respiratory Rate 16 br/min Systolic Blood Pressure 140 mmHg Diastolic Blood Pressure 81 mmHg Blood Pressure Location Right arm Mean Arterial Pressure, Cuff 101 mmHg Hourly Rounding Yes SpO2 96 % BP/Pulse Patient Position Supine 10/30/2017 23:00 EDT Hourly Rounding Yes Promise to Return Yes 10/30/2017 22:00 EDT Hourly Rounding Yes Promise to Return Yes 10/30/2017 21:00 EDT Hourly Rounding Yes Promise to Return Yes 10/30/2017 20:00 EDT Hourly Rounding Yes Promise to Return Yes 10/30/2017 19:31 EDT Temperature Oral 37.1 DegC Peripheral Pulse Rate 88 bpm Respiratory Rate 16 br/min Systolic Blood Pressure 126 mmHg Diastolic Blood Pressure 78 mmHg Blood Pressure Location Right arm Mean Arterial Pressure, Cuff 94 mmHg Hourly Rounding Yes SpO2 96 % BP/Pulse Patient Position Supine 10/30/2017 19:00 EDT Promise to Return Yes 10/30/2017 18:00 EDT Hourly Rounding Yes 10/30/2017 17:00 EDT Hourly Rounding Yes Promise to Return Yes 10/30/2017 16:44 EDT Hourly Rounding Yes Promise to Return Yes 10/30/2017 15:01 EDT Temperature Oral 36.8 DegC Heart Rate Monitored 94 bpm Respiratory Rate 18 br/min Systolic Blood Pressure 132 mmHg Diastolic Blood Pressure 75 mmHg Blood Pressure Location Right arm Mean Arterial Pressure, Monitered 94 mmHg SpO2 97 % BP/Pulse Patient Position Sitting 10/30/2017 15:00 EDT Hourly Rounding Yes Promise to Return Yes 10/30/2017 14:01 EDT Hourly Rounding Yes Promise to Return Yes 10/30/2017 13:00 EDT Hourly Rounding Yes Promise to Return Yes 10/30/2017 12:21 EDT Hourly Rounding Yes Promise to Return Yes 10/30/2017 11:03 EDT Temperature Oral 36.6 DegC Heart Rate Monitored 95 bpm Respiratory Rate 16 br/min Systolic Blood Pressure 155 mmHg HI Diastolic Blood Pressure 88 mmHg Blood Pressure Location Right arm Mean Arterial Pressure, Monitered 110 mmHg SpO2 97 % BP/Pulse Patient Position Supine 10/30/2017 11:00 EDT Hourly Rounding Yes Promise to Return Yes 10/30/2017 10:00 EDT Hourly Rounding Yes Promise to Return Yes 10/30/2017 09:50 EDT Hourly Rounding Yes Nursing Progress Note Reason Other: Bedside report given 10/30/2017 09:19 EDT Hourly Rounding Yes Promise to Return Yes 10/30/2017 09:00 EDT Hourly Rounding Yes Promise to Return Yes 10/30/2017 08:58 EDT Hourly Rounding Yes Promise to Return Yes 10/30/2017 08:42 EDT Hourly Rounding Yes Promise to Return Yes 10/30/2017 08:04 EDT SpO2 95 % 10/30/2017 08:02 EDT Temperature Oral 36.7 DegC Heart Rate Monitored 96 bpm Respiratory Rate 16 br/min Systolic Blood Pressure 136 mmHg Diastolic Blood Pressure 80 mmHg Blood Pressure Location Right arm Mean Arterial Pressure, Monitered 99 mmHg SpO2 94 % BP/Pulse Patient Position Supine 10/30/2017 07:24 EDT Hourly Rounding Yes Promise to Return Yes Nursing Progress Note Reason Other: Bedside shift report received. 10/30/2017 07:00 EDT Hourly Rounding Yes Promise to Return Yes 10/30/2017 06:00 EDT Hourly Rounding Yes Promise to Return Yes 10/30/2017 05:00 EDT Hourly Rounding Yes Promise to Return Yes 10/30/2017 04:24 EDT Hourly Rounding Yes Promise to Return Yes 10/30/2017 04:21 EDT Temperature Oral 36.5 DegC Heart Rate Monitored 112 bpm HI Respiratory Rate 16 br/min Systolic Blood Pressure 127 mmHg Diastolic Blood Pressure 75 mmHg Mean Arterial Pressure, Monitered 92 mmHg SpO2 95 % 10/30/2017 03:00 EDT Hourly Rounding Yes Promise to Return Yes 10/30/2017 02:00 EDT Heart Rate Monitored 108 bpm HI Respiratory Rate 20 br/min Systolic Blood Pressure 128 mmHg Diastolic Blood Pressure 74 mmHg Mean Arterial Pressure, Cuff 92 mmHg Hourly Rounding Yes Promise to Return Yes 10/30/2017 01:00 EDT Hourly Rounding Yes Promise to Return Yes 10/30/2017 00:56 EDT SpO2 94 % 10/30/2017 00:06 EDT Temperature Oral 37.1 DegC Heart Rate Monitored 108 bpm HI Respiratory Rate 16 br/min Systolic Blood Pressure 122 mmHg Diastolic Blood Pressure 78 mmHg Mean Arterial Pressure, Monitered 92 mmHg SpO2 93 % 10/30/2017 00:00 EDT Hourly Rounding Yes Promise to Return Yes Measurements from flowsheet : Measurements 10/31/2017 11:44 EDT Height/Length Measured 167 cm Weight Measured 91.7 kg 10/31/2017 05:01 EDT Weight Measured 91.7 kg 10/30/2017 06:49 EDT Weight Measured 90.5 kg Respiratory: Lungs are clear to auscultation. Cardiovascular: Normal rate, Regular rhythm. Review / Management Results review Interpretation of Outside Results Chest x-ray results Radiology results ECG interpretation Condition Plan [place] [employer] (ASA) physical status classification: Class II. Anesthetic Preoperative Plan Anesthesia: Regional Spinal. Anesthetic plan, risks, benefits, and alternatives discussed with the patient and/or family. Risks discussed: nausea, vomiting, headache, sore throat, dental injury, seri ous complications. Patient verbalized understanding. Communication: face to face with (patient 5 minutes, Pt educated on the importance of smoking cessation.). Result Comment: Electronically Signed By: Diomedes Diaz Jr, DO\Date and Time Signed: 11/02/17 13:37 EDT INTERDISCIPLINARY NOTE - PT Observed: 10/31/2017 Status: F Source: [facility] 12:52 PM [facility] C[facility] REPOSITORY Order recieved and chart reviewed. Will Hold PT evaluation and await surgery to be performed. Will perform evaluation after surgery-per physician's order INTERDISCIPLINARY NOTE - Observed: 10/31/2017 Status: F Source: [facility] [employer] HEL[employer] 12:10 PM [facility] CENTER REPOSITORY Pt prevously rounded with Dr. Snow. Pt is lying in bed, attempting to sleep. CRM in and pt states will talk only briefly , then wants to sleep. Pt is going to OR today at 1500 ro hip surgery. Pt aware of therapy needs after surgery, and prviously only considered OPPT. CRm discussed HH with pt,[facility] Pt is aware therapy to see later today and tomorrow to make recomndations. Pt states she would consider HH at this time, and will discuss with CRM after surgery tomorrow morning. contact information provided, and white boardupdated. PCP verified. CRM to follow. ABO/RH Collected: 10/31/2017 Status: F Source: [facility] 9:09 AM [facility] REPOSITORY Order Comment: OR today at 1530 TYPE CODE TESTS RESULT OUT OF RANGE REFERENCE UNITS LAB [id number]([facility]) Unknown ABO/Rh A NEG Performed By: #### [id number] #### [facility] [address] [id number] BLOOD BANK ID# Collected: 10/31/2017 Status: F Source: [facility] 9:09 AM [facility] REPOSITORY Order Comment: OR today at 1530 TYPE CODE TESTS RESULT OUT OF RANGE REFERENCE UNITS LAB [id number]([employer]) Unknown BBID# [id number] Performed By: #### [id number] #### [facility] [address] [place] [address] ABSC Collected: 10/31/2017 Status: F Source: [facility] 9:09 AM [facility] REPOSITORY Order Comment: OR today at 1530 TYPE CODE TESTS RESULT OUT OF RANGE REFERENCE UNITS LAB [id number](L [facility]) Normal ABSC Gel Negative Interp Performed By: #### [id number] #### [facility] [address] [place] [address] ABO/RH HISTORY CHECK Collected: 10/31/2017 Status: F Source: RED [facility]ERTO CARLOS 9:09 AM [facility] REPOSITORY Order Comment: OR today at 1530 TYPE CODE TESTS RESULT OUT OF RANGE REFERENCE UNITS LAB [id number](L [facility]INC) Normal ABO/Rh Type verified History Check by second s Performed By: #### [id number] #### [facility] [address] [place] [address] CBC W/ AUTO DIFF Collected: 10/31/2017 Status: F Source: [facility] ROBERT[facility] CARLOS 6:17 AM [facility] REPOSITORY TYPE CODE TESTS RESULT OUT OF REFERENCE UNITS RANGE LAB 87710-3(LO 4.0-11.0 E9/L INC) LEUKOCYTES Normal 8.7 LAB 789-8(LOIN 4.3-5.9 E12/L C) Low ERYTHROCYTES:NCNC: 3.9 PT:BLD:QN:AUTOMATE D COUNT LAB 718-7(LOIN 12.0-16.0 gm/dL C) Normal HEMOGLOBIN:MCNC:PT 13.0 :BLD:QN: LAB 4544-3(SRAVANI 34.0-46.0 % NC) Normal HEMATOCRIT:VFR:PT: 37.3 BLD:QN:AUTOMATED COUNT LAB 788-0(LOIN 10.9-14.2 % C) ERYTHROCYTE High DISTRIBUTION 14.3 WIDTH:RATIO:PT:RBC :QN:AUTOMATED COUNT LAB 785-6(LOIN 27.0-34.0 pg C) ERYTHROCYTE Normal MEAN CORPUSCULAR 33.5 HEMOGLOBIN:ENTMASS :PT:RBC:QN:AUTOMAT ED COUNT LAB 786-4(LOIN 31.4-39.3 gm/dL C) ERYTHROCYTE Normal MEAN CORPUSCULAR 34.8 HEMOGLOBIN CONCENTRATION:MCNC :PT:RBC:QN:AUTOMAT ED COUNT LAB 787-2(LOIN 80.0-100.0 fL C) ERYTHROCYTE Normal MEAN CORPUSCULAR 96.0 VOLUME:ENTVOL:PT:R BC:QN:AUTOMATED COUNT LAB 01364-5(LO 6.4-10.8 fL INC) PLATELET MEAN Normal VOLUME:ENTVOL:PT:B 7.8 LD:QN:AUTOMATED COUNT LAB 777-3(LOIN 150.0-500.0 E9/L C) Normal PLATELETS:NCNC:PT: 277.0 BLD:QN:AUTOMATED COUNT Performed By: #### [id number], [id number], [id number] #### [facility] [address] [place] [address] AUTO DIFF Collected: 10/31/2017 Status: F Source: [facility] 6:17 AM [facility] REPOSITORY Order Comment: Order Added by Discern Expert. TYPE CODE TESTS RESULT OUT OF RANGE REFERENCE UNITS LAB 751-8(LOINC 36.0-75.0 % ) High 76.0 NEUTROPHILS: NCNC:PT:BLD: QN:AUTOMATED COUNT LAB 731-0(LOINC 14.0-50.0 % ) Normal 15.5 LYMPHOCYTES: NCNC:PT:BLD: QN:AUTOMATED COUNT LAB 742-7(LOINC 4.0-14.0 % ) Normal 7.5 MONOCYTES:NC NC:PT:BLD:QN :AUTOMATED COUNT LAB 711-2(LOINC 0.0-8.0 % ) Normal 0.4 EOSINOPHILS: NCNC:PT:BLD: QN:AUTOMATED COUNT LAB 704-7(LOINC 0.0-2.0 % ) Normal 0.6 BASOPHILS:NC NC:PT:BLD:QN :AUTOMATED COUNT LAB 80574-7(SRAVANI 2.0-7.5 E9/L NC) Normal 6.6 NEUTROPHILS/ LEUKOCYTES:N FR.DF:PT:BLD :QN:AUTOMATE D COUNT LAB 70388-9(SRAVANI 1.0-4.0 E9/L NC) Normal 1.3 LYMPHOCYTES/ LEUKOCYTES:N FR.DF:PT:BLD :QN:AUTOMATE D COUNT LAB 03877-2(SRAVANI 0.2-1.0 E9/L NC) Normal 0.7 MONOCYTES/LE UKOCYTES:NFR .DF:PT:BLD:Q N:AUTOMATED COUNT LAB 67332-8(SRAVANI 0.0-0.5 E9/L NC) Normal 0.0 EOSINOPHILS/ LEUKOCYTES:N FR.DF:PT:BLD :QN:AUTOMATE D COUNT LAB 58844-7(SRAVANI 0.0-0.2 E9/L NC) Normal 0.0 BASOPHILS/LE UKOCYTES:NFR .DF:PT:BLD:Q N:AUTOMATED COUNT Performed By: #### [id number], [id number], [id number] #### [facility] [address] [place] [address] BMP Collected: 10/31/2017 Status: F Source: [facility] 6:17 AM [facility] REPOSITORY TYPE CODE TESTS RESULT OUT OF RANGE REFERENCE UNITS LAB 2339-0(LOIN 55-199 mg/dL C) Normal 98 GLUCOSE:MCNC :PT:BLD:QN: Result Comment: If this glucose result represents a fasting glucose, interpretation should refer to the following reference range: 55-99 mg/dL LAB 3094-0(LOINC) 5-21 mg/dL UREA NITROGEN:MCNC:PT:SER/PLAS:QN: Normal 10 LAB 2160-0(LOINC) 0.5-1.3 mg/dL CREATININE:MCNC:PT:SER/PLAS:QN: Normal 0.7 LAB 3097-3(LOINC) 10-20 No Units UREA NITROGEN/CREATININE:MRTO:PT:SER/ Normal PLAS:QN: 14 LAB 52644-5(LOINC) 8.9-11. mg/dL 1 CALCIUM:MCNC:PT:SER/PLAS:QN: Low 8.8 LAB 2951-2(LOINC) 135-145 mmol/L SODIUM:SCNC:PT:SER/PLAS:QN: Low 133 LAB 2823-3(LOINC) 3.5-5.3 mmol/L POTASSIUM:SCNC:PT:SER/PLAS:QN: Normal 4.0 LAB 2075-0(LOINC) 101-111 mmol/L CHLORIDE:SCNC:PT:SER/PLAS:QN: Low 99 LAB 2028-9(LOINC) 21-31 mmol/L CARBON DIOXIDE:SCNC:PT:SER/PLAS:QN: Normal 27 LAB 60864-2(LOINC) 6-16 mEq/L ANION GAP:SCNC:PT:SER/PLAS:QN: Normal 11 Performed By: #### [id number], [id number], [id number], [id number], [id number] #### [facility] [address] [place] [address] EGFR Collected: 10/31/2017 Status: F Source: [facility] 6:17 AM [facility] REPOSITORY Order Comment: Order added by Discern Expert. TYPE CODE TESTS RESULT OUT OF RANGE REFERENCE UNITS LAB 09034-9(LO >=59 mL/min/1.7 INC) 3 m2 Normal GLOMERULAR >60 FILTRATION RATE/1.73 SQ M.PREDICTED.NON BLACK:ARVRAT:PT: SER/PLAS:QN:CREA TININE-BASED FORMULA (MDRD) Result Comment: Chronic kidney disease could be indicated at eGFR's of less than 60 mL/min/1.73m2. Kidney failure is indicated at less than 15 mL/min/1.73m2. LAB 05426-0(LOINC) GLOMERULAR >=59 mL/min/1.73 FILTRATION RATE/1.73 SQ m2 M.PREDICTED.BLACK:ARVRAT:PT:SER/PLAS:QN:CREATININE-BASED FORMULA (MDRD) Normal >60 Result Comment: eGFR is race adjusted. AA=. Performed By: #### [id number], [id number], [id number], [id number], [id number] #### [facility] [address] [place] [address] ABO/RH RETYPE Collected: 10/31/2017 Status: F Source: [facility] 6:17 AM [facility] REPOSITORY TYPE CODE TESTS RESULT OUT OF RANGE REFERENCE UNITS LAB 56553192( INC) Unknown ABO/Rh A NEG Retype Interp Performed By: #### [id number], [id number], [id number], [id number], [id number] #### [facility] [address] [place] [address] CONSULTATION NOTE Observed: 10/30/2017 Status: F Source: [facility] 1:49 PM [facility] REPOSITORY HOSPITAL REGULATIONS: ALL Positive Important Negative Findings Shall Be Recorded. Date of 10/30/2017 Consultation: Attending Love Maddox M.D. Physician: Consulting Joshua Landaverde D.O. Physician: CHIEF COMPLAINT: Left hip pain. HISTORY OF PRESENT ILLNESS: This is a very pleasant 62 year old female admitted through the [facility] Emergency Room last evening with a subcapital fracture of the left hip. She recalls a fall very hard on the left hip in June of this year. Has had hip pain since. She has had several sets of x-rays and was not told of a fracture. Was told this was arthritis and is actually scheduled for a left hip replacement in [place] in December. With significant increasing pain in the left hip she presented to our Emergency Room as she was not satisfied with the care she was receiving in [place] and the subcapital fracture was identified. She has had no recent fall and no other injury. PAST HISTORY: Otherwise unremarkable and noncontributory except for alcohol consumption one-fifth of wine per day. She is not a cigarette smoker. PSYCHOSOCIAL HISTORY: Otherwise unremarkable. 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 She has no other complaint at this time. PAST SURGICAL HISTORY: Significant for a right total hip replacement five years ago for a fall and apparent fracture. The remainder of her systems review is otherwise unremarkable and noncontributory. CURRENT MEDICATIONS: 1. Atorvastatin. 2. Wellbutrin. 3. Hydrochlorothiazide. 4. Amlodipine. ALLERGIES: No known drug allergies but she has had itching the past taking Vicodin. PHYSICAL EXAMINATION: She is examined in the supine position. Has no complaint other than her left hip. Her right lower and bilateral upper extremity examination are otherwise unremarkable. She does have a short left leg by approximately 2 cm. She moves her ankles well. She has no distal neurovascular deficit. She has no knee discomfort. No pain on the opposite right hip. X-RAY: X-ray of the left hip on this admission demonstrates a subcapital fracture with varus angulation. IMPRESSION: Subcapital left hip fracture, subacute. PLAN We discussed at length the subcapital fracture of the left hip. She has hip pain for quite sometime. We did discuss the scheduled left total hip arthroplasty in [place]. She prefers to have her surgery here as she is not happy with the care she has been receiving in [place]. She feels that this is being delayed. We did discuss at length a left total hip arthroplasty. We discussed at length a left total hip arthroplasty. We discussed the expectations and benefit of the surgery but she does understand that with a joint replacement arthroplasty there are potential complications. These include but are not limited to infection, stiffness, persistence in pain, instability, leg length discrepancy, neurovascular injury. We also did discuss the potential for mechanical implant failure which is not likely but possible. We did discuss the early failure and late failure, the possibility of loosening in time, possibly requiring further surgery. We did discuss at length the perioperative cardiac and respiratory problems, the potential for development of deep venous thrombosis and pulmonary embolization, the consequences of all which could be fatal. We did discuss the methods of hopeful prophylaxis and prevention, deep vein thrombosis prophylaxis with Aspirin postoperatively is discussed. We did discuss the postoperative protocol for a total hip replacement arthroplasty, physical therapy and with the physical demands of her job the probable return to work at 8-10 weeks. All questions are answered to understanding and satisfaction. Joshua Landaverde D.O. lkr Dictated: 10/30/2017 #[id number] Typed: 10/31/2017 #[id number] cc: Jonny Dasilva M.D. Steven B. Shine, D.O. Result Comment: Electronically Signed By: Joshua Landaverde DO\.br\Date and Time Signed: 11/02/17 17:36 EDT INTERDISCIPLINARY NOTE - Observed: 10/30/2017 Status: F Source: [facility] 1:15 PM [facility] REPOSITORY CRM spoke with pt and spouse, white board updated. Pt understands plan is await Orthopedic recommendations, staying. Pt states she saw Dr. Arredondo in [place] once and does not want to go back. CRM asked if she would like a PCP list and she states she had one from her Insurance that had ones that accept her insurance. Pt states last time she had surgery she went home with OP PT, and states this time she would like to stay with her sister when she is able to. PROGRESS NOTE-PHYSICIAN Observed: 10/30/2017 Status: F Source: [facility] 11:38 AM [facility] REPOSITORY Assessment/Plan 62-year-old obese female with history of hypertension, hyperlipidemia, depression who had fallen on ice June 2017 point presented with worsening left hip pain and was found to have left hip subcapital fracture and was admitted with acute closed left hip subcapital pathologic fracture secondary to osteoporosis, hyponatremia, hypokalemia, leukocytosis, alcohol abuse and insomnia. 1. Subcapital fracture of hip Acute closed left hip subcapital pathologic fracture?secondary to osteoporosis. Awaiting orthopedic consult. Continue on IV and oral when necessary pain medications. Patient had right hip replace ment about 4 years ago. Patient is medically stable for any planned orthopedic procedure in am. Ordered: enoxaparin, 40 mg = 0.4 mL, Injection, SubCutaneous, Daily, Routine, Start date 10/31/17 9:00:00 EDT 2. Alcohol abuse Patient uses alcohol clinically. Advised on cessation. Continue on Ativan when necessary. 3. Hypokalemia Secondary to poor oral intake from chronic alcohol use. I reviewed labs and potassium level is 3.1. I gave patient potassium chloride 40 mEq IV and 40 mEq orally. I ordered BMP in a.m. Ordered: Basic Metabolic Panel 4. At risk for withdrawal Continue on Ativan for CIWA protocol. 5. Dilutional hyponatremia Secondary to chronic alcohol use. I reduced IV fluids. Sodium level is 122. BMP in a.m. 6. Leukocytosis Reactionary secondary to stress of above. I reviewed labs and WBCs trending down to 12,800. Ordered: CBC w/ Auto Diff 7. Insomnia Continue Ambien when necessary. 8. Hypertension Blood pressure fairly controlled. I started patient on IV hydralazine. I temporarily suspended Aldactone. We will resume when blood pressure is much more stable. 9. Hyperlipemia Continue statin. 10. Depression Continue Wellbutrin. 11. Obese Recommend therapeutic lifestyle modification changes. 12. No contraindication to venous thromboembolism prophylaxis Lovenox pending orthopedic surgery evaluation and surgery. Orders: acetaminophen, 650 mg = 2 tab(s), Tab, Oral, q6hr PRN Pain, Routine, Start date 10/30/17 11:34:00 EDT diphenhydrAMINE, 25 mg = 1 cap(s), Cap, Oral, q6hr PRN Itching, Routine, Start date 10/30/17 11:34:00 EDT hydrALAZINE, 10 mg = 0.5 mL, Injection, IV Push, q6hr PRN Other (see comment), Routine, Start date 10/30/17 11:34:00 EDT ondansetron, 4 mg = 2 mL, Injection, IV Push, q6hr PRN Nausea, Routine, Start date 10/30/17 11:34:00 EDT potassium chloride, 20 mEq = 100 mL, Soln-IV, IV Piggyback, q2hr for 2 dose(s), Stop date 10/30/17 11:45:00 EDT, Routine, Start date 10/30/17 7:46:00 EDT, 50 mL/hr, Infuse over 2 hour(s) Sodium Chloride 0.9% with KCl 20 mEq/l 1,000 mL, 1,000 mL, IV, 75 mL/hr, for 2 dose(s), Stop date 10/31/17 14:05:00 EDT, Routine, Start date 10/30/17 11:30:00 EDT, 13.3 hour(s), Total volume (mL): 1,000 zolpidem, 5 mg = 1 tab(s), Tab, Oral, Bedtime PRN Insomnia, Routine, Start date 10/30/17 11:32:00 EDT NPO Diet Subjective Seen and examined. She feels better today with reduced left hip pain. She slept well last night. Objective Vitals & Measurements T: 36.6 ?C (Oral) TMIN: 36.5 ?C (Oral) TMAX: 37.1 ?C (Oral) HR: 95(Monitored) RR: 16 BP: 155/88 SpO2: 97% WT: 90.5 kg Intake & Output This visit (24 hour periods starting at 07:00) 10/30/17 * 10/29/17 10/28/17 Total Summary Intake mL 202 2,502 -- Output mL 900 300 -- Fluid Balance -698 2,202 -- Intake (5) Oral Intake mL -- 400 -- Sodium Chloride 0.9% intravenous solution 1,000 mL mL -- 2,000 -- acetaminophen mL -- 100 -- morphine mL 2 2 -- potassium chloride mL 200 -- -- Total 202 2,502 -- Output (1) Urine Voided mL 900 300 -- Total 900 300 -- Counts (0) * This column has not completed the indicated time period. Physical Exam General: alert, no acute distress Skin: warm, dry Head: no trauma, normocephalic Neck: Trachea midline, no adenopathy, no tenderness Eye: normal conjunctiva, sclera clear ENMT: TM's clear, oral mucosa moist, no pharyngeal erythema or exudate Cardiovascular: regular rate and rhythm, normal peripheral perfusion Respiratory: Lungs CTA, respirations non labored Chest wall: no deformity. Gastrointestinal: soft, non distended, no tenderness, no guarding. Obese. Back: No tenderness, Normal ROM, Normal alignment. Extremities: no deformity, no trauma, left hip tenderness. Neurological: oriented x 4, LOC appropriate for age, CN II-XII intact, motor strength equal & normal bilaterally, sensation equal & normal bilaterally, speech normal Psychiatric: cooperative, affect appropriate for age, normal judgement, normal psychiatric thoughts. Lab Results WBC: 12.8 E9/L High (10/30/17 03:54:00) RBC: 3.8 E12/L Low (10/30/17 03:54:00) Hgb: 12.7 gm/dL (10/30/17 03:54:00) Hct: 36.3 % (10/30/17 03:54:00) MCV: 94.3 fL (10/30/17 03:54:00) MCH: 33 pg (10/30/17 03:54:00) MCHC: 35 gm/dL (10/30/17 03:54:00) RDW: 14.4 % High (10/30/17 03:54:00) Platelet: 332 E9/L (10/30/17 03:54:00) MPV: 7.7 fL (10/30/17 03:54:00) Neutro Auto: 76.9 % High (10/30/17 03:54:00) Lymph Auto: 15.5 % (10/30/17 03:54:00) [place] Auto: 7.2 % (10/30/17 03:54:00) Eos Auto: 0.1 % (10/30/17 03:54:00) Basophil Auto: 0.3 % (10/30/17 03:54:00) Neutro Absolute: 9.9 E9/L High (10/30/17 03:54:00) Lymph Absolute: 2 E9/L (10/30/17 03:54:00) [place] Absolute: 0.9 E9/L (10/30/17 03:54:00) Eos Absolute: 0 E9/L (10/30/17 03:54:00) Basophil Absolute: 0 E9/L (10/30/17 03:54:00) Sed Rate Automated: 19 mm/hr (10/29/17 19:44:00) PT: 13.1 second(s) High (10/30/17 03:54:00) INR: 1.2 (10/30/17 03:54:00) D-Dimer: 438 ng/mL (10/29/17 19:44:00) Glucose Lvl: 124 mg/dL (10/30/17 03:54:00) BUN: 13 mg/dL (10/30/17 03:54:00) Creatinine: 0.7 mg/dL (10/30/17 03:54:00) eGFR: >60 (10/30/17 03:54:00) eGFR AA: >60 (10/30/17 03:54:00) BUN/Creat Ratio: 19 (10/30/17 03:54:00) Sodium Lvl: 122 mmol/L Low (10/30/17 03:54:00) Potassium Lvl: 3.1 mmol/L Low (10/30/17 03:54:00) Chloride: 88 mmol/L Low (10/30/17 03:54:00) CO2: 25 mmol/L (10/30/17 03:54:00) AGAP: 12 mEq/L (10/30/17 03:54:00) Calcium Lvl: 8.2 mg/dL Low (10/30/17 03:54:00) Alk Phos: 159 Int._Unit/L High (10/29/17 22:09:00) ALT: 33 Int._Unit/L (10/29/17 22:09:00) AST: 40 Int._Unit/L (10/29/17 22:09:00) Total Protein: 7.5 gm/dL (10/29/17 22:09:00) Albumin Lvl: 3.9 gm/dL (10/29/17 22:09:00) Globulin: 3.6 gm/dL (05/27/18 22:09:00) A/G Ratio: 1.1 (10/29/17 22:09:00) Bili Total: 1 mg/dL (10/29/17 22:09:00) Bili Direct: 0.2 mg/dL (10/29/17 22:09:00) Bili Indirect: 0.8 mg/dL (10/29/17 22:09:00) Phosphorus: 4.2 mg/dL (10/29/17 22:09:00) Magnesium: 1.9 mg/dL (10/29/17 22:09:00) CRP: 1.2 mg/dL (10/29/17 19:44:00) TSH: 2.51 mcIU/mL (10/30/17 03:54:00) BNP: 70 pg/mL (10/29/17 19:44:00) Ethanol Lvl: 76 mg/dL High (10/29/17 22:09:00) Problem List/Past Medical History Ongoing Smoker Historical Alcoholism Depression HTN - Hypertension spastic dyphonia Medications Inpatient acetaminophen 325 mg Tab, 650 mg= 2 tab(s), Oral, q6hr, PRN Ambien 5 mg Tab, 5 mg= 1 tab(s), Oral, Bedtime, PRN Benadryl 25 mg Cap, 25 mg= 1 cap(s), Oral, q6hr, PRN folic acid 1 mg Tab, 1 mg= 1 tab(s), Oral, Daily hydrALAZINE 20 mg/mL Inj, 10 mg= 0.5 mL, IV Push, q6hr, PRN LORazepam 2 mg/mL Inj, 1 mg= 0.5 mL, IV Push, q1hr, PRN Lovenox 40 mg/0.4 mL SC Yola, 40 mg= 0.4 mL, SubCutaneous, Daily morphine 2 mg/mL Inj, 4 mg= 2 mL, IV Push, q4hr, PRN potassium chloride 20 mEq/100 mL IV Yola, 20 mEq= 100 mL, IV Piggyback, q2hr promethazine 25 mg/mL Inj, 25 mg= 1 mL, IV Push, q6hr, PRN Sodium Chloride 0.9% with KCl 20 mEq/l IV Yola 1000 mL 1,000 mL, 1000 mL, IV Therapeutic Multiple Vitamin Tab, 1 tab(s), Oral, Daily Zofran 4 mg/2 mL Injection, 4 mg= 2 mL, IV Push, q6hr, PRN Home amLODIPine 10 mg Tab, 10 mg= 1 tab(s), Oral, Daily atorvastatin, Oral, Daily hydrochlorothiazide 25 mg oral tablet, 25 mg= 1 tab(s), Oral, Daily potassium chloride 20 mEq ER Tab, 20 mEq= 1 tab(s), Oral, BID Wellbutrin XL 300 mg/24 hours Tab-ER, 300 mg= 1 tab(s), Oral, q24hr Result Comment: Electronically Signed By: Gwendolyn JIN, Mbkarenfo\.br\Date and Time Signed: 10/30/17 11:38 EDT INTERDISCIPLINARY NOTE - OT Observed: 10/30/2017 Status: F Source: [facility] 9:10 AM [facility] REPOSITORY Ot order received, will await OT eval until orth consult completed. INTERDISCIPLINARY NOTE - PT Observed: 10/30/2017 Status: F Source: [facility] 7:49 AM [facility] REPOSITORY Case reviewed - subcapital Left hip fx noted - will await ortho consult Please advise WBing status PT Collected: 10/30/2017 Status: F Source: [facility] 3:54 AM [facility] REPOSITORY TYPE CODE TESTS RESULT OUT OF RANGE REFERENCE UNITS LAB 6301-6(SRAVANI NC) COAGULATION Unknown TISSUE FACTOR 1.2 INDUCED.INR:RELTI ME:PT:PPP:QN:COAG Result Comment: INR results are specifically intended to assess patients stabilized on long-term Anticoagulation therapy suggested INR?s ?Less Intensive Anticoagulation? 2.0 ? 3.0 Conventional Range 3.0 ? 4.5 LAB 5902-2(LOINC) 10.2-12.9 second(s) COAGULATION TISSUE FACTOR INDUCED:TIME:PT:PPP:QN:COAG High 13.1 Performed By: #### [id number], [id number], [id number], [id number], [id number], [id number] #### [facility] [address] [place] [address] CBC W/ AUTO DIFF Collected: 10/30/2017 Status: F Source: [facility] 3:54 AM [facility] REPOSITORY TYPE CODE TESTS RESULT OUT OF REFERENCE UNITS RANGE LAB 18448-1(LO 4.0-11.0 E9/L INC) LEUKOCYTES High 12.8 LAB 789-8(LOIN 4.3-5.9 E12/L C) Low ERYTHROCYTES:NCNC: 3.8 PT:BLD:QN:AUTOMATE D COUNT LAB 718-7(LOIN 12.0-16.0 gm/dL C) Normal HEMOGLOBIN:MCNC:PT 12.7 :BLD:QN: LAB 4544-3(SRAVANI 34.0-46.0 % NC) Normal HEMATOCRIT:VFR:PT: 36.3 BLD:QN:AUTOMATED COUNT LAB 788-0(LOIN 10.9-14.2 % C) ERYTHROCYTE High DISTRIBUTION 14.4 WIDTH:RATIO:PT:RBC :QN:AUTOMATED COUNT LAB 785-6(LOIN 27.0-34.0 pg C) ERYTHROCYTE Normal MEAN CORPUSCULAR 33.0 HEMOGLOBIN:ENTMASS :PT:RBC:QN:AUTOMAT ED COUNT LAB 786-4(LOIN 31.4-39.3 gm/dL C) ERYTHROCYTE Normal MEAN CORPUSCULAR 35.0 HEMOGLOBIN CONCENTRATION:MCNC :PT:RBC:QN:AUTOMAT ED COUNT LAB 787-2(LOIN 80.0-100.0 fL C) ERYTHROCYTE Normal MEAN CORPUSCULAR 94.3 VOLUME:ENTVOL:PT:R BC:QN:AUTOMATED COUNT LAB 00957-9(LO 6.4-10.8 fL INC) PLATELET MEAN Normal VOLUME:ENTVOL:PT:B 7.7 LD:QN:AUTOMATED COUNT LAB 777-3(LOIN 150.0-500.0 E9/L C) Normal PLATELETS:NCNC:PT: 332.0 BLD:QN:AUTOMATED COUNT Performed By: #### [id number], [id number], [id number], [id number], [id number], [id number] #### [facility] [address] [place] [address] AUTO DIFF Collected: 10/30/2017 Status: F Source: [facility] 3:54 AM [facility] REPOSITORY Order Comment: Order Added by Discern Expert. TYPE CODE TESTS RESULT OUT OF RANGE REFERENCE UNITS LAB 751-8(LOINC 36.0-75.0 % ) High 76.9 NEUTROPHILS: NCNC:PT:BLD: QN:AUTOMATED COUNT LAB 731-0(LOINC 14.0-50.0 % ) Normal 15.5 LYMPHOCYTES: NCNC:PT:BLD: QN:AUTOMATED COUNT LAB 742-7(LOINC 4.0-14.0 % ) Normal 7.2 MONOCYTES:NC NC:PT:BLD:QN :AUTOMATED COUNT LAB 711-2(LOINC 0.0-8.0 % ) Normal 0.1 EOSINOPHILS: NCNC:PT:BLD: QN:AUTOMATED COUNT LAB 704-7(LOINC 0.0-2.0 % ) Normal 0.3 BASOPHILS:NC NC:PT:BLD:QN :AUTOMATED COUNT LAB 08501-8(SRAVANI 2.0-7.5 E9/L NC) High 9.9 NEUTROPHILS/ LEUKOCYTES:N FR.DF:PT:BLD :QN:AUTOMATE D COUNT LAB 45636-0(SRAVANI 1.0-4.0 E9/L NC) Normal 2.0 LYMPHOCYTES/ LEUKOCYTES:N FR.DF:PT:BLD :QN:AUTOMATE D COUNT LAB 44842-4(SRAVANI 0.2-1.0 E9/L NC) Normal 0.9 MONOCYTES/LE UKOCYTES:NFR .DF:PT:BLD:Q N:AUTOMATED COUNT LAB 61641-8(SRAVANI 0.0-0.5 E9/L NC) Normal 0.0 EOSINOPHILS/ LEUKOCYTES:N FR.DF:PT:BLD :QN:AUTOMATE D COUNT LAB 08305-9(SRAVANI 0.0-0.2 E9/L NC) Normal 0.0 BASOPHILS/LE UKOCYTES:NFR .DF:PT:BLD:Q N:AUTOMATED COUNT Performed By: #### [id number], [id number], [id number], [id number] #### [facility] [address] [place] [address] [facility] Collected: 10/30/2017 Status: F Source: [facility] 3:54 AM [facility] REPOSITORY TYPE CODE TESTS RESULT OUT OF RANGE REFERENCE UNITS LAB 2339-0(LOIN 55-199 mg/dL C) Normal 124 GLUCOSE:MCNC :PT:BLD:QN: Result Comment: If this glucose result represents a fasting glucose, interpretation should refer to the following reference range: 55-99 mg/dL LAB 3094-0(LOINC) 5-21 mg/dL UREA NITROGEN:MCNC:PT:SER/PLAS:QN: Normal 13 LAB 2160-0(LOINC) 0.5-1.3 mg/dL CREATININE:MCNC:PT:SER/PLAS:QN: Normal 0.7 LAB 3097-3(LOINC) 10-20 No Units UREA NITROGEN/CREATININE:MRTO:PT:SER/ Normal PLAS:QN: 19 LAB 79190-0(LOINC) 8.9-11. mg/dL 1 CALCIUM:MCNC:PT:SER/PLAS:QN: Low 8.2 LAB 2951-2(LOINC) 135-145 mmol/L SODIUM:SCNC:PT:SER/PLAS:QN: Low 122 LAB 2823-3(LOINC) 3.5-5.3 mmol/L POTASSIUM:SCNC:PT:SER/PLAS:QN: Low 3.1 Result Comment: Results Called To Jocy Kevin/Philomena By SAMAN And Read Back For Confirmation On 10/30/2017 06:17:27 EDT. LAB 5-0(LOINC) 101-111 mmol/L CHLORIDE:SCNC:PT:SER/PLAS:QN: Low 88 LAB 8-9(LOINC) 21-31 mmol/L CARBON DIOXIDE:SCNC:PT:SER/PLAS:QN: Normal 25 LAB 55676-0(LOINC) 6-16 mEq/L ANION GAP:SCNC:PT:SER/PLAS:QN: Normal 12 Performed By: #### [id number], [id number], [id number], [id number], [id number] #### [facility] [address] [place] [address] EGFR Collected: 10/30/2017 Status: F Source: [facility] 3:54 AM [facility] CENTER REPOSITORY Order Comment: Order added by Discern Expert. TYPE CODE TESTS RESULT OUT OF RANGE REFERENCE UNITS LAB 31899-9(LO >=59 mL/min/1.7 INC) 3 m2 Normal GLOMERULAR >60 FILTRATION RATE/1.73 SQ M.PREDICTED.NON BLACK:ARVRAT:PT: SER/PLAS:QN:CREA TININE-BASED FORMULA (MDRD) Result Comment: Chronic kidney disease could be indicated at eGFR's of less than 60 mL/min/1.73m2. Kidney failure is indicated at less than 15 mL/min/1.73m2. LAB 39764-9(LOINC) GLOMERULAR >=59 mL/min/1.73 FILTRATION RATE/1.73 SQ m2 M.PREDICTED.BLACK:ARVRAT:PT:SER/PLAS:QN:CREATININE-BASED FORMULA (MDRD) Normal >60 Result Comment: eGFR is race adjusted. AA=. Performed By: #### [id number], [id number] #### [facility] [address] [place] [address] TSH WITH T4FR Collected: 10/30/2017 Status: F Source: [facility] 3:54 AM [facility]ENTER REPOSITORY TYPE CODE TESTS RESULT OUT OF RANGE REFERENCE UNITS LAB 3016-3(LOIN 0.34-5.60 mcIU/mL C) Normal 2.51 THYROTROPIN: ACNC:PT:SER/ PLAS:QN: Performed By: #### [id number], [id number], [id number], [id number] #### [facility] [address] [place] [address] ED PATIENT SUMMARY Observed: 10/29/2017 Status: F Source: [facility] 10:21 PM [facility] CENTER REPOSITORY [address] [address] Patient Discharge Instructions Person Information Name: CARRIE LOW Age: 62 Years Arrival Date: 10/29/2017 6:37 PM Discharge Diagnosis: 1:Subcapital fracture of hip; 2:Alcohol abuse; 3:At risk for withdrawal; 4:Dilutional hyponatremia; 5:Leukocytosis; 6:Insomnia Primary Care Physician: Charly JIN, Rahul Hutchison Provider Information Primary Provider: Flash Pierce MD [employer] Superintendent:Hernan DUDLEY, Sam Hutchison The exam and treatment you received in the Emergency Department were for an urgent problem and are not intended as complete care. It is important that you follow up with a doctor, nurse practitioner, or physician?s medical research assistant for ongoing care. If your symptoms become worse or you do not improve as expected and you are unable to reach your usual health care provider, you should return to the Emergency Department. We are available 24 hours a day. CARRIE LOW has been given the following list of patient education materials, prescriptions and follow-up instructions: Follow-up Instructions: In the event that this physician does not participate in your insurance network, please consult with your insurance company to find a nearby participating provider. Patient Education Materials: A MESSAGE TO ALL PATIENTS REGARDING OPIOIDS PRESCRIPTION OPIOIDS: WHAT YOU NEED TO KNOW Prescription opioids can be used to help relieve qohugjax-ck-sfqagt pain and are often prescribed following a surgery or injury, or for certain health conditions. These medications can be an important p art of the treatment but also come with serious risks. It is important to work with your healthcare provider to make sure you are getting the safest, most effective care. WHAT ARE THE RISKS AND SIDE EFFECTS OF OPIOID USE? Prescription opioids carry serious risks of addiction and overdose, especially with prolonged use. An opioid overdose, often marked by slowed breathing, can cause sudden . The use of prescription o pioids can have a number of side effects as well, even when taken as directed: ? Tolerance?meaning you might need to take more of the medication for the same pain relief ? Physical dependence?meaning you have symptoms of withdrawal when a medication is stopped ? Increased sensitivity to pain ? Constipation ? Nausea, vomiting, and dry mouth ? Sleepiness and dizziness ? Confusion ? Depression ? Low levels of testosterone that can result in lower sex drive, energy, and strength ? Itching and sweating RISKS ARE GREATER WITH: ? History of drug misuse, substance use disorder, or overdose ? Mental health conditions (such as depression or anxiety) ? Sleep apnea ? Older age (65 years and older) ? Avoid alcohol while taking prescription opioids. Also, unless specifically advised by your health care provider, medications to avoid include: ? Benzodiazepines (such as Xanax or Valium) ? Muscle relaxants (such as Soma or Flexeril) ? Hypnotics (such as Ambien or Lunesta) ? Other prescription opioids KNOW YOUR OPTIONS Talk to your health care provider about ways to manage your pain that don?t involve prescription opioids. Some of these options may actually work better and have fewer risks and side effects. Options may include: ? Pain relievers such as acetaminophen, ibuprofen, and naproxen ? Some medication that are also used for depression or seizures ? Physical therapy and exercise ? Cognitive behavioral therapy, a psychological, goal- directed approach, in which patients learn how to modify physical, behavioral, and emotional triggers of pain and stress. IF YOU ARE PRESCRIBED OPIOIDS FOR PAIN: ? Never take opioids in greater amounts or more often than prescribed. ? Follow up with your primary health care provider. o Work together to create a plan on how to manage your pain. o Talk about ways to help manage your pain that don?t involve prescription opioids. o Talk about any and all concerns and side effects. ? Help prevent misuse and abuse o Never sell or share prescription opioids. o Never use another person?s prescription opioids. ? Store prescription opioids in a secure place and out of reach of others (this may include visitors, children, friends, and family). ? Safely dispose of unused prescription opioids: Find your community drug take-back program or your pharmacy mail-back program, or flush them down the toilet, following guidance from the Food and Drug Administration (www.fda.gov/Drugs/ResourcesForYou). ? Visit www.cdc.gov/drugoverdose to learn about the risks of opioids abuse and overdose. ? If you believe you may be struggling with addiction, tell your health healthcare financial analyst and ask for guidance or call [facility] National Helpline at 3-875-211-OBMV. v Source: US Department of Health and Human Services/Center for Disease Control & Prevention [facility] Medications Given: Medication Dose Route hydromorphone 1.50 mg IntraMuscular Left Deltoid ondansetron 4.00 mg Oral Sodium Chloride 0.9% intravenous solution 1000.00 mL Initial Volume 1000.00 mL/hr IV Piggyback Right Antecubit [place] hydromorphone 0.50 mg IV Push Left Antecubital [place] promethazine 25.00 mg IV Push Left Antecubital [place] Medication Information: Medications to Continue with No Changes Other Medications amlodipine (amLODIPine 10 mg Tab) 1 Tabs By Mouth every day. atorvastatin By Mouth every day. buPROPion (Wellbutrin XL 300 mg/24 hours Tab-ER) 1 Tabs By Mouth every 24 hours. hydrochlorothiazide (hydrochlorothiazide 25 mg oral tablet) 1 Tabs By Mouth every day. potassium chloride (potassium chloride 20 mEq ER Tab) 1 Tabs By Mouth 2 times a day. Comment: Pharmacy Information: Other: [facility] [place] Thank you for choosing [facility] Patient Education Materials: FLORIDALMA Savage SUSAN R , have received the following patient education materials/instructions and have verbalized understanding: Patient Education Materials: Follow-up Instructions: Prescriptions: Patient Signature Date Clinician/Nurse Signature Date 10/29/17 22:21:04 ED CLINICAL SUMMARY Observed: 10/29/2017 Status: F Source: [facility] 10:21 PM [facility] REPOSITORY [place] [id number] ED Clinical Summary Person Information Name: CARRIE LOW/[place] Age: 62 Years : 1955 12:00 AM Sex: Female Language: Swedish PCP: Rahul Parks MD Marital Status: Phone: [phone] Visit Id: Visit Reason: Hip pain-swelling; L HIP FRACTURE, HYPONATREMIA Speciality: Acuity: 3 Enc Type: Inpatient Med Service: Medical Arrival: 10/29/2017 6:37 PM Discharge: LOS: 000 03:44 Checkin: 10/29/2017 6:37 PM Checkout: 10/29/2017 10:21 PM Dispo Type: Admitted as IP to this [facility] EVENTS: Event Name Event Status Request Date/Time Start Date/Time Complete Date/Time Arrive Complete 10/29/2017 6:37 PM 10/29/2017 6:37 PM 10/29/2017 6:37 PM Document Home Meds Request 10/29/2017 6:37 PM Triage Complete 10/29/2017 6:37 PM 10/29/2017 6:50 PM 10/29/2017 6:50 PM Bed Assign Complete 10/29/2017 6:58 PM 10/29/2017 6:58 PM 10/29/2017 6:[address] Exam Complete 10/29/2017 6:58 PM 10/29/2017 7:03 PM 10/29/2017 7:03 PM RN Exam Complete 10/29/2017 6:58 PM 10/29/2017 8:23 PM 10/29/2017 8:23 PM Registration Complete 10/29/2017 7:03 PM 10/29/2017 7:08 PM 10/29/2017 7:08 PM Reg Complete Request 10/29/2017 7:08 PM Reg Bed Request Complete 10/29/2017 7:08 PM 10/29/2017 7:08 PM 10/29/2017 7:08 PM Pending Labs Complete 10/29/2017 7:38 PM 10/29/2017 8:20 PM Lab Complete 10/29/2017 7:38 PM 10/29/2017 8:20 PM X-Ray Cancel 10/29/2017 7:38 PM 10/29/2017 7:45 PM 10/29/2017 8:51 PM Meds Admin Complete 10/29/2017 7:38 PM 10/29/2017 8:[address] Exam Complete 10/29/2017 7:47 PM 10/29/2017 7:47 PM 10/29/2017 7:47 PM Registration Complete 10/29/2017 7:47 PM 10/29/2017 8:19 PM 10/29/2017 8:20 PM Pending Labs Complete 10/29/2017 7:49 PM 10/29/2017 7:49 PM 10/29/2017 8:16 PM Lab Complete 10/29/2017 7:49 PM 10/29/2017 7:49 PM 10/29/2017 8:16 PM Pending Labs Complete 10/29/2017 8:11 PM 10/29/2017 8:11 PM 10/29/2017 8:11 PM Pending Labs Complete 10/29/2017 8:11 PM 10/29/2017 8:11 PM 10/29/2017 8:12 PM Lab Complete 10/29/2017 8:11 PM 10/29/2017 8:11 PM 10/29/2017 8:12 PM Meds Admin Request 10/29/2017 8:[address] Exam Complete 10/29/2017 8:32 PM 10/29/2017 8:32 PM 10/29/2017 8:32 PM Registration Complete 10/29/2017 8:32 PM 10/29/2017 10:09 PM 10/29/2017 10:09 PM Hospitalist Consult Request 10/29/2017 8:37 PM Bed Request Request 10/29/2017 8:37 PM Reg Bed Request Complete 10/29/2017 8:37 PM 10/29/2017 10:09 PM 10/29/2017 10:09 PM Admit Request 10/29/2017 8:37 PM X-Ray Complete 10/29/2017 8:48 PM 10/29/2017 8:48 PM 10/29/2017 8:49 PM Wet Read Request 10/29/2017 8:49 PM X-Ray Complete 10/29/2017 8:51 PM 10/29/2017 8:51 PM 10/29/2017 8:52 PM Meds Admin Complete 10/29/2017 9:49 PM 10/29/2017 9:54 PM Patient Care Request 10/29/2017 9:57 PM Meds Admin Request 10/29/2017 9:57 PM Pending Labs Request 10/29/2017 9:57 PM Lab Request 10/29/2017 9:57 PM RT Request 10/29/2017 9:57 PM RT Tx/ABG Request 10/29/2017 9:57 PM Bed Request Request 10/29/2017 9:57 PM Reg Bed Request Complete 10/29/2017 9:57 PM 10/29/2017 10:09 PM 10/29/2017 10:09 PM Admit Request 10/29/2017 9:57 PM Meds Admin Request 10/29/2017 10:00 PM Pending Labs Inlab 10/29/2017 10:03 PM Lab Inlab 10/29/2017 10:03 PM Meds Admin Request 10/29/2017 10:03 PM Patient Care Request 10/29/2017 10:03 PM Patient Care Request 10/29/2017 10:09 PM Patient Care Request 10/29/2017 10:09 PM Patient Care Request 10/29/2017 10:09 PM Patient Care Request 10/29/2017 10:09 PM Patient Care Request 10/29/2017 10:11 PM Patient Care Request 10/29/2017 10:11 PM Pending Labs Inlab 10/29/2017 10:15 PM 10/29/2017 10:15 PM Lab Inlab 10/29/2017 10:15 PM 10/29/2017 10:15 PM ADDRESS: [place] [phone] PHYS DOC NOTES: MEDICAL INFORMATION: Prescriptions Given: PATIENT EDUCATION INFORMATION: Instructions: Follow up: DIAGNOSIS: 1:Subcapital fracture of hip; 2:Alcohol abuse; 3:At risk for withdrawal; 4:Dilutional hyponatremia; 5:Leukocytosis; 6:Insomnia HISTORY AND PHYSICAL Observed: 10/29/2017 Status: F Source: [facility] 10:19 PM [facility] REPOSITORY Basic Information Admit Date/Time:10/29/2017 22:07 Chief Complaint scheduled for hip replacement in december. incresed left hip pain. states my docor knows but woint do anything about it. I was just told to go to the ER. pt is not under pain management but states I whis i was, thne maybe it would help me until OR History of Present Illness *Choice is 62-year-old female with a past medical history of alcohol abuse, depression, hypertension, DJD who presents today on account of acute on subacute left hip pain. Next and history is obtained from patient as well as possible at bedtime. Patient states that for the last 4 weeks she has been having left hip pain. She had seen her family doctor, to orthopedics and again her fam ming doctor. She has had 3 sets of x-rays prior to now that had not shown any fracture. This is the first time her x-rays are showing a left subcapital fracture. Pain got worse 4 days ago. She denies any falls or trauma. She has been unable to sleep in the last 3 nights because of pain. She has been drinking 1 bottle of wine every day and last 3 days to dull her pain. She also has problems with alcohol abuse. She denies any lightheadedness. She denies any heat or cold intolerance. She denies any change in bowel habits. ED course: Hip x-rays was obtained which showed left subcapital fracture. Blood work obtained showed hyponatremia, hypokalemia and leukocytosis and patient is referred to hospitalist service for ad mission for further management. Orthopedic surgeon has been consulted by the ED. Review of Systems Except as noted in the History of Present Illness all other systems have been reviewed and are negative or noncontributory. Physical Exam Vitals & Measurements T: 36.8 ?C (Oral) HR: 99(Peripheral) RR: 20 BP: 117/67 SpO2: 94% WT: 76 kg General: alert, non ill-looking. HEENT: normocephalic, atraumatic, no palor, no jaundice. Midline trachea, moist oral mucosa, normal dentition Cardiovascular: regular rate and rhythm, S1, S2, No murmurs Respiratory: Lungs CTA bilaterally, respirations non labored Chest wall: no deformity. Gastrointestinal: abdomen is soft, non distended, no tenderness, no guarding. Bowel sounds + Back: No spinal or CVA tenderness Extremities: No calf tenderness, Normal ROM. Peripheral pulses palpable. Bilateral lower extremity swelling 1+ edema. Limb length discrepancy with left leg shortened. No tenderness to palpation but pain is elicited with left hip movement. Neurological: oriented x 3, CN II-XII intact, no focal weakness, sensation is grossly normal. Speech is clear. Gait not tested. Psychiatric: cooperative, normal judgement, No depression or anxiety Skin: warm, dry. No tattoos or piercings Lab Results WBC: 17 E9/L High (10/29/17 19:44:00) RBC: 4.2 E12/L Low (10/29/17 19:44:00) Hgb: 13.9 gm/dL (10/29/17 19:44:00) Hct: 39.8 % (10/29/17 19:44:00) MCV: 94.5 fL (10/29/17 19:44:00) MCH: 33.1 pg (10/29/17:44:00) MCHC: 35 gm/dL (10/29/17:44:00) RDW: 14.1 % (10/29/17 19:44:00) Platelet: 425 E9/L (10/29/17:44:00) MPV: 7.5 fL (10/29/17:44:00) Neutro Auto: 82.3 % High (10/29/17:44:00) Lymph Auto: 12 % Low (10/29/17:44:00) [place] Auto: 5.1 % (10/29/17:44:00) Eos Auto: 0.1 % (10/29/17:44:00) Basophil Auto: 0.5 % (10/29/17:44:00) Neutro Absolute: 14 E9/L High (10/29/17:44:00) Lymph Absolute: 2 E9/L (10/29/17:44:00) [place] Absolute: 0.9 E9/L (10/29/17:44:00) Eos Absolute: 0 E9/L (10/29/17:44:00) Basophil Absolute: 0.1 E9/L (10/29/17:44:00) Sed Rate Automated: 19 mm/hr (10/29/17:44:00) D-Dimer: 438 ng/mL (10/29/17:44:00) Glucose Lvl: 94 mg/dL (10/29/17:44:00) BUN: 11 mg/dL (10/29/17:44:00) Creatinine: 0.7 mg/dL (10/29/17:44:00) eGFR: >60 (10/29/17:44:00) eGFR AA: >60 (10/29/17:44:00) BUN/Creat Ratio: 16 (10/29/17:44:00) Sodium Lvl: 122 mmol/L Low (10/29/17:44:00) Potassium Lvl: 3.2 mmol/L Low (10/29/17:44:00) Chloride: 84 mmol/L Low (10/29/17:44:00) CO2: 22 mmol/L (10/29/17:44:00) AGAP: 19 mEq/L High (05/27/18 19:44:00) Calcium Lvl: 9.2 mg/dL (10/29/17 19:44:00) CRP: 1.2 mg/dL (10/29/17 19:44:00) BNP: 70 pg/mL (10/29/17 19:44:00) Images His x-ray shows left pelvic fracture. Right hip prosthesis. Assessment/Plan 1. Subcapital fracture of hip Likely osteoporotic fracture is still was no trauma. Keep x-ray confirms left fracture Admit as inpatient, anticipates greater than 2 midnight hospital stay. Orthopedic surgery consulted by ED staff already. IV Tylenol ?1. Morphine every 4 when necessary. Note the patient is at high risk of chronic opiate dependence as she already has psychoactive substance abuse history. Preoperative clearance: Obtain baseline EKG. METS at least 4. RCRI is 0.4% risk of a MACE. Patient is at low risk and is medically cleared for surgical procedure. 2. Alcohol abuse Lifestyle medication counseling. Patient currently blames this episode on poor pain control. 3. At risk for withdrawal Ativan [facility] protocol. 4. Dilutional hyponatremia Due to alcohol abuse. Gentle IV hydration. Repeat BMP in a.m. 5. Leukocytosis Likely reactive. Repeat CBC in a.m. 6. Insomnia Likely due to pain. Ambien daily at bedtime. 7. Hypokalemia: With history of. Replace. And spironolactone daily. Orders: acetaminophen, 1,000 mg = 100 mL, Soln-IV, IV Piggyback, Once PRN Pain, STAT, Start date 10/29/17 21:57:00 EDT, 400 mL/hr, Infuse over 15 minute(s) folic acid, 1 mg = 1 tab(s), Tab, Oral, Daily, STAT, Start date 10/29/17 22:03:00 EDT lorazepam, 1 mg = 0.5 mL, Injection, IV Push, q1hr PRN Anxiety, STAT, Start date 10/29/17 22:03:00 EDT morphine, 4 mg = 2 mL, Injection, IV Push, q4hr PRN Pain for 5 day(s), Stop date 11/03/17 21:56:00 EDT, STAT, Start date 10/29/17 21:57:00 EDT multivitamin, 1 tab(s), Tab, Oral, Daily, STAT, Start date 10/29/17 22:03:00 EDT potassium chloride, 40 mEq = 4 cap(s), Cap-ER, Oral, Once, Stop date 10/29/17 21:58:00 EDT, STAT, Start date 10/29/17 21:58:00 EDT promethazine, 25 mg = 1 mL, Injection, IV Push, q6hr PRN Nausea/Vomiting, STAT, Start date 10/29/17 22:03:00 EDT Sodium Chloride 0.9% intravenous solution 1,000 mL, 1,000 mL, IV, 150 mL/hr, Routine, Start date 10/29/17 21:57:00 EDT, 6.7 hour(s), Total volume (mL): 1,000 spironolactone, 25 mg = 1 tab(s), Tab, Oral, Daily, NOW, Start date 10/29/17 21:58:00 EDT zolpidem, 5 mg = 1 tab(s), Tab, Oral, Bedtime, STAT, Start date 10/29/17 21:57:00 EDT Basic Metabolic Panel Bedside Commode Below the Knee Intermittent Pneumatic Compression Device Cardiac Monitoring CBC w/ Auto Diff Clinical [place] Withdrawal Assessment Clinical [place] Withdrawal Assessment Communication Order Physician to Nursing Ethanol Level Hepatic Function Panel Incentive Spirometry Magnesium Level Notify Provider Notify Provider Vital Signs Notify Provider Vital Signs Occupational Therapy Evaluate Patient, Develop a Plan of Care and Implement Plan Oxygen Protocol Phosphorus Level Physical Therapy Evaluate Patient, Develop a Plan of Care and Implement Plan Place in Status Precautions Precautions PT Pulse Oximetry Resuscitation Status - Full TSH With T4fr Reflex Vital Signs Vital Signs Vital Signs Vital Signs Vital Signs Weight Problem List/Past Medical History Ongoing Smoker Historical Alcoholism Depression HTN - Hypertension spastic dyphonia Procedure/Surgical History botox in vocal cords, Hip replacement, Ovarian Cyst Removal in 2001. Medications Inpatient acetaminophen 10 mg/mL intravenous solution, 1000 mg= 100 mL, IV Piggyback, Once, PRN Ambien 5 mg Tab, 5 mg= 1 tab(s), Oral, Bedtime folic acid 1 mg Tab, 1 mg= 1 tab(s), Oral, Daily LORazepam 2 mg/mL Inj, 1 mg= 0.5 mL, IV Push, q1hr, PRN morphine 2 mg/mL Inj, 4 mg= 2 mL, IV Push, q4hr, PRN NS 1000 ml Bolus 1,000 mL, 1000 mL, IV Piggyback NS 1000 mL Soln-IV 1,000 mL, 1000 mL, IV potassium chloride 10 mEq Cap-ER, 40 mEq= 4 cap(s), Oral, Once promethazine 25 mg/mL Inj, 25 mg= 1 mL, IV Push, q6hr, PRN spironolactone 25 mg Tab, 25 mg= 1 tab(s), Oral, Daily Therapeutic Multiple Vitamin Tab, 1 tab(s), Oral, Daily Home amLODIPine 10 mg Tab, 10 mg= 1 tab(s), Oral, Daily atorvastatin, Oral, Daily hydrochlorothiazide 25 mg oral tablet, 25 mg= 1 tab(s), Oral, Daily potassium chloride 20 mEq ER Tab, 20 mEq= 1 tab(s), Oral, BID Wellbutrin XL 300 mg/24 hours Tab-ER, 300 mg= 1 tab(s), Oral, q24hr Allergies Contrast Dye Demerol HCl (hypertension) PHENobarbital (hives) Shrimp Social History Alcohol Current, 10/29/2017 Current, Wine, Liquor, Daily, Previous treatment: Inpatient. Alcohol use interferes with work or home: Yes. Drinks more than intended: Yes. Others hurt by drinking: Yes. Ready to change: Yes. Househ old alcohol concerns: Yes., 09/03/2017 Current, Liquor, 04/06/2017 Current, Wine, Liquor, Daily, 08/23/2016 Current, Wine, 04/14/2016 Current, Wine, Liquor, 11/22/2015 Current, Liquor, 3-5 times per week, 07/22/2015 Current, Wine, Several times per day, 07/16/2014 Current, Beer, Liquor, 1-2 times per week, Started age 19 Years. Previous treatment: Alcoholics Anonymous, Inpatient, Outpatient. Alcohol use interferes with work or home: Yes. Drinks more than inte nded: Yes. Others hurt by drinking: No. Ready to change: Yes. 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 Substance Abuse - Denies Substance Abuse, 12/04/2011 Tobacco - Denies Tobacco Use, 12/04/2011 Never (less than 100 in lifetime) Tobacco Use:., 09/03/2017 Family History Not contributory to current presentation Result Comment: Electronically Signed By: Love Maddxo MD\.víctor\Date and Time Signed: 10/29/17 22:22 EDT ETHANOL Collected: 10/29/2017 Status: F Source: [facility] 10:09 PM [facility] REPOSITORY TYPE CODE TESTS RESULT OUT OF RANGE REFERENCE UNITS LAB 5643-2(LOIN <=7 mg/dL C) High 76 ETHANOL:MCNC :PT:SER/PLAS :QN: Performed By: #### [id number] #### [facility] [address] [place] [address] HEP FUNC PANEL Collected: 10/29/2017 Status: F Source: [facility] 10:09 PM [facility] C[facility] REPOSITORY TYPE CODE TESTS RESULT OUT OF RANGE REFERENCE UNITS LAB 1744-2(SRAVANI 6-46 Int._Unit/L NC) Normal ALANINE 33 AMINOTRANSFERAS E:CCNC:PT:SER/P LAS:QN:WITHOUT P-5'-P LAB 1920-8(SRAVANI 5-43 Int._Unit/L NC) Normal ASPARTATE 40 AMINOTRANSFERAS E:CCNC:PT:SER/P LAS:QN: LAB 1751-7(SRAVANI 3.3-5.0 gm/dL NC) Normal ALBUMIN:MCNC:PT 3.9 :SER/PLAS:QN: LAB 38340-9(LO 1.4-4.0 gm/dL INC) Normal GLOBULIN:MCNC:P 3.6 T:SER:QN:CALCUL ATED LAB 49403-5(LO 1.1-2.2 INC) Normal ALBUMIN/GLOBULI 1.1 N:MCRTO:PT:SER: QN: LAB 6768-6(SRAVANI 21-98 Int._Unit/L NC) High ALKALINE 159 PHOSPHATASE:CCN C:PT:SER/PLAS:Q N: LAB 1968-7(SRAVANI 0.1-0.4 mg/dL NC) Normal BILIRUBIN.GLUCU 0.2 RONIDATED+BILIR UBIN.ALBUMIN BOUND:MCNC:PT:S ER/PLAS:QN: LAB 29193-5(LO 0.1-0.9 mg/dL INC) Normal BILIRUBIN.NON-G 0.8 LUCURONIDATED:M SCNC:PT:SER/CANDIDA S:QN: LAB 1975-2(SRAVANI 0.0-1.1 mg/dL NC) Normal BILIRUBIN:MCNC: 1.0 PT:SER/PLAS:QN: LAB 2885-2(SRAVANI 6.0-7.8 gm/dL NC) Normal PROTEIN:MCNC:PT 7.5 :SER/PLAS:QN: Performed By: #### [id number], [id number] #### [facility] [address] [place] [id number] MAGNESIUM Collected: 10/29/2017 Status: F Source: [facility] 10:09 PM [facility] CENTER REPOSITORY TYPE CODE TESTS RESULT OUT OF RANGE REFERENCE UNITS LAB 60521-3(SRAVANI 1.3-2.4 mg/dL NC) Normal 1.9 MAGNESIUM:MC NC:PT:SER/PL :QN: Performed By: #### [id number], [id number] #### [facility] [address] [place] [id number] PHOSPHORUS Collected: 10/29/2017 Status: F Source: [facility] 10:09 PM [facility] REPOSITORY TYPE CODE TESTS RESULT OUT OF RANGE REFERENCE UNITS LAB 66300-1(SRAVANI 1.9-4.6 mg/dL NC) Normal 4.2 PHOSPHATE:MC NC:PT:SER/PL :QN: Performed By: #### [id number] #### [facility] [address] [place] [id number] PROGRESS NOTE-NURSE Observed: 10/29/2017 Status: F Source: [facility] 9:51 PM [facility]ENTER REPOSITORY Report given to RN on nursing floor. No further questions. Pt ready to transfer upstairs. PROGRESS NOTE-NURSE Observed: 10/29/2017 Status: F Source: [facility] 9:36 PM MEDICAL CENTER REPOSITORY Pt revitalized. Pt 10/10 hip pain, requesting more pain medication - notified SURYA Becerra. PROGRESS NOTE-NURSE Observed: 10/29/2017 Status: F Source: [facility] 9:04 PM [facility] REPOSITORY Hospital at bedside. PROGRESS NOTE-NURSE Observed: 10/29/2017 Status: F Source: [facility] 8:58 PM [facility]ENTER REPOSITORY IV inserted, IVF bolus infusing. Pt revitalized. at bedside. Pt waiting on bed upstairs. Dr Landaverde to be consulted for hip fracture. Lights dimmed. No further needs. Call light in reach. ED NOTE-PHYSICIAN Observed: 10/29/2017 Status: F Source: [facility] 8:47 PM [facility]ENTER REPOSITORY Basic Information Time Seen: Hernan DUDLEY, Sam Hutchison 10/29/2017 19:03 Chief Complaint scheduled for hip replacement in december. incresed left hip pain. states my docor knows but woint do anything about it. I was just told to go to the ER. pt is not under pain management but states I whis i was, thne maybe it would help me until OR History of Present Illness 62-year-old white female presents emergency room with her she is complaining of worsening left hip and femur pain over the last several days. Patient had called her orthopedist in [place] and is scheduled to have a total hip replacement done in December. Patient has had prior surgery on the right hip with total replacement. The on-call surgeon referred her to the emergency room for her ani n she has not been given any medication by her current qa specialist. states that she is extremely immobile and has difficulty with even going to the restroom and has been laying around for the last several days. Patient is noted to have extreme 4+ pitting edema to both lower extremities. She denies any fever or chills associated with her symptoms she denies any cough or chest pain. P atrome has no history of DVTs. is frustrated because he is not able to sleep therefore he is unable to work and she has been unable to work because of this severe hip problem. PCP is Dr. Rahul Parks M.D. Review of Systems Constitutional: no fever, no chills, no sweats, no weakness Skin: no Jaundice, no rash, no lesions, nopetechiae ENMT: no ear pain, no sore throat, no congestion, no hoarseness Respiratory: no shortness of breath, no cough, no orthopnea, no wheezing Cardiovascular: no chest pain, no palpitations, no edema Gastrointestinal: no nausea, no vomiting, no diarrhea, no GI bleeding Genitourinary: no dysuria, no hematuria, no discharge, no pain Musculoskeletal: no back pain, no trauma severe left hip pain Neurologic: no headache, no dizziness, no numbness, no weakness Psychiatric: no sleeping problems, no irritability, no mood swings/depression. Heme/Lymph: no bleeding tendency, no bruising tendency, no petechiae, no swollen nodes Allergy/Immunologic: no seasonal allergies, no food allergies, no recurrent infections, no impaired immunity Additional ROS info: Except as noted in the above Review of Systems and in the History of Present Illness all other systems have been reviewed and are negative or noncontributory. Physical Exam Vitals & Measurements T: 36.8 ?C (Oral) HR: 102(Peripheral) RR: 22 BP: 157/90 SpO2: 100% HT: 168 cm WT: 76 kg BMI: 26.93 General: Alert and oriented, moderate distress, Uncomfortable in room C sitting in a wheelchair. Eye: Pupils are equal, round and reactive to light, Extraocular movements are intact. HENT: Normocephalic. No Pharyngeal Swelling or Tonsillar Enlargement, Nose Patent, no discharge, Neck: Supple, Non-tender, No jugular venous distention No Cervical Lymphadenopathy.. Respiratory: Respirations are non-labored, Symmetrical chest wall expansion, No chest wall tenderness, no wheezing rhonchi rales or rubs noted.. Cardiovascular: Normal rate, Regular rhythm, Good pulses equal in all extremities. Gastrointestinal: Soft, Non-tender, Non-distended, Normal bowel sounds. Musculoskeletal: Normal range of motion,except for left hip essentially no internal rotation and limited external rotation and hip exhibits pain with range of motion. Patient has 4+ pitting edema both lower extremities., Normal strength. Neurologic: Alert, Oriented, Normal sensory, Normal motor function. Cognition and Speech: Oriented, Speech clear and coherent. Psychiatric: Cooperative, Anxious mood & affect. Integumentary: Warm, Dry, [place] Medical Decision Making 2017 Dr. Landaverde age for orthopedic consult regarding displaced subcapital neck fracture of the left hip. 2024 Dr Landaverde will except patient here for Total Hip Surgical correction of her Fx. 2034 Dr Maddox Hospitalist, with admit for medical clearance and treatment Assessment/Plan 1. Subcapital fracture of hip Hyponatremia Leukocytosis stress-induced Orders: Sodium Chloride 0.9% intravenous solution 1,000 mL, 1,000 mL, IV Piggyback, 1,000 mL/hr, for 2 hour(s), Stop date 10/29/17 22:21:00 EDT, STAT, Start date 10/29/17 20:22:00 EDT, 1 hour(s), Total v olume (mL): 1,000, Bolus Dose: 1,000 mL Automated Diff B-Type Natriuretic Peptide Basic Metabolic Panel C-Reactive Protein CBC w/ Auto Diff D-Dimer ED Physician consult Hospitalist for continued care eGFR Extra SST Tube Place in Status Sedimentation Rate Automated XR Femur Min 2 Views Left XR Hip 2-3 Views Left + Pelvis Medications Administered Given Dilaudid 2 mg Injection, 1.5 mg, IntraMuscular ondansetron 4 mg Dis Tab, 4 mg, Oral Disposition Plan Patient Discharge Condition Guarded admit to Dr Maddox and consult Dr Landaverde Discharge Prescription List Prescriptions No active prescription medications Follow-up No qualifying data available Attestation Dr Pierce has been informed about evaluation and treatment of patient during this visit has seen the patient during todays visit and assisted with Dispo. This report was transcribed using voice recognition software. Every effort was made to ensure accuracy, however, inadvertently computerized media strategist mistakes may be present. Patient was treated and evaluated by the physician medical research assistant. The attending physician was in the emergency department at all times and supervised care. The case was discussed with the attending physic miguel and diagnostics were reviewed as needed if patient was seen by me or staffed with me, please see my note - Dr. Pierce Problem List/Past Medical History Ongoing Smoker Historical Alcoholism Depression HTN - Hypertension spastic dyphonia Procedure/Surgical History botox in vocal cords, Hip replacement, Ovarian Cyst Removal in 2001. Medications Inpatient NS 1000 ml Bolus 1,000 mL, 1000 mL, IV Piggyback Home amLODIPine 10 mg Tab, 10 mg= 1 tab(s), Oral, Daily atorvastatin, Oral, Daily hydrochlorothiazide 25 mg oral tablet, 25 mg= 1 tab(s), Oral, Daily potassium chloride 20 mEq ER Tab, 20 mEq= 1 tab(s), Oral, BID Wellbutrin XL 300 mg/24 hours Tab-ER, 300 mg= 1 tab(s), Oral, q24hr Allergies Contrast Dye Demerol HCl (hypertension) PHENobarbital (hives) Shrimp Social History Alcohol Current, 10/29/2017 Current, Wine, Liquor, Daily, Previous treatment: Inpatient. Alcohol use interferes with work or home: Yes. Drinks more than intended: Yes. Others hurt by drinking: Yes. Ready to change: Yes. Househ old alcohol concerns: Yes., 09/03/2017 Current, Liquor, 04/06/2017 Current, Wine, Liquor, Daily, 08/23/2016 Current, Wine, 04/14/2016 Current, Wine, Liquor, 11/22/2015 Current, Liquor, 3-5 times per week, 07/22/2015 Current, Wine, Several times per day, 07/16/2014 Current, Beer, Liquor, 1-2 times per week, Started age 19 Years. Previous treatment: Alcoholics Anonymous, Inpatient, Outpatient. Alcohol use interferes with work or home: Yes. Drinks more than inte nded: Yes. Others hurt by drinking: No. Ready to change: Yes. 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 Substance Abuse - Denies Substance Abuse, 12/04/2011 Tobacco - Denies Tobacco Use, 12/04/2011 Never (less than 100 in lifetime) Tobacco Use:., 09/03/2017 Lab Results WBC: 17 E9/L High (10/29/17 19:44:00) RBC: 4.2 E12/L Low (10/29/17 19:44:00) Hgb: 13.9 gm/dL (10/29/17 19:44:00) Hct: 39.8 % (10/29/17 19:44:00) MCV: 94.5 fL (10/29/17 19:44:00) MCH: 33.1 pg (10/29/17 19:44:00) MCHC: 35 gm/dL (10/29/17 19:44:00) RDW: 14.1 % (10/29/17 19:44:00) Platelet: 425 E9/L (10/29/17 19:44:00) MPV: 7.5 fL (10/29/17 19:44:00) Neutro Auto: 82.3 % High (10/29/17 19:44:00) Lymph Auto: 12 % Low (10/29/17 19:44:00) [place] Auto: 5.1 % (10/29/17 19:44:00) Eos Auto: 0.1 % (10/29/17:44:00) Basophil Auto: 0.5 % (10/29/17:44:00) Neutro Absolute: 14 E9/L High (10/29/17 19:44:00) Lymph Absolute: 2 E9/L (10/29/17:44:00) [place] Absolute: 0.9 E9/L (10/29/17:44:00) Eos Absolute: 0 E9/L (10/29/17:44:00) Basophil Absolute: 0.1 E9/L (10/29/17:44:00) Sed Rate Automated: 19 mm/hr (10/29/17:44:00) D-Dimer: 438 ng/mL (10/29/17:44:00) Glucose Lvl: 94 mg/dL (10/29/17:44:00) BUN: 11 mg/dL (10/29/17:44:00) Creatinine: 0.7 mg/dL (10/29/17:44:00) eGFR: >60 (10/29/17:44:00) eGFR AA: >60 (10/29/17:44:00) BUN/Creat Ratio: 16 (10/29/17:44:00) Sodium Lvl: 122 mmol/L Low (10/29/17 19:44:00) Potassium Lvl: 3.2 mmol/L Low (10/29/17:44:00) Chloride: 84 mmol/L Low (10/29/17:44:00) CO2: 22 mmol/L (10/29/17:44:00) AGAP: 19 mEq/L High (10/29/17:44:00) Calcium Lvl: 9.2 mg/dL (10/29/17:44:00) CRP: 1.2 mg/dL (10/29/17:44:00) BNP: 70 pg/mL (10/29/17:44:00) Diagnostic Results No qualifying data available. Result Comment: Electronically Signed By: Sam Becerra PA-C\.br\Date and Time Signed: 10/29/17 20:49 EDT\.br\Electronically Co-Signed By: Kari JIN, Flash Alvares\.br\Date and Time Co-Signed: 10/30/17 02:58 EDT XR FEMUR 1 VIEW Observed: 10/29/2017 Status: F Source: TEOFILO LEVYUS LEFT 7:45 PM [facility] REPOSITORY Exam Date/Time: 10/29/2017 20:49 EDT Reason for Exam: Scheduled for total hip replacement worsening pain towards distal femur;Pain, Non Traumatic Report IMPRESSION: SUBCAPITAL FRACTURE PROXIMAL LEFT FEMUR. CLINICAL HISTORY: Pain, Non Traumatic. COMMENT: 2 AP views were obtained. No lateral views were obtained as the patient refused additional images. There are degenerative arthritic changes at the left hip. There is an old displaced subcapital fracture of the left femoral neck, with the femoral neck displaced superiorly relative to the femoral head (which is located within the acetabulum). There is varus angulation at the fracture. No dislocation is noted at the left hip. The remainder of the left femur is unremarkable on this AP study. FINAL REPORT Dictated: 10/30/2017 2:03 pm Kodi Lam M.D. Signed (Electronic Signature): 10/30/2017 2:03 pm Signed by: Kodi Lam M.D. Transcribed by: ROLLY Technologist: RENZO XR HIP 1 VIEW LEFT Observed: 10/29/2017 Status: F Source: TEOFILO ROBERTO CARLOS + PELVIS 7:45 PM [facility] REPOSITORY Exam Date/Time: 10/29/2017 20:52 EDT Reason for Exam: Scheduled for total hip replacement worsening pain;Leg pain Report IMPRESSION: SUBCAPITAL LEFT FEMORAL NECK FRACTURE. CLINICAL HISTORY: Leg pain COMMENT: 2 views. There are degenerative arthritic changes at the left hip, with joint space narrowing and some hypertrophic spurring. There is an old subcapital fracture of the left femoral neck, with the femoral neck displaced superiorly relative to the femoral head (which is located within the acetabulum). There is varus angulation at the fracture. No dislocation is noted at the left hip. There is a metallic bipolar right total hip prosthesis. No pelvic bone fractures evident. FINAL REPORT Dictated: 10/30/2017 2:04 pm Kodi Lam M.D. Signed (Electronic Signature): 10/30/2017 2:04 pm Signed by: Kodi Lam M.D. Transcribed by: ROLLY Technologist: RENZO D-DIMER Collected: 10/29/2017 Status: F Source: LUNA RBOERTO CARLOS 7:44 PM [facility] REPOSITORY TYPE CODE TESTS RESULT OUT OF RANGE REFERENCE UNITS LAB 49582-2(SRAVANI 215-500 ng/mL NC) Normal FIBRIN 438 D-DIMER FEU:MCNC:PT:P PP:QN: Result Comment: This D-Dimer assay may be used in conjunction with a non-high clinical pretest probability assessment to exclude deep-vein thrombosis(DVT). For exclusion of venous thrombosis or pulmonar y embolism the analyte D-Dimer should not be used as an aid in patients with: Therapeutic dose anticoagulant therapy for >24 hours Fibrinolytic therapy within previous 7 days Trauma or surgery within previous 4 weeks Disseminated malignacies Aortic aneurysm Sepsis, severe infections, pneumonia, severe skin infections Liver cirrhosis Performed By: #### [id number], [id number], [id number], [id number], [id number], [id number], [id number], [id number] #### [facility] [address] [place] [address] SED RATE AUTOMATED Collected: 10/29/2017 Status: F Source: RED ROBERTO CARLOS 7:44 [facility] REPOSITORY TYPE CODE TESTS RESULT OUT OF REFERENCE UNITS RANGE LAB 18128-3(LO 0-34 mm/hr INC) ERYTHROCYTE Normal SEDIMENTATION 19 RATE:GREGG:PT:BLD:QN: Performed By: #### [id number], [id number], [id number], [id number], [id number], [id number], [id number], [id number] #### [facility] [address] [place] [address] CBC W/ AUTO DIFF Collected: 10/29/2017 Status: F Source: [facility] 7:44 [facility] REPOSITORY TYPE CODE TESTS RESULT OUT OF REFERENCE UNITS RANGE LAB 13436-4(LO 4.0-11.0 E9/L INC) High LEUKOCYTES 17.0 Result Comment: Slide reviewed by cmk. LAB 789-8(LOINC) 4.3-5.9 E12/L ERYTHROCYTES:NCNC:PT:BLD:QN:AUTOMATED COUNT Low 4.2 LAB 718-7(LOINC) 12.0-16. gm/dL HEMOGLOBIN:MCNC:PT:BLD:QN: 0 Normal 13.9 LAB 4544-3(LOINC) 34.0-46. % HEMATOCRIT:VFR:PT:BLD:QN:AUTOMATED 0 COUNT Normal 39.8 LAB 788-0(LOINC) 10.9-14. % ERYTHROCYTE DISTRIBUTION 2 WIDTH:RATIO:PT:RBC:QN:AUTOMATED COUNT Normal 14.1 LAB 785-6(LOINC) 27.0-34. pg ERYTHROCYTE MEAN CORPUSCULAR 0 HEMOGLOBIN:ENTMASS:PT:RBC:QN:AUTOMATED Normal COUNT 33.1 LAB 786-4(LOINC) 31.4-39. gm/dL ERYTHROCYTE MEAN CORPUSCULAR 3 HEMOGLOBIN Normal CONCENTRATION:MCNC:PT:RBC:QN:AUTOMATED COUNT 35.0 LAB 787-2(LOINC) 80.0-100 fL ERYTHROCYTE MEAN CORPUSCULAR .0 VOLUME:ENTVOL:PT:RBC:QN:AUTOMATED COUNT Normal 94.5 LAB 80326-0(LOINC) 6.4-10.8 fL PLATELET MEAN VOLUME:ENTVOL:PT:BLD:QN:AUTOMATED COUNT Normal 7.5 LAB 777-3(LOINC) 150.0-50 E9/L PLATELETS:NCNC:PT:BLD:QN:AUTOMATED 0.0 COUNT Normal 425.0 Performed By: #### [id number], [id number], [id number], 0285893, 11154302, 0844387, 5757555, [id number] #### [facility] [address] [place] [address] AUTO DIFF Collected: 10/29/2017 Status: F Source: RED RIO NIDO 7:44 PM [facility] REPOSITORY Order Comment: Order Added by Discern Expert. TYPE CODE TESTS RESULT OUT OF RANGE REFERENCE UNITS LAB 751-8(LOINC 36.0-75.0 % ) High 82.3 NEUTROPHILS: NCNC:PT:BLD: QN:AUTOMATED COUNT LAB 731-0(LOINC 14.0-50.0 % ) Low 12.0 LYMPHOCYTES: NCNC:PT:BLD: QN:AUTOMATED COUNT LAB 742-7(LOINC 4.0-14.0 % ) Normal 5.1 MONOCYTES:NC NC:PT:BLD:QN :AUTOMATED COUNT LAB 711-2(LOINC 0.0-8.0 % ) Normal 0.1 EOSINOPHILS: NCNC:PT:BLD: QN:AUTOMATED COUNT LAB 704-7(LOINC 0.0-2.0 % ) Normal 0.5 BASOPHILS:NC NC:PT:BLD:QN :AUTOMATED COUNT LAB 87622-4(SRAVANI 2.0-7.5 E9/L NC) High 14.0 NEUTROPHILS/ LEUKOCYTES:N FR.DF:PT:BLD :QN:AUTOMATE D COUNT LAB 62124-6(SRAVANI 1.0-4.0 E9/L NC) Normal 2.0 LYMPHOCYTES/ LEUKOCYTES:N FR.DF:PT:BLD :QN:AUTOMATE D COUNT LAB 29682-8(SRAVANI 0.2-1.0 E9/L NC) Normal 0.9 MONOCYTES/LE UKOCYTES:NFR .DF:PT:BLD:Q N:AUTOMATED COUNT LAB 40643-6(SRAVANI 0.0-0.5 E9/L NC) Normal 0.0 EOSINOPHILS/ LEUKOCYTES:N FR.DF:PT:BLD :QN:AUTOMATE D COUNT LAB 91803-0(SRAVANI 0.0-0.2 E9/L NC) Normal 0.1 BASOPHILS/LE UKOCYTES:NFR .DF:PT:BLD:Q N:AUTOMATED COUNT Performed By: #### [id number], [id number], [id number], [id number], 96932404, 0344771, 7270789, [id number] #### [facility] [address] [place] [address] [facility] Collected: 10/29/2017 Status: F Source: [facility] 7:44 PM [facility] REPOSITORY TYPE CODE TESTS RESULT OUT OF RANGE REFERENCE UNITS LAB 2339-0(LOIN 55-199 mg/dL C) Normal 94 GLUCOSE:MCNC :PT:BLD:QN: Result Comment: If this glucose result represents a fasting glucose, interpretation should refer to the following reference range: 55-99 mg/dL LAB 3094-0(LOINC) 5-21 mg/dL UREA NITROGEN:MCNC:PT:SER/PLAS:QN: Normal 11 LAB 2160-0(LOINC) 0.5-1.3 mg/dL CREATININE:MCNC:PT:SER/PLAS:QN: Normal 0.7 LAB 3097-3(LOINC) 10-20 No Units UREA NITROGEN/CREATININE:MRTO:PT:SER/ Normal PLAS:QN: 16 LAB 85608-9(LOINC) 8.9-11. mg/dL 1 CALCIUM:MCNC:PT:SER/PLAS:QN: Normal 9.2 LAB 2951-2(LOINC) 135-145 mmol/L SODIUM:SCNC:PT:SER/PLAS:QN: Low 122 LAB 2823-3(LOINC) 3.5-5.3 mmol/L POTASSIUM:SCNC:PT:SER/PLAS:QN: Low 3.2 LAB 2075-0(INC) 101-111 mmol/L CHLORIDE:SCNC:PT:SER/PLAS:QN: Low 84 LAB 2028-9([facility]) 21-31 mmol/L CARBON DIOXIDE:SCNC:PT:SER/PLAS:QN: Normal 22 LAB 16795-4(INC) 6-16 mEq/L ANION GAP:SCNC:PT:SER/PLAS:QN: High 19 Performed By: #### [id number], [id number], [id number], 0451375, 22176254, 3663764, 0600535, [id number] #### [facility] [address] [place] [address] CRP Collected: 10/29/2017 Status: F Source: [facility] 7:44 PM [facility] REPOSITORY TYPE CODE TESTS RESULT OUT OF RANGE REFERENCE UNITS LAB 1988-5(SRAVANI <=1.9 mg/dL NC) C Normal REACTIVE 1.2 PROTEIN:MCNC:P T:SER/PLAS:QN: Performed By: #### [id number], [id number], 25907205, 8452002, 53704809, 7558435, 8165589, [id number] #### [facility] [address] [place] [address] EGFR Collected: 10/29/2017 Status: F Source: [facility] 7:44 PM [facility] REPOSITORY Order Comment: Order added by Discern Expert. TYPE CODE TESTS RESULT OUT OF RANGE REFERENCE UNITS LAB 44944-2(LO >=59 mL/min/1.7 INC) 3 m2 Normal GLOMERULAR >60 FILTRATION RATE/1.73 SQ M.PREDICTED.NON BLACK:ARVRAT:PT: SER/PLAS:QN:CREA TININE-BASED FORMULA (MDRD) Result Comment: Chronic kidney disease could be indicated at eGFR's of less than 60 mL/min/1.73m2. Kidney failure is indicated at less than 15 mL/min/1.73m2. LAB 23226-4(LOINC) GLOMERULAR >=59 mL/min/1.73 FILTRATION RATE/1.73 SQ m2 M.PREDICTED.BLACK:ARVRAT:PT:SER/PLAS:QN:CREATININE-BASED FORMULA (MDRD) Normal >60 Result Comment: eGFR is race adjusted. AA=. Performed By: #### [id number], [id number], 83921533, 4273259, [id number], 7798930, 3907476, [id number] #### [facility] [address] [place] [address] BNP Collected: 10/29/2017 Status: F Source: [facility] 7:44 PM [facility] REPOSITORY TYPE CODE TESTS RESULT OUT OF RANGE REFERENCE UNITS LAB 19809-8(LO 5-80 pg/mL INC) NATRIURETIC Normal PEPTIDE.B:MCNC:PT 70 :SER/PLAS:QN: Performed By: #### [id number], [id number], [id number], 8173145, 50653239, 2678306, 1572262, 2594741 #### [facility] [address] [place] [address] XR HIP LEFT WITH Observed: 10/17/2017 Status: F Source: [facility] PELVIS 2-3 VIEWS 12:00 AM THREE REPOSITORY (ROUTINE) X-ray AP pelvis 2 views left hip indication pain reveal end-stage arthritic changes of the left hip with significant cyst formation with complete loss of joint space with no acute fracture dislocations noted right hip shows a previous arthroplasty with no acute signs of loosening but does have a slightly elevated greater trochanter in relation to the replacement Dictated by: XU QUEEN MonOctober 17, 2017 11:20:39 AM EDT Transcribed by: XU QUEEN MonOctober 17, 2017 11:20:39 AM EDT Finalized by: XU QUEEN on MonOctober 17, 2017 11:20:39 AM EDT 12 LEAD ELECTROCARDIOGRAM Observed: 09/12/2017 Status: F Source: [place] 8:22 AM [facility] REPOSITORY [facility] Cardiovascular Services [address] [place] [address] 12 Lead EKG 09/08/17 0911 MR#: [id number] Acct: [id number] Name: LOWCARRIE CRAIN Eze Rep #: [id number] : 1955 62 From: Renato Freed MD Attending Dr: Alexandrea Kim MD Status: DIS IN Ordering Dr: Manolo Prabhakar MD Date: 09/08/17 [place] [facility] [place]: F C Admitted: 09/08/17 Test Reason : INTOXICATION Blood Pressure : / mmHG Vent. Rate : 102 BPM Atrial Rate : 102 BPM P-R Int : 172 ms QRS Dur : 086 ms QT Int : 350 ms P-R-T Axes : 057 025 033 degrees QTc Int : 456 ms Sinus tachycardia Otherwise normal ECG Confirmed by ABDIAZIZ JIN, RENATO ([id number]), newspaper editor managing MIGUEL A KOLB ([id number]) on 09/12/2017 8:21:54 AM Referred By: DC Confirmed By:RENATO FREED MD 09/12/17 0821 Date Renato Freed MD CC: Manolo Prabhakar MD; Alexandrea Kim MD; OUT OF TOWN DOCTOR Signed DISCHARGE SUMMARY Observed: 09/10/2017 Status: F Source: [place] 2:11 PM [facility] REPOSITORY [facility] Medical Records Department [address] [place] [address] Discharge Summary 09/10/17 1149 MR#: [id number] Acct: [id number] Name: CARRIE LOW Rep #: [id number] : 1955 62 From: Alexandrea Kim MD PCP: OUT OF TOWN DOCTOR Status: DIS IN Y Location: MT3 [id number] Discharge Date and Diagnosis Date of Admission: 09/08/17 Date of Discharge: 09/10/17 - Primary Discharge Diagnosis alcohol dependence Hospital Course and Treatment Imaging Results: Laboratory Results 09/10/17 05:55: Sodium 138, Potassium 3.8, Chloride 101, Carbon Dioxide 28.0, Anion Gap 9, BUN 6 L, Creatinine 0.75, Estim Creat Clear Calc 74.67, Est GFR (MDRD) Af Amer 102, Est GFR (MDRD) Non-Af 84, BUN/Creatinine Ratio 8.0 L, Glucose 104, Calcium 8.4 L, Magnesium 2.3, Total Bilirubin 0.70, Direct Bilirubin 0.22, AST 57 H, ALT 64 H, Alkaline Phosphatase 198 H, Total Protein 6.5, Albumin 3.0 L, Globulin 3.5 Diagnostic Data Lumbar Spine X-Ray 09/09/17 11:12 IMPRESSION: Superior endplate depression fracture deformities, L1, L2 Degenerative disc disease, T12-L1, L1-L2, L2-L3 Mild levoscoliosis at the thoracolumbar region Arthritic changes at the left hip Electronically Signed: Joshua Saenz MD at 11:54 EDT Tel , Service support , orthopedics Procedures: None Summary of Care Provided: Patient Is a 62-year-old female with a past medical history of hypertension alcohol use disorder. She was admitted via the emergency room on 09/08/17 for alcohol withdrawal. She was managed for alcohol withdrawal with ativan protocol CIWA scores remained low (1-4). She complained of back pain and a lumbar spine xray showed chronic compression fractures at L2-1. Orthopedics reviewed patient and recommended home PT and follow up in 6 weeks. She remained stable and was discharged home with physical therapy on 09/10/17. She is to follow up with her PCP and orthopedics. Discharge Activity: Return to Normal Activity May resume sexual activity in: No Restrictions Weight Bearing Status: Weight bearing as tolerated Home Medications: Medications to take at Discharge Amlodipine [Norvasc] 10 mg PO DAILY 12/29/15 buPROPion XL [Wellbutrin Xl] 300 mg PO DAILY 12/29/15 Potassium Chloride [K-Dur] 20 meq PO DAILY 02/09/16 Hydrochlorothiazide [Hctz] 25 mg PO DAILY 03/03/16 Irbesartan [Avapro] 150 mg PO DAILY 08/25/16 Ondansetron [Zofran Odt] 4 mg PO Q8H PRN PRN #10 tablet 08/30/17 Meloxicam [Mobic] 7.5 mg PO DAILY PRN #30 tab 09/10/17 Peg 400/Hypromellose/Glycerin [Visine Dry Eye Relief Drop] 15 ml OP 4X/DAY PRN PRN #1 bottle 09/10/17 Following Prescrptions Were Given to Patient: Meloxicam [Mobic] 7.5 mg PO DAILY PRN #30 tab PRN Reason: back pain Peg 400/Hypromellose/Glycerin [Visine Dry Eye Relief Drop] 15 ml OP 4X/DAY PRN PRN #1 bottle PRN Reason: Dry Eyes Other Amb Orders: Physical Therapy Evaluation Time Frame: 1 Week, Location: None Selected Primary Care Physician: Care Physician,No Primary [NON-STAFF] - Please follow up with your Primary Care Physician in: follow up with PCP in one week Please Follow Up With: Joshua Messina MD When: 6 weeks When: physical therapy referral Disposition: Home Minutes spent on discharge:: 25 Patient Condition:: Good Medical Necessity - Tobacco Use Smoking Status: Never smoker Tobacco Use: Non-smoker Meaningful Use Info Meaningful Use Diagnoses (Choose all that apply): None applicable Code Visit Inpatient E AND M: [id number] Disch Hosp 09/10/17 1411 <Electronically signed by Alexandrea Kim MD> Date Alexandrea Kim MD Cosigner Signature (if applicable): Date CC: Alexandrea Kim MD; OUT OF TOWN DOCTOR; Joshua Messina MD Signed DISCHARGE INSTRUCTION Observed: 09/10/2017 Status: F Source: [facility] 11:49 AM [facility] REPOSITORY [facility] Medical Records Department [address] [place] [address] Instructions for Home/Discharge Instructions 09/10/17 1141 MR#: [id number] Acct: [id number] Name: CARRIE LOW Rep #: [id number] : 1955 62 From: Alexandrea Kim MD PCP: OUT OF TOWN DOCTOR Status: ADM IN You will use the following diet at home:: Cardiac Your food should be the consistency of: Regular Your liquids should be the consistency of: Regular/Thin Discharge Activity: Return to Normal Activity May resume sexual activity in: No Restrictions Weight Bearing Status: Weight bearing as tolerated Allergies/Adverse Reactions: Allergies meperidine HCl [From Demerol] Allergy (Verified 08/30/17 17:47) HYPERTENSION phenobarbital Allergy (Verified 08/30/17 17:47) Other HYPERTENSION shellfish derived Allergy (Verified 08/30/17 17:47) Hives Medications to take at Discharge Amlodipine [Norvasc] 10 mg PO DAILY 12/29/15 buPROPion XL [Wellbutrin Xl] 300 mg PO DAILY 12/29/15 Potassium Chloride [K-Dur] 20 meq PO DAILY 02/09/16 Hydrochlorothiazide [Hctz] 25 mg PO DAILY 03/03/16 Irbesartan [Avapro] 150 mg PO DAILY 08/25/16 Ondansetron [Zofran Odt] 4 mg PO Q8H PRN PRN #10 tablet 08/30/17 Meloxicam [Mobic] 7.5 mg PO DAILY PRN #30 tab 09/10/17 Peg 400/Hypromellose/Glycerin [Visine Dry Eye Relief Drop] 15 ml OP 4X/DAY PRN PRN #1 bottle 09/10/17 The following prescriptions were given: Meloxicam [Mobic] 7.5 mg PO DAILY PRN #30 tab PRN Reason: back pain Orders to be completed after discharge: Physical Therapy Evaluation Time Frame: 1 Week, Location: None Selected Primary Care Physician: Care Physician,No Primary [NON-STAFF] - Please follow up with your Primary Care Physician in: follow up with PCP in one week Please Follow Up With: Joshua Messina MD When: 6 weeks When: physical therapy referral Proposed Discharge Date: 09/10/17 09/10/17 1149 <Electronically signed by Alexandrea Kim MD> Date Alexandrea Kim MD CC: OUT OF TOWN DOCTOR; Joshua Messina MD CONSULTATION Observed: 09/10/2017 Status: F Source: [place] 7:24 AM [facility] REPOSITORY [facility] Medical Records Department [address] [place] [address] Consultation 09/10/17 0712 MR#: [id number] Acct: [id number] Name: CARRIE LOW Rep #: [id number] : 1955 62 From: Joshua Messina MD PCP: OUT OF TOWN DOCTOR Status: ADM IN Y [place] [facility] [place] [id number] Reason for Consult Date of Consultation: 09/10/17 Reason for Consultation: back pain/ fall. requested by dr Mehta History of Present Illness: The patient is a 62 year old F with history of chronic alcohol abuse presented to the emergency department yesterday for alcohol withdrawal. She was admitted to the hospital. She stated she fell couple days ago sustaining increased pain in her low back. Patient does have a history of lumbar back injury with compression fractures 10 years ago. Patient reports the pain is upper lumbar spine. It is worse with positioning better with heat pad and laying flat on her back. She states she does have some numbness and tingling in all 10 toes no specific distribution. She takes calcium and a mixed vitamin D supplement on a regular basis. She denies any weakness. It is a dull achy pain. She also reports a fall she hit her left knee does not note any difficulties with weightbearing since that time. No reported bowel or bladder habit changes. Patient has been afebrile. No chills or night sweats Past Medical History Allergies meperidine HCl [From Demerol] Allergy (Verified 08/30/17 17:47) HYPERTENSION phenobarbital Allergy (Verified 08/30/17 17:47) Other HYPERTENSION shellfish derived Allergy (Verified 08/30/17 17:47) Hives Home Medications: Ambulatory Orders Medication Instructions Recorded Amlodipine [Norvasc] 10 mg PO DAILY 12/29/15 buPROPion XL [Wellbutrin Xl] 300 mg PO DAILY 12/29/15 Potassium Chloride [K-Dur] 20 meq PO DAILY 02/09/16 Surgical History: - - No pertinent surgical history Psychiatric History: - - Alcohol dependence Lives: Alone Smoking Status: Never smoker Tobacco Use: Non-smoker Alcohol: Heavy Drugs: - - mdma blood testing Review of Systems Constitutional: Denies: Chills, Fever, Weight Change HEENT: Denies: Head Aches, Sinus Congestion, Sinus Drainage Cardiovascular: Denies: Chest Pain, Palpitations Respiratory: Denies: Cough, Shortness of breath at rest, Sputum production Gastrointestinal: Denies: Abdominal Pain, Nausea, Vomiting Genitourinary: Denies: Dysuria Musculoskeletal: Reports: - - see hpi Skin: Denies: Rash, Wounds Neurological: Reports: Numbness - Also in toes. Denies: Focal weakness, Tingling Psychiatric: Denies: Anxiety, Depression, Homicidal Ideations, Suicidal Ideations Hematologic/ Lymphatic: Denies: Easy Bruising, Easy Bleeding Objective: Lumbar radiographs AP, lateral and coned-down lateral views were reviewed showing L1 and L2 compression fractures L1 30-40% L2 less than 20% anterior compression. These were compared to rib radiographs taken in May 2016 these old radiographs also show L1 and L2 compression fractures. Do not appreciate significant changes in bony structure. Consistent with old healed compression fractures at this time. - Physical Exam General: Alert, Oriented x3, Cooperative Extremities: - - Lumbar exam: Minimal tenderness to palpation over the central spine and spinous processes. Moderate tenderness palpation over the paraspinal musculature and flank especially on the right in the upper lumbar regions. Negative straight leg raise bilaterally. 5 out of 5 hip flexion, knee extension, dorsiflexion, EHL and plantar flexion strength. Sensations grossly intact light touch L2-S1. Vital Signs Temp Pulse Resp BP Pulse Ox 98.7 F 91 16 134/75 H 94 09/10/17 06:00 09/10/17 06:00 09/10/17 06:00 09/10/17 06:00 09/10/17 06:00 Oxygen Delivery Method Room Air Weight: 192 lb 14.472 oz Body Mass Index (BMI) 31.1 Intake and Output for Last 24 Hours Intake Total 753 / 753 1950 1100 / 1100 Output Total 600 / 600 Balance 153 / 153 1950 1100 / 1100 Laboratory Tests Past 24 Hrs Sodium 138 Potassium 3.8 Assessment/Plan Acute lumbar strain with presence of chronic compression fractures without acute changes and bony structure. Paresthesias 1. Pain management per primary service appears well controlled at this time. Continue with heat as needed. Chairback brace was recommended due to the level of pain. Recommend use of nonsteroidal anti-inflammatories, kidney function appears appropriate. Possible Toradol followed by scheduled Mobic. 2. Physical therapy: Patient should be started on physical therapy for lumbar strain and continue with physical therapy as an outpatient after being discharged from the hospital. 3. Disposition: From orthopedic standpoint patient is appropriate for discharge from the hospital with outpatient physical therapy. If discharge to an inpatient facility for her other medical conditions will continue physical therapy. Recommend follow-up in office in 6 weeks to evaluate progress with physical therapy. [facility] Office: 09/10/17 0724 <Electronically signed by Joshua Messina MD> Date Joshua Messina MD Cosigner Signature (if applicable): Date CC: OUT OF TOWN DOCTOR; Joshua Messina MD Signed BASIC METABOLIC Collected: 09/10/2017 Status: F Source: [place] PROFILE (BMP) 5:55 AM [facility] REPOSITORY TYPE CODE TESTS RESULT OUT OF RANGE REFERENCE UNITS LAB L501.0100 74-106 mg/dL Normal GLU 104 Result Comment: Fasting Glucose result from 100 to 125 mg/dL suggests IMPAIRED HOMEOSTASIS per A.D.A. criteria. Please note revised GLUCOSE reference range effective 2017. LAB L501.1000 7-18 mg/dL Low BUN 6 LAB L501.1100 0.55-1.02 mg/dL Normal CREAT,SERUM 0.75 Result Comment: The validity of the calculated GFR AND GFRAA in patients over 70 years has not been determined. Clinical correlation is essential. LAB L501.1110 >60 mL/min Normal EST GFR 84 Result Comment: Non- GFR Calc LAB L501.1115 >60 mL/min Normal EST GFR - AA 102 Result Comment: GFR Calc LAB L501.1255 ml/min Normal Estimated CRCL 74.67 LAB L501.1300 10-20 RATIO Low BUN/CRE 8.0 LAB L501.2200 8.5-10 mg/dL Low .1 CA 8.4 LAB L501.5300 136-14 mmol/L Normal 5 NA 138 LAB L501.5600 3.5-5. mmol/L Normal 1 K 3.8 LAB L501.5900 98-107 mmol/L Normal CL 101 LAB L501.6100 21.0-3 mmol/L Normal 2.0 CO2 28.0 LAB L501.6200 5-15 Normal GAP 9 Performed By: #### L500.2500, L500.3400, L501.5200 #### [facility] [address] [place], [place], [id number] LIVER PROFILE Collected: 09/10/2017 Status: F Source: [place] 5:55 AM [facility] REPOSITORY TYPE CODE TESTS RESULT OUT OF RANGE REFERENCE UNITS LAB L501.1500 6.4-8.2 g/dL Normal T PROT 6.5 LAB L501.1800 3.2-5.0 g/dL Low ALB 3.0 LAB L501.1950 2.2-4.2 g/dL Normal GLOB 3.5 LAB L501.4100 15-37 U/L High AST 57 LAB L501.4305 45-117 U/L High ALK P 198 LAB L501.4405 13-56 U/L High ALT 64 Result Comment: Please note revised ALT reference range effective 2017. LAB L501.4600 0.20-1.00 mg/dL Normal T BILI 0.70 LAB L501.4700 0.00-0.30 mg/dL Normal D BILI 0.22 Performed By: #### L500.2500, L500.3400, L501.5200 #### [facility] [address] [place], [address] MAGNESIUM Collected: 09/10/2017 Status: F Source: [place] 5:55 AM [facility] REPOSITORY TYPE CODE TESTS RESULT OUT OF RANGE REFERENCE UNITS LAB L501.5200 1.6-2.6 mg/dL Normal MG 2.3 Result Comment: Please note revised Magnesium reference range effective 2017. Performed By: #### L500.2500, L500.3400, L501.5200 #### [facility] [address], [address] BASIC METABOLIC Collected: 09/09/2017 Status: F Source: [place] (BMP) 12:25 PM [facility] REPOSITORY TYPE CODE TESTS RESULT OUT OF RANGE REFERENCE UNITS LAB L501.0100 74-106 mg/dL High GLU 119 Result Comment: Fasting Glucose result from 100 to 125 mg/dL suggests IMPAIRED HOMEOSTASIS per A.D.A. criteria. Please note revised GLUCOSE reference range effective 2017. LAB L501.1000 7-18 mg/dL Normal BUN 7 LAB L501.1100 0.55-1.02 mg/dL Normal CREAT,SERUM 0.82 Result Comment: The validity of the calculated GFR AND GFRAA in patients over 70 years has not been determined. Clinical correlation is essential. LAB L501.1110 >60 mL/min Normal EST GFR 76 Result Comment: Non- GFR Calc LAB L501.1115 >60 mL/min Normal EST GFR - AA 92 Result Comment: GFR Calc LAB L501.1255 ml/min Normal Estimated CRCL 68.30 LAB L501.1300 10-20 RATIO Low BUN/CRE 8.6 LAB L501.2200 8.5-10 mg/dL Normal .1 CA 8.5 LAB L501.5300 136-14 mmol/L Normal 5 NA 139 LAB L501.5600 3.5-5. mmol/L Low 1 K 3.4 LAB L501.5900 98-107 mmol/L Normal CL 102 LAB L501.6100 21.0-3 mmol/L Normal 2.0 CO2 28.0 LAB L501.6200 5-15 Normal GAP 9 Performed By: #### L500.2500, L501.5200 #### [facility] [address] [place], [address] MAGNESIUM Collected: 09/09/2017 Status: F Source: [place] 12:25 PM [facility] REPOSITORY TYPE CODE TESTS RESULT OUT OF RANGE REFERENCE UNITS LAB L501.5200 1.6-2.6 mg/dL Normal MG 2.1 Result Comment: Please note revised Magnesium reference range effective 2017. Performed By: #### L500.2500, L501.5200 #### [facility] [address] [place], [address] LUMBAR SPINE 2 OR 3 Observed: 09/09/2017 Status: F Source: [place] VIEWS 11:13 AM [facility] REPOSITORY [facility] Imaging Services [address] [place] [address] Lumbar Spine 2 or 3 Views MR#: [id number] Acct: [id number] Name: CARRIE LOW Rep #: [id number] : 1955 F 62 From: Joshua Saenz MD PCP: OUT OF TOWN DOCTOR Status: ADM IN Study: Lumbar Spine 2 or 3 Views Date of Exam: 09/09/17 Exam# [id number] Ordering Dr: Alexandrea Kim MD STUDY: X-RAY - LUMBAR SPINE REASON FOR EXAM: Female, 62 years old. Pain TECHNIQUE: 3 view(s) of the lumbar spine were obtained. COMPARISON: None FINDINGS: There is superior endplate depression fractures at L2 and L1. There is loss of vertebral body height at L2 of approximately 15%. There is loss of vertebral body height anteriorly at L1 of approximately 40%. There is degenerative disc disease at T12-L1, L1-L2 and L2-L3, suggesting chronicity. There is no osseous destruction. There is mild levoscoliosis of the thoracolumbar region. There are arthritic changes at the left hip. The SI joints are intact. RAD/Lumbar Spine 2 or 3 Views IMPRESSION: Superior endplate depression fracture deformities, L1, L2 Degenerative disc disease, T12-L1, L1-L2, L2-L3 Mild levoscoliosis at the thoracolumbar region Arthritic changes at the left hip Electronically Signed: Joshua Saenz MD at 11:54 EDT Tel , Service support , CC: Alexandrea Kim MD; OUT OF TOWN DOCTOR Shellfish Weigher: Signed LIVER PROFILE Collected: 09/09/2017 Status: F Source: [place] 7:38 AM [facility] REPOSITORY TYPE CODE TESTS RESULT OUT OF RANGE REFERENCE UNITS LAB L501.1500 6.4-8.2 g/dL Normal T PROT 7.0 LAB L501.1800 3.2-5.0 g/dL Normal ALB 3.2 LAB L501.1950 2.2-4.2 g/dL Normal GLOB 3.8 LAB L501.4100 15-37 U/L High AST 85 LAB L501.4305 45-117 U/L High ALK P 227 LAB L501.4405 13-56 U/L High ALT 77 Result Comment: Please note revised ALT reference range effective 2017. LAB L501.4600 0.20-1.00 mg/dL Normal T BILI 0.80 LAB L501.4700 0.00-0.30 mg/dL Normal D BILI 0.26 Performed By: #### L500.3400 #### [facility] [address] [facility] [place], [address] EMERGENCY DEPARTMENT Observed: 09/08/2017 Status: F Source: [place] SUMMARY 4:34 PM [facility] REPOSITORY [facility] Medical Records Department [address] [place] [address] Emergency Department Summary 09/08/17 0909 MR#: [id number] Acct: [id number] Name: CARRIE LOW Rep #: [id number] : 1955 62 From: Manolo Prabhakar MD PCP: OUT OF TOWN DOCTOR Status: ADM IN - ER Visit Summary Date of Service: 09/08/17 Chief Complaint: Alcohol withdrawal History of Present Illness: The patient is a 62 F requesting detox from alcohol. She was seen previously and referred to [facility], but her insurance would not cover inpatient detox. She has been unable to find an inpatient detox facility. She complains of tremors, nausea, and vomiting. Consistent with prior alcohol withdrawal. She did drink this morning. She normally drinks 2 quarts of vodka per day and sometimes wine as well. Denies any drug use. Has a history of hypokalemia and tension. No suicidal or homicidal thoughts. Physical Examination: Vital signs unremarkable except for a heart rate of 113. Afebrile. Nontoxic and in no acute distress. Heart regular. Lungs clear. Abdomen soft and nontender. Skin appears normal in color. Patient has an intention tremor. Test Results: We will check some basic labs, EKG, tox, and alcohol. Emergency Department Course and Treatment: Patient has signs and symptoms of alcohol withdrawal. She says she has a history of DTs. Treated with fluids and Ativan while awaiting results. Potassium 3.0, alcohol 48, tox screen was positive for amphetamines, alk phos 236, ALT 78, AST 93. I spoke with social work. With the patient's tachycardia, tremors, and hypokalemia, she meets criteria for inpatient care. Litzy from [facility] will see the patient tomorrow. I called the hospitalist for admission. Treatment Plan: As above Disposition: Admission Impression: 1. Alcohol withdrawal 2. Hypokalemia This note was generated with ViewsIQ dictation software. It may contain incorrect words, spelling, and punctuation that were not noted in review of the chart prior to signing ED Disposition - Plan for ED Patient: Chief Complaint: ETOH Intox Referrals: Care Physician,No Primary [NON-STAFF] - What to do if you have Problems For any increased pain, shortness of breath, bleeding, nausea or vomiting, chest pain, or any unexpected problems, contact your Primary Care Provider. Call [facility] ([phone]) or report to the closest Emergency Room. Call 911 if necessary. 09/08/17 2582 <Electronically signed by Manolo Prabhakar MD> Date Manolo Ortega Signature (If Indicated): Date CC: OUT OF TOWN DOCTOR BASIC METABOLIC Collected: 09/08/2017 Status: F Source: [place] PRO[place] ([place]MP) 1:20 PM [facility] REPOSITORY TYPE CODE TESTS RESULT OUT OF RANGE REFERENCE UNITS LAB L501.0100 74-106 mg/dL Normal GLU 106 Result Comment: Fasting Glucose result from 100 to 125 mg/dL suggests IMPAIRED HOMEOSTASIS per A.D.A. criteria. Please note revised GLUCOSE reference range effective 2017. LAB L501.1000 7-18 mg/dL Normal BUN 7 LAB L501.1100 0.55-1.02 mg/dL Normal CREAT,SERUM 0.70 Result Comment: The validity of the calculated GFR AND GFRAA in patients over 70 years has not been determined. Clinical correlation is essential. LAB L501.1110 >60 mL/min Normal EST GFR 91 Result Comment: Non- GFR Calc LAB L501.1115 >60 mL/min Normal EST GFR - AA 110 Result Comment: GFR Calc LAB L501.1255 ml/min Normal Estimated CRCL 80.01 LAB L501.1300 10-20 RATIO Normal BUN/CRE 10.0 LAB L501.2200 8.5-10 mg/dL Low .1 CA 8.1 LAB L501.5300 136-14 mmol/L Normal 5 NA 136 LAB L501.5600 3.5-5. mmol/L Low 1 K 3.0 LAB L501.5900 98-107 mmol/L Low CL 97 LAB L501.6100 21.0-3 mmol/L Normal 2.0 CO2 28.0 LAB L501.6200 5-15 Normal GAP 11 Performed By: #### L500.2500 #### [facility] [address] [place], [address] HEPATITIS PANEL ACUTE Collected: 09/08/2017 Status: F Source: [place] 1:20 PM [facility] REPOSITORY TYPE CODE TESTS RESULT OUT OF RANGE REFERENCE UNITS LAB L3100.0200 Negative Normal HEP A Negative IgM 6734 LAB L3100.0400 Negative Normal HB Negative SURF AG LAB L3100.0440 Negative Normal HB Negative CORE [id number] LAB L3100.0650 0.0-0.9 s/co ratio Normal HEP C 0.1 AB Result Comment: Negative: < 0.8 Indeterminate: 0.8 - 0.9 Positive: > 0.9 The CDC recommends that a positive HCV antibody result be followed up with a HCV Nucleic Acid Amplification test (948030). Performed at: - [facility] [id number] Electronic Assembly: George Li PhD, Phone: [phone] Performed By: #### L3000.0375 #### [facility] (refer to report for specific site) refer to report for address and phone number HISTORY AND PHYSICAL Observed: 09/08/2017 Status: F Source: [place] EXAM 1:00 PM [facility] REPOSITORY [facility] Medical Records Department [address] [place] [address] History and Physical 09/08/17 1217 MR#: [id number] Acct: [id number] Name: CARRIE LOW Rep #: [id number] : 1955 62 From: Isaias John MD PCP: OUT OF TOWN DOCTOR Status: ADM [place] Y Location: [address] Problem List (1) Alcohol withdrawal Status: Acute (2) Alcohol use disorder Status: Acute History of Present Illness Date of Admission: 09/08/17 Chief Complaint: I am going through alcohol withdrawal The patient is a 62 year old F with medical history of essential hypertension and alcohol use disorder who presented to the emergency room complaining of symptom complex consistent with early alcohol withdrawal , she wants to quit drinking and was medical stabilization for full-blown alcohol withdrawal . She drinks Vodka on daily basis. She had wanted to come through [facility] but her insurance would not cover. She states she woke up this morning restless , with tremors , diaphoresis and anxiety and she decided to drink some vodka before coming to the emergency room. In Emergency room he was found to be mildly tachycardic, his potassium was low at 3.0, and transaminases were elevated, she is not jaundiced, UDS is positive for methamphetamines When I saw her she was was alert and oriented to time place and person and she did not appear toxic, [ Past Medical History Allergies meperidine HCl [From Demerol] Allergy (Verified 08/30/17 17:47) HYPERTENSION phenobarbital Allergy (Verified 08/30/17 17:47) Other HYPERTENSION shellfish derived Allergy (Verified 08/30/17 17:47) Hives Home Medications: Ambulatory Orders Medication Instructions Recorded Amlodipine [Norvasc] 10 mg PO DAILY 12/29/15 buPROPion XL [Wellbutrin Xl] 300 mg PO DAILY 12/29/15 Potassium Chloride [K-Dur] 20 meq PO DAILY 02/09/16 Smoking Status: Never smoker VTE Information - Inpt Only VTE Present on Admission: Yes VTE Mechan Device Prophylaxis: SCD's VTE Pharm Prophylaxis ordered?: Yes - Physical Exam Vital Signs Temp Pulse Resp BP Pulse Ox 97.9 F 114 H 16 162/90 H 95 09/08/17 08:42 09/08/17 11:48 09/08/17 11:48 09/08/17 11:48 09/08/17 11:48 Oxygen Delivery Method Room Air Weight: 85.548 kg Body Mass Index (BMI) 30.4 Laboratory Tests Past 24 Hrs WBC 10.6 WBC RBC Hgb Hct MCV MCH MCHC RDW RDW Differential Plt Count MPV Immature Gran % (Auto) Neut % (Auto) Lymph % (Auto) [place] % (Auto) Assessment/Plan 1. Early alcohol withdrawal ; we will monitor her closely per SSA scale , she will will be placed on the medical stabilization protocol for alcohol withdrawal. 2. Alcohol use disorder; the patient is an excellent state of sedation would at least [facility] to assist with outpatient rehab program since her insurance will not cover this an an inpatient. 3. Hypokalemia; this will be replaced with oral potassium chloride. 4 Hepatitis; likely alcoholic but we will rule out viral hepatitis . We will avoid potential hepatotoxic agents. 5. Essential Hypertension; we will resume her home medications, hydrochlorothiazide will be held due to dehydration and mild hyponatremia. 6. Dehydration / mild hyponatremia the patient will be hydrated with 0.9 normal saline. 7. Early Ambulation for DVT prophylaxis. Code Visit Inpatient E AND M: [id number] Init Hosp L2 09/08/17 1300 <Electronically signed by Kombian Gbaruk MD> Date Isaias John MD Cosigner Signature: Date (if applicable) CC: Isaias John MD; OUT OF TOWN DOCTOR Signed URINE DRUG SCREEN Collected: 09/08/2017 Status: F Source: [place] ([place]IST[place]) 10:17 AM [facility] REPOSITORY TYPE CODE TESTS RESULT OUT OF RANGE REFERENCE UNITS LAB L505.0075 TO BE Normal CONFIRMED Result Comment: CONFIRMATORY TESTING FOR ALL POSITIVE URINE DRUG SCREEN RESULTS WILL ONLY BE SENT OUT UPON PHYSICIAN ORDER. VISTA Urine Drug Screen methods provide only preliminary analytical test results. A more specific alternate chemical method must be used in order to obtain a confirmed analytical result. Gas chromatography/mass spectrometery (GC/MS) is the preferred confirmatory method. Clinical consideration and professional judgement should be applied to any drug of abuse test result, particularly when preliminary positive results are used. URINE TCA TESTING MUST BE ORDERED SEPARATELY. USE TEST MNEMONIC: [facility] LAB L505.5005 VISTA UDS PH 5 Normal LAB L505.5015 <1000 ng/mL AMPHETAMINES Normal NEGATIVE LAB L505.5025 < 200 ng/mL BARBITIURATES Normal NEGATIVE LAB L505.5035 < 200 ng/mL BENZODIAZIPINE Normal NEGATIVE LAB L505.5045 < 300 ng/mL COCAINE Normal NEGATIVE LAB L505.5055 < 500 High ng/mL ECSTACY POSITIVE LAB L505.5065 < 300 ng/mL METHADONE Normal NEGATIVE LAB L505.5075 < 300 ng/mL OPIATES Normal NEGATIVE LAB L505.5085 < 25 ng/mL PCP Normal NEGATIVE LAB L505.5095 < 50 ng/mL THC Normal NEGATIVE Performed By: #### L505.5000 #### [facility] [address] [place], [address] CBC W/DIFF, AUTOMATED Collected: 09/08/2017 Status: F Source: [place] 9:21 AM [facility] REPOSITORY TYPE CODE TESTS RESULT OUT OF RANGE REFERENCE UNITS LAB L100.1000 4.4-11.0 K/mm3 Normal WBC 10.6 LAB L100.1200 4.2-5.4 M/mm3 Normal RBC 4.23 LAB L100.1300 12.0-15.0 g/dl Normal HGB 13.5 LAB L100.1400 37-47 % Normal HCT 39.2 LAB L100.1500 81-99 fL Normal MCV 92.7 LAB L100.1600 27.0-32.0 pg Normal MCH 31.9 LAB L100.1700 32-36 g/gl Normal MCHC 34.4 LAB L100.1810 11.6-14.6 % Normal RDW CV 13.5 LAB L100.1820 35.1-43.9 fl High RDW SD 45.3 LAB L100.1900 150-450 K/mm3 Normal PLT 252 LAB L100.2000 6.2-12.0 fl Normal MPV 9.4 LAB L100.2100 47-70 % High NEUT% 73.6 LAB L100.2200 19-41 % Low LY% 13.3 LAB L100.2300 0-10 % High MONO% 11.8 LAB L100.2400 0-5 % Normal EO% 0.0 LAB L100.2500 0-1 % Normal BASO% 0.1 LAB L100.2550 0.0-0.9 % High IM GRAN % 1.200 Result Comment: IG% - Immature Granulocytes (promyelocytes, myelocytes and metamyelocytes) > 1% indicates that a LEFT SHIFT is Present. LAB L100.2620 2.0-7.7 X10 3/uL High Absolute Neut 7.8 LAB L100.2720 0.83-4.51 X10 3/ul Normal Absolute Lymph 1.41 Performed By: #### L100.0100 #### [facility] [place], [place], [address] COMPREHENSIVE METABOLIC Collected: 09/08/2017 Status: F Source: [place] 9:21 AM [facility] REPOSITORY TYPE CODE TESTS RESULT OUT OF RANGE REFERENCE UNITS LAB L501.0100 74-106 mg/dL High GLU 109 Result Comment: Fasting Glucose result from 100 to 125 mg/dL suggests IMPAIRED HOMEOSTASIS per A.D.A. criteria. Please note revised GLUCOSE reference range effective 2017. LAB L501.1000 7-18 mg/dL Normal BUN 8 LAB L501.1100 0.55-1.02 mg/dL Normal CREAT,SERUM 0.65 Result Comment: The validity of the calculated GFR AND GFRAA in patients over 70 years has not been determined. Clinical correlation is essential. LAB L501.1110 >60 mL/min Normal EST GFR 99 Result Comment: Non- GFR Calc LAB L501.1115 >60 mL/min Normal EST GFR - AA 119 Result Comment: GFR Calc LAB L501.1255 ml/min Normal Estimated CRCL 86.16 LAB L501.1300 10-20 RATIO Normal BUN/CRE 12.3 LAB L501.1500 6.4-8. g/dL Normal 2 T PROT 7.3 LAB L501.1800 3.2-5. g/dL Normal 0 ALB 3.4 LAB L501.1950 2.2-4. g/dL Normal 2 GLOB 3.9 LAB L501.2000 0.9-2. RATIO Normal 4 A/G 0.9 LAB L501.2200 8.5-10 mg/dL Normal .1 CA 8.5 LAB L501.4100 15-37 U/L High AST 93 LAB L501.4305 45-117 U/L High ALK P 236 LAB L501.4405 13-56 U/L High ALT 78 Result Comment: Please note revised ALT reference range effective 2017. LAB L501.4600 0.20-1.00 mg/dL Normal T BILI 0.80 LAB L501.5300 136-145 mmol/L Low NA 135 LAB L501.5600 3.5-5.1 mmol/L Low K 3.0 LAB L501.5900 98-107 mmol/L Low CL 96 LAB L501.6100 21.0-32.0 mmol/L Normal CO2 26.0 LAB L501.6200 5-15 Normal GAP 13 Performed By: #### L500.4050 #### [facility] [place], [address] ALCOHOL, BLOOD Collected: 09/08/2017 Status: F Source: [place] (MEDICAL)-SERUM 9:21 AM [facility] REPOSITORY TYPE CODE TESTS RESULT OUT OF RANGE REFERENCE UNITS LAB L501.9100 mg/dL Normal SERUM 48.0 ETOH Result Comment: The serum:whole blood ethanol ratio is approximately 1.14 and varies slightly with hematocrit. Medical Alcohol reference interval and critical value in non-tolerant individuals; 50 - 100 Impairment 100 Intoxication 100 - 250 Severe Poisoning 250 - 400 Deep/possible fatal coma Performed By: #### L501.9100 #### [facility] [address] [place], [address] CODING SUMMARY. Observed: 09/06/2017 Status: F Source: [facility] 9:59 PM [facility]ICAL CENTER REPOSITORY CODING DATE: 09/06/2017 FINAL [facility] STATUS: Home (Routine DC) PAYOR: Medical [employer] APC DESCRIPTION 5024 Level 4 Type A ED Visits ADMIT DX: REASON FOR VISIT DX: F10.20 Alcohol dependence, uncomplicated FINAL DX: PRINCIPAL: F10.20 Alcohol dependence, uncomplicated SECONDARY: I10 Essential (primary) hypertension F32.9 Major depressive disorder, single episode, unspecified Z79.899 Other senior care (current) drug therapy Z88.5 Allergy status to narcotic agent status Z88.8 Allergy status to other drugs, medicaments and biological substances status PYMT PROC APC STAT DESCRIPTION DOCTOR NAME DATE NOTE: The code number assigned matches the documented diagnosis and / or procedure in the patient's chart. However, the narrative phrase printed from the coding software may appear abbreviated, or result in slightly different terminology. Revised Coded By: Toya Miller Revised Date Saved: 09/06/2017 09:59 pm HEMOGRAM Collected: 09/04/2017 Status: F Source: [place] 1:25 PM SYSTEM REPOSITORY TYPE CODE TESTS RESULT OUT OF REFERENCE UNITS RANGE LAB IWBC 3.6-10.7 10*3/uL WBC High 14.6 LAB RBC 3.80-5.20 10*6/uL RBC 4.39 LAB HGB 11.7-16.0 g/dL Hemoglobin 14.1 LAB HCT 35.0-47.0 % Hematocrit 41.2 LAB MCV 79.0-98.0 fL MCV 93.8 LAB MCH 26.0-34.0 pg MCH 32.0 LAB MCHC 32.0-36.0 % MCHC 34.1 LAB RDW 11.5-14.5 % RDW 14.3 LAB PLT 140-440 10*3/uL Platelet 306 LAB MPV 7.4-10.4 fL MPV 8.9 Performed By: #### HEMALBIN CMP3, ETOH4 #### The performing lab is in the report. COMP METABOLIC PANEL Collected: 09/04/2017 Status: F Source: [place] 1:25 PM SYSTEM REPOSITORY TYPE CODE TESTS RESULT OUT OF REFERENCE UNITS RANGE LAB NA3 137-145 mmol/L Low Sodium 131 LAB K3 3.5-5.1 mmol/L Low Potassium 3.2 LAB CL3 98-107 mmol/L Low Chloride 90 LAB CO23 22-30 mmol/L Carbon Dioxide 27 LAB ANIN3 Anion Gap 15 LAB GLUC3 70-100 mg/dL Glucose 97 LAB BUN3 7-20 mg/dL Urea Nitrogen 8 LAB CRET3 0.52-1.25 mg/dL Creatinine 0.62 LAB GF3BR >60 mL/min eGFR >60.0 LAB GF3WR >60 mL/min eGFR OTHER >60.0 Result Comment: Source- MDRD equation with creatinine calibration to IDMS(NKDEP) eGFR not recommended for drug dose adjustment LAB CA3 8.4-10.2 mg/dL Calcium 9.0 LAB ALB3 3.5-5.0 g/dL Albumin, Serum 4.4 LAB TP3 6.3-8.2 g/dL Total Protein 7.7 LAB BILT3 0.2-1.3 mg/dL Bilirubin,Total 1.0 LAB ALKP3 38-126 U/L Alkaline High Phosphatase 214 LAB ALT3 13-69 U/L ALT (SGPT) High 98 LAB AST3 15-46 U/L AST (SGOT) High 103 Performed By: #### HEMALBIN, CMP3, ETOH4 #### The performing lab is in the report. ETHANOL SERUM/PLASMA Collected: 09/04/2017 Status: F Source: [place] 1:25 PM SYSTEM REPOSITORY TYPE CODE TESTS RESULT OUT OF RANGE REFERENCE UNITS LAB ETOH3 0.000-0.010 g/dL High 0.046 Ethanol-Seru m/Plasma Result Comment: NOTE: This result is for medical treatment only. Analysis performed using non-forensic procedures. Performed By: #### HEMOG, CMP3, ETOH4 #### The performing lab is in the report. DRUGS OF ABUSE Collected: 09/04/2017 Status: F Source: [place] 1:25 PM SYSTEM REPOSITORY TYPE CODE TESTS RESULT OUT OF REFERENCE UNITS RANGE LAB AMP3 Amphetamines, Ur Negative LAB BENZ3 Benzodiazepines, Negative Ur LAB OXY3 Oxycodone/Oxymorph Negative ine,Ur LAB BARB3 Barbiturates, Ur Negative LAB COC3 Cocaine, Ur Negative LAB METH3 Methadone, Ur Negative LAB OPI3 Opiates, Ur Negative LAB PCP3 Phencyclidine (PCP), Ur Negative Result Comment: The expected value for all of the drugs listed above is Negative. The following drugs or drug groups have been screened for by Immunoassay at the following thresholds: Amphetamine class (1000 ng/mL), Barbiturates (200 ng/mL), Benzodiazepines (200 ng/mL), Cocaine (300 ng/mL), Methadone (300 ng/mL), Opiates (300 ng/mL), Oxycodone (100 ng/mL), and PCP (25 ng/mL). NOTE: These results are for medical treatment only. Analysis performed using non-forensic procedures. Performed By: #### DRGA4, THC4 #### The performing lab is in the report. THC, URINE Collected: 09/04/2017 Status: F Source: [place] 1:25 PM SYSTEM REPOSITORY TYPE CODE TESTS RESULT OUT OF REFERENCE UNITS RANGE LAB THC3 THC, Ur Negative Result Comment: Threshold= 50 ng/mL Performed By: #### DRGA4, THC4 #### The performing lab is in the report. ED PATIENT EDUCATION Observed: 09/03/2017 Status: C Source: [facility] NOTE 8:36 PM MEDICAL CENTER REPOSITORY Family Medicine Alcohol Use Disorder Alcohol use disorder is a mental disorder. It is not a one- time incident of heavy drinking. Alcohol use disorder is the excessive and uncontrollable use of alcohol over time that leads to problems with functioning in one or more areas of daily living. People with this disorder risk harming themselves and others when they drink to excess. Alcohol use disorder also can cause other mental disorders, such as mood and anxiety disorders, and serious physical problems. People with alcohol use disorder often misuse other drugs. Alcohol use disorder is common and widespread. Some people with this disorder drink alcohol to cope with or escape from negative life events. Others drink to relieve chronic pain or symptoms of mental i llness. People with a family history of alcohol use disorder are at higher risk of losing control and using alcohol to excess. SYMPTOMS Signs and symptoms of alcohol use disorder may include the following: ? Consumption of?alcohol in?larger amounts or over a longer period of time than intended. ? Multiple unsuccessful attempts to cut?down or control alcohol use. ? ? A great deal of time spent obtaining alcohol, using alcohol, or recovering from the effects of alcohol (hangover). ? A strong desire or urge to use alcohol (cravings). ? ? Continued use of alcohol despite problems at work, school, or home because of alcohol use. ? ? Continued use of alcohol despite problems in relationships because of alcohol use. ? Continued use of alcohol in situations when it is physically hazardous, such as driving a car. ? Continued use of alcohol despite awareness of a physical or psychological problem that is likely related to alcohol use. Physical problems related to alcohol use can involve the brain, heart, liver, stomach, and intestines. Psychological problems related to alcohol use include intoxication, depression, anxiety, psychosis, delirium, and dementia. ? ? The need for increased amounts of alcohol to achieve the same desired effect, or a decreased effect from the consumption of the same amount of alcohol (tolerance). ? Withdrawal symptoms upon reducing or stopping alcohol use, or alcohol use to reduce or avoid withdrawal symptoms. Withdrawal symptoms include: ? Racing heart. ? Hand tremor. ? Difficulty sleeping. ? Nausea. ? Vomiting. ? Hallucinations. ? Restlessness. ? Seizures. DIAGNOSIS Alcohol use disorder is diagnosed through an assessment by your health care provider. Your health care provider may start by asking three or four questions to screen for excessive or problematic alcohol use. To confirm a diagnosis of alcohol use disorder, at least two symptoms must be present within a 12-month period. The severity of alcohol use disorder depends on the number of symptoms: ? Mild?two or three. ? Moderate?four or five. ? Severe?six or more. Your health care provider may perform a physical exam or use results from lab tests to see if you have physical problems resulting from alcohol use. Your health care provider may refer you to a mental [facility] professional for evaluation. TREATMENT Some people with alcohol use disorder are able to reduce their alcohol use to low-risk levels. Some people with alcohol use disorder need to quit drinking alcohol. When necessary, mental health professi onals with specialized training in substance use treatment can help. Your health care provider can help you decide how severe your alcohol use disorder is and what type of treatment you need. The following forms of treatment are available: ? Detoxification. Detoxification involves the use of prescription medicines to prevent alcohol withdrawal symptoms in the first week after quitting. This is important for people with a history of sympt oms of withdrawal and for heavy drinkers who are likely to have withdrawal symptoms. Alcohol withdrawal can be dangerous and, in severe cases, cause . Detoxification is usually provided in a hospit al or in-patient substance use treatment facility. ? Counseling or talk therapy. Talk therapy is provided by substance use treatment counselors. It addresses the reasons people use alcohol and ways to keep them from drinking again. The goals of talk th erapy are to help people with alcohol use disorder find healthy activities and ways to cope with life stress, to identify and avoid triggers for alcohol use, and to handle cravings, which can cause relapse. ? Medicines.?Different medicines can help treat alcohol use disorder through the following actions: ? Decrease alcohol cravings. ? Decrease the positive reward response felt from alcohol use. ? Produce an uncomfortable physical reaction when alcohol is used (aversion therapy). ? Support groups. Support groups are run by people who have quit drinking. They provide emotional support, advice, and guidance. These forms of treatment are often combined. Some people with alcohol use disorder benefit from intensive combination treatment provided by specialized substance use treatment centers. Both inpatient an d outpatient treatment programs are available. Document Released: 06/29/2005 Document Revised: 10/06/2014 Document Reviewed: 08/29/2013 ExitCare? Patient Information ?2014 [employer]. This information is not intended to replace advice given to you by your health care provider. Make sure you discuss any questions you have with your health care provider. ED PATIENT SUMMARY Observed: 09/03/2017 Status: C Source: [facility] 8:36 PM MEDICAL CENTER REPOSITORY [address] [address] Patient Discharge Instructions Person Information Name: CARRIE LOW Age: 62 Years Arrival Date: 09/03/2017 1:47 PM Discharge Diagnosis: Alcoholism Primary Care Physician: Rahul Parks MD Provider Information Primary Provider: Jasmin Salas DO Physician Geriatric Physician:Augustina Fletcher PA-C The exam and treatment you received in the Emergency Department were for an urgent problem and are not intended as complete care. It is important that you follow up with a doctor, nurse practitioner, or physician?s medical research assistant for ongoing care. If your symptoms become worse or you do not improve as expected and you are unable to reach your usual health care provider, you should return to the Emergency Department. We are available 24 hours a day. CARRIE LOW has been given the following list of patient education materials, prescriptions and follow-up instructions: Follow-up Instructions: With: Address: When: Chemical Dependency: In 3 days 09/06/2017 With: Address: When: Rahul Parks [employer] [place] [id number] [facility] (1) In 3 days In the event that this physician does not participate in your insurance network, please consult with your insurance company to find a nearby participating provider. Patient Education Materials: Alcohol Use Disorder Medications Given: Medication Dose Route No medications found. Medication Information: Medications to Continue with No Changes Other Medications amlodipine (amLODIPine 10 mg Tab) 1 Tabs By Mouth every day. atorvastatin By Mouth every day. buPROPion (Wellbutrin XL 300 mg/24 hours Tab-ER) 1 Tabs By Mouth every 24 hours. hydrochlorothiazide (hydrochlorothiazide 25 mg oral tablet) 1 Tabs By Mouth every day. potassium chloride (potassium chloride 20 mEq ER Tab) 1 Tabs By Mouth 2 times a day. Comment: Pharmacy Information: Other: [facility] [place] Thank you for choosing [facility] Patient Education Materials: Alcohol Use Disorder Alcohol use disorder is a mental disorder. It is not a one- time incident of heavy drinking. Alcohol use disorder is the excessive and uncontrollable use of alcohol over time that leads to problems with functioning in one or more areas of daily living. People with this disorder risk harming themselves and others when they drink to excess. Alcohol use disorder also can cause other mental disorders, such as mood and anxiety disorders, and serious physical problems. People with alcohol use disorder often misuse other drugs. Alcohol use disorder is common and widespread. Some people with this disorder drink alcohol to cope with or escape from negative life events. Others drink to relieve chronic pain or symptoms of mental i llness. People with a family history of alcohol use disorder are at higher risk of losing control and using alcohol to excess. SYMPTOMS Signs and symptoms of alcohol use disorder may include the following: ? Consumption of?alcohol in?larger amounts or over a longer period of time than intended. ? Multiple unsuccessful attempts to cut?down or control alcohol use. ? ? A great deal of time spent obtaining alcohol, using alcohol, or recovering from the effects of alcohol (hangover). ? A strong desire or urge to use alcohol (cravings). ? ? Continued use of alcohol despite problems at work, school, or home because of alcohol use. ? ? Continued use of alcohol despite problems in relationships because of alcohol use. ? Continued use of alcohol in situations when it is physically hazardous, such as driving a car. ? Continued use of alcohol despite awareness of a physical or psychological problem that is likely related to alcohol use. Physical problems related to alcohol use can involve the brain, heart, liver, stomach, and intestines. Psychological problems related to alcohol use include intoxication, depression, anxiety, psychosis, delirium, and dementia. ? ? The need for increased amounts of alcohol to achieve the same desired effect, or a decreased effect from the consumption of the same amount of alcohol (tolerance). ? Withdrawal symptoms upon reducing or stopping alcohol use, or alcohol use to reduce or avoid withdrawal symptoms. Withdrawal symptoms include: ? Racing heart. ? Hand tremor. ? Difficulty sleeping. ? Nausea. ? Vomiting. ? Hallucinations. ? Restlessness. ? Seizures. DIAGNOSIS Alcohol use disorder is diagnosed through an assessment by your health care provider. Your health care provider may start by asking three or four questions to screen for excessive or problematic alcohol use. To confirm a diagnosis of alcohol use disorder, at least two symptoms must be present within a 12-month period. The severity of alcohol use disorder depends on the number of symptoms: ? Mild?two or three. ? Moderate?four or five. ? Severe?six or more. Your health care provider may perform a physical exam or use results from lab tests to see if you have physical problems resulting from alcohol use. Your health care provider may refer you to a mental [facility] professional for evaluation. TREATMENT Some people with alcohol use disorder are able to reduce their alcohol use to low-risk levels. Some people with alcohol use disorder need to quit drinking alcohol. When necessary, mental health professi onobi with specialized training in substance use treatment can help. Your health care provider can help you decide how severe your alcohol use disorder is and what type of treatment you need. The following forms of treatment are available: ? Detoxification. Detoxification involves the use of prescription medicines to prevent alcohol withdrawal symptoms in the first week after quitting. This is important for people with a history of sympt oms of withdrawal and for heavy drinkers who are likely to have withdrawal symptoms. Alcohol withdrawal can be dangerous and, in severe cases, cause . Detoxification is usually provided in a hospit al or in-patient substance use treatment facility. ? Counseling or talk therapy. Talk therapy is provided by substance use treatment counselors. It addresses the reasons people use alcohol and ways to keep them from drinking again. The goals of talk th erapy are to help people with alcohol use disorder find healthy activities and ways to cope with life stress, to identify and avoid triggers for alcohol use, and to handle cravings, which can cause relapse. ? Medicines.?Different medicines can help treat alcohol use disorder through the following actions: ? Decrease alcohol cravings. ? Decrease the positive reward response felt from alcohol use. ? Produce an uncomfortable physical reaction when alcohol is used (aversion therapy). ? Support groups. Support groups are run by people who have quit drinking. They provide emotional support, advice, and guidance. These forms of treatment are often combined. Some people with alcohol use disorder benefit from intensive combination treatment provided by specialized substance use treatment centers. Both inpatient an d outpatient treatment programs are available. Document Released: 06/29/2005 Document Revised: 10/06/2014 Document Reviewed: 08/29/2013 ExitCare? Patient Information ?2015 [employer]. This information is not intended to replace advice given to you by your health care provider. Make sure you discuss any questions you have with your health care provider. FLORIDALMA Savage SUSAN R , have received the following patient education materials/instructions and have verbalized understanding: Patient Education Materials: Alcohol Use Disorder Follow-up Instructions: With: Address: When: Chemical Dependency: In 3 days 09/06/2017 With: Address: When: Rahul Parks [address] [place] [address] Business (1) In 3 days Prescriptions: Patient Signature Date Clinician/Nurse Signature Date 09/03/17 20:36:34 ED CLINICAL SUMMARY Observed: 09/03/2017 Status: C Source: [facility] 8:36 PM [facility] REPOSITORY [address] [address] ED Clinical Summary Person Information Name: LOWAMINAH CRAINAMINATA Loo [place] Age: 62 Years : 1955 12:00 AM Sex: Female Language: Swedish PCP: Rahul Parks MD Marital Status: Visit Id: Visit Reason: Alcohol abuse; MEDICATION TO HELP WITH ALCOHOL WITHDRAWAL Speciality: Acuity: 3 Enc Type: Emergency Med Service: Emergency Arrival: 09/03/2017 1:47 PM Discharge: 09/03/2017 8:36 PM LOS: 000 06:49 Checkin: 09/03/2017 1:47 PM Checkout: 09/03/2017 8:36 PM Dispo Type: Home (Routine DC) EVENTS: Event Name Event Status Request Date/Time Start Date/Time Complete Date/Time Arrive Complete 09/03/2017 1:47 PM 09/03/2017 1:47 PM 09/03/2017 1:47 PM Document Home Meds Request 09/03/2017 1:47 PM Triage Complete 09/03/2017 1:47 PM 09/03/2017 1:56 PM 09/03/2017 1:56 PM Bed Assign Complete 09/03/2017 1:51 PM 09/03/2017 1:51 PM 09/03/2017 1:[address] Exam Complete 09/03/2017 1:51 PM 09/03/2017 1:53 PM 09/03/2017 1:53 PM RN Exam Complete 09/03/2017 1:51 PM 09/03/2017 2:30 PM 09/03/2017 2:30 PM Registration Complete 09/03/2017 1:53 PM 09/03/2017 1:53 PM 09/03/2017 1:53 PM Reg Complete Request 09/03/2017 1:53 PM Reg Bed Request Complete 09/03/2017 1:53 PM 09/03/2017 1:53 PM 09/03/2017 1:53 PM Registration Request 09/03/2017 1:[address] Exam Complete 09/03/2017 1:53 PM 09/03/2017 1:53 PM 09/03/2017 1:53 PM Discharge Cancel 09/03/2017 3:32 PM 09/03/2017 3:40 PM Pending Labs Complete 09/03/2017 3:42 PM 09/03/2017 5:52 PM Lab Complete 09/03/2017 3:42 PM 09/03/2017 5:52 PM Urine Collect Complete 09/03/2017 3:42 PM 09/03/2017 5:52 PM Pending Labs Complete 09/03/2017 4:03 PM 09/03/2017 4:03 PM 09/03/2017 4:21 PM Lab Complete 09/03/2017 4:03 PM 09/03/2017 4:03 PM 09/03/2017 4:21 PM Pending Labs Complete 09/03/2017 4:03 PM 09/03/2017 4:03 PM 09/03/2017 4:03 PM Pending Labs Complete 09/03/2017 4:03 PM 09/03/2017 4:03 PM 09/03/2017 4:03 PM Pending Labs Complete 09/03/2017 4:13 PM 09/03/2017 4:13 PM 09/03/2017 4:13 PM Lab Complete 09/03/2017 4:13 PM 09/03/2017 4:13 PM 09/03/2017 4:13 PM Discharge Complete 09/03/2017 8:13 PM 09/03/2017 8:36 PM 09/03/2017 8:36 PM Transfer Complete 09/03/2017 8:36 PM 09/03/2017 8:36 PM 09/03/2017 8:36 PM ADDRESS: [place] [id number] PHYS DOC NOTES: MEDICAL INFORMATION: Prescriptions Given: Home Meds Display atorvastatin Oral, Daily, Refills(s) 0 PATIENT EDUCATION INFORMATION: Instructions: Alcohol Use Disorder Follow up: With: Address: When: Chemical Dependency: In 3 days 09/06/2017 With: Address: When: Rahul Parks [address] [place] [place] [address] Business (1) In 3 days DIAGNOSIS: Alcoholism INTERDISCIPLINARY NOTE - Observed: 09/03/2017 Status: F Source: [facility] 8:32 PM MEDICAL CENTER REPOSITORY This pt. rep was called from Maylin VELEZmanager contract about this pt. wanting help with going to a inpatient detox facility. Maylin stated that she already has a call out to [facility] detox center and is waiting to hear back. This pt. rep took over with helping this pt. find a facility to go to for inpatient detox. I called several detox facility including [facility] who stated this pt. had multipe appts. here that she no showed going to. Also called [facility] in [facility] and Joshua gave couple numbers of facilities. [facility] in [place] along with [facility] in [place]. [facility], [facility] no luck with any available beds. This pt. rep along with Jasmin VELEZ went in to explain what I was informed from the two facilities. That [facility] and [facility] had beds available and did call back and was willing to accept this pt. at their facility. Although pt. would have to agree to be transported to their facility by squad from ER to ER. After informing this pt about her being accepted at both facilities and would need to go by squad. Pt. stated she would not go due to financially she could not afford the deductible along with the bill for the squad. Pt. was very frustrated that she had been waiting for so long on trying to get a facility to accept her. I did inform her and her that is not a quick process and that it takes time to hear back from facility physician after they review chart. Pt stated she understands just is frustrating. Pt. stated I just want to leave I will call those places on my own or have my just drive me to [facility] tomorrow and try to get in there. I gave this pt. resources of places she can call. Pt. and her verbalized understanding and this pt. rep remained available. ED NOTE-PHYSICIAN Observed: 09/03/2017 Status: F Source: [facility] 8:13 PM MEDICAL CENTER REPOSITORY patient was accepted at 2 different facilities per health care social worker for alcohol dependency treatment. She will require transfer via Squad and she does not want to go . Her is here and she is requesting discharge immediately to go home with her . He is in the room with her and has no questions or input at this time. Will discharge home in the care of her . Result Comment: Electronically Signed By: Tito JIN, Nile\.br\Date and Time Signed: 09/03/17 20:15 EDT URINALYSIS Collected: 09/03/2017 Status: F Source: [facility] 5:27 PM MEDICAL CENTER REPOSITORY TYPE CODE TESTS RESULT OUT OF RANGE REFERENCE UNITS LAB [id number](L [facility]) Normal UA Spec Desc Random Urine LAB 39685-5(LO Yellow INC) Normal COLOR:TYPE:PT:U YELLOW RINE:NOM:AUTO LAB 10567-7(LO Clear INC) Normal CLARITY:TYPE:PT CLEAR :URINE:NOM: LAB 5811-5(SRAVANI 1.005-1.030 NC) Unknown SPECIFIC 1.010 GRAVITY:RDEN:PT :URINE:QN:TEST STRIP LAB 5803-2(SRAVANI 5.0-9.0 NC) Unknown PH:LSCNC:PT:URI 6.0 NE:QN:TEST STRIP LAB 5804-0(SRAVANI Negative NC) Normal PROTEIN:MCNC:PT NEGATIVE :URINE:QN:TEST STRIP LAB 5792-7(SRAVANI Negative NC) Normal GLUCOSE:MCNC:PT NEGATIVE :URINE:QN:TEST STRIP LAB 5797-6(SRAVANI Negative NC) Normal KETONES:MCNC:PT NEGATIVE :URINE:QN:TEST STRIP LAB 92568-4(LO 0.0-1.0 EU/dL INC) Normal UROBILINOGEN:AC 0.2 NC:PT:URINE:QN: TEST STRIP LAB 5794-3(SRAVANI Negative NC) Abnormal HEMOGLOBIN:PRTH 3+ R:PT:URINE:ORD: TEST STRIP LAB 5802-4(SRAVANI Negative NC) Normal NITRITE:PRTHR:P NEGATIVE T:URINE:ORD:CHIQUIS T STRIP LAB 91852-7(LO Negative INC) Abnormal LEUKOCYTES:PRTH TRACE R:PT:URINE:ORD: AUTOMATED LAB 5770-3(SRAVANI Negative NC) Normal BILIRUBIN:PRTHR NEGATIVE :PT:URINE:ORD:T EST STRIP LAB 5821-4(SRAVANI 0-5 /HPF NC) Normal LEUKOCYTES:ALEXIA 0-5 C:PT:URINE SED:QN:MICROSCO PY.LIGHT.HPF LAB 90239-0(LO 0-3 /HPF INC) Normal LITHIUM.PLASMA/ 0-3 LITHIUM.RBC:MRT O:PT:BLD:QN: LAB 90093-4(LO 0-2 /HPF INC) Normal EPITHELIAL 0-2 CELLS.SQUAMOUS: NARIC:PT:URINE SED:QN:MICROSCO PY.LIGHT.HPF LAB 8247-9(SRAVANI NC) Normal MUCUS:PRTHR:PT: TRACE URINE SED:ORD:MICROSC OPY.LIGHT LAB 05821-2(LO INC) Normal CRYSTALS:PRTHR: Present PT:URINE SED:ORD:MICROSC OPY.LIGHT Performed By: #### [id number] #### [facility] [address] [place] [address] U DRUG SCREEN Collected: 09/03/2017 Status: F Source: [facility] 5:27 PM [facility] CENTER REPOSITORY TYPE CODE TESTS RESULT OUT OF RANGE REFERENCE UNITS LAB 12135-1(SRAVANI Negative NC) Normal NEG AMPHETAMINES :PRTHR:PT:UR INE:ORD:SCRE EN>1000 NG/ML Result Comment: Negative Cutoff: <1000 ng/mL LAB 93547-7(LOINC) Negative BARBITURATES:PRTHR:PT:URINE:ORD:SCREEN Normal NEG Result Comment: Negative Cutoff: <200 ng/mL LAB 11166-3(LOINC) Negative BENZODIAZEPINES:PRTHR:PT:URINE:ORD:SCREEN Abnormal POS Result Comment: Results verified by repeat analysis\Unconfirmed by alternate method\No confirmation requested by Physican\Critical Result UD_BENZ:POS Called to JACLYN HATHAWAY AT ER by JONNY RAYMUNDO And Read B ack For Confirmation at: 09/03/2017 17:52:28 Negative Cutoff: <200 ng/mL LAB 28621-7(LOINC) Negative TETRAHYDROCANNABINOL:PRTHR:PT:URINE:ORD:SCREEN>50 NG/ML Normal NEG Result Comment: Negative Cutoff: <50 ng/mL LAB 3397-7(LOINC) Negative COCAINE:PRTHR:PT:URINE:ORD: Normal NEG Result Comment: Negative Cutoff: <300 ng/mL LAB 21394-2(LOINC) Negative OPIATES:PRTHR:PT:URINE:ORD:SCREEN Normal NEG Result Comment: Negative Cutoff: <300 ng/mL LAB 24402-8(LOINC) Negative PHENCYCLIDINE:PRTHR:PT:URINE:ORD:SCREEN>25 NG/ML Normal NEG Result Comment: Negative Cutoff: <25 ng/mL These drug screen results are to be used for medical (i.e., treatment) purposes only. Unconfirmed drug screening results must not be used for non-medical purposes (e.g., employment testing, legal testing). Performed By: #### [id number] #### [facility] [address] [place] [address] CBC W/ AUTO DIFF Collected: 09/03/2017 Status: F Source: [facility] 4:01 PM [facility] CENTER REPOSITORY TYPE CODE TESTS RESULT OUT OF REFERENCE UNITS RANGE LAB 27606-2(LO 4.0-11.0 E9/L INC) LEUKOCYTES Normal 10.6 LAB 789-8(LOIN 4.3-5.9 E12/L C) Low ERYTHROCYTES:NCNC: 4.2 PT:BLD:QN:AUTOMATE D COUNT LAB 718-7(LOIN 12.0-16.0 gm/dL C) Normal HEMOGLOBIN:MCNC:PT 13.7 :BLD:QN: LAB 4544-3(SRAVANI 34.0-46.0 % NC) Normal HEMATOCRIT:VFR:PT: 39.2 BLD:QN:AUTOMATED COUNT LAB 788-0(LOIN 10.9-14.2 % C) ERYTHROCYTE Normal DISTRIBUTION 14.0 WIDTH:RATIO:PT:RBC :QN:AUTOMATED COUNT LAB 785-6(LOIN 27.0-34.0 pg C) ERYTHROCYTE Normal MEAN CORPUSCULAR 32.8 HEMOGLOBIN:ENTMASS :PT:RBC:QN:AUTOMAT ED COUNT LAB 786-4(LOIN 31.4-39.3 gm/dL C) ERYTHROCYTE Normal MEAN CORPUSCULAR 35.0 HEMOGLOBIN CONCENTRATION:MCNC :PT:RBC:QN:AUTOMAT ED COUNT LAB 787-2(LOIN 80.0-100.0 fL C) ERYTHROCYTE Normal MEAN CORPUSCULAR 93.7 VOLUME:ENTVOL:PT:R BC:QN:AUTOMATED COUNT LAB 32070-0(LO 6.4-10.8 fL INC) PLATELET MEAN Normal VOLUME:ENTVOL:PT:B 8.4 LD:QN:AUTOMATED COUNT LAB 777-3(LOIN 150.0-500.0 E9/L C) Normal PLATELETS:NCNC:PT: 274.0 BLD:QN:AUTOMATED COUNT Performed By: #### [id number], [id number] #### [facility] [address] [place] [address] AUTO DIFF Collected: 09/03/2017 Status: F Source: [facility] 4:01 PM [facility] REPOSITORY Order Comment: Order Added by Discern Expert. TYPE CODE TESTS RESULT OUT OF RANGE REFERENCE UNITS LAB 751-8(LOINC 36.0-75.0 % ) High 79.1 NEUTROPHILS: NCNC:PT:BLD: QN:AUTOMATED COUNT LAB 731-0(LOINC 14.0-50.0 % ) Low 13.7 LYMPHOCYTES: NCNC:PT:BLD: QN:AUTOMATED COUNT LAB 742-7(LOINC 4.0-14.0 % ) Normal 6.4 MONOCYTES:NC NC:PT:BLD:QN :AUTOMATED COUNT LAB 711-2(LOINC 0.0-8.0 % ) Normal 0.1 EOSINOPHILS: NCNC:PT:BLD: QN:AUTOMATED COUNT LAB 704-7(LOINC 0.0-2.0 % ) Normal 0.7 BASOPHILS:NC NC:PT:BLD:QN :AUTOMATED COUNT LAB 14046-6(SRAVANI 2.0-7.5 E9/L NC) High 8.4 NEUTROPHILS/ LEUKOCYTES:N FR.DF:PT:BLD :QN:AUTOMATE D COUNT LAB 48789-9(SRAVANI 1.0-4.0 E9/L NC) Normal 1.5 LYMPHOCYTES/ LEUKOCYTES:N FR.DF:PT:BLD :QN:AUTOMATE D COUNT LAB 95352-3(SRAVANI 0.2-1.0 E9/L NC) Normal 0.7 MONOCYTES/LE UKOCYTES:NFR .DF:PT:BLD:Q N:AUTOMATED COUNT LAB 07724-2(SRAVANI 0.0-0.5 E9/L NC) Normal 0.0 EOSINOPHILS/ LEUKOCYTES:N FR.DF:PT:BLD :QN:AUTOMATE D COUNT LAB 51938-8(SRAVANI 0.0-0.2 E9/L NC) Normal 0.1 BASOPHILS/LE UKOCYTES:NFR .DF:PT:BLD:Q N:AUTOMATED COUNT Performed By: #### [id number], [id number], [id number] #### [facility] [address] [place] [address] CMP Collected: 09/03/2017 Status: F Source: [facility] 4:01 PM [facility] REPOSITORY TYPE CODE TESTS RESULT OUT OF RANGE REFERENCE UNITS LAB 2339-0(LOIN 55-199 mg/dL C) Normal 84 GLUCOSE:MCNC :PT:BLD:QN: Result Comment: If this glucose result represents a fasting glucose, interpretation should refer to the following reference range: 55-99 mg/dL LAB 3094-0(LOINC) 5-21 mg/dL UREA NITROGEN:MCNC:PT:SER/PLAS:QN: Normal 6 LAB 2160-0(LOINC) 0.5-1.3 mg/dL CREATININE:MCNC:PT:SER/PLAS:QN: Normal 0.6 LAB 00720-0(LOINC) 8.9-11. mg/dL 1 CALCIUM:MCNC:PT:SER/PLAS:QN: Low 8.7 LAB 2951-2(LOINC) 135-145 mmol/L SODIUM:SCNC:PT:SER/PLAS:QN: Low 132 LAB 2823-3(LOINC) 3.5-5.3 mmol/L POTASSIUM:SCNC:PT:SER/PLAS:QN: Low 3.0 LAB 2075-0(LOINC) 101-111 mmol/L CHLORIDE:SCNC:PT:SER/PLAS:QN: Low 92 LAB 2027-9(LOINC) 21-31 mmol/L CARBON DIOXIDE:SCNC:PT:SER/PLAS:QN: Normal 28 LAB 6768-6(LOINC) 21-98 Int._Uni ALKALINE t/L PHOSPHATASE:CCNC:PT:SER/PLAS:QN: High 195 LAB 1975-2(LOINC) 0.0-1.1 mg/dL BILIRUBIN:MCNC:PT:SER/PLAS:QN: Normal 0.7 LAB 1751-7(LOINC) 3.3-5.0 gm/dL ALBUMIN:MCNC:PT:SER/PLAS:QN: Normal 3.8 LAB 2885-2(INC) 6.0-7.8 gm/dL PROTEIN:MCNC:PT:SER/PLAS:QN: Normal 7.5 LAB 1744-2(INC) 6-46 Int._Uni ALANINE t/L AMINOTRANSFERASE:CCNC:PT:SER/CANDIDA High S:QN:WITHOUT P-5'-P 87 LAB 1920-8(INC) 5-43 Int._Uni ASPARTATE t/L AMINOTRANSFERASE:CCNC:PT:SER/CANDIDA High S:QN: 112 LAB 3097-3(INC) 10-20 No Units UREA NITROGEN/CREATININE:MRTO:PT:SER/ Normal PLAS:QN: 10 LAB 92309-3(INC) 6-16 mEq/L ANION GAP:SCNC:PT:SER/PLAS:QN: Normal 15 LAB 34322-3(LOINC) 1.4-4.0 gm/dL GLOBULIN:MCNC:PT:SER:QN:CALCULAT Normal ED 3.7 LAB 26304-9(LOINC) 1.1-2.2 ALBUMIN/GLOBULIN:MCRTO:PT:SER:QN Low : 1.0 Performed By: #### [id number], [id number], [id number], [id number] #### [facility] [address] [place] [id number] EGFR Collected: 09/03/2017 Status: F Source: [facility] 4:01 PM [facility] CENTER REPOSITORY Order Comment: Order added by Discern Expert. TYPE CODE TESTS RESULT OUT OF RANGE REFERENCE UNITS LAB 66123-8(LO >=59 mL/min/1.7 INC) 3 m2 Normal GLOMERULAR >60 FILTRATION RATE/1.73 SQ M.PREDICTED.NON BLACK:ARVRAT:PT: SER/PLAS:QN:CREA TININE-BASED FORMULA (MDRD) Result Comment: Chronic kidney disease could be indicated at eGFR's of less than 60 mL/min/1.73m2. Kidney failure is indicated at less than 15 mL/min/1.73m2. LAB 08752-3(LOINC) GLOMERULAR >=59 mL/min/1.73 FILTRATION RATE/1.73 SQ m2 M.PREDICTED.BLACK:ARVRAT:PT:SER/PLAS:QN:CREATININE-BASED FORMULA (MDRD) Normal >60 Result Comment: eGFR is race adjusted. AA=. Performed By: #### [id number], [id number], [id number], [id number] #### [facility] [address] [place] [address] ETHANOL Collected: 09/03/2017 Status: F Source: [facility] 4:01 PM [facility] CENTER REPOSITORY TYPE CODE TESTS RESULT OUT OF RANGE REFERENCE UNITS LAB 5643-2(LOIN <=7 mg/dL C) Abnormal 103 ETHANOL:MCN C:PT:SER/PL :QN: Result Comment: Critical Result S_ETOH:103.0 Called to BEATRIZ NAVA AT ER by JONNY RAYMUNDO And Read Back For Confirmation at: 09/03/2017 16:25:26\Results verified by repeat analysis Performed By: #### [id number] #### [facility] [address] [place] [address] INTERDISCIPLINARY NOTE - Observed: 09/03/2017 Status: F Source: [facility] 3:59 PM [facility] REPOSITORY CRM spoke with pt and spouse. Pt states she wants to Detox from ETOH. CRM asked how much she drinks and what kind of ETOH. Pt states she drinks wine mostly, but also drinks low volume Vodka (thinks 4 0%). Spouse states pt drinks about two fifths a day of Vodka. Pt then states she doesn't drink it every day. Pt admits she cannot have just one or two drinks, it is always more. Pt states ER doctor had her on the phone with [facility] but got disconnected. CRM talked with doctor and he provided numbers and a list. CRM then called and spoke with Patricia at [facility]. Patricia states they need lab's includi ng CMP and BMP, EKG, UA and Tox Screen, Face Sheet and Copy of insurance card. While CRM was on the phone, pt heard what was needing done and became upset stating no she is not having all that done, it was just done the other day. Spouse states no, it has been a few days ago and they would need more current testing. Doctor at bedside and explained why it is needed. Pt still very upset and not wan ting them. CRM told Patricia at [facility] she will call them back. Spouse told pt what are we going to do, go home again and you drink again? Doctor explained even further to pt the need of testing, pt n ow in agreement. CRM explained any detox center is going to require the testing. CRM called [facility] back and was unable to speak with anyone, but left a message. [facility] ED NOTE Observed: 09/03/2017 Status: F Source: [facility] 3:34 PM [facility] REPOSITORY Patient is in the bed at this time. This POCT enters to obtain new set of vitals. Visitor at the bedside. Maylin Roth from Social Work is also at the bedside. Patient asks if doctor is going to order her something medication goldberg or if we are just going to make phone calls. Tom LONDON states that she is going to be discharged after phone calls are made with social work ED NOTE-PHYSICIAN Observed: 09/03/2017 Status: F Source: [facility] 3:32 PM [facility] REPOSITORY Basic Information Time Seen: Augustina Fletcher PA-C 09/03/2017 13:53 Chief Complaint requesting medicine to help me get off alcohol pt advises her last drink was in the car on the way here History of Present Illness This is a 62-year-old female present CR requesting medication to help her with alcohol withdrawal pressure. She states she's been alcoholic for long time, her last drink was just before walking insi de the emergency department in the parking lot, she had a shot of vodka, she denies having any auditory or visual hallucinations, no tremors, no blackouts, no chest pain no-shows of breath, no nausea vo miting diarrhea, she states she has an appointment with [facility] next week, and she just needs a medication together throat that point. Review of Systems Constitutional: no fever, no chills, no sweats, no weakness Skin: no Jaundice, no rash, no lesions, nopetechiae ENMT: no ear pain, no sore throat, no congestion, no hoarseness Respiratory: no shortness of breath, no cough, no orthopnea, no wheezing Cardiovascular: no chest pain, no palpitations, no edema Gastrointestinal: no nausea, no vomiting, no diarrhea, no GI bleeding Genitourinary: no dysuria, no hematuria, no discharge, no pain Musculoskeletal: no back pain, no trauma Neurologic: no headache, no dizziness, no numbness, no weakness Psychiatric: no sleeping problems, no irritability, no mood swings/depression. Heme/Lymph: no bleeding tendency, no bruising tendency, no petechiae, no swollen nodes Allergy/Immunologic: no seasonal allergies, no food allergies, no recurrent infections, no impaired immunity Additional ROS info: Except as noted in the above Review of Systems and in the History of Present Illness all other systems have been reviewed and are negative or noncontributory. Physical Exam Vitals & Measurements T: 37.1 ?C (Oral) HR: 109(Peripheral) RR: 18 BP: 145/82 SpO2: 95% HT: 168 cm WT: 86.2 kg BMI: 30.54 General: alert, no acute distress Skin: warm, dry Head: no trauma, normocephalic Neck: Trachea midline, no adenopathy, no tenderness Cardiovascular: regular rate and rhythm, normal peripheral perfusion Respiratory: Lungs CTA, respirations non labored Chest wall: no deformity. Gastrointestinal: soft, non distended, no tenderness, no guarding. Back: No tenderness, Normal ROM, Normal alignment. Extremities: no deformity, no trauma Neurological: oriented x 4, LOC appropriate for age, CN II-XII intact, motor strength equal & normal bilaterally, sensation equal & normal bilaterally, speech normal Psychiatric: cooperative, affect appropriate for age, normal judgement, normal psychiatric thoughts. Medical Decision Making Elevated liver enzymes were noted, patient does not appear toxic or cyanotic, does not appear jaundice, alert oriented, she's not suicidal or homicidal, does not appear diaphragmatic, no tremors, he r last drink was today in the parking lot she had a shot of vodka for checking into emergency department. Is accepted at [facility], [facility] health care social worker spoke with [facility]. Patient is medically cleared for detox admission. Assessment/Plan Alcoholism Disposition Plan Discharge Prescription List Prescriptions No active prescription medications Follow-up With When Contact Information Chemical Dependency: In 3 days 09/06/2017 EDT Additional Instructions: Rahul Parks In [address] [place], [place] [address] (1) Additional Instructions: Patient Education Alcohol Use Disorder Attestation Patient was treated and evaluated by the Physician Geriatric Physician. The attending physician was in the Emergency Department at all times and supervised care. The case was discussed with the attending physic miguel and diagnostics were reviewed as needed. Awaiting potential acceptance at alcohol detox facility. Pt care transitioned to Dr. Francis at shift change. Problem List/Past Medical History Ongoing Smoker Historical Alcoholism Depression HTN - Hypertension spastic dyphonia Procedure/Surgical History botox in vocal cords, Hip replacement, Ovarian Cyst Removal in 2001. Medications Inpatient No active inpatient medications Home amLODIPine 10 mg Tab, 10 mg= 1 tab(s), Oral, Daily atorvastatin, Oral, Daily hydrochlorothiazide 25 mg oral tablet, 25 mg= 1 tab(s), Oral, Daily potassium chloride 20 mEq ER Tab, 20 mEq= 1 tab(s), Oral, BID Wellbutrin XL 300 mg/24 hours Tab-ER, 300 mg= 1 tab(s), Oral, q24hr Allergies Contrast Dye Demerol HCl (hypertension) PHENobarbital (hives) Shrimp Social History Alcohol Current, Wine, Liquor, Daily, Previous treatment: Inpatient. Alcohol use interferes with work or home: Yes. Drinks more than intended: Yes. Others hurt by drinking: Yes. Ready to change: Yes. Househ old alcohol concerns: Yes., 09/03/2017 Current, Liquor, 04/06/2017 Current, Wine, Liquor, Daily, 08/23/2016 Current, Wine, 04/14/2016 Current, Wine, Liquor, 11/22/2015 Current, Liquor, 3-5 times per week, 07/22/2015 Current, Wine, Several times per day, 07/16/2014 Current, Beer, Liquor, 1-2 times per week, Started age 19 Years. Previous treatment: Alcoholics Anonymous, Inpatient, Outpatient. Alcohol use interferes with work or home: Yes. Drinks more than inte nded: Yes. Others hurt by drinking: No. Ready to change: Yes. 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 Diagnostic Results No qualifying data available. Result Comment: Electronically Signed By: Augustina Fletcher PA-C\.br\Date and Time Signed: 09/03/17 15:34 EDT\.br\Electronically Co-Signed By: Augustina Fletcher PA-C\.br\Date and Time Co-Signed: 09/03/17 18:23 EDT\.br\Electronically Co-Signed By: Jasmin Salas DO\.br\Date and Time Co-Signed: 09/04/17 08:56 EDT 12 LEAD ELECTROCARDIOGRAM Observed: 08/31/2017 Status: F Source: [place] 2:38 PM [facility] REPOSITORY [facility] Cardiovascular Services [address] [place] [address] 12 Lead EKG 08/30/17 1909 MR#: [id number] Acct: [id number] Name: CARRIE LOW Rep #: [id number] : 1955 62 From: Renato Freed MD Attending Dr: Status: DEP ER Ordering Dr: Leilani Butts MD Date: 08/30/17 Location: ED Sex: F C Admitted: Test Reason : Blood Pressure : / mmHG Vent. Rate : 091 BPM Atrial Rate : 091 BPM P-R Int : 152 ms QRS Dur : 088 ms QT Int : 386 ms P-R-T Axes : 017 023 041 degrees QTc Int : 474 ms Normal sinus rhythm Normal ECG Confirmed by RENATO FREED MD ([id number]), newspaper editor managing MIGUEL A KOLB ([id number]) on 08/31/2017 2:37:57 PM Referred By: AUGUSTIN Confirmed By:RENATO FREED MD 08/31/17 1438 Date Renato Freed MD CC: No Primary Care Physician; Leilani Butts MD Signed EMERGENCY DEPARTMENT Observed: 08/31/2017 Status: F Source: [place] SUMMARY 12:41 AM [facility] REPOSITORY [facility] Medical Records Department [address] [place] [address] Emergency Department Summary 08/30/172055 MR#: [id number] Acct: [id number] Name: CARRIE LOW Rep #: [id number] : 1955 62 From: Leilani Butts MD PCP: Care Physician, No Primary Status: DEP ER - ER Visit Summary Date of Service: 08/30/17 Chief Complaint: EtOH withdrawal/palpitations History of Present Illness: The patient is a 62 F with a history of alcoholism. Patient states for the last 2 months she started drinking again. She drinks 1-2 bottles of vodka a day. Patient states the last 3 nights she has been having some palpitations that wake her from sleep. She states they last only a few seconds at a time. She denies near syncope. She does not have chest pain associated with this. Patient believes the palpitations are associated with alcohol withdrawal. She is trying to cut down on how much she is drinking. She is interested in [facility], but states that she needs to fill out appeal paperwork in order for her insurance to cover it first. Physical Examination: Vital signs are unremarkable. She is not tachycardic at this time. Head neck examination is unremarkable. Heart is regular rate and rhythm. Lung sounds are clear. Abdomen is soft and nontender. Hypoactive bowel sounds are noted throughout. Neuro exam is unremarkable. No tremor is noted. Test Results: Chest x-ray reveals mild left basilar atelectasis. EKG is sinus at 91 with no sign of ischemia. CBC was a white count 11.9 with 78% neutrophils. Chemistry studies are 129 and potassium is 3.1. The only labs I have available for comparison are from a year and a half ago at that time her sodium was in the low 130s and her potassium was 3.2. LFTs revealed alk phos of 196, ALT 77, AST of 80. Coags are normal. Urinalysis does show grade 100 RBCs. There is no sign of infection. Troponin is less than 0.02. Her EtOH is 135. Emergency Department Course and Treatment: Patient was given IV fluids and Zofran here. She was given 40 mEq of potassium. At this time patient has remained asymptomatic. She wishes to follow-up with [facility] as an outpatient tomorrow. I am unsure as to the etiology of her hematuria. Patient is having no abdominal pain. She states that she did urinate again while in the emergency room and did not note any blood. Patient is currently taking 20 mEq of potassium twice a day. She will increase this to 40 mEq in the morning and 20 in the evening. She will do this for the next 5 days and then have her potassium rechecked. Treatment Plan: [] Disposition: Discharge Impression: 1. Palpitations 2. Hypokalemia 3. EtOH intoxication 4. Hematuria, uncertain etiology This note was generated with Views[employer] dictation software. It may contain incorrect words, spelling, and punctuation that were not noted in review of the chart prior to signing ED Disposition - Plan for ED Patient: Disposition: Home or Assisted Living Chief Complaint: ETOH Intox Instructions: ED Potassium Deficiency, ED Palpitations, ED Alcohol Abuse Prescriptions: Ondansetron [Zofran Odt] 4 mg PO Q8H PRN PRN #10 tablet PRN Reason: Nausea Referrals: Care Physician,No Primary [Primary Care Provider] - Additional Instructions[facility] - [phone]. Increase your potassium to 2 tabs in the morning and 1 tab in the evening for the next 5 days, then have your potassium level rechecked. What to do if you have Problems For any increased pain, shortness of breath, bleeding, nausea or vomiting, chest pain, or any unexpected problems, contact your Primary Care Provider. Call [email or web address] ([phone]) or report to the closest Emergency Room. Call 911 if necessary. 08/31/1740 <Electronically signed by Leilani Butts MD> Date Leilani Butts MD Cosigner Signature (If Indicated): Date CC: No Primary Care Physician DISCHARGE INSTRUCTION Observed: 08/30/2017 Status: F Source: [place] 8:58 PM [facility] REPOSITORY [facility] Medical Records Department [address] [place] [address] Discharge Instruction 08/30/172055 MR#: [id number] Acct: [id number] Name: CARRIE LOW Rep #: [id number] : 1955 62 From: Leilani Butts MD PCP: Care Physician, No Primary Status: REG ER ED Disposition - Plan for ED Patient: Disposition: Home or Assisted Living Chief Complaint: ETOH Intox Instructions: ED Palpitations, ED Potassium Deficiency, ED Alcohol Abuse Prescriptions: Ondansetron [Zofran Odt] 4 mg PO Q8H PRN PRN #10 tablet PRN Reason: Nausea Additional Instructions: Call [facility] tomorrow for an evaluation - [phone]. Increase your potassium to 2 tabs in the morning and 1 tab in the evening for the next 5 days, then have your potassium level rechecked. What to do if you have Problems For any increased pain, shortness of breath, bleeding, nausea or vomiting, chest pain, or any unexpected problems, contact your Primary Care Provider. Call [facility] ([phone]) or report to the closest Emergency Room. Call 911 if necessary. 08/30/172057 <Electronically signed by Leilani Butts MD> Date Leilani Butts MD Cosigner Signature (If Indicated): Date CC: No Primary Care Physician ALCOHOL, BLOOD Collected: 08/30/2017 Status: F Source: [place] (MEDICAL)-SERUM 7:10 PM [facility] REPOSITORY TYPE CODE TESTS RESULT OUT OF RANGE REFERENCE UNITS LAB L501.9100 mg/dL Normal SERUM 135.0 ETOH Result Comment: The serum:whole blood ethanol ratio is approximately 1.14 and varies slightly with hematocrit. Medical Alcohol reference interval and critical value in non-tolerant individuals; 50 - 100 Impairment 100 Intoxication 100 - 250 Severe Poisoning 250 - 400 Deep/possible fatal coma Performed By: #### L501.9100 #### [facility] [address] [place], [address] BASIC METABOLIC Collected: 08/30/2017 Status: F Source: [place] PROFILE (BMP) 7:10 PM [facility] REPOSIT[facility] Order Comment: 'TROP' Serial specimen #1, #2, #3, or #4: 1 TYPE CODE TESTS RESULT OUT OF RANGE REFERENCE UNITS LAB L501.0100 74-106 mg/dL Normal GLU 88 Result Comment: Please note revised GLUCOSE reference range effective 2017. LAB L501.1000 7-18 mg/dL Normal BUN 13 LAB L501.1100 0.55-1.02 mg/dL Normal CREAT,SERUM 0.87 Result Comment: The validity of the calculated GFR AND GFRAA in patients over 70 years has not been determined. Clinical correlation is essential. LAB L501.1110 >60 mL/min Normal EST GFR 70 Result Comment: Non- GFR Calc LAB L501.1115 >60 mL/min Normal EST GFR - AA 85 Result Comment: GFR Calc LAB L501.1255 ml/min Normal Estimated CRCL 64.37 LAB L501.1300 10-20 RATIO Normal BUN/CRE 14.9 LAB L501.2200 8.5-10 mg/dL Low .1 CA 8.4 LAB L501.5300 136-14 mmol/L Low 5 NA 129 LAB L501.5600 3.5-5. mmol/L Low 1 K 3.1 LAB L501.5900 98-107 mmol/L Low CL 92 LAB L501.6100 21.0-3 mmol/L Normal 2.0 CO2 22.0 LAB L501.6200 5-15 Normal GAP 15 Performed By: #### L500.2500, L500.3400, L501.4010 #### [facility] [address] [place], [address] LIVER PROFILE Collected: 08/30/2017 Status: F Source: [place] 7:10 PM [facility] RE[facility] Order Comment: 'TROP' Serial specimen #1, #2, #3, or #4: 1 TYPE CODE TESTS RESULT OUT OF RANGE REFERENCE UNITS LAB L501.1500 6.4-8.2 g/dL Normal T PROT 7.7 LAB L501.1800 3.2-5.0 g/dL Normal ALB 3.7 LAB L501.1950 2.2-4.2 g/dL Normal GLOB 4.0 LAB L501.4100 15-37 U/L High AST 80 LAB L501.4305 45-117 U/L High ALK P 196 LAB L501.4405 13-56 U/L High ALT 77 Result Comment: Please note revised ALT reference range effective 2017. LAB L501.4600 0.20-1.00 mg/dL Normal T BILI 0.60 LAB L501.4700 0.00-0.30 mg/dL Normal D BILI 0.20 Performed By: #### L500.2500, L500.3400, L501.4010 #### [facility] [address] [place], [place], [address] TROPONIN-I Collected: 08/30/2017 Status: F Source: [place] 7:10 PM [facility] REPOS[facility] Order Comment: 'TROP' Serial specimen #1, #2, #3, or #4: 1 TYPE CODE TESTS RESULT OUT OF RANGE REFERENCE UNITS LAB L501.4010 <0.06 ng/mL Normal < 0.02 TROPONIN-I Result Comment: TROPONIN-I EXPECTED VALUES <0.05 NEGATIVE 0.06 - 0.59 AT RISK OF SD > OR = 0.60 SUGGEST SD Performed By: #### L500.2500, L500.3400, L501.4010 #### [facility] [address] [place], [place], [id number] CBC W/DIFF, AUTOMATED Collected: 08/30/2017 Status: F Source: [place] 7:10 PM [facility] REPOSIT[facility] TYPE CODE TESTS RESULT OUT OF RANGE REFERENCE UNITS LAB L100.1000 4.4-11.0 K/mm3 High WBC 11.9 LAB L100.1200 4.2-5.4 M/mm3 Normal RBC 4.42 LAB L100.1300 12.0-15.0 g/dl Normal HGB 14.1 LAB L100.1400 37-47 % Normal HCT 41.0 LAB L100.1500 81-99 fL Normal MCV 92.8 LAB L100.1600 27.0-32.0 pg Normal MCH 31.9 LAB L100.1700 32-36 g/gl Normal MCHC 34.4 LAB L100.1810 11.6-14.6 % Normal RDW CV 13.9 LAB L100.1820 35.1-43.9 fl High RDW SD 47.1 LAB L100.1900 150-450 K/mm3 Normal PLT 370 LAB L100.2000 6.2-12.0 fl Normal MPV 10.0 LAB L100.2100 47-70 % High NEUT% 78.8 LAB L100.2200 19-41 % Low LY% 13.7 LAB L100.2300 0-10 % Normal MONO% 7.1 LAB L100.2400 0-5 % Normal EO% 0.0 LAB L100.2500 0-1 % Normal BASO% 0.1 LAB L100.2550 0.0-0.9 % Normal IM GRAN % 0.300 Result Comment: IG% - Immature Granulocytes (promyelocytes, myelocytes and metamyelocytes) > 1% indicates that a LEFT SHIFT is Present. LAB L100.2620 2.0-7.7 X10 3/uL High Absolute Neut 9.4 LAB L100.2720 0.83-4.51 X10 3/ul Normal Absolute Lymph 1.63 Performed By: #### L100.0100 #### [facility] [address] [place], [place], [address] PROTHROMBIN TIME W/INR Collected: 08/30/2017 Status: F Source: [place] 7:10 PM [facility] REPOS[facility] TYPE CODE TESTS RESULT OUT OF RANGE REFERENCE UNITS LAB L300.4150 11.7-14.9 SECONDS Normal PROTIME 13.2 LAB L300.4200 Normal INR 1.0 Performed By: #### L300.3900, L300.4310 #### [facility] [address] [place], [address] PARTIAL THROMBOPLAST Collected: 08/30/2017 Status: F Source: [place] TIME 7:10 PM [facility] REPOSIT[facility] TYPE CODE TESTS RESULT OUT OF RANGE REFERENCE UNITS LAB L300.4310 24.1-36.2 Seconds Normal PTT 27.5 Performed By: #### L300.3900, L300.4310 #### [facility] [address] [place], [address] URINALYSIS, COMPLETE Collected: 08/30/2017 Status: F Source: [place] 7:10 PM [facility] REPOS[facility] Order Comment: Order Date: 08/30/17 Has pt arrived? Y How was Urine Obtained? RESIDENCY PROGRAM COORDINATOR TO SPECIFY TYPE CODE TESTS RESULT OUT OF REFERENCE UNITS RANGE LAB L400.3000 Yellow COLOR Normal Yellow LAB L400.3050 Clear CLARITY Normal Cloudy LAB L400.3200 Normal mg/dl GLUCOSE, UR Normal Normal LAB L400.3300 Negative mg/dL BILIRUBIN Normal URINE Negative LAB L400.3400 Negative mg/dl KETONE UR High 5 LAB L400.3465 1.002-1.030 SP.GR. Normal DIPSTX 1.020 LAB L400.3550 5.0 - 8.0 pH UR Normal 5.0 LAB L400.3600 Negative mg/dl PROT DIPSTX High 15 LAB L400.3700 Normal mg/dl UROBILI Normal Normal LAB L400.3750 Negative NITRITE UR Normal Negative LAB L400.3780 Negative /ul OCCULT High BLOOD-UR 250 LAB L400.3800 Negative /ul LEUK High ESTERASE 500 LAB L400.4050 0-5 /hpf WBC Normal 5-10 SEEN LAB L400.4100 0-5 /hpf RBC-UA Normal > 100 SEEN LAB L400.4150 5-10 /hpf SQUAM EPI Normal 0-5 SEEN LAB L400.4300 None Seen /hpf BACTERIA Normal 0 SEEN LAB L400.4350 <or=2+ /hpf MUCUS, Normal URINE 0 SEEN LAB L400.4200 0-5 /hpf Normal TRANSITIONAL EP 0-5 SEEN LAB L400.4400 0-5 /lpf HYALINE Normal CAST 0-5 SEEN Performed By: #### L400.0001 #### [facility] [address] [facility] [place], [address] CHEST 1 VIEW Observed: 08/30/2017 Status: F Source: [place] (PORTABLE) 6:43 PM [facility] REPOSITORY [facility] Imaging Services [address] [place] [address] Chest 1 View (Portable) MR#: [id number] Acct: [id number] Name: CARRIE LOW Rep #: [id number] : 1955 F 62 From: Jeyson Smith DO PCP: Care Physician, No Primary Status: REG ER Study: Chest 1 View (Portable) Date of Exam: 08/30/17 Exam# [id number] Ordering Dr: Leilani Butts MD STUDY: X-RAY CHEST REASON FOR EXAM: Female, 62 years old. Palpitation TECHNIQUE: Single frontal view COMPARISON: None. FINDINGS: The lungs are expanded. There is mild left basilar atelectasis. Normal size heart. Normal mediastinum and maggy. Normal visualized pulmonary arteries. Normal visualized aortic arch and descending thoracic aorta. Normal visualized thoracic spine. Normal visualized ribs, clavicles, and shoulders. There is no demonstrated abnormality of the visualized soft tissue structures of the upper abdomen. RAD/Chest 1 View (Portable) IMPRESSION: Mild left basilar atelectasis. Electronically Signed: Jeyson Smith DO at 19:04 EDT Tel [phone], Service support , CC: No Primary Care Physician; Leilani Butts MD Shellfish Weigher: Signed XR HIP 2-3 VIEWS Observed: 08/17/2017 Status: F Source: [place] LEFT 1:41 PM [facility] REPOSITORY Exam Date/Time: 08/17/2017 13:48 EDT Reason for Exam: Pain, Non Traumatic Report LEFT HIP-3 VIEWS: HISTORY: Left hip pain. No injury. FINDINGS: Moderately severe narrowing of the lateral and central portion of the left hip joint space is seen. There is no fracture. Osteophytes are present on both sides of the joint. No periarticular calcification is seen. There are small subcortical cystic changes, in the femoral head, as well as in the acetabulum. IMPRESSION: Moderately severe osteoarthritis of the left hip. FINAL REPORT Dictated: 08/17/2017 4:36 pm Cheo Earl MD Signed (Electronic Signature): 08/17/2017 4:36 pm Signed by: Cheo Earl MD Technologist: SUDHA FS LIVER FUNCTION Collected: 08/13/2017 Status: F Source: [facility] 3:21 PM [facility] REPOSITORY TYPE CODE TESTS RESULT OUT OF REFERENCE UNITS RANGE LAB AST 0-45 U/L AST (SGOT) High 113 LAB ALT 0-40 U/L ALT (SGPT) High 68 LAB GGT 7-33 U/L Gamma GT High 938 LAB ALKP 40-150 U/L Alkaline High Phosphatase 152 LAB BILIT 0.0-1.3 mg/dL Bilirubin,Total 1.2 LAB PROT 6.0-8.0 g/dL Protein, Total 7.9 LAB ALB 3.2-5.2 g/dL Albumin 4.1 LAB LITZY 25-115 U/L Amylase 39 LAB PERF_AT Testing performed [facility] - [place] FSED Result Comment: Testing performed at [facility], [facility], [place], [place]; Medical [employer]ate [employer] Attendant Miguel Bauer M.D. Performed By: #### FSLIVER #### Unless otherwise noted, all testing performed by [address] [address] CLIA: [id number] Hand Edger: Samuel Arechiga M.D. FS BASIC METABOLIC Collected: 08/13/2017 Status: F Source: [facility] PANEL 3:08 PM [facility] REPOSITORY TYPE CODE TESTS RESULT OUT OF REFERENCE UNITS RANGE LAB GLU 65-99 mg/dL Glucose Normal 91 LAB BUN 8-25 mg/dL BUN Normal 8 LAB CREA 0.40-1.10 mg/dL Normal Creatinine 0.6 LAB CALCM 8.4-10.2 mg/dL Calcium Normal 8.9 LAB NA 135-145 mmol/L Low Sodium 134 LAB K 3.5-5.1 mmol/L Low Potassium 3.2 LAB CL 98-108 mmol/L Low Chloride 85 LAB CO2 21-32 mmol/L CO2 Normal 26 LAB PERF_AT Testing Normal performed [facility] FSED Result Comment: Testing performed at [facility], [facility] [place], [place]; Medical [employer] Attendant Miguel Bauer M.D. Performed By: #### FSBMET #### Unless otherwise noted, all testing performed by [address] [address] CLIA: [id number] Hand Edger: Samuel Arechiga M.D. FS CBC Collected: 08/13/2017 Status: F Source: [facility] 2:54 PM [facility] REPOSITORY TYPE CODE TESTS RESULT OUT OF RANGE REFERENCE UNITS LAB WBC 4.5-11.0 K/mcL WBC Normal 9.0 LAB RBC 4.00-5.20 M/mcL RBC Normal 4.60 LAB HGB 12.0-16.0 g/dL Normal Hemoglobin 14.4 LAB HCT 36.0-46.0 % Normal Hematocrit 40.9 LAB MCV 80-100 FL MCV Normal 88.9 LAB MCH 26.0-34.0 pg MCH Normal 31.3 LAB MCHC 31.0-37.0 g/dL MCHC Normal 35.2 LAB RDW 11.6-14.8 % RDW Normal 13.2 LAB PLT 150-400 K/mcL Platelet Normal Count 234 LAB MPV 9.0-15.5 FL MPV Normal 10.6 LAB NEUT# 1.70-7.00 K/mcL High Neutrophil # 7.2 LAB LYMPH# 0.90-4.00 K/mcL Normal Lymphocyte # 1.2 LAB SEGNEU% % Normal Segmented Neut % 79.6 LAB LYMP% % Normal Lymphocyte% 13.3 LAB PERF_AT Testing Normal performed CBC - [place] FSED Result Comment: Testing performed at [facility] [place], [address] [facility], [place], [place]; Medical [employer] Attendant Miguel Bauer M.D. Performed By: #### FSCBC #### Unless otherwise noted, all testing performed by [facility] [address] [place], [place] [address] CLIA: [id number] Hand Edger: Jonny Gomez Observed: 08/02/2017 Status: COMPLETED Source: [place] 12:00 AM [facility] REPOSITORY Telephone (OTOLBD) CARRIE LOW ([id number]) 1955 F Date Time Provider Department 08/02/17 SARAH MORRIS I OTOLBD During your visit today, we recorded the following information about you: Carrie Santillan LPN 08/02/2017 11:11 AM Signed Type of form: Prior Authorization Form received via fax When form is completed, Fax form to Form has been forwarded to Physician Desk: Dr. Gildardo Santillan LPN 08/14/2017 4:37 PM Signed Forms have been completed and faxed back to number on form. Carrie Santillan LPN Allergies As of Date: 08/02/2017 Noted Allergy Reaction DEMEROL (MEPERIDINE (PF)) 06/15/2012 14 - Other: See Comments Comments: raises blood pressure PHENOBARBITAL 06/15/2012 16 - Unknown Date Reviewed: 02/20/2017 Reviewed by: Isaac ([facility]-Applications Intern) Adessa - Fully Assessed Reason for Visit: Insurance Authorization [[id number]] Prescriptions as of 08/02/2017 Sig: HYDROXYZINE HCL 25 MG TABLET Take 1 tablet by mouth every * FOLIC ACID 1 MG TABLET Take 1 tablet by mouth daily * DOXEPIN 50 MG CAPSULE Take 1 capsule by mouth at be* AMLODIPINE 5 MG TABLET Take 1 tablet by mouth once d* POTASSIUM CHLORIDE ER 10 MEQ * Take 2 tablets by mouth once * HYDROCHLOROTHIAZIDE 25 MG TAB* Take 1 tablet by mouth once d* BUPROPION XL 300 MG 24 HR TAB Take 1 tablet by mouth once d* Problem List As Of Date 08/02/2017 Noted Resolved 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*11/19/2012 HTN (hypertension) [I10] INVALID FOR* Other and unspecified alcohol dependence, dillan*INVALID FOR* 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 Dr. Morris out of office until 07/25/17. Will have him address upon his return. Carrie Santillan LPN 07/26/2017 2:33 PM Signed Documents mentioned previously in this encounter have been completed and faxed to number on form. Patient called for update and was informed that several other requests for more information have come through and have all been completed and faxed back. Carrie Santillan LPN Allergies As of Date: 07/21/2017 Noted Allergy Reaction DEMEROL (MEPERIDINE (PF)) 06/15/2012 14 - Other: See Comments Comments: raises blood pressure PHENOBARBITAL 06/15/2012 16 - Unknown Date Reviewed: 02/20/2017 Reviewed by: Isaac ([facility]-Applications Intern) Tila - Fully Assessed Reason for Visit: Insurance Authorization [[id number]] Cmt: request for more information Prescriptions as of 07/21/2017 Sig: HYDROXYZINE HCL 25 MG TABLET Take 1 tablet by mouth every * FOLIC ACID 1 MG TABLET Take 1 tablet by mouth daily * DOXEPIN 50 MG CAPSULE Take 1 capsule by mouth at be* AMLODIPINE 5 MG TABLET Take 1 tablet by mouth once d* POTASSIUM CHLORIDE ER 10 MEQ * Take 2 tablets by mouth once * HYDROCHLOROTHIAZIDE 25 MG TAB* Take 1 tablet by mouth once d* BUPROPION XL 300 MG 24 HR TAB Take 1 tablet by mouth once d* Problem List As Of Date 07/21/2017 Noted Resolved 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*11/19/2012 HTN (hypertension) [I10] INVALID FOR* Other and unspecified alcohol dependence, dillan*INVALID FOR* 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] INVALID FOR* Voice disturbance [R49.9] INVALID FOR* Alcohol withdrawal (HCC) [F10.239] INVALID FOR* Encounter Status:Closed by CARRIE SANTILLAN LPN on 07/21/17 CBC AUTO DIFF Collected: 07/11/2017 Status: F Source: [facility] 4:25 PM HOSPITAL REPOSITORY TYPE CODE TESTS RESULT OUT OF REFERENCE UNITS RANGE LAB WBC(LOINC) 4.0-11.0 103/ul High Alert WBC 12.5 LAB RBC(LOINC) 4.20-5.40 106/ul RBC 4.51 LAB HGB(LOINC) 12.0-16.0 g/dl HGB 14.3 LAB HCT(LOINC) 36.0-48.0 % HCT 40.4 LAB MCV(LOINC) 81.0-99.0 fL MCV 89.6 LAB MCH(LOINC) 26.7-34.0 pg MCH 31.7 LAB MCHC(LOINC) 29.9-35.2 g/dl High Alert MCHC 35.4 LAB RDW(LOINC) 11.0-15.0 % RDW 13.2 LAB PLT(LOINC) 150-450 103/ul PLT 253 LAB MPV(LOINC) 9.5-13.5 fL MPV 9.7 LAB NEUT%(LOINC 43.0-75.0 % ) NEUT % 75.0 LAB LYMPH%(LOIN 20.5-60.0 % C) Low Alert LYMPH % 15.2 LAB MONO%(LOINC 1.7-12.0 % ) MONO % 8.4 LAB EO%(LOINC) 0.9-7.0 % Low Alert EO % 0.1 LAB BASO%(LOINC 0.2-2.0 % ) BASO % 0.4 LAB IG%(LOINC) 0.0-0.5 % High Alert IG % 0.9 LAB NEUT#(LOINC 1.4-6.5 103/ul ) High Alert NEUT # 9.4 LAB LYMPH#(LOIN 1.2-3.8 103/ul C) LYMPH # 1.9 LAB MONO#(LOINC 0.3-0.8 103/ul ) High Alert MONO # 1.1 LAB EO#(LOINC) 0.0-0.7 103/ul EO # 0.0 LAB BASO#(LOINC 0.0-0.1 103/ul ) BASO # 0.1 LAB IG#(LOINC) 0.00-0.03 10e3/ul High Alert IG # 0.11 LAB MDR(LOINC) MANUAL DIFF NO REQ Performed By: #### CBC #### [facility] [address] [place] [address] Shilpa Bedoya ETHANOL (BLD ALC) Collected: 07/11/2017 Status: F Source: [facility] 4:25 PM HOSPITAL REPOSITORY TYPE CODE TESTS RESULT OUT OF REFERENCE UNITS RANGE LAB 335(LOINC) mg/dL ALCOHOL 123 LAB ALCNORM(SRAVANI NC) ALC NOTE NOTE: 80 mg/dl is the legal limit for a blood alcohol level Performed By: #### ETH, CMP #### [facility] [address] [place] [address] Shilpa Bedoya PROF 14(COMP METB) Collected: 07/11/2017 Status: F Source: [facility] 4:25 PM HOSPITAL REPOSITORY TYPE CODE TESTS RESULT OUT OF REFERENCE UNITS RANGE LAB 309(LOINC) 137-145 mmol/L Low NA Alert 131 LAB 308(LOINC) 3.4-5.0 mmol/L K 3.8 LAB 307(LOINC) 98-107 mmol/L Low CL Alert 89 LAB 310(LOINC) 22.0-30.0 mmol/L CO2 27.0 LAB 300(LOINC) 74-106 mg/dl GLUC 101 LAB 315(LOINC) 7.0-17.0 mg/dl BUN 11.0 LAB 314(LOINC) 0.52-1.04 mg/dL CREA 0.69 LAB EGFRNAA(SRAVANI >=60 mL/min/1.73 NC) m2 EGFR-NON AF >60 [place] LAB EGFRAA(LOIN >=60 mL/min/1.73 C) m2 EGFR-AF >60 [place] LAB 318(LOINC) 8.4-10.2 mg/dL CA 9.4 LAB 322(LOINC) 9-52 U/L High Alert ALT 89 LAB 320(LOINC) 14-36 U/L High Alert AST 124 LAB 321(LOINC) 38-126 U/L High Alert ALP 197 LAB 301(LOINC) 6.1-8.2 g/dL TP High Alert 8.4 LAB 303(LOINC) 3.5-5.0 g/dL ALB 4.6 LAB 319(LOINC) 0.2-1.3 mg/dL TBIL 0.9 LAB 900(LOINC) BUN/CREA RATIO 15.6 LAB 901([facility]) ANION GAP 18.4 LAB 910(INC) g/dL GLOBULIN 3.8 LAB 903([facility]) A/G RATIO 1.2 Performed By: #### ETH, CMP #### [facility] [address] [address] Shilpa Bolanosen MAMMOGRAM BILAT Observed: 05/23/2017 Status: F Source: [facility] SCREEN, DIGITAL 12:49 PM [facility] REPOSITORY Final Report Accession No. [id number] Performed: May 23 2017 12:49PM Examination: MAMMOGRAM BILAT SCREEN, DIGITAL Clinical History: Screening. History of left breast biopsy in 2013. BILATERAL SCREENING MAMMOGRAM 05/23/2017 12:49 PM COMPARISON: 05/16/2014 and 04/20/2012. FINDINGS: The breasts are composed of scattered fibroglandular tissue without suspicious mass, architectural distortion, or malignant type calcifications. A biopsy clip in the 12:00 left breast is again demonstrated with few adjacent punctate calcifications remaining, unchanged in appearance. The nodular appearing breast parenchyma in the upper-outer quadrant right breast is stable if not less prominent compared to 2011. Computer-aided diagnosis (CAD) was used for this exam. IMPRESSION: Benign findings. BIRADS 2. BENIGN FINDINGS. RECOMMENDATIONS: 1. Monthly breast self-examination. 2. Routine annual screening mammogram. 3. Routine annual breast examination by qualified health care personnel. NOTE: A negative x-ray report should not delay biopsy if a dominant or clinically suspicious mass is present. A small percentage of cancers are not identified by x-ray. Adenosis and dense breasts may obscure an underlying neoplasm. TECHNOLOGIST: Agustina Dickey Interpreting Radiologist: KEVIN MEREDITH M.D. Trans: : cc: ALLERGIES ALLERGIES DATE TYPE / CODE NAME / CODE REACTION SEVERITY SOURCE 04/30/20 Drug meperidine HYPERTENSION Unknown [place] 18 Allergy/125336592 HCl/[id number](RXN [facility] (SNOMED CT) [facility] Repository 04/30/20 Drug phenobarbital/F006 Other Unknown [place] 18 Allergy/809628524 187620(RXNORM) [facility]) Hospital Repository 04/30/20 Drug shellfish Hives Unknown [place] 18 Allergy/313721217 derived/[id number] [facility] ([facility]) (RXNORM) Hospital Repository 08/17/19 Drug phenobarbital/F006 UNKNOWN [place] 17 Allergy/473342210 151759(RXNORM) [facility]) Repository 08/17/19 Drug meperidine/F354138 UNKNOWN [place] 17 Allergy/297050718 620(RXNORM) [facility] CT) Repository 08/17/19 Drug shellfish UNKNOWN [place] 17 Allergy/280779440 derived/[id number] [facility] CT) (RXNORM) Repository 06/16/19 Drug Demerol/3853(RXNOR Moderate [facility] 06/16/19 Drug phenobarbital/1406 Moderate [facility] 17 Allergy/464366772 (RXNORM) [facility] (SNOMED CT) Repository 09/03/19 DRUG DIATRIZOATE [facility] 16 INGREDI/534843041 MEGLUMINE Three (SNOMED CT) Repository 04/18/20 Drug SHELLFISH Sob High [facility] 15 Class/055405472(S CONTAINING Three NOMED CT) PRODUCTS Repository 04/18/20 DRUG IODINE Itching [facility] 15 INGREDI/809948380 Three (SNOMED CT) Repository 04/18/20 Miscellaneous OTHER [facility] 15 Allergy/815715190 Three (SNOMED CT) Repository 12/06/19 DRUG GLUCOSAMINE Sob High [facility] 14 INGREDI/372181447 Three (SNOMED CT) Repository 12/06/19 DRUG METRIZAMIDE [facility] 14 INGREDI/323662298 Three (SNOMED CT) Repository 10/10/19 DRUG/687539412(SN DERMOL HC [facility] [address]) Three Repository 10/10/19 Drug PHENOTHIAZINES [facility] 14 Class/194385006(S Three NOMED CT) Repository 07/26/19 DRUG MEPERIDINE HCL High [facility] 14 INGREDI/620023012 Three (SNOMED CT) Repository 07/26/19 DRUG PHENOBARBITAL Hives Med [facility] 14 INGREDI/679536762 Three (SNOMED CT) Repository 10/17/19 DRUG MEPERIDINE [facility] 13 INGREDI/819293252 Three (SNOMED CT) Repository 06/15/19 DRUG/277777223(SN MEPERIDINE (PF) OTHER: SEE C [facility] [address] [facility] [place] Repository 06/15/19 DRUG PHENOBARBITAL UNKNOWN [facility] 13 INGREDI/462813977 Clinic Main (SNOMED [facility]) [place] Repository [id number](SNOM iodine topical [facility] ED [facility]) [facility] Repository [id number](SNOM acetaminophen-hydr [facility] [place] ED [facility]) [facility]one [facility] Repository [id number](SNOM shellfish Red [facility] ED [facility]) [facility] Repository CRUZITO561445260(SNOM Dilaudid [id number] [facility] [place] ED [facility]) [facility] Repository Miscellaneous some seizure [facility] Allergy/965083510 medication [facility] Center (SNOMED CT) Repository /423189882(SNOM Contrast Dye [facility] [place] ED CT) [facility] Center Repository Miscellaneous Shrimp Red [facility] Allergy/185033620 Medical Center (SNOMED CT) Repository Miscellaneous Demerol HCl hypertension [facility] [place] Allergy/565974245 Medical Center (SNOMED CT) Repository DR/253220542(SNOM PHENobarbital Hives [facility] [place] ED CT) Medical Center Repository Drug/730426895(SN phenobarbital 605987150 Severe [facility] OMED CT) [facility] Repository Food/771671223(SN shellfish 105358126 Severe [facility] OMED CT) [facility] Repository Drug/306997379(SN No Known Allergies [place] OMED CT) [facility] Repository Food/727519855(SN Seafood 533047463 Severe [facility] OMED CT) [facility] Repository Drug/133148105(SN iodine [place] OMED CT) [facility] Repository Drug/412659470(SN Demerol HCl 830827370 Severe [place] OMED CT) [facility] Repository Drug/949104577(SN contrast media [place] OMED CT) (iodine-based) [facility] Repository ENCOUNTERS ENCOUNTERS ADMIT/DISCHARGE ACCOUNT NUMBER ADMITTING ENCOUNTER LOCATION SOURCE CLASS 05/10/2018/ [id number] Dr. Jenifer Inpatient [facility]HBuilding:[address] [place] Encounter SOURoom: [facility] C8293Hfr: Repository [id number] 2018 [id number] Ambulatory [facility] Repository 04/30/2018/ [id number] Marc, Ambulatory [address] ng:[id number]: Repository MV475Hug: 1 04/30/2018 [id number] [facility], Ambulatory BMSBuilding:[facility] Repository 04/11/2018/ [id number] PAIGE, Inpatient [facility] nERoom: Repository 405Bed: 2 03/23/2018 [id number] Ambulatory Building:[facility] Three Repository 03/22/2018 [id number] PHYSICIAN, Inpatient [address] [place] [address] Repository 03/20/2018/ [id number] Ambulatory Building:[place] [address] One Repository 03/16/2018/ [id number] Ambulatory Building:[place] [address] One Repository 02/16/2018/ [id number] White, Inpatient Simin[address] ng:SZ2Wdny: Repository JV582Mms: 1 02/16/2018 [id number] White, Ambulatory BMSBuilding:[facility] Repository 02/16/2018 [id number] White, Ambulatory BMSBuilding:[facility] Repository 02/16/2018 [id number] White, Ambulatory BMSBuilding:[facility] Repository 02/16/2018 [id number] White, Ambulatory BMSBuilding:[facility] Repository 02/16/2018 [id number] Ambulatory BMSBuilding:[facility] Repository 02/08/2018 [id number] Jayce PHOSPHORIC ACID SUPERVISOR, Ambulatory [facility] Repository 01/29/2018/ [id number] Ambulatory Building:[place] [address] One Repository 12/18/2017/ [id number] Ambulatory [address] Repository 12/18/2017/ [id number] Ambulatory [address] Repository 11/26/2017/ [id number] Emergency Building:[place] [address] m: DU77Auq: 10 Three Repository 11/25/2017/ [id number] Dr. Sena Emergency [place] [address] Catrachita ing:A1EW [place] [facility] WaitRoom: A1[facility] S3LSRna: A1EW Repository A1EW23 11/23/2017/ [id number] Emergency Building:[facility] 018 oom: LWBSBed: Two LWBS Repository 11/14/2017/06/12 [id number] Klapchar, Emergency [facility] [place] [address] [address] Manuel ing:A1E [place] [facility] [place] DeptRoom: A1E [facility] R2IFRno: A1E Repository A1ED25 11/03/2017/ [id number] Ambulatory Building:[place] [address] Three Repository 11/02/2017 [id number] Ambulatory Building:[facility] Three Repository 10/29/2017/ [id number] Ayisire, Inpatient FTBuildin [place] 018 Eseoghene N Encounter NRoom: Medical Y085Iug: 01 Center Repository 10/17/2017/ [id number] Ambulatory Building:[address] Repository 09/08/2017/ [id number] Gbaruk, Inpatient Holstein Simin 018 Koian Encounter [facility] ng:HD7Mbaa: Repository VK438Rpj: 1 09/08/2017 [id number] Gbaruk, Ambulatory BMSBuilding:[facility] Repository 09/08/2017 [id number] ar, Ambulatory BMSBuilding:[facility] Repository 09/07/2017/ [id number] LORETTA, Inpatient .Building:[facility] 018 ZACH N Encounter om: 7Bed: A [facility] Repository 09/04/2017 [id number] Emergency Buildin[address] [place] [address] ERRoom: System 0O8OWQRsv: Repository [id number] 09/03/2017/ [id number] Jasmin Salas [facility]E Red Roberto Carlos 018 DRoom: [facility] Repository 08/30/2017/ [id number] Emergency Simin Holstein 018 [facility] ng:ED Repository 08/17/2017/ [id number] Tung, Ambulatory [address] ng:[facility] Repository 08/17/2017/ [id number] Landon, Ambulatory [facility] 018 Toya L [facility] MedicineBuildi Repository ng:CaitlynoRoo m: Room 3 08/13/2017/ [id number] Dr. Janell Emergency [facility] 018 Beatriz R ing:O1E [place] [facility] [place] DeptRoom: O1E Hospitals E3UYTaq: O1E Repository O1ED04 07/18/2017/ [id number] Ambulatory [facility] 018 [facility] MedicineBuildi Repository ng:SamOrtho 07/11/2017/ [id number] DR SHRUTI DURAN Ambulatory N3Lmlhdskz:GREG [facility] 018 SRoom: Hospital YM81Acq: Repository ER07-01 06/29/2017/ [id number] Ambulatory [facility] 018 [facility] MedicineBuildi Repository ng:SamOrtho 06/22/2017/ [id number] Ambulatory [facility] 018 [facility] MedicineBuildi Repository ng:SamOrtho 06/02/2017/ [id number] Arnoldo Guerrero Emergency [facility] 017 HospitalBuildi [facility] ng:SH EDRoom: Health System WR Repository 05/23/2017 [id number] Judd JIN, Ambulatory [facility] Dr. Tena Loo [facility] Repository PAYERS PAYERS ENCOUNTER GUARANTOR PAYER SUBSCRIBER SOURCE 2018 CARRIE Loo Echo ARCHERDOB: Insurance:Medical ARCHERDOB: [facility] [id number] Repository ADELA Number: ADELA SWETHA LIANG [id number] AVELAYNEIAMRONI SWETHA [address]67[address]Qmx: 419 Date:Plan Name:[place] [id number]: () [phone] () 2018 CARRIE Loo Echo ARCHERDOB: Insurance:Medical ARCHERDOB: [facility] [id number] Repository ADELA Number: [place], [place] [id number] [place], [place] [address]Ytq: (419) Date:Plan Name:Health [address]Bvk: (HP) [phone] (HP) 04/30/2018 CARRIE Loo Primary Insurance:MMO CARRIE Duval [id number] [facility] Number: ARCHERDOB: [place] [id number] Hospital [address]Kwp: (419) Date:5787-37-75IA BOX Repository [phone] (HP) [place] [address]OT: 04/30/2018 Secondary NOT GIVENUNK Holstein Insurance:SELF PAY [facility] Number: Effective Repository Date:2018-04-30 04/30/2018 CARRIE R Primary Insurance:MMO CARRIE Duval [id number] [place] [address] Number: ARCHERDOB: [place] [id number] Hospital [address]Djq: (419) Date:6652-10-36RI BOX Repository [phone] () [address] [place] [address]AI: 04/30/2018 Secondary NOT GIVENUNK Holstein Insurance:SELF PAY [facility] Number: Effective Repository Date:2018-04-30 04/11/2018 CARRIE R Primary CARRIE Loo [place] [id number] ADELA Insurance:MEDICAL ARCHERDOB: [facility] [id number] Repository [address]Sno: (419) Number: ADELA [phone] () [id number] [place] Date:[address] [address]Lht: ([phone]) [place], [place] [phone] (HP) [address]TZ: 03/23/2018 CARRIE Loo Primary CARRIE [facility] ARCHERDOB: Insurance:MARKET ARCHERDOB: Three [address] EXCHANGEPolicy [id number] ADELA Number: ADELA [place] [id number] [place], [place] [address]Kxa: (419) Date:7355-11-55CW [address] [phone] (HP) [place], [place] [address]FP: 03/23/[address] [facility] Health [facility] ARCHERDOB: Three Repository y Number: [id number] 2 LABER Date:2013-07-06 - [facility], 2484-87-90DI [place] [id number] [place] [address]WH: 03/23/[address] [facility] Health Insurance:MARKET ARCHERDOB: [address] EXCHANGEPolicy [id number] Number: 2 LABER [id number] [facility], Date:2016-08-03 [place] [address] 8115-43-03DR [address] [place] [address]HB: 03/22/2018 CARRIE ARCHERDOB: Primary CARRIE ARCHERDOB: [facility] Insurance:MEDICAL [id number] [facility] Number: [place] [id number] [place] Repository [address]Yfb: (000) Date:0373-92-63WZ [address] [address]Vbd: (HP) [place], [place] [phone] (HP) [address]VH: 03/20/2018 CARRIE R [facility] ARCHERDOB: Insurance:MARKET ARCHERDOB: Repository PLACE EXCHANGEPolicy [id number] ADELA Number: [place] [id number] [place], [place] [address]Eot: (419) Date:6231-97-31LL [address] [address] [phone] () [place], [place] [address]UV: 03/16/2018 CARRIE R Primary CARRIE R [facility] ARCHERDOB: Insurance:MARKET ARCHERDOB: Repository [facility] [id number] [place] Number: ADELA DOUGHENRY[place]I [place] [id number] [place], [place] [address]Psc: (419) Date:6584-60-45IG [address] [address] [phone] (HP) [place], [place] [address]ZC: 02/16/2018 CARRIE R Primary Insurance:MMO CARRIE LOW127 ADELA [facility] Number: ARCHERDOB: [place] [id number] [facility] [address]Nrx: (419) Date:7337-33-66EZ BOX Repository [phone] () [address] [place] [address]QD: 02/16/2018 Secondary NOT GIVENUNK Holstein Insurance:SELF PAY [facility] Number: Effective Repository Date:2018-02-16 02/16/2018 CARRIE R Primary Insurance:MMO CARRIE LOW127 ADELA [facility] Number: ARCHERDOB: [place] [id number] [facility] [address]Hma: (419) Date:8459-47-04LJ BOX Repository [phone] () [address] [place] [address]VE: 02/16/2018 Secondary NOT GIVENUNK Simin Insurance:SELF PAY [facility] Number: Effective Repository Date:2018-02-16 02/16/2018 CARRIE R Primary Insurance:MMO CARRIE LOW127 ADELA [facility] Number: ARCHERDOB: [place] [id number] [facility] [address]Ibt: (419) Date:3002-49-89JK BOX Repository [phone] () [place] [address]SO: 02/16/2018 Secondary NOT GIVENUNK Simin Insurance:SELF PAY [facility] Number: Effective Repository Date:2018-02-16 02/16/2018 CARRIE R Primary Insurance:MMO CARRIE Duval [id number] [facility] Number: ARCHERDOB: [facility] [place] [id number] Hospital [address]Yne: (419) Date:0741-58-23KA BOX Repository [phone] () [place] [address]YN: 02/16/2018 Secondary NOT GIVENUNK Simin Insurance:SELF PAY [facility] Number: Effective Repository Date:2018-02-16 02/16/2018 CARRIE R Primary Insurance:MMO CARRIE Duval [id number] [place] [address] Number: ARCHERDOB: [facility] [place] [id number] 1951-70-77ROM Hospital [address]Sjt: (419) Date:3084-23-21ER BOX Repository [phone] () [address] [place] [address]RT: 02/16/2018 Secondary NOT GIVENUNK Simin Insurance:SELF PAY [facility] Number: Effective Repository Date:2018-02-16 02/16/2018 CARRIE R Primary Insurance:MMO CARRIE Duval [id number] [place] [address] Number: ARCHERDOB: [facility]OUR[facility] [id number] Hospital [address]Tpg: (419) Date:3598-13-72EK BOX Repository [phone] () [address] [place] [address]MZ: 02/16/2018 Secondary NOT GIVENUNK Holstein Insurance:SELF PAY [facility] Number: Effective Repository Date:2018-02-16 02/08/2018 Primary CARRIE Loo [facility] Insurance:Medical ARCHERDOB: [place] [facility] [id number] [facility] Number: ADELA Repository [id number] [place] Date:Plan [address]Unl: (419) Name:HealthPO [phone] (HP) [place], [place] [id number]: 01/29/2018 CARRIE R Primary CARRIE R [facility] One ARCHERDOB: Insurance:MARKET ARCHERDOB: Repository PLACE EXCHANGEPolicy [id number] ADELA Number: [address] [place] [id number] [place], [place] [address]Qyd: (419) Date:5609-85-75MS BOX [facility] [phone] (HP) [place], [place] [address]MN: 11/26/2017 CARRIE R Primary CARRIE R [facility] ARCHERDOB: Insurance:MARKET ARCHERDOB: [address] EXCHANGEPolicy [id number] ADELA Number: [address] [facility] [id number] [place], [place] [address]Jwb: (419) Date:8169-68-89TF BOX [facility] [phone] (HP) [place], [place] [address]DA: 11/25/2017 Primary CARRIE R [facility] Insurance:Medical ARCHERDOB: [facility] [id number] [facility] Number: ADELA Repository [id number] [place] Date:Plan [address]Jcc: (419) Name:[facility] [address] [phone] (HP) [place], [place] [id number]: 11/23/2017 CARRIE R Primary CARRIE R [facility] Two ARCHERDOB: Insurance:MARKET ARCHERDOB: Repository PLACE EXCHANGEPolicy [id number] ADELA Number: [address] [place] [id number] [place], [place] [address]Mjt: (419) Date:9192-15-03FT [address] [address] [phone] (HP) [place], [place] [address]UG: 11/14/2017 Primary CARRIE R [facility] Insurance:Medical ARCHERDOB: [facility] [id number] [facility] Number: ADELA Repository [id number] [facility] [place] Date:Plan [address]Qgg: (419) Name:HealthPO [phone] (HP) [place], [place] [address]EG: 11/03/2017 CARRIE R Primary CARRIE R [facility] ARCHERDOB: Insurance:MARKET ARCHERDOB: [address] [facility] [id number] ADELA Number: [address] [place] [id number] [place], [place] [address]Iut: (419) Date:0281-00-11DO [address] [address] [phone] () [address], [place] [address]QB: 11/02/2017 CARRIE R Primary CARRIE R [facility] ARCHERDOB: Insurance:ANTHEMPolic ARCHERDOB: Three Repository y Number: [id number] ADELA [id number] 2 LABER [facility] [place] Date:2013-07-06 - [facility] [address]Hqd: (419) 7801-83-96[place] [address] [phone] (HP) 268726GKSNULJ, [place] [address]OX: 11/02/2017 Secondary CARRIE R [facility] Insurance:MARKET ARCHERDOB: Three [address] [facility] [facility] [id number] Number: 2 LABER [id number] [facility], Date:8044-20-27[place] [address] 269[address]GDVCCNB, [place] [address]RC: 10/29/2017 CARRIE R Primary CARRIE R Teofilo Levyus ARCHERDOB: Insurance:[facility] MUTUALPolicy Number: Repository ADELA CAMACHOETel: [id number] Date:9012-96-89ET BOX (HP) [address] [place] [address]YL: 10/17/2017 CARRIE R Primary [facility] ARCHERDOB: Insurance:ANTHEMPolic ARCHERDOB: Three Repository y Number: [id number] ADELA [id number] 2 LABER [place] Date:2013-07-06 - [place] [id number]: [phone] 6519-57-86BV BOX [facility]06 [phone] (BV) [address] [place] [address]VU: 10/17/[address] [facility] Health Insurance:ANTHEMPolic ARCHERDOB: Three Repository y Number: [id number] 2 LABER Date:2013-07-06 - [facility], 3518-92-88FK BOX [facility]06 [address] [place], [place] [address]WP: 10/17/[address] [facility] Health Insurance:MARKET ARCHERDOB: [address] EXCHANGEPolicy [id number] Number: 2 LABER [id number] [facility], [place]:2016-08-03 [place] [address] 1124-84-01RS [address] [place], [place] [address]WP: 09/08/2017 CARRIE R Primary Insurance:MMO CARRIE Duval [id number] ADELA HMO NOT ARCHERDOB: [place] CONTRACTEDPolicy [id number] [facility] [address]Sdr: Number: Repository [phone] [id number] (HP) Date:0356-21-30HA [address] [place] [address]DV: 09/08/2017 Secondary NOT GIVENUNK Holstein Insurance:SELF PAY [facility] Number: Effective Repository Date:2017-09-08 09/08/2017 CARRIE R Primary Insurance:MMO CARRIE R Holstein [id number] [facility] NOT ARCHERDOB: [place] CONTRACTEDPolicy [id number] Hospital [address]Ket: Number: Repository [phone] [id number] -7 (HP) Date:0877-24-46IO [address] [place] [address]OG: 09/08/2017 Secondary NOT GIVENUNK Holstein Insurance:SELF PAY [facility] Number: Effective Repository Date:2017-09-08 09/08/2017 CARRIE R Primary Insurance:MMO CARRIE R Simin [id number] [facility] NOT ARCHERDOB: [place] CONTRACTEDPolicy [id number] Hospital [address]Rvy: Number: Repository [phone] [id number] -7 (HP) Date:1792-51-15SJ [address] [place] [address]RB: 09/08/2017 Secondary NOT GIVENUNK Simin Insurance:SELF PAY [facility] Number: Effective Repository Date:2017-09-08 09/07/2017 CARRIE R Primary CARRIE Harp [address] Insurance:[facility] Repository [address]Vzl: (419) Number: [phone] (HP) [id number] Date: [address] [place] [address]WP: 09/04/2017 Carrie ArcherDOB: Primary Carrie ArcherDOB: [facility] Insurance:Medical [id number] [facility] Repository [place], [place] Number: Effective [address]Htz: (419) Date: [phone] (HP) 09/03/2017 CARRIE R Primary CARRIE Loo Teofilo Azevedo ARCHERDOB: Insurance:[facility] Number: Repository ADELA CAMACHOETel: [id number] Date:4072-96-17HY [address]OX () [address] [place] [address]RC: 08/30/2017 CARRIE R Primary Insurance:MMO CARRIE Duval [id number] [place]LA HMO NOT ARCHERDOB: [place] CONTRACTEDPolicy [id number] [facility] 12955Xdk: Number: Repository [phone] [id number] (HP) Date:6983-66-14MO [address] [place] [address]AK: 08/30/2017 Secondary NOT [facility] Insurance:SELF PAY [facility] Number: Effective Repository Date:2017-08-30 08/17/2017 CARRIE R Primary CARRIE R Mormon ARCHERDOB: Insurance:INSURANCE ARCHERDOB: [facility] [id number] System ADELA Number: Effective [place] Repository [place] Date:2017-08-17 - [place] [id number]: 4963-66-52Meeq [id number]: Name:[facility] BOX () [address] [place] [address] ()Tel: [phone]: (wp) [phone] 08/17/2017 CARRIE R Primary CARRIE R Mormon ARCHERDOB: Insurance:1500 ARCHERDOB: [facility] [id number] System [place] Number: Effective [place] Repository [place] Date:2017-08-17 - [place] [id number]: 8943-43-34Pzoa [id number]: Name::[phone] O (HP) [address], [place] (HP)Tel: [phone]) [address]WP: (WP) [phone] 08/13/2017 Primary CARRIE Loo [facility] Insurance:Medical ARCHERDOB: [place] [facility] [id number] [place] [address] Number: ADELA Repository [id number] [place] Date:Plan [address]Nqf: (419) Name:[facility] [phone] (HP) [place], [place] [id number]: 07/18/2017 CARRIE R Primary CARRIE Jones ARCHERDOB: Insurance:ANTHEMPolic ARCHERDOB: [facility] y Number: Effective [id number] System [place]LA Date:2017-07-07 - [place] 5112-47-74Obqp [place] [id number]: Name:OtherP[phone]: 1235[address]Bghvnbm, [place] (HP) [address]EK: [phone] () [phone] (WP) 07/11/2017 CARRIE Loo Primary Insurance:[facility] CARRIE Garcia [facility] ARCHERDOB: [facility] ARCHERDOB: [facility] Number: [id number] Repository ST[place]ISH [id number] [facility] [place] Date:1957-06-05 [place] [address]Twr: [phone] [address] [phone] (HP) [address]JE [address]YWSAKVHIT, [place] [address]LN: 06/29/2017 CARRIE R Primary CARRIE Jones ARCHERDOB: Insurance:ANTHEMPolic ARCHERDOB: [facility] y Number: Effective [id number] System AEDLA Date:2017-06-22 - [place] 0110-25-66Cuqx [place] [id number]: Name:Other[phone]: [id number], [place] (HP) [phone]: ([phone]) (HP) 000-0000 (WP) 06/22/2017 CARRIE R Primary CARRIE Jones ARCHERDOB: Insurance:ANTHEMPolic ARCHERDOB: [facility] y Number: Effective [id number] System ADELA Date:2017-06-12 Repository [place] 1854-55-75Brdi [place] [address]Waa: Name:Other[phone]: [id number], [place] (HP) [phone]: (800) (HP) 000-0000 (WP) 06/02/2017 CARRIE R Primary CARRIE Loo Mormon ARCHERDOB: Insurance:ANTHEMPolic ARCHERDOB: [facility] y Number: Effective [id number] System ST[place] Date:2017-06-02 [place] Repository [place] 9998-58-99Kchm [place] [id number]: Name:[id number]: [id number], [place] (HP) [phone]: (800) (HP) 000-0000 (WP) 05/23/2017 Primary CARRIE R [facility] Insurance:[employer] ARCHERDOB: Fran[place] Number: [id number] [facility] [id number] 2 LAVER Repository Date:Plan Name:[place], [place] [address]Fgz: (HP)
== END 2018-04-30 19:04 | disposition left against medical advice (07) ==
PROVIDERS: Admitting Provider Internal Medicine; Referring Provider Internal Medicine; Visit Provider Internal Medicine
DX: F10.239 Alcohol dependence with withdrawal, unspecified (principal); R11.0 Nausea
CPT/HCPCS: 36415; 80053; 80320; 82150; 83690; 84703; 85025; 85610; 99218; G0378; G0379; G0480